=== PATIENT | male | born 1960 | race Caucasian/White ===

== ENCOUNTER → 2016-08-21 | Outpatient (CLI) | payer OTHER ==
[~2016-08-21] MED LIST: ALPR-385 PO; ASPEC81 PO; CARI350T28 PO; GLC5 PO; LPT40 PO; METF-384 PO; OXYC1TAB3 PO; PLV75 PO; VNTHFA/IN INH
--- NOTE | 2016-08-21 09:08 | DIAGNOSTIC IMAGING REPORT ---
CHEST 2 VIEWS ROUTINE HISTORY: Cough. COMPARISON: Chest 08/03/2015. FINDINGS: The lungs are clear. Cardiac silhouette is normal in size. No pleural effusions. No pneumothorax. IMPRESSION: No acute process. Electronically signed by: Kaiden Jacobson M.D. 08/21/2016 9:07 AM Dictated Date/Time: 08/21/2016 9:04 AM
== END | disposition home or self-care (01) ==
LOC: C.RAD1850 08:36
PROVIDERS: ATTEND Internal Medicine
DX: R05 Cough (principal)

== ENCOUNTER 2016-08-24 13:11 | Emergency (ER) | payer OTHER ==
[~2016-08-24] VITALS: Ht 177.8 cm; Wt 98.0 kg
[~2016-08-24 13:11] MED LIST changes: -ASPEC81 PO; -LPT40 PO; -OXYC1TAB3 PO; -PLV75 PO; -VNTHFA/IN INH
[2016-08-24 13:14] VITALS: BP 124/79; PULSE 77; TEMP 36.7; O2SAT 98; Ht 177.8 cm; Wt 98.0 kg
[2016-08-24] MEDS ORDERED: HYDROmorphone INJ 2 MG/ML SYR/VIAL IM STA (13:33)
[2016-08-24] MEDS ORDERED: KETOROLAC TROMETHAMINE 60 MG/2 ML VIAL IM STA (13:33)
[2016-08-24] MEDS ORDERED: VNTHFA/IN INH (14:24)
[2016-08-24] MEDS ORDERED: OXYC1TAB3 PO (14:38)
--- NOTE | 2016-08-24 14:38 | EMERGENCY ROOM VISIT NOTE ---
History First contact with patient: 13:19 Chief Complaint: BACK PAIN Stated Complaint: BACK PAIN History of Present Illness The patient is a 56 year old male who presents to the Emergency Room with complaints of low back pain which has been gradually increasing over the past one week. The patient does have a long history of back pain and states that he has a "collapsed" disc. He has previously seen Dr. Ku of pain management and used to receive injections in the back, but states that he has not been able to do this due to insurance issues. He states that he has pain in the left lower back radiating into the buttock as well as tightness of the right lower back muscles. He does state that this feels similar to previous back pain, but more severe. The pain is worse with movement and he occasionally becomes nauseated due to the pain. He states that he does have daily pain with his chronic back pain and typically smokes marijuana for relief of the pain. He saw his primary care provider 4 days ago and was given 30 tablets of oxycodone for this pain. He states that his most recent MRI was 2 years ago. He denies any abdominal pain, urinary symptoms, incontinence, numbness or weakness. He does state he occasionally has a feeling of pins and needles in the leg. He denies any fevers or chills. Review of Systems A complete 6 point review of systems was reviewed with the patient with pertinent positives and negatives as per history of present illness. All else were negative. Past Medical/Surgical History Medical Problems: (1) DENTAL DISORDER NOS (2) HYPERLIPIDEMIA NEC/NOS (3) OBESITY, NOS Social History Smoking Status: Current Every Day Smoker Alcohol Use: none Drug Use: none Marital Status: single Housing Status: lives alone Occupation Status: employed Current/Historical Medications Scheduled Albuterol Hfa (Ventolin Hfa), 2-4 PUFFS INH Q6H Glipizide (Glipizide), 10 MG PO BID Metformin Hcl (Glucophage), 1,000 MG PO BID Scheduled PRN Alprazolam (Xanax), 1 MG PO TID PRN for Pain Carisoprodol (Soma), 350 MG PO TID PRN for Pain Oxycodone Ir (Roxicodone Ir), 1-2 TAB PO Q4H PRN for Pain Allergies Coded Allergies: No Known Allergies (Verified , 08/24/16) Physical Exam Vital Signs Date Time Temp Pulse Resp B/P Pulse Ox O2 Delivery O2 Flow Rate FiO2 08/24/16 13:14 36.7 77 16 124/79 98 Room Air Physical Exam VITALS: Vitals are noted on the nurse's note and reviewed by myself. No abnormalities noted. GENERAL: This is a 56-year-old male, in no acute distress, nondiaphoretic, well- developed well-nourished. SKIN: The skin was without rashes, erythema, edema, or bruising. HEAD: Normocephalic atraumatic. EYES: Pupils equal round and reactive to light and accommodation. The Extraocular movements intact. NECK: Supple without nuchal rigidity. No cervical spine tenderness. No paraspinous muscle tenderness. No lymphadenopathy. HEART: Regular rate and rhythm without murmurs gallops or rubs. LUNGS: Clear to auscultation bilaterally without wheezes, rales or rhonchi. ABDOMEN: Positive bowel sounds x 4. Normal tympanic percussion. Soft, nontender, without masses or organomegaly. Negative axillary or inguinal adenopathy. Salcedo sign negative. MUSCULOSKELETAL: No muscle atrophy, erythema, or edema noted of the back. There is mild tenderness over the lumbar spinous processes. There is tenderness over the paraspinous muscles R>L. There is no tenderness over the thoracic spine or paraspinous muscles. There are no muscle spasms present. The patient is slow to move around with maximum tenderness with flexion. Negative straight leg raise test. NEURO: Patient was alert and oriented to person place and time. Normal sensation to light and sharp touch. Deep tendon reflexes 2+ in the lower extremities. Dorsalis pedis pulse 2+ bilaterally. Heel and toe walking is normal. Medical Decision & Procedures Medications Administered Medications (Trade) Dose Ordered Sig/[facility] Route Start Time Stop Time Status Last Admin Dose Admin Hydromorphone HCl (Dilaudid Inj) 2 mg NOW STAT IM 08/24/16 13:33 08/24/16 13:34 DC 08/24/16 13:42 2 MG Ketorolac Tromethamine (Toradol Inj) 60 mg NOW STAT IM 08/24/16 13:33 08/24/16 13:34 DC 08/24/16 13:43 60 MG Medical Decision Differential diagnosis includes lumbar disc disease, muscular strain, lumbar spasms, cauda equina syndrome, cord compression, malignancy, epidural abscess, osteomyelitis, among others. The patient was evaluated as above. Previous records were reviewed. The patient presents with chronic back pain which has worsened over the past one week. I am not clinically suspicious of cauda equina syndrome or cord compression. He did receive a prescription for 30 tablets of oxycodone which was confirmed by the [place] prescription drug monitoring program. The patient was very forthcoming with this information and did not try to hide any of the prescriptions he had received in the past. Therefore, I do feel it is reasonable to treat the patient's pain today and give him enough pain medication to last him until he is able to see his primary care provider or pain management tomorrow. He was given 2 mg Dilaudid IM and 60 mg Toradol IM with moderate relief of his symptoms. He was given a very small prescription for OxyIR. He will follow up with primary care provider and pain management and will return for any worsening or concerning symptoms. He verbalized understanding of my assessment and treatment plan and was discharged home in good condition. Impression Primary Impression: Acute exacerbation of chronic low back pain Departure Information Dispostion Home / Self-Care Condition GOOD Prescriptions Oxycodone Ir (Roxicodone Ir) 5 Mg Tab 1-2 TAB PO Q4H Y for Pain, #10 TAB For Initial Treatment Prov: Krystal Riddle .EDDIE 08/24/16 Referrals Kleber Zepeda M.D. (PCP) Patient Instructions My [facility] Additional Instructions You have been treated in the Emergency Department for Back Pain. You have received pain medicine in the emergency department which impairs your ability to operate a vehicle. It is illegal for you to drive after receiving these medicines. You have been prescribed OxyIR to be used for pain control. This is a narcotic medication. You cannot drive or consume alcohol while on this medicine. This medicine should only be used for pain that cannot be controlled with over-the- counter pain medicines. For pain control, you can use the following [id number] medicines (if >12 yo): - Regular strength (325mg/tab) Tylenol (acetaminophen) 2 tabs every 4-6 hours as needed. Do not exceed 12 tablets in a 24 hour period. Avoid taking more than 4 grams (4000 mg) of Tylenol per day. This includes any other sources of acetaminophen you may take on a regular basis. - Regular strength (200 mg/tab) Advil (ibuprofen) 1-2 tabs every 4-6 hours as needed. Do not exceed a dose of 3200 mg per day. If this is an acute injury, ice can be applied to the area of pain for the first 3 days to help decrease pain and inflammation. After the first 3 days, a heating pad can be used over the area for continued soothing relief. You should schedule a follow-up appointment in 2-3 days with your Primary Care Provider for further evaluation and treatment of your back pain. Return to the Emergency Department if your current symptoms worsen despite treatment course outlined above, or if you develop any of the following symptoms : intractable pain despite aforementioned treatment course, loss of control of your bowel or bladder, numbness or tingling in your groin, or development of a fever.
[2017-01-25] MEDS ORDERED: LPT40 PO (10:27)
[2017-01-25] MEDS ORDERED: PLV75 PO (10:27)
[2017-01-25] MEDS ORDERED: ASPEC81 PO (10:27)
== END 2016-08-24 15:00 | disposition home or self-care (01) ==
LOC: C.EDB 13:13 → C.EDD 15:00
DX: M54.5 Low back pain (principal); G89.29 Other chronic pain; E78.5 Hyperlipidemia, unspecified; E66.9 Obesity, unspecified; F17.210 Nicotine dependence, cigarettes, uncomplicated; Z79.899 Other long term (current) drug therapy

== ENCOUNTER 2017-01-03 02:03 | Emergency (ER) | payer OTHER ==
[~2017-01-03] VITALS: Ht 177.8 cm; Wt 97.0 kg
[~2017-01-03 02:03] MED LIST changes: +OXYC1TAB3 PO; +VNTHFA/IN INH
[2017-01-03 02:07] VITALS: Ht 177.8 cm; Wt 97.0 kg
[2017-01-03] MEDS ORDERED: PROMETHAZINE HCL INJ 25 MG/ML 1 ML VIAL IM STA (02:21)
[2017-01-03] MEDS ORDERED: KETOROLAC TROMETHAMINE 60 MG/2 ML VIAL IM STA (02:21)
[2017-01-03] MEDS ORDERED: HYDROmorphone INJ 2 MG/ML SYR/VIAL IM STA (02:21)
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
[2017-01-03] MEDS ORDERED: OXYC1TAB3 PO (04:35)
[2017-01-03 04:45] VITALS: BP 124/77; PULSE 82; TEMP 36.5; O2SAT 99
[2017-01-03] MEDS ORDERED: OXYCODONE IR HOME PACK PO ONE (04:45)
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
[2017-01-25] MEDS ORDERED: PLV75 PO (10:27)
[2017-01-25] MEDS ORDERED: LPT40 PO (10:27)
[2017-01-25] MEDS ORDERED: ASPEC81 PO (10:27)
== END 2017-01-03 04:46 | disposition home or self-care (01) ==
LOC: C.EDB 02:04
DX: S89.92XA Unspecified injury of left lower leg, initial encounter (principal); M79.661 Pain in right lower leg; V89.2XXA Person injured in unspecified motor-vehicle accident, traffic, initial encounter; S80.219A Abrasion, unspecified knee, initial encounter; S50.319A Abrasion of unspecified elbow, initial encounter; E78.5 Hyperlipidemia, unspecified; E66.9 Obesity, unspecified; F17.200 Nicotine dependence, unspecified, uncomplicated; F12.90 Cannabis use, unspecified, uncomplicated

== ENCOUNTER → 2017-01-05 | Outpatient (CLI) | payer OTHER ==
[~2017-01-05] MED LIST changes: +ASPEC81 PO; +LPT40 PO; +PLV75 PO
== END | disposition home or self-care (01) ==
LOC: C.RDSM 12:40
PROVIDERS: ATTEND Physical Medicine & Rehabilitation Sports Medicine
DX: M79.604 Pain in right leg (principal)

== ENCOUNTER 2017-01-24 07:45 | Inpatient (IN) | payer OTHER ==
[~2017-01-24] VITALS: Ht 177.8 cm; Wt 94.5 kg
[~2017-01-24 07:45] MED LIST changes: -ASPEC81 PO; -LPT40 PO; -PLV75 PO
[2017-01-24] MEDS ORDERED: SODIUM CHLORIDE 0.9% 1000ML 1,000 ML IV SCH (08:02)
[2017-01-24 08:13] LABS: BASO % 0.5 %; BASO ABS # 0.05 K/uL (0-0.2); COMPLETE YES; EOS % 5.2 %; HEMATOCRIT 52.9 % (42-52); IG% 0.2 %; LYMPH % 25.2 %; LYMPH ABS # 2.46 K/uL (1.2-3.4); MEAN CELL VOLUME 89.4 fL (80-100); MEAN CORPUSCULAR HEMOGLOBIN 30.4 pg (25-34); MEAN PLATELET VOLUME 9.1 fL (7.4-10.4); MONO % 6.9 %; PLATELET COUNT 188 K/uL (130-400); RED BLOOD COUNT 5.92 M/uL (4.7-6.1); WHITE BLOOD COUNT 9.78 K/uL (4.8-10.8)
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
[2017-01-24] MEDS ORDERED: ASPIRIN/ALUM/MAGNES/CAL CARB 325 MG TAB PO STA (08:21)
[2017-01-24 08:24] LABS: ISTAT IONIZED CALCIUM 1.24 mmol/l (1.12-1.32)
[2017-01-24 08:27] LABS: INR 0.9 (0.9-1.1)
[2017-01-24 08:37] LABS: BLOOD UREA NITROGEN 16 mg/dl (7-18); BUN/CREATININE RATIO 13.1 (10-20); CALCIUM 9.8 mg/dl (8.5-10.1); CARBON DIOXIDE 28 mmol/L (21-32); CHLORIDE 106 mmol/L (98-107); GLUCOSE 165 mg/dl (70-99); POTASSIUM 4.2 mmol/L (3.5-5.1); SODIUM 140 mmol/L (136-145)
[2017-01-24] MEDS ORDERED: ASPIRIN 324 MG CHEW PO ONE (08:55)
[2017-01-24] MEDS ORDERED: NICOTINE 21 MG/24 HR TDSY TD SCH (09:00)
[2017-01-24 09:07] VITALS: O2SAT 96; Ht 177.8 cm; Wt 94.5 kg
[2017-01-24] MEDS ORDERED: PHARMACIST DISCHARGE MED REC CONSULT PRN (09:45)
[2017-01-24] MEDS ORDERED: ACETAMINOPHEN 325 MG TAB PO PRN (09:45)
[2017-01-24] MEDS ORDERED: ALPRAZOLAM 0.5 MG TAB PO PRN (09:45)
[2017-01-24] MEDS ORDERED: ALUMINUM/MAGNESIUM/SIMETH (MAALOX MAX) 30 ML UDC PO PRN (09:45)
[2017-01-24] MEDS ORDERED: CARISOPRODOL 350 MG TAB PO PRN (09:45)
[2017-01-24] MEDS ORDERED: MAGNESIUM HYDROXIDE SUSP 30 ML UDC PO PRN (09:45)
[2017-01-24] MEDS ORDERED: ONDANSETRON INJ 2 MG/ML 2 ML VIAL IV PRN (09:45)
[2017-01-24] MEDS ORDERED: POLYETHYLENE (MIRALAX) 17 GM PACK PO PRN (09:45)
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
[2017-01-24 10:10] VITALS: O2SAT 94
[2017-01-24] MEDS ORDERED: GLUCOSE 40% GEL 15 GM TUBE PO PRN (10:15)
[2017-01-24] MEDS ORDERED: GLUCOSE 10 TABS/TUBE PO PRN (10:15)
[2017-01-24] MEDS ORDERED: DEXTROSE 50% 50 ML SYR IV PRN (10:15)
[2017-01-24] MEDS ORDERED: GLUCAGON FOR INJ 1 MG VIAL SQ PRN (10:15)
[2017-01-24 11:19] LABS: ESTIMATED AVERAGE GLUCOSE 171 mg/dl; HA1C FLAG Normal (Normal)
--- NOTE | 2017-01-24 11:19 | DIAGNOSTIC IMAGING REPORT ---
CAROTID ARTERY ULTRASOUND CLINICAL HISTORY: Stroke COMPARISON STUDY: None. TECHNIQUE: Real-time, grayscale, and color Doppler sonography of the carotid and vertebral arteries was performed. Images were viewed in the transverse and longitudinal planes. FINDINGS: There is mild atherosclerotic plaque. Velocity measurements are listed below. COMMON CAROTID PEAK SYSTOLIC VELOCITY (CM/S): RIGHT 102 LEFT 89 ICA PEAK SYSTOLIC VELOCITY (CM/S): RIGHT 70 LEFT 78 The systolic ratios between the internal to common carotid arteries were normal. Antegrade flow is seen in the vertebral arteries. The external carotid arteries are patent. Blood pressure in the right arm measured 133/73. Blood pressure in the left arm measured 136/74. IMPRESSION: No evidence of a hemodynamically significant stenosis. Electronically signed by: Bandar Powers M.D. 01/24/2017 11:17 AM Dictated Date/Time: 01/24/2017 11:15 AM
[2017-01-24 11:21] LABS: BENZODIAZEPINE, URINE NEG (NEG); COCAINE,URINE NEG (NEG); PHENCYCLIDINE, URINE NEG (NEG)
--- NOTE | 2017-01-24 11:57 | DIAGNOSTIC IMAGING REPORT ---
MRI OF THE BRAIN WITHOUT AND WITH IV CONTRAST CLINICAL HISTORY: Stroke. Right facial and hand numbness. Slurred speech. COMPARISON STUDY: Head CT performed earlier today TECHNIQUE: Utilizing a 1.5 [place] magnet and dedicated coil, multiplanar, multiecho imaging of the brain was performed pre and postcontrast administration. IV administration of 10 mL of Gadavist contrast was uneventful. FINDINGS: Faint increased signal intensity is noted within the posterior left frontal lobe and anterior left parietal lobe shown on diffusion weighted images 16, 17 and 18. This is probably artifactual although a small acute infarct could have this appearance. No corresponding signal abnormality shown on the remainder of the pulsing sequences. No intracranial mass or pathologic enhancement is present. Ventricular system is normal. Basilar cisterns are patent. There are no extra-axial collections. Flow-voids for the major intracranial vessels are present. Several signal is maintained. There are postsurgical findings within the sinuses. There is a left maxillary sinus mucous retention cyst. IMPRESSION: 1. No definite acute intracranial findings. Equivocal acute infarct with the left frontoparietal region is probably artifactual. No corresponding signal abnormality on the FLAIR sequence. 2. No intracranial hemorrhage or mass effect. Electronically signed by: Bandar Powers M.D. 01/24/2017 11:56 AM Dictated Date/Time: 01/24/2017 11:49 AM
--- NOTE | 2017-01-24 12:28 | DIAGNOSTIC IMAGING REPORT ---
RIGHT LOWER EXTREMITY VENOUS DOPPLER CLINICAL HISTORY: Trauma. Evaluate for deep venous thrombus. COMPARISON STUDY: No previous studies for comparison. TECHNIQUE: Sonography of the deep venous system of the right lower extremity was performed. Compression and augmentation were evaluated. FINDINGS: The right common femoral, superficial femoral and popliteal veins were compressible. Augmentation was normal. Flow was shown within the deep calf vessels. IMPRESSION: No evidence of deep venous thrombus within the right lower extremity. Electronically signed by: Bandar Powers M.D. 01/24/2017 12:26 PM Dictated Date/Time: 01/24/2017 12:26 PM
[2017-01-24 12:30] VITALS: BP 112/76; PULSE 60; TEMP 36.6; O2SAT 97
[2017-01-24] MEDS: INSULIN ASPART 100 UNITS/ML 3 ML PEN SC SCH ×3 (12:43→21:00)
[2017-01-24] MEDS: ENOXAPARIN 40 MG/0.4 ML SYR SC SCH (13:26)
[2017-01-24] MEDS ORDERED: OPTIRAY 320 IV PRN (13:30)
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
[2017-01-24 15:23] VITALS: BP 136/77; PULSE 63; TEMP 37; O2SAT 97
[2017-01-24 19:47] VITALS: BP 128/75; PULSE 73; TEMP 36.6; O2SAT 94
[2017-01-24] MEDS ORDERED: METFORMIN HCL 500 MG TAB PO SCH (21:00)
--- NOTE | 2017-01-24 21:02 | DIAGNOSTIC IMAGING REPORT ---
CT ANGIOGRAPHY OF THE NECK WITH CONTRAST CLINICAL HISTORY: Right facial and hand numbness. Stroke workup. COMPARISON STUDY: Carotid ultrasound January 24, 2017. Technique: CT angiography of the carotid and vertebral arteries was obtained using OptiraAutopilot (formerly Bislr) 320 IV and 3D reconstruction on an independent workstation. NASCET criteria was utilized. CT DOSE: 587.97 mGy.cm Findings: The origins of the bilateral common carotid and vertebral arteries are patent. There is no significant stenosis within the bilateral common carotid arteries. There is mild plaque at the origin of the right internal carotid artery without significant stenosis. There is moderate plaque within the left carotid bifurcation extending into the proximal aspect of the left internal carotid artery. Irregularity of the plaque suggests ulcerated plaque. There is approximately 50% stenosis of the proximal left internal carotid artery. The narrowed segment measures 2 mm while the distal segment measures 4 mm. No additional stenoses are identified. There is no cervical lymphadenopathy. Lung apices are clear. Skeletal structures are unremarkable. The CTA of the head will be reported separately. IMPRESSION: 1. Moderate atherosclerotic plaque within the distal left common carotid artery and proximal left internal carotid artery which appears ulcerated. This results in short segment narrowing of the proximal left internal carotid artery with stenosis of 50%. 2. Mild plaque within the proximal right internal carotid artery without significant stenosis of this vessel. Electronically signed by: Bandar Powers M.D. 01/24/2017 9:00 PM Dictated Date/Time: 01/24/2017 8:49 PM
--- NOTE | 2017-01-24 21:09 | DIAGNOSTIC IMAGING REPORT ---
CTA ANGIOGRAPHY OF THE HEAD CLINICAL HISTORY: Stroke workup. Right facial and hand numbness. COMPARISON STUDY: Head CT and MRI of the brain performed earlier today. TECHNIQUE: Helical axial images of the head were obtained following uneventful intravenous administration of 116 cc of Optiray 320. FINDINGS: The bilateral M1, M2, A1 and A2 segments are patent. There is no abrupt vessel cut off within the intracranial circulation. The posterior circulation is also intact. No aneurysm is identified. There is no dissection within the major vessels of the neck. Postsurgical findings within the sinuses are noted with a mucous retention cyst within the left maxillary sinus. No acute intracranial hemorrhage, midline shift or mass effect is present. Ventricular system is normal. Basilar cisterns are patent. There are no extra axial collections. IMPRESSION: Unremarkable CTA of the head. Electronically signed by: Bandar Powers M.D. 01/24/2017 9:07 PM Dictated Date/Time: 01/24/2017 9:01 PM
[2017-01-24 23:37] VITALS: BP 127/80; PULSE 53; TEMP 36.7; O2SAT 96
[2017-01-25 04:01] VITALS: BP 137/81; PULSE 58; TEMP 36.6; O2SAT 97
[2017-01-25] MEDS: INSULIN ASPART 100 UNITS/ML 3 ML PEN SC SCH ×2 (06:58→11:00)
[2017-01-25 07:07] VITALS: BP 117/76; PULSE 50; TEMP 37; O2SAT 98
[2017-01-25 07:12] LABS: BASO % 0.9 %; BASO ABS # 0.07 K/uL (0-0.2); COMPLETE YES; EOS % 6.2 %; HEMATOCRIT 50.6 % (42-52); IG% 0.2 %; LYMPH % 26.4 %; LYMPH ABS # 2.13 K/uL (1.2-3.4); MEAN CELL VOLUME 88.9 fL (80-100); MEAN CORPUSCULAR HEMOGLOBIN 31.3 pg (25-34); MEAN CORPUSCULAR HGB CONC 35.2 g/dl (32-36); MEAN PLATELET VOLUME 9.4 fL (7.4-10.4); MONO % 7.2 %; NEUT % 59.1 %; PLATELET COUNT 163 K/uL (130-400); RED BLOOD COUNT 5.69 M/uL (4.7-6.1); WHITE BLOOD COUNT 8.08 K/uL (4.8-10.8)
[2017-01-25] MEDS: ENOXAPARIN 40 MG/0.4 ML SYR SC SCH (07:15)
[2017-01-25 07:49] LABS: BUN/CREATININE RATIO 11.6 (10-20); CALCIUM 8.8 mg/dl (8.5-10.1); POTASSIUM 4.2 mmol/L (3.5-5.1)
[2017-01-25 07:52] LABS: CHOLESTEROL/HDL RATIO 5.2
[2017-01-25] MEDS ORDERED: ASPIRIN 81 MG ECTAB PO SCH ×2 (09:00)
[2017-01-25] MEDS ORDERED: ATORVASTATIN 40 MG TAB PO SCH (09:00)
[2017-01-25] MEDS ORDERED: CLOPIDOGREL BISULFATE 75 MG TAB PO SCH (10:15)
[2017-01-25] MEDS ORDERED: ASPEC81 PO (10:27)
[2017-01-25] MEDS ORDERED: LPT40 PO (10:27)
[2017-01-25] MEDS ORDERED: PLV75 PO (10:27)
--- NOTE | 2017-01-25 10:58 | Discharge Instructions ---
Discharge Instructions Date of Service Jan 25, 2017. Admission Reason for Admission: Stroke Discharge Discharge Diagnosis / Problem: Transient ischemic attack Discharge Goals Goal(s): Improve function, Improve disease control Activity Recommendations Activity Limitations: resume your previous activity Lifting Limitations: none Exercise/Sports Limitations: as tolerated (30 minutes 5 days a week) May Resume Sexual Activity: when tolerated Shower/Bathe: no limitations Driving or Machine Use: no limitations . Instructions / Follow-Up Instructions / Follow-Up Medications: - Plavix: initiated with evidence of stenosis in the left carotid artery and stroke like symptoms, continue indefinitely for stroke prevention - Lipitor: statin to prevent future strokes, control carotid atherosclerosis, cholesterol levels were near goal with LDL 112 but ideally should be less than 100 - Aspirin: 81mg, take in addition to Plavix for one month, after one month can stop taking Aspirin as Plavix will be sufficient stroke prevention right sided numbness, facial droop, right hand weakness: likely a small stroke or transient ischemic attack MRI did not show clear evidence of a stroke carotid imaging showed left internal carotid stenosis of 50%, this does not require intervention but does need to be monitored as outpatient with ultrasound every 6 months echocardiogram normal and no arrhythmias secondary stroke prevention: several things that you can do to prevent further strokes - take Plavix as prescribed, take aspirin for the next month then stop - take Lipitor to lower cholesterol and stabilize plaques - blood pressure control, you had no evidence of hypertension while in the hospital - diabetes control, your HbA1c was 7.6 so it is nearly at goal of 7.5, continue oral medications, make an extra effort to limit carbohydrates in diet - weight loss - stop smoking carotid artery stenosis: 50%, no intervention required, however, you need to have repeat US in 6-12 months, Dr. Zepeda will order and follow FOLLOW UP - Dr. Zepeda in one week, call for appointment, discuss getting an echo as outpatient - Dr. Alicea in one month, call for appointment, Risk Factors for Stroke: You can reduce your chances of stroke by working with your medical provider to adopt a healthy lifestyle. Some specific ways to lower your chance of stroke are: * If you are a smoker, now is the time to stop smoking cigarettes * If you are diabetic, improve the control of your blood sugars * Avoid excessive amounts of alcohol * Control high blood pressure * Lose weight if you are overweight * Be sure to lead an active lifestyle * Eat a healthy diet low in salt, cholesterol and fat You should know about other risk factors for stroke that you are unable to control. These include: * Age 55 years or older * Male gender * Certain racial groups: , or / * Family History of Stroke, Mini stroke or Heart Attack * Sickle Cell Disease Follow Up: It is important for you to keep your follow up appointments with your medical provider. Current Hospital Diet Patient's current hospital diet: Diabetes Type 2 Diet Discharge Diet Recommended Diet: AHA Diet (Heart Healthy), Diabetes Type 2 Diet Pending Studies Studies pending at discharge: yes List of pending studies: hypercoagulable work up, Dr. Alicea will discuss results at follow up clinic Laboratory Results Hemoglobin A1c Test 01/24/17 08:00 Range/Units Estimated Average Glucose 171 mg/dl Hemoglobin A1c 7.6 H 4.5-5.6 % Lipid Panel Test 01/25/17 06:45 Range/Units Triglycerides Level 149 0-150 mg/dl Cholesterol Level 176 0-200 mg/dl HDL Cholesterol 34 mg/dl Cholesterol/HDL Ratio 5.2 LDL Cholesterol, Calculated 112 mg/dl Medical Emergencies . Who to Call and When: Medical Emergencies: Call 911 immediately if you experience any of the following warning signs and symptoms of Stroke: * Sudden numbness or weakness of the face, arm or leg, especially on one side of the body * Sudden confusion, trouble speaking or understanding * Sudden trouble seeing in one or both eyes * Sudden trouble walking, dizziness, loss of balance or coordination * Sudden severe headache with no cause Do not delay calling 911 if you experience any warning signs or symptoms of a stroke. Delay in seeking medical attention may affect what treatments can be given to you. . Non-Emergent Contact Non-Emergency issues call your: Primary Care Provider Call Non-Emergent contact if: you have any medication questions . . "Provider Documentation" section prepared by Jerrod Cortes. . Stroke Core Measures Reason no t-PA for Stroke: Treatment not indicated Reason no antithrom by day 2: Treatment provided - N/A Reason no antithrom at D/C: Treatment provided - N/A Reason no statin at D/C: Treatment provided - N/A Reason no anticoag w/a fib: Treatment not indicated VTE Core Measure Inpt VTE Proph given/why not?: Enoxaparin (Lovenox)SQ [place] Drug Monitoring Program Search Results: no issues identified
[2017-01-25 10:59] VITALS: BP 149/84; PULSE 58; TEMP 37.1; O2SAT 98
[2017-01-25 11:06] VITALS: BP 149/84; PULSE 58; TEMP 37.1; O2SAT 98
--- NOTE | 2017-01-25 11:16 | Discharge Summary ---
Discharge Summary Date of Service Jan 25, 2017. Discharge Summary Admission Date: Jan 24, 2017 at 09:49 Discharge Date: Jan 25, 2017 Discharge Disposition: Home Principal Diagnosis: Transient ischemic attack Problems/Secondary Diagnoses: Left internal carotid artery stenosis Dyslipidemia DM type II Tobacco abuse Marijuana abuse Obesity Procedures: MRI brain - likely artifact in left frontal lobe, no signs of stroke Carotid US - 50% L ICA stenosis Consultations: Neurology Medication Reconciliation New Medications: Aspirin (Aspirin EC Low Dose) 81 Mg Ectab 81 MG PO QAM, #30 TABS 3 Refills Atorvastatin (Atorvastatin Calcium) 40 Mg Tab 40 MG PO QAM, #30 TAB 2 Refills Clopidogrel Bisulfate (Clopidogrel) 75 Mg Tab 75 MG PO QAM, #30 TAB 3 Refills Continued Medications: Alprazolam (Xanax) 1 Mg Tab 1 MG PO TID PRN for Pain Carisoprodol (Soma) 350 Mg Tab 350 MG PO TID PRN for Pain, 0 Refills Glipizide (Glipizide) 5 Mg Tab 10 MG PO BID Metformin Hcl (Glucophage) 1,000 Mg Tab 1000 MG PO BID Discharge Exam Patient feeling well, no symptoms today. Anxious to get home. Discussed with Dr. Alicea, repeat MRI would not pattern changer and repairer, would only potentially change diagnosis from TIA to stroke. Likely cause of symptoms was large vessel disease with left ICA stenosis. Long talk with patient about secondary stroke prevention and need to be compliant with medications, get exercise, lose weight , stop smoking. Discussed getting echocardiogram as outpatient as part of the work up and he agreed to do this. Review of Systems: Constitutional: No fever, No chills, No sweats, No weight loss, No weakness , No fatigue, No problem reported Eyes: No worsening of vision, No eye pain, No redness, No discharge, No diplopia, No problem reported ENT: No hearing loss, No unusual epistaxis, No nasal symptoms, No sore throat, No tinnitus, No dental problems, No trouble swallowing, No problem reported Respiratory: No cough, No sputum, No wheezing, No shortness of breath, No dyspnea on exertion, No dyspnea at rest, No hemoptysis, No problem reported Cardiovascular: No chest pain, No orthopnea, No PND, No edema, No claudication, No palpitations, No problem reported Abdomen: No pain, No nausea, No vomiting, No diarrhea, No constipation, No GI bleeding, No problem reported Musculoskeletal: No joint pain, No muscle pain, No swelling, No calf pain, No problem reported Genitourinary - Male: No hematuria, No dysuria, No urinary frequency, No urinary urgency Neurologic: No memory loss, No paralysis, No weakness, No numbness/tingling , No vertigo, No balance problems, No problem reported Psychiatric: + anxiety (wants to go to smoke), No depression symptoms, No anhedonism, No insomnia, No substance abuse, No problem reported Endocrine: No fatigue, No excessive thirst, No excessive urination, No problem reported Hematologic / Lymphatic: No abnormal bleeding/bruising, No clotting problems , No swollen lymph nodes, No night sweats, No problem reported Integumentary: No rash, No itch, No new/changing skin lesions, No color change, No bleeding, No problem reported Physical Exam: General Appearance: no apparent distress, + obese Eyes: normal inspection, EOMI, sclerae normal ENT: normal ENT inspection, hearing grossly normal, pharynx normal Neck: supple, no adenopathy, no JVD, trachea midline Respiratory/Chest: chest non-tender, lungs clear, normal breath sounds, no respiratory distress, no accessory muscle use Cardiovascular: regular rate, rhythm, no edema, no gallop, no JVD, no murmur , normal peripheral pulses Abdomen / GI: normal bowel sounds, non tender, soft, no organomegaly Extremities: normal inspection, no calf tenderness, normal capillary refill , no pedal edema, normal range of motion Neurologic/Psychiatric: 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 Cobos is a 56 y/o male with PMHx of T2DM, Chronic Tobacco Use, Chronic Marijuana Use, and Chronic Low Back Pain 2/2 Degenerative Changes who presents to the ED for sudden onset of R hand and face numbness/tingling, weaknessn and slurred speech that started at approx. 0700. Last known well was just prior to this as he woke up before 0700 his normal self. Suspect TIA - symptoms completely resolved - Symptoms affect R hand to wrist only and R cheek and mouth; family reports slurred speech and difficulty finding words - forehead wrinkling present and unlikely [place] Palsy - MRI brain: likely artifactual finding in left frontoparietal region, no clear signs of ischemic stroke - Carotid doppler: 50% stenosis in L ICA, ulcerated plaques - Echo: could not be performed in timely manner, will get outpatient - tele, no arrhythmias recommendations per neurology for secondary stroke prevention - dual antiplatelet therapy with aspirin and Plavix for one month, then just Plavix - take Lipitor 40mg daily to lower cholesterol and stabilize plaques - blood pressure control, no h/o HTN - HbA1c was 7.6 so it is nearly at goal of 7.5, continue oral medications, make an extra effort to limit carbohydrates in diet - weight loss - stop smoking - will follow up with neurology in clinic in one month, hypercoagulable work up sent and Dr. Alicea will follow up on results T2DM: - Check A1c - 7.6 - continue Metformin and Glipizide, discussed making an extra effort to watch carbohydrate intake Dyslipidemia: LDL 112 so not quite at goal of < 100 - d/c on Lipitor 40mg daily Chronic Low Back Pain 2/2 Degenerative Changes: Follows with Dr. Ku - Soma 350 mg TID PRN Chronic Tobacco/Marijuana Use: - Recommended cessation - patient reports he smokes 1/2 ppd but typically smokes marijuana - Does have a chronic productive cough related to smoking - reports outpatient PFTS that did not suggest asthma or COPD - Nicotine patch daily while in the hospital - will d/w Dr. Zepeda cessation methods DVT Prophylaxis: Lovenox 40 mg SC daily Code Status: FULL RESUSCITATION Total Time Spent: Greater than 30 minutes This includes examination of the patient, discharge planning, medication reconciliation, and communication with other providers. Discharge Instructions Please refer to the electronic Patient Visit Report (Discharge Instructions) for additional information. Follow-Up Dr. Zepeda in one week Dr. Alicea in one month Additional Copies To Kleber Zepeda M.D.; Jolly Montejo D.O.
--- NOTE | 2017-01-25 11:52 | Neurology Progress Notes ---
Neurology Progress Note Date of Service Jan 25, 2017. Subjective Patient continues to be at his baseline. No new neurological symptoms. CTA of the head and neck reviewed. Noted to have moderate atherosclerotic plaque in the distal left carotid artery and proximal left ICA with ulcerated appearance. 50% stenosis of the left ICA. Mild plaque formation in the right ICA. Total cholesterol 176, LDL 112, HDL 34, triglycerides 149 Objective Date Time Temp Pulse Resp B/P (MAP) Pulse Ox O2 Delivery O2 Flow Rate FiO2 01/25/17 11:06 37.1 58 16 98 Room Air 01/25/17 10:59 37.1 58 16 149/84 (105) 98 Room Air 01/25/17 08:00 Room Air 01/25/17 07:07 37.0 50 16 117/76 (90) 98 Room Air 01/25/17 04:01 36.6 58 16 137/81 (99) 97 Room Air 01/25/17 04:00 Room Air 01/24/17 23:59 Room Air 01/24/17 23:37 36.7 53 16 127/80 (96) 96 Room Air 01/24/17 20:00 Room Air 01/24/17 19:47 36.6 73 20 128/75 (92) 94 Room Air 01/24/17 16:00 Room Air 01/24/17 15:23 37.0 63 20 136/77 (96) 97 Room Air 01/24/17 12:30 36.6 60 20 112/76 (88) 97 Room Air Last 24 Hours Test 01/24/17 12:36 01/24/17 16:27 01/24/17 20:52 01/25/17 06:45 Bedside Glucose 121 mg/dl 179 mg/dl 149 mg/dl White Blood Count 8.08 K/uL Red Blood Count 5.69 M/uL Hemoglobin 17.8 g/dL Hematocrit 50.6 % Mean Corpuscular Volume 88.9 fL Mean Corpuscular Hemoglobin 31.3 pg Mean Corpuscular Hemoglobin Concent 35.2 g/dl Platelet Count 163 K/uL Mean Platelet Volume 9.4 fL Neutrophils (%) (Auto) 59.1 % Lymphocytes (%) (Auto) 26.4 % Monocytes (%) (Auto) 7.2 % Eosinophils (%) (Auto) 6.2 % Basophils (%) (Auto) 0.9 % Neutrophils # (Auto) 4.78 K/uL Lymphocytes # (Auto) 2.13 K/uL Monocytes # (Auto) 0.58 K/uL Eosinophils # (Auto) 0.50 K/uL Basophils # (Auto) 0.07 K/uL RDW Standard Deviation 44.2 fL RDW Coefficient of Variation 13.4 % Immature Granulocyte % (Auto) 0.2 % Immature Granulocyte # (Auto) 0.02 K/uL Sodium Level 140 mmol/L Potassium Level 4.2 mmol/L Chloride Level 108 mmol/L Carbon Dioxide Level 26 mmol/L Anion Gap 6.0 mmol/L Blood Urea Nitrogen 12 mg/dl Creatinine 1.00 mg/dl Est Creatinine Clear Calc Drug Dose 96.3 ml/min Estimated GFR () 97.8 Estimated GFR (Non- 84.4 BUN/Creatinine Ratio 11.6 Random Glucose 154 mg/dl Calcium Level 8.8 mg/dl Total Bilirubin 0.9 mg/dl Direct Bilirubin 0.2 mg/dl Aspartate Amino Transf (AST/SGOT) 11 U/L Alanine Aminotransferase (ALT/SGPT) 22 U/L Alkaline Phosphatase 75 U/L Total Protein 6.7 gm/dl Albumin 3.5 gm/dl Triglycerides Level 149 mg/dl Cholesterol Level 176 mg/dl HDL Cholesterol 34 mg/dl LDL Cholesterol, Calculated 112 mg/dl VLDL Cholesterol, Calculated 30 mg/dl Cholesterol/HDL Ratio 5.2 Test 01/25/17 06:46 01/25/17 10:58 Bedside Glucose 146 mg/dl 198 mg/dl Exam: Gen.: Patient is alert and sitting in bed, in no acute distress. HEENT: Normocephalic /atraumatic, no scleral icterus Extremities: No gross deformities or rashes noted Neurological examination: Mental status: Patient is alert and oriented x3. Attention and concentration normal for the situation. Good fund of knowledge. Able to give her own history. Speech is fluent without any dysarthria or aphasia noted Cranial nerve: No facial asymmetry noted.Hearing grossly intact to voice. Strength: full in all extremities. Gait normal Impression This is a 56-year-old male who presents with sudden onset of right facial and hand numbness along with significant right hand weakness, concerning for a TIA versus small ischemic event. Likely large vessel embolic etiology. No stroke risk factors include diabetes and dyslipidemia with signs of left carotid atherosclerotic arterial disease. No residual neurological deficits. Plan Recommend aspirin 81 mg and Plavix 75 mg daily for the next month. After that can discontinue aspirin and remain on Plavix monotherapy. Due to questionable finding on previous MRI, ideally would like to get another MRI of the brain to classify this as a definitive TIA versus a small skin stroke. Hypercoagulable labs are pending. These labs will have to be followed up as an outpatient. Echocardiogram pending. Avoid hypotension and dehydration Stroke risk factor modifications and recommendations: Blood pressure recommendations for the first month post hospital discharge 150/ 90-130/80, and after that blood pressure recommendations 130/80-110/70 Total cholesterol goal 100- 200 and LDL goal less than 70 Hemoglobin A1c goal less than 7 Encourage cardiovascular exercise at least 3 times a week for 30 minutes. Smoking cessation Follow-up in neurology clinic in 1 month for post stroke hospital follow-up. If there is any questions or concerns, feel free to call/page me.
[2017-01-31 12:30] LABS: ANTITHROMBINIII ACTIVITY** 111 % activity (80-120); B2 GLYCOPROTEIN IGA <9 SAU (<=20); B2 GLYCOPROTEIN IGG <9 SGU (<=20); B2 GLYCOPROTEIN IGM <9 SMU (<=20); LUPUS ANTICOAGULANT** TC36573X Negative (Negative); PROTEIN C ACTIVITY** TC 1777X 115 % (70-180); PROTEIN S ACT(FUNCT)**1779X 125 % (70-150)
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
== END 2017-01-25 11:38 | disposition home or self-care (01) | DRG 69 ==
LOC: C.EDB 07:48 → C.2T 09:49 → ENRESERV 10:13
PROVIDERS: ADMIT Internal Medicine; ATTEND Internal Medicine
DX: G45.9 Transient cerebral ischemic attack, unspecified (principal); E11.9 Type 2 diabetes mellitus without complications; F17.210 Nicotine dependence, cigarettes, uncomplicated; M54.5 Low back pain; E78.5 Hyperlipidemia, unspecified; F12.10 Cannabis abuse, uncomplicated; E66.9 Obesity, unspecified; R29.701 NIHSS score 1; R20.9 Unspecified disturbances of skin sensation; I10 Essential (primary) hypertension

== ENCOUNTER → 2017-01-28 | Outpatient (CLI) | payer OTHER ==
[~2017-01-28] MED LIST changes: +ASPEC81 PO; +LPT40 PO; -OXYC1TAB3 PO; +PLV75 PO; -VNTHFA/IN INH
[2017-01-28 12:48] LABS: BLOOD UREA NITROGEN 15 mg/dl (7-18)
== END | disposition home or self-care (01) ==
LOC: C.LABBFT 07:50
PROVIDERS: ATTEND Physician Assistant Medical
DX: E11.9 Type 2 diabetes mellitus without complications (principal)

== ENCOUNTER → 2017-08-17 | Outpatient (CLI) | payer OTHER ==
[2017-08-17 17:44] LABS: BASO % 0.7 %; BASO ABS # 0.08 K/uL (0-0.2); EOS % 4.8 %; EOS ABS # 0.56 K/uL (0-0.5); HEMATOCRIT 47.2 % (42-52); HEMOGLOBIN 16.9 g/dL (14.0-18.0); IG# 0.04 K/uL (0.00-0.02); LYMPH % 21.7 %; LYMPH ABS # 2.52 K/uL (1.2-3.4); MEAN CELL VOLUME 90.2 fL (80-100); MEAN CORPUSCULAR HEMOGLOBIN 32.3 pg (25-34); MEAN CORPUSCULAR HGB CONC 35.8 g/dl (32-36); MEAN PLATELET VOLUME 9.5 fL (7.4-10.4); MONO % 6.8 %; MONO ABS # 0.79 K/uL (0.11-0.59); NEUT % 65.7 %; NEUT ABS # 7.61 K/uL (1.4-6.5); PLATELET COUNT 174 K/uL (130-400); RED CELL DISTRIBUTION WIDTH CV 13.4 % (11.5-14.5)
[2017-08-17 18:04] LABS: ALBUMIN 4.1 gm/dl (3.4-5.0); ALT/SGPT 24 U/L (12-78); AST/SGOT 9 U/L (15-37); BLOOD UREA NITROGEN 13 mg/dl (7-18); CALCIUM 9.3 mg/dl (8.5-10.1); CARBON DIOXIDE 27 mmol/L (21-32); CREATININE 1.17 mg/dl (0.60-1.40); GLUCOSE 117 mg/dl (70-99); GLUCOSE,FASTING 117 mg/dl (70-99); POTASSIUM 4.6 mmol/L (3.5-5.1); SODIUM 135 mmol/L (136-145)
[2017-08-17 18:09] LABS: ALKALINE PHOSPHATASE 84 U/L (45-117); CHOLESTEROL 115 mg/dl (0-200); LDL CHOLESTEROL CALCULATED 49 mg/dl; TOTAL PROTEIN 7.4 gm/dl (6.4-8.2)
[2017-08-17 18:09] LABS: CREATININE RANDOM URINE 37.7 mg/dl
[2017-08-18 05:53] LABS: HEMOGLOBIN A1C 7.1 % (4.5-5.6)
== END | disposition home or self-care (01) ==
LOC: C.LABBFT 14:06
PROVIDERS: ATTEND Internal Medicine
DX: E11.9 Type 2 diabetes mellitus without complications (principal); E78.5 Hyperlipidemia, unspecified; E53.8 Deficiency of other specified B group vitamins; Z12.5 Encounter for screening for malignant neoplasm of prostate; R11.10 Vomiting, unspecified

== ENCOUNTER 2018-02-24 13:49 | Emergency (ER) | payer SELFPAY ==
[~2018-02-24] VITALS: Ht 177.8 cm; Wt 100.2 kg
[~2018-02-24 13:49] MED LIST changes: -ASPEC81 PO; +ASPI-320 PO
[2018-02-24 13:53] VITALS: TEMP 36.9
--- NOTE | 2018-02-24 14:19 | EMERGENCY ROOM VISIT NOTE ---
History Report prepared by Michael: Swati Hilliard Under the Supervision of: Dr. Марина Boudreaux M.D. First contact with patient: 14:03 Chief Complaint: NEURO SYMPTOMS Stated Complaint: ARM NUMBNESS, FACE NUMBESS History of Present Illness The patient is a 58 year old male who presents to the Emergency Room with complaints of right arm numbness beginning at 1000 this morning. He notes that this morning he developed intermittent right arm numbness which concerned him as he had a mini stroke on January 24, 2017. He reports he is under a lot of stress right now due to work and insurance and he feels this is worsening his symptoms. The patient notes he has a collapsed disc in his lumbar spine. He has a headache but denies any facial drooping, difficulty using his right arm, or weakness. The patient does note he smoked marijuana today and typically smokes 1 -2 times every day. He was a formed cigarette smoker and quit on July 27, 2017. He states he has been off of Lipitor and Plavix since July. Source of History: patient Onset: 1000 this morning Position: arm (right) Quality: numbness Timing: intermittent Modifying Factors (Worsening): other (work and insurance) Associated Symptoms: + headache, No weakness Note: Negative facial drooping or difficulty using his right arm Review of Systems See HPI for pertinent positives & negatives. A total of 10 systems reviewed and were otherwise negative. Past Medical & Surgical Medical Problems: (1) DENTAL DISORDER NOS (2) HYPERLIPIDEMIA NEC/NOS (3) OBESITY, NOS (4) Stroke Family History Diabetes mellitus Hypertension Social History Smoking Status: Former Smoker Alcohol Use: none Drug Use: marijuana Marital Status: single Housing Status: lives with family Occupation Status: employed Current/Historical Medications Scheduled Aspirin (Aspirin EC Low Dose), 81 MG PO QAM Atorvastatin (Lipitor), 40 MG PO QAM Clopidogrel Bisulfate (Clopidogrel), 75 MG PO QAM Glipizide (Glipizide), 10 MG PO BID Hydroxyzine Pamoate (Vistaril), 1 CAP PO BID Metformin Hcl (Glucophage), 1,000 MG PO BID Scheduled PRN Alprazolam (Xanax), 1 MG PO TID PRN for Pain Carisoprodol (Soma), 350 MG PO TID PRN for Pain Allergies Coded Allergies: No Known Allergies (Verified , 8/1/18) Physical Exam Vital Signs Date Time Temp Pulse Resp B/P (MAP) Pulse Ox O2 Delivery O2 Flow Rate FiO2 02/24/18 16:17 90 17 125/88 97 02/24/18 15:01 63 159/89 97 Room Air 02/24/18 14:30 59 15 148/94 02/24/18 14:26 97 Room Air 02/24/18 14:13 76 02/24/18 14:05 75 12 163/95 97 Room Air 02/24/18 13:53 36.9 77 18 170/100 97 Room Air Physical Exam Vital signs reviewed. Noted to be hypertensive. General: Well-appearing male, somewhat anxious, in no significant distress. HEENT: No scleral icterus, PERRLA, neck supple. Atraumatic. Cardiovascular: Regular rate and rhythm, no extra sounds. Pulmonary: Clear to auscultation bilaterally, normal work of breathing. Abdomen: Soft, nontender, nondistended, positive bowel sounds. Musculoskeletal: Atraumatic, no peripheral edema. Neurologic: Patient awake alert and oriented x 3, full strength in all 4 extremities. Cranial nerves 2 through 12 grossly intact. Skin: Warm, dry, no rash Medical Decision & Procedures ER Provider Diagnostic Interpretation: Radiology results as stated below per my review and radiologist interpretation: CT SCAN OF THE BRAIN WITHOUT IV CONTRAST CLINICAL HISTORY: Right arm numbness. COMPARISON STUDY: CT of the brain dated 01/24/2017. TECHNIQUE: Unenhanced axial CT scan of the brain is performed from the vertex to the skull base. A dose lowering technique was utilized adhering to the principles of ALARA. CT DOSE: 537.48 mGy.cm FINDINGS: Brain parenchyma: The brain parenchyma is normal in appearance. There is no hemorrhage, mass effect, or evidence of acute territorial ischemia by CT criteria. Barry-white matter is preserved. No extra-axial fluid collection is seen. Ventricles, sulci, cisterns: Normal in configuration. Intracranial vasculature: The visualized intracranial vasculature at the skull base is normal in appearance. Calvarium: Unremarkable. Sinuses and mastoids: There is evidence of previous paranasal sinus surgery. Trace mucosal thickening is seen in the right frontal sinus and the ethmoid cavity. A tiny retention cyst is noted in the left maxillary antrum. The mastoid air cells are well pneumatized. Orbits: The bony orbits are grossly intact. IMPRESSION: No acute intracranial abnormality. Electronically signed by: Kanu Bethea M.D. 02/24/2018 3:02 PM CERVICAL SPINE 5 VIEWS HISTORY: right cervical radiculopathy COMPARISON: None. FINDINGS: The cervical spine is visualized from C1 through C7. The superior endplate of T1 is not identified on the lateral view. Moderate right-sided neural foraminal narrowing at C3-C4. No significant left-sided neural foraminal narrowing. There is no fracture. No subluxation. Disc spaces are preserved. Prevertebral soft tissues and the atlantodens interval are intact. IMPRESSION: 1. No fracture or subluxation within the cervical spine. 2. Disc spaces are preserved. 3. Moderate right-sided neural foraminal narrowing at C3-C4. Electronically signed by: Kaiden Jacobson M.D. 02/24/2018 3:21 PM Laboratory Results 02/24/18 14:20 Red Blood Count 5.79, Mean Corpuscular Volume 86.9, Mean Corpuscular Hemoglobin 30.9, Mean Corpuscular Hemoglobin Concent 35.6, Mean Platelet Volume 9.0, Neutrophils (%) (Auto) 77.2, Lymphocytes (%) (Auto) 14.1, Monocytes (%) (Auto) 4.8, Eosinophils (%) (Auto) 3.3, Basophils (%) (Auto) 0.3, Neutrophils # (Auto) 11.28, Lymphocytes # (Auto) 2.06, Monocytes # (Auto) 0.70, Eosinophils # (Auto) 0.48, Basophils # (Auto) 0.04 02/24/18 14:20 Test 02/24/18 14:20 White Blood Count 14.61 K/uL (4.8-10.8) Red Blood Count 5.79 M/uL (4.7-6.1) Hemoglobin 17.9 g/dL (14.0-18.0) Hematocrit 50.3 % (42-52) Mean Corpuscular Volume 86.9 fL (80-100) Mean Corpuscular Hemoglobin 30.9 pg (25-34) Mean Corpuscular Hemoglobin Concent 35.6 g/dl (32-36) Platelet Count 171 K/uL (130-400) Mean Platelet Volume 9.0 fL (7.4-10.4) Neutrophils (%) (Auto) 77.2 % Lymphocytes (%) (Auto) 14.1 % Monocytes (%) (Auto) 4.8 % Eosinophils (%) (Auto) 3.3 % Basophils (%) (Auto) 0.3 % Neutrophils # (Auto) 11.28 K/uL (1.4-6.5) Lymphocytes # (Auto) 2.06 K/uL (1.2-3.4) Monocytes # (Auto) 0.70 K/uL (0.11-0.59) Eosinophils # (Auto) 0.48 K/uL (0-0.5) Basophils # (Auto) 0.04 K/uL (0-0.2) RDW Standard Deviation 42.1 fL (36.4-46.3) RDW Coefficient of Variation 13.3 % (11.5-14.5) Immature Granulocyte % (Auto) 0.3 % Immature Granulocyte # (Auto) 0.05 K/uL (0.00-0.02) Prothrombin Time 10.2 SECONDS (9.0-12.0) Prothromb Time International Ratio 1.0 (0.9-1.1) Activated Partial Thromboplast Time 27.4 SECONDS (21.0-31.0) Partial Thromboplastin Ratio 1.1 Anion Gap 8.0 mmol/L (3-11) Est Creatinine Clear Calc Drug Dose 82.6 ml/min Estimated GFR () 79.7 Estimated GFR (Non- 68.8 BUN/Creatinine Ratio 11.8 (10-20) Calcium Level 9.1 mg/dl (8.5-10.1) Magnesium Level 1.8 mg/dl (1.8-2.4) Laboratory results per my review. ED Course 1405: Past medical records reviewed. The patient was evaluated in room C8. A complete history and physical examination was performed. 1606: Upon reevaluation, the patient appeared to have improvement of his symptoms. I discussed findings with him. He verbalized agreement of the treatment plan. He was discharged home. Medical Decision Differential diagnosis: Etiologies such as metabolic, infection, hypo/hyperglycemia, electrolyte abnormalities, cardiac sources, intracerebral event, toxicologic, neurologic, as well as others were entertained. This pt was evaluated and appeared to be in no distress. IV access was obtained and lab work was drawn. Pt was placed on the machine setter. He was found to be hypertensive. CT head is negative for acute abnl. Cervical XR reveals a neural foraminal stenosis of R C3-4. I suspect this is the etiology of pt's sx. He was given Rx information by pharmacist for reduced rate of lipitor and plavix. Pt was given new Rx as well. He was advised to discuss the financial issues with PCP as they may be able to assist with different meds if needed. Pt was encouraged to continue diabetic meds, BSG checks, refill new Rx and f/u with PCP for reevaluation. He will return to the ED for worsening of symptoms or any medical concerns. Medication Reconcilliation Current Medication List: was personally reviewed by me Blood Pressure Screening Patient's blood pressure: Elevated blood pressure Blood pressure disposition: Referred to PCP Impression Primary Impression: Right cervical radiculopathy Additional Impression: Neural foraminal stenosis of cervical spine Scribe Attestation The scribe's documentation has been prepared under my direction and personally reviewed by me in its entirety. I confirm that the note above accurately reflects all work, treatment, procedures, and medical decision making performed by me. Departure Information Dispostion Home / Self-Care Prescriptions Clopidogrel Bisulfate (Clopidogrel) 75 Mg Tab 75 MG PO QAM, #30 TAB 3 Refills Prov: Марина Boudreaux M.D. 02/24/18 Atorvastatin (LIPITOR) 40 Mg Tab 40 MG PO QAM, #30 TAB 2 Refills Prov: Марина Bourdeaux M.D. 02/24/18 Referrals Kleber Zepeda M.D. (PCP) Forms HOME CARE DOCUMENTATION FORM, IMPORTANT VISIT INFORMATION, WORK / SCHOOL INSTRUCTIONS Patient Instructions My [facility] Additional Instructions Diagnosis: Right cervical radiculopathy, neuroforaminal narrowing Please use the resources given to you by pharmacy to obtain your Lipitor and Plavix. Contact your primary care physician for blood pressure recheck and further management if warranted. Please limit your use of marijuana. Return to the emergency department for worsening of symptoms or any medical concerns. Problem Qualifiers
[2018-02-24 14:26] VITALS: O2SAT 97
[2018-02-24 14:35] LABS: BASO % 0.3 %; BASO ABS # 0.04 K/uL (0-0.2); EOS % 3.3 %; EOS ABS # 0.48 K/uL (0-0.5); HEMATOCRIT 50.3 % (42-52); HEMOGLOBIN 17.9 g/dL (14.0-18.0); IG# 0.05 K/uL (0.00-0.02); LYMPH % 14.1 %; LYMPH ABS # 2.06 K/uL (1.2-3.4); MEAN CELL VOLUME 86.9 fL (80-100); MEAN CORPUSCULAR HEMOGLOBIN 30.9 pg (25-34); MEAN CORPUSCULAR HGB CONC 35.6 g/dl (32-36); MONO % 4.8 %; NEUT % 77.2 %; NEUT ABS # 11.28 K/uL (1.4-6.5); PLATELET COUNT 171 K/uL (130-400); RED CELL DISTRIBUTION WIDTH CV 13.3 % (11.5-14.5); RED CELL DISTRIBUTION WIDTH SD 42.1 fL (36.4-46.3); WHITE BLOOD COUNT 14.61 K/uL (4.8-10.8)
[2018-02-24 14:36] VITALS: Ht 177.8 cm; Wt 100.2 kg
[2018-02-24 14:43] LABS: PTT PATIENT 27.4 SECONDS (21.0-31.0)
[2018-02-24] MEDS ORDERED: HYDR25CA PO (14:50)
[2018-02-24 14:56] LABS: CALCIUM 9.1 mg/dl (8.5-10.1); CREATININE 1.17 mg/dl (0.60-1.40); POTASSIUM 4.1 mmol/L (3.5-5.1)
--- NOTE | 2018-02-24 15:03 | DIAGNOSTIC IMAGING REPORT ---
CT SCAN OF THE BRAIN WITHOUT IV CONTRAST CLINICAL HISTORY: Right arm numbness. COMPARISON STUDY: CT of the brain dated 01/24/2017. TECHNIQUE: Unenhanced axial CT scan of the brain is performed from the vertex to the skull base. A dose lowering technique was utilized adhering to the principles of ALARA. CT DOSE: 537.48 mGy.cm FINDINGS: Brain parenchyma: The brain parenchyma is normal in appearance. There is no hemorrhage, mass effect, or evidence of acute territorial ischemia by CT criteria. Barry-white matter is preserved. No extra-axial fluid collection is seen. Ventricles, sulci, cisterns: Normal in configuration. Intracranial vasculature: The visualized intracranial vasculature at the skull base is normal in appearance. Calvarium: Unremarkable. Sinuses and mastoids: There is evidence of previous paranasal sinus surgery. Trace mucosal thickening is seen in the right frontal sinus and the ethmoid cavity. A tiny retention cyst is noted in the left maxillary antrum. The mastoid air cells are well pneumatized. Orbits: The bony orbits are grossly intact. IMPRESSION: No acute intracranial abnormality. Electronically signed by: Kanu Bethea M.D. 02/24/2018 3:02 PM Dictated Date/Time: 02/24/2018 3:00 PM
--- NOTE | 2018-02-24 15:23 | DIAGNOSTIC IMAGING REPORT ---
CERVICAL SPINE 5 VIEWS HISTORY: right cervical radiculopathy COMPARISON: None. FINDINGS: The cervical spine is visualized from C1 through C7. The superior endplate of T1 is not identified on the lateral view. Moderate right-sided neural foraminal narrowing at C3-C4. No significant left-sided neural foraminal narrowing. There is no fracture. No subluxation. Disc spaces are preserved. Prevertebral soft tissues and the atlantodens interval are intact. IMPRESSION: 1. No fracture or subluxation within the cervical spine. 2. Disc spaces are preserved. 3. Moderate right-sided neural foraminal narrowing at C3-C4. Electronically signed by: Kaiden Jacobson M.D. 02/24/2018 3:21 PM Dictated Date/Time: 02/24/2018 3:19 PM
[2018-02-24] MEDS ORDERED: PLV75 PO (16:04)
[2018-02-24] MEDS ORDERED: LPT40 PO (16:04)
[2018-02-24 16:17] VITALS: BP 125/88; PULSE 90; O2SAT 97
== END 2018-02-24 16:18 | disposition home or self-care (01) ==
LOC: C.EDB 13:51 → C.EDC 16:18
DX: M54.12 Radiculopathy, cervical region (principal); M48.02 Spinal stenosis, cervical region; E78.5 Hyperlipidemia, unspecified; Z87.891 Personal history of nicotine dependence; Z83.3 Family history of diabetes mellitus; Z82.49 Family history of ischemic heart disease and other diseases of the circulatory system; Z79.82 Long term (current) use of aspirin; Z79.899 Other long term (current) drug therapy

== ENCOUNTER 2018-03-01 14:59 | Emergency (ER) | payer OTHER ==
[~2018-03-01] VITALS: Ht 177.8 cm; Wt 100.0 kg
[~2018-03-01 14:59] MED LIST changes: +HYDR25CA PO
[2018-03-01 15:18] VITALS: TEMP 37; Ht 177.8 cm; Wt 100.0 kg
[2018-03-01] MEDS ORDERED: LIDOCAINE 1% BUFFERED INJ 20 ML VIAL INFIL STA (16:58)
[2018-03-01] MEDS ORDERED: CEPHALEXIN MONOHYDRATE 250 MG CAP PO STA (16:59)
[2018-03-01] MEDS ORDERED: OXYC-90 PO (17:51)
[2018-03-01] MEDS ORDERED: CEPH500C PO (17:51)
--- NOTE | 2018-03-01 17:53 | EMERGENCY ROOM VISIT NOTE ---
ED Visit Note First contact with patient: 16:42 CHIEF COMPLAINT: Hand laceration HISTORY OF PRESENT ILLNESS: This right hand dominant 58-year-old male patient presents to the emergency department, ambulatory, approximately 1 hour after cutting the right hand on glass. The patient states the incident occurred at work. He works for [employer]. He states he was fixing a window when the knife slipped, causing the glass to slice through his right hand. The patient states the tendon is visible. The bleeding has stopped. Denies weakness or numbness of the hand or fingers. The patient rates the pain as sharp and 5/10. The patient denies any other injuries. The patient's Tetanus shot is up to date. REVIEW OF SYSTEMS: A 6 system review of systems was completed with positives and pertinent negatives listed in the HPI. ALLERGIES: None MEDICATIONS: Aspirin, Lipitor, Plavix, Vistaril, glipizide, Glucophage PMH: Diabetes, hypertension, hyperlipidemia SOCIAL HISTORY: Patient lives locally with family. He denies drug, alcohol, tobacco use. PHYSICAL EXAM: Vital Signs: Reviewed Nurse's notes, vital signs stable. GENERAL : This is a 58-year-old white male, in no acute distress, well-developed, well- nourished. SKIN: There is a 1.5 cm diameter circular laceration on the dorsal aspect of the right hand, just proximal to the MCP joint. The skin has been completely avulsed, exposing the extensor tendon. The edges gape apart. There is no foreign material in the wound and it looks clean. There is minimal active bleeding. No other deep structures such as bones or significant blood vessels are seen in the base of the wound. Normal strength and movement of the fingers and wrist. Capillary refill less than 2 seconds. Normal sensation to light and sharp touch. EMERGENCY DEPARTMENT COURSE: I examined the patient. Verbal consent was obtained to perform the procedure. Using sterile technique the wound was cleansed with Betadine. The area was sterilely draped. 4 ml of 1% buffered lidocaine was used to anesthetize the laceration on the hand. Once the patient was anesthetized, the wound was copiously irrigated under pressure with sterile saline. The wound was explored and was as described above. The deep layer was closed utilizing 4 simple interrupted subcutaneous 5-0 Vicryl sutures to cover the tendon. The laceration was then closed using 5 simple interrupted 4-0 nylon sutures with the wound edges being well approximated. The patient tolerated the procedure well. Hemostasis was achieved. The area was cleaned with sterile saline and dressed with bacitracin ointment and bandage. The patient was splinted with a wrist lacer and metal finger splint. The patient was strongly encouraged to follow-up closely with the hand surgeon this week for further evaluation and management due to the exposed tendon. He was given his first dose of Keflex here in the emergency department and a prescription sent to the pharmacy. The patient was also given a prescription for OxyIR for severe pain. PDMP was consulted prior to this prescription without suspicious findings noted. Discharge instructions reviewed. The patient was discharged home in good condition. I attest that I have personally reviewed the patient's current medication list. Patient was found to have normal blood pressure on screening and does not require follow-up. Differential diagnosis includes laceration, contusion, fracture, sprain/strain, tendon or ligament injury, neurovascular compromise, foreign body, assault, and others DIAGNOSIS: Hand laceration with exposed extensor tendon The chart was completed utilizing [employer] Speech voice recognition software. Grammatical errors, random word insertions, pronoun errors, and incomplete sentences are an occasional consequence of this system due to software limitations, ambient noise, and hardware issues. Any formal questions or concerns about the content, text, or information contained within the body of this dictation should be directly addressed to the provider for clarification. Problem List Medical Problems: (1) DENTAL DISORDER NOS Status: Resolved (2) HYPERLIPIDEMIA NEC/NOS Status: Resolved (3) OBESITY, NOS Status: Resolved Current/Historical Medications Scheduled Aspirin (Aspirin EC Low Dose), 81 MG PO QAM Atorvastatin (Lipitor), 40 MG PO QAM Cephalexin Monohydrate (Keflex), 500 MG PO QID Clopidogrel Bisulfate (Clopidogrel), 75 MG PO QAM Glipizide (Glipizide), 10 MG PO BID Hydroxyzine Pamoate (Vistaril), 1 CAP PO BID Metformin Hcl (Glucophage), 1,000 MG PO BID Scheduled PRN Alprazolam (Xanax), 1 MG PO TID PRN for Pain Carisoprodol (Soma), 350 MG PO TID PRN for Pain Oxycodone Ir (Roxicodone Ir), 1 TAB PO Q4H PRN for Pain Allergies Coded Allergies: No Known Allergies (Verified , 8/1/18) Vital Signs Date Time Temp Pulse Resp B/P (MAP) Pulse Ox O2 Delivery O2 Flow Rate FiO2 03/01/18 18:15 82 18 144/91 98 03/01/18 16:40 79 18 144/101 98 Room Air 03/01/18 15:18 37.0 92 18 129/84 95 Room Air Medications Administered Medications (Trade) Dose Ordered Sig/Valentine Route Start Time Stop Time Status Last Admin Dose Admin Cephalexin Monohydrate (Keflex Cap) 500 mg NOW STAT PO 03/01/18 16:59 03/01/18 17:00 DC 03/01/18 17:05 500 MG Departure Information Impression Primary Impression: Laceration of right hand Dispostion Home / Self-Care Condition GOOD Prescriptions Oxycodone Ir (Roxicodone Ir) 5 Mg Tab 1 TAB PO Q4H Y for Pain, #15 TAB For Initial Treatment Prov: Miriam Rice PA-C 03/01/18 Cephalexin Monohydrate (Keflex) 500 Mg Cap 500 MG PO QID for 7 Days, #28 CAP Prov: Miriam Rice PA-C 03/01/18 Referrals Kleber Zepeda M.D. (PCP) Kleber Cuellar MD Patient Instructions ED Laceration Hand, [facility] Additional Instructions You have received 5 sutures on your right hand. These sutures are NOT dissolvable and WILL need to be removed by a health care provider in 12-14 days. You can return to the Emergency Department or contact your Primary Care Provider to have the sutures removed. You have been prescribed OxyIR to be used for pain control. Take 1 tablet every 4-6 hours as needed for pain. This is a narcotic medication. You cannot drive or consume alcohol while on this medicine. This medicine should only be used for pain that cannot be controlled with [id number] pain medicines. Cephalexin(Keflex) 500mg: Take one pill four times daily for 7 days to prevent skin infection. All antibiotics can cause diarrhea. If this occurs and you feel worse or it does not resolve in 1-2 days follow up with your doctor or return to the Emergency Department as this could be signs of serious underlying problems. Any medication can cause an allergic reaction, stop the pills immediately and return to the ER for rash, hives, breathing difficulties, or swelling. Proper wound care is essential for adequate wound healing and infection prevention. You can shower and clean the wound with soap and water. Do not scour over the wound, pat dry with a towel. Do not submerse the wound (i.e. bathe or dish wash) until the sutures have been removed. You can use an antibiotic ointment with a dressing over the wound for the next 3-4 days. After this time you may leave the wound dry and open to the air. If crust develops over the wound you can use a Q-tip to apply a 1:1 peroxide:water solution to clean the wound. Look for signs of infection of the wound including: increased pain, swelling, foul discharge, streaking, or increased temperature. If any of these are noticed you should return to the Emergency Department for further assessment and treatment. As with any laceration you may have received nerve damage to the surrounding tissues. This damage may or may not be permanent. You should keep the area covered with sunscreen for the first 6 months to 1 year when at risk for exposure to help minimize scarring. For pain control, you can use the following [id number] medicines (if >12 yo): Ibuprofen(Motrin, Advil) may be used for fever or pain. Use 600mg every six hours as needed. Take with food. Avoid using more than 2400mg in a 24 hour period. Do not use 2400mg per day for more than three consecutive days without physician direction. Prolonged inappropriate use can lead to stomach upset or ulcers. (AND/OR) Acetaminophen(Tylenol) may be used for fever or pain. Use 1000mg every six hours as needed. Avoid using more than 3000mg in a 24 hour period. Follow-up with Dr. Cuellar this week for further evaluation and management of the wound. Return to the emergency department if your symptoms worsen despite treatment course outlined above. Problem Qualifiers Primary Impression: Laceration of right hand Encounter type: initial encounter Foreign body presence: without foreign body Qualified Codes: S61.411A - Laceration without foreign body of right hand , initial encounter
[2018-03-01 18:15] VITALS: BP 144/91; PULSE 82; O2SAT 98
== END 2018-03-01 18:15 | disposition home or self-care (01) ==
LOC: C.EDB 15:02 → C.EDD 18:15
DX: S61.411A Laceration without foreign body of right hand, initial encounter (principal); W25.XXXA Contact with sharp glass, initial encounter; E11.9 Type 2 diabetes mellitus without complications; I10 Essential (primary) hypertension; E78.5 Hyperlipidemia, unspecified; Z79.02 Long term (current) use of antithrombotics/antiplatelets; Z79.899 Other long term (current) drug therapy; Z79.82 Long term (current) use of aspirin

== ENCOUNTER 2018-03-08 19:36 | Emergency (ER) | payer SELFPAY ==
[~2018-03-08] VITALS: Ht 177.8 cm; Wt 96.8 kg
[~2018-03-08 19:36] MED LIST changes: +CEPH500C PO; +OXYC-90 PO
[2018-03-08 19:41] VITALS: TEMP 36.5; Ht 177.8 cm; Wt 96.8 kg
[2018-03-08] MEDS ORDERED: LORAZEPAM 1 MG TAB SL STA (20:04)
[2018-03-08 20:24] LABS: BASO % 0.6 %; BASO ABS # 0.07 K/uL (0-0.2); EOS % 2.3 %; EOS ABS # 0.27 K/uL (0-0.5); HEMATOCRIT 49.1 % (42-52); HEMOGLOBIN 18.2 g/dL (14.0-18.0); IG# 0.05 K/uL (0.00-0.02); LYMPH % 32.8 %; LYMPH ABS # 3.85 K/uL (1.2-3.4); MEAN CELL VOLUME 85.8 fL (80-100); MEAN CORPUSCULAR HEMOGLOBIN 31.8 pg (25-34); MEAN CORPUSCULAR HGB CONC 37.1 g/dl (32-36); MONO % 7.2 %; MONO ABS # 0.85 K/uL (0.11-0.59); NEUT % 56.7 %; NEUT ABS # 6.64 K/uL (1.4-6.5); PLATELET COUNT 160 K/uL (130-400); RED CELL DISTRIBUTION WIDTH CV 12.9 % (11.5-14.5); RED CELL DISTRIBUTION WIDTH SD 40.8 fL (36.4-46.3); WHITE BLOOD COUNT 11.73 K/uL (4.8-10.8)
--- NOTE | 2018-03-08 20:53 | EMERGENCY ROOM VISIT NOTE ---
History Report prepared by Michael: Nikki Gray Under the Supervision of: Dr. Prosper Whelan M.D. First contact with patient: 19:46 Chief Complaint: ANXIETY Stated Complaint: SHORTNESS OF BREATH,THREW UP,NOT EATING History of Present Illness The patient is a 58 year old white male with a past medical history of anxiety, mini-stroke, and diabetes who presents to the ED with a cc of intermittent SOB beginning recently. He notes some intermittent chest pressure, that is relieved by showering. The patient notes he has vomited the past few days. He reports some sweating. The patient denies a cough, abdominal pain, or leg swelling. He denies a history of blood clots. He states he has been experiencing increased anxiety for the past 5 weeks following work stresses. The patient notes he was sick last month, and missed a few days of work, following which he was suspended for missing work. He reports today last week he had his first day back to work following the suspension, and cut himself, requiring stitches. The patient states this incident increased his anxiety as he had to miss more work. He notes he had been on Xanax for 13 years, but was taken off it as his urine drug screen did not show any in his system. He reports he takes a new medicine now, which he cannot recall the name of, and has been taking more than usual as it has relieved his anxiety. He states he took 12 extra pills over the past 2 weeks. The patient reports he last smoked marijuana 2 days ago Source of History: patient Onset: recently Position: chest Quality: other (SOB) Timing: intermittent Associated Symptoms: + diaphoresis, + chest pain (pressure), + vomiting, No cough, No abdominal pain Note: Associated symptom: increased anxiety. Denies: leg swelling Review of Systems See HPI for pertinent positives and negatives. A total of ten systems were reviewed and were otherwise negative. Past Medical & Surgical Medical Problems: (1) DENTAL DISORDER NOS (2) HYPERLIPIDEMIA NEC/NOS (3) OBESITY, NOS (4) Stroke Family History Diabetes mellitus Hypertension Social History Smoking Status: Former Smoker Alcohol Use: none Drug Use: marijuana Marital Status: single Housing Status: lives with family Occupation Status: employed Current/Historical Medications Scheduled Atorvastatin (Lipitor), 40 MG PO QAM Clopidogrel (Plavix), 75 MG PO QAM Glipizide (Glipizide), 10 MG PO BID Hydroxyzine Pamoate (Vistaril), 1 CAP PO BID Metformin Hcl (Glucophage), 1,000 MG PO BID Scheduled PRN Acetaminophen/Hydrocodone (Hydrocodone/Acetaminophen 5-325 mg), 1-2 TABS PO Q4- 6HRS PRN for Pain Hydroxyzine HCl (Hydroxyzine HCl), 25 MG PO BID PRN for Anxiety Allergies Coded Allergies: No Known Allergies (Verified , 02/24/18) Physical Exam Vital Signs Date Time Temp Pulse Resp B/P (MAP) Pulse Ox O2 Delivery O2 Flow Rate FiO2 03/08/18 23:55 82 18 156/95 96 03/08/18 21:20 67 20 139/80 96 Room Air 03/08/18 19:41 36.5 68 20 117/77 98 Room Air Physical Exam GENERAL: Awake, alert, anxious-appearing, NAD HENT: Normocephalic, atraumatic. EYES: Normal conjunctiva. Sclera non-icteric. PERRL. No anisocoria. NECK: Supple. No nuchal rigidity. FROM. RESPIRATORY: CTAB, no rhonchi, wheezing, crackles CARDIAC: RRR, no MRG ABDOMEN: Soft, NTND, BS+ MSK: No chest wall TTP, no LE edema. well-healing laceration to R hand. NEURO: GCS 15, CN 2-12 intact, moves all 4s on command SKIN: No rash or jaundice noted. PSYCH: no SI, no HI, no AVH. Medical Decision & Procedures Laboratory Results 03/08/18 20:11 Red Blood Count 5.72, Mean Corpuscular Volume 85.8, Mean Corpuscular Hemoglobin 31.8, Mean Corpuscular Hemoglobin Concent 37.1, Mean Platelet Volume 9.0, Neutrophils (%) (Auto) 56.7, Lymphocytes (%) (Auto) 32.8, Monocytes (%) (Auto) 7.2, Eosinophils (%) (Auto) 2.3, Basophils (%) (Auto) 0.6, Neutrophils # (Auto) 6.64, Lymphocytes # (Auto) 3.85, Monocytes # (Auto) 0.85, Eosinophils # (Auto) 0.27, Basophils # (Auto) 0.07 03/08/18 20:11 Test 03/08/18 20:11 03/08/18 20:30 8/13/18 22:45 White Blood Count 11.73 K/uL (4.8-10.8) Red Blood Count 5.72 M/uL (4.7-6.1) Hemoglobin 18.2 g/dL (14.0-18.0) Hematocrit 49.1 % (42-52) Mean Corpuscular Volume 85.8 fL (80-100) Mean Corpuscular Hemoglobin 31.8 pg (25-34) Mean Corpuscular Hemoglobin Concent 37.1 g/dl (32-36) Platelet Count 160 K/uL (130-400) Mean Platelet Volume 9.0 fL (7.4-10.4) Neutrophils (%) (Auto) 56.7 % Lymphocytes (%) (Auto) 32.8 % Monocytes (%) (Auto) 7.2 % Eosinophils (%) (Auto) 2.3 % Basophils (%) (Auto) 0.6 % Neutrophils # (Auto) 6.64 K/uL (1.4-6.5) Lymphocytes # (Auto) 3.85 K/uL (1.2-3.4) Monocytes # (Auto) 0.85 K/uL (0.11-0.59) Eosinophils # (Auto) 0.27 K/uL (0-0.5) Basophils # (Auto) 0.07 K/uL (0-0.2) RDW Standard Deviation 40.8 fL (36.4-46.3) RDW Coefficient of Variation 12.9 % (11.5-14.5) Immature Granulocyte % (Auto) 0.4 % Immature Granulocyte # (Auto) 0.05 K/uL (0.00-0.02) Anion Gap 10.0 mmol/L (3-11) Est Creatinine Clear Calc Drug Dose 85.7 ml/min Estimated GFR () 85.0 Estimated GFR (Non- 73.3 BUN/Creatinine Ratio 11.8 (10-20) Calcium Level 9.5 mg/dl (8.5-10.1) Total Bilirubin 1.2 mg/dl (0.2-1) Direct Bilirubin 0.2 mg/dl (0-0.2) Aspartate Amino Transf (AST/SGOT) 11 U/L (15-37) Alanine Aminotransferase (ALT/SGPT) 24 U/L (12-78) Alkaline Phosphatase 81 U/L (45-117) Total Protein 7.8 gm/dl (6.4-8.2) Albumin 4.0 gm/dl (3.4-5.0) Thyroid Stimulating Hormone (TSH) 4.440 uIu/ml (0.300-4.500) Salicylates Level < 1.7 mg/dl (2.8-20) Acetaminophen Level < 2 ug/ml (10-30) Ethyl Alcohol mg/dL < 3.0 mg/dl (0-3) Urine Color DK YELLOW Urine Appearance CLEAR (CLEAR) Urine pH 6.0 (4.5-7.5) Urine Specific [place] 1.014 (1.000-1.030) Urine Protein NEG (NEG) Urine Glucose (UA) NEG (NEG) Urine Ketones TRACE (NEG) Urine Occult Blood NEG (NEG) Urine Nitrite NEG (NEG) Urine Bilirubin NEG (NEG) Urine Urobilinogen NEG (NEG) Urine Leukocyte Esterase NEG (NEG) Urine Opiates Screen POS (NEG) Urine Methadone, Qualitative NEG (NEG) Urine Barbiturates NEG (NEG) Urine Phencyclidine (PCP) Level NEG (NEG) Ur Amphetamine/Methamphetamine NEG (NEG) MDMA (Ecstasy) Screen NEG (NEG) Urine Benzodiazepines Screen NEG (NEG) Urine Cocaine Metabolite NEG (NEG) Urine Marijuana (THC) POS (NEG) Troponin I < 0.015 ng/ml (0-0.045) Laboratory results reviewed by me Medications Administered Medications (Trade) Dose Ordered Sig/Valentine Route Start Time Stop Time Status Last Admin Dose Admin Lorazepam (Ativan Tab) 1 mg NOW STAT SL 03/08/18 20:04 03/08/18 20:05 DC 03/08/18 20:10 1 MG ECG Per My Interpretation Indication: SOB/dyspnea Rate (beats per minute): 65 Findings: Q waves (Inferior), T-wave inversion (lead 3), left axis deviation, other (normal intervals. right axis deviation. ) Comparison ECG Date: 02/24/18 Change: no significant change ED Course 6: The patient was evaluated in room A9. A complete history and physical exam was performed. 8: Upon reevaluation, the patient is feeling better. A repeat trop will be taken. 2351: I reevaluated the patient. Discussed results and discharge instructions: he verbalized understanding and agreement. The patient is ready for discharge. Medical Decision The patient is a 58 year old white male with a past medical history of anxiety, mini-stroke, and diabetes who presents to the ED with a cc of intermittent SOB beginning recently. Etiologies such as cardiac ischemia, aortic dissection, pulmonary embolism, pneumonia, pneumothorax, musculoskeletal, infections, pericarditis, myocarditis , esophageal rupture, gastrointestinal, mood disorder, infection, hypoglycemia, electrolyte abnormalities, cardiac sources, intracerebral event, toxicologic, neurologic, as well as others were entertained. Patient was seen and evaluated the bedside. The patient is complaining some shortness of breath. The patient also can with a concomitant chest pain that he states this feels like somebody is sitting on his chest. The patient does have a known risk factors like diabetes and a prior mini stroke. The patient states that he is on undergone a fair amount of stress secondary to work related issues secondary to injuries and sickness. Patient did blood work completed, EKG, troponin, chest x-ray and the patient also did have a psych eval completed with blood work urinalysis and UDS. Patient denies any SI or HI. Patient's blood work is fairly unremarkable. EKG is unchanged from prior. Given the patient's stable vital signs lack of other symptoms I believe PE to be less likely. Patient has a low wells score. I did reassess the patient the patient was feeling much improved after the Ativan. I did have the psych case finishing machine adjuster see and evaluate the patient. The patient is otherwise medically clear. I did order a second troponin. Patient's second troponin was unremarkable. Given the unchanged EKG with 2 negative troponins less likely ACS. Patient was given strict follow-up, discharge, and return precautions. All questions were answered. Patient was deemed suitable for outpatient follow- up at this time. Patient agreed with the plan of care and was safely discharged home. Medication Reconcilliation Current Medication List: was personally reviewed by me Blood Pressure Screening Patient's blood pressure: Elevated blood pressure Blood pressure disposition: Referred to PCP Impression Primary Impression: Acute anxiety Additional Impression: Chest pain Scribe Attestation The scribe's documentation has been prepared under my direction and personally reviewed by me in its entirety. I confirm that the note above accurately reflects all work, treatment, procedures, and medical decision making performed by me. Departure Information Dispostion Home / Self-Care Prescriptions Hydroxyzine Pamoate (VISTARIL) 25 Mg Cap 1 CAP PO BID for 10 Days, #20 CAP 1 Refill Prov: Prosper Whelan M.D. 03/08/18 Referrals Kleber Zepeda M.D. (PCP) Forms HOME CARE DOCUMENTATION FORM, IMPORTANT VISIT INFORMATION Patient Instructions Anxiety Body Response, Chest Pain - [facility], My [facility] Additional Instructions Please return to the emergency department if you have worsening or recurrent symptoms not amenable to at-home treatment. Please call for a follow-up appointment with her primary care physician. Please take your medications as prescribed. If you have other concerns and/or complaints please feel free to also call your primary care physician's office or return the ED for further evaluation, management, and treatment. You may take 600 mg Ibuprofen every 6 hours as needed for pain/fever with food unless told by your physician not to take NSAIDs. You may take tylenol 650 mg every 6 hours as needed for pain/fever unless told by your physician to not take it or have liver problems. You may take motrin and tylenol separately or at the same time. Take your medications as prescribed. You have been examined and treated today on an emergency basis only. This is not a substitute for, or an effort to provide, complete comprehensive medical care. It is impossible to recognize and treat all injuries or illnesses in a single emergency department visit. It is therefore important that you follow up closely with [facility], your PCP, and/or your specialist(s). Call as soon as possible for an appointment. Thank you for your time and consideration. I look forward to speaking with you again soon. Please don't hesitate to call us if you have any questions. Problem Qualifiers Additional Impression: Chest pain Chest pain type: unspecified Qualified Codes: R07.9 - Chest pain, unspecified
[2018-03-08 20:55] LABS: CALCIUM 9.5 mg/dl (8.5-10.1); CREATININE 1.11 mg/dl (0.60-1.40); POTASSIUM 3.9 mmol/L (3.5-5.1); TOTAL PROTEIN 7.8 gm/dl (6.4-8.2)
[2018-03-08] MEDS ORDERED: HYDR-4313 PO (21:23)
[2018-03-08] MEDS ORDERED: ATR25 PO (21:23)
[2018-03-08] MEDS ORDERED: CLOP1TAB15 PO (21:24)
[2018-03-08] MEDS ORDERED: ATOR-24 PO (21:24)
[2018-03-08] MEDS ORDERED: HYDR25CA PO (23:33)
[2018-03-08 23:55] VITALS: BP 156/95; PULSE 82; O2SAT 96
== END 2018-03-08 23:52 | disposition home or self-care (01) ==
LOC: C.EDB 19:38 → C.EDA 23:52
DX: F41.9 Anxiety disorder, unspecified (principal); R07.89 Other chest pain; R11.10 Vomiting, unspecified; R61 Generalized hyperhidrosis; E78.5 Hyperlipidemia, unspecified; E11.9 Type 2 diabetes mellitus without complications; Z79.84 Long term (current) use of oral hypoglycemic drugs; Z79.899 Other long term (current) drug therapy

== ENCOUNTER 2018-03-19 03:26 | Emergency (ER) | payer SELFPAY ==
[~2018-03-19] VITALS: Ht 177.8 cm; Wt 95.7 kg
[~2018-03-19 03:26] MED LIST changes: -ALPR-385 PO; -ASPI-320 PO; +ATOR-24 PO; +ATR25 PO; -CARI350T28 PO; -CEPH500C PO; +CLOP1TAB15 PO; +HYDR-4313 PO; -LPT40 PO; -OXYC-90 PO; -PLV75 PO
[2018-03-19 03:32] VITALS: BP 135/87; PULSE 93; TEMP 36; O2SAT 99; Ht 177.8 cm; Wt 95.7 kg
[2018-03-19] MEDS ORDERED: hydrOXYzine HCL 25 MG TAB PO STA (03:41)
--- NOTE | 2018-03-19 07:16 | EMERGENCY ROOM VISIT NOTE ---
History First contact with patient: 03:36 Chief Complaint: ANXIETY Stated Complaint: ANXIETY,TROUBLE BREATHING History of Present Illness The patient is a 58 year old male who presents to the Emergency Room with complaints of anxiety symptoms bring him to the emergency department today. The patient has a long-standing history of anxiety. He states that he had difficulty falling asleep tonight, and decided to come into the emergency department because of his symptoms. The patient was recently taken off of Xanax as he had been taking his medication outside of his prescribed directions. The patient has been seen multiple times in the ER since with anxiety related complaints. The patient states that he is under increased stress as he is concerned about financially losing his home. He also has to take a family member to another doctor appointment in the morning. The patient does not have other symptoms, and is essentially asking for a dose of medication to help him today. He is not suicidal or homicidal. He rates his discomfort a 5/10. Review of Systems More than 10 systems were reviewed and otherwise negative with the exception of history of present illness. Past Medical/Surgical History Medical Problems: (1) DENTAL DISORDER NOS (2) HYPERLIPIDEMIA NEC/NOS (3) OBESITY, NOS (4) Stroke Family History Diabetes mellitus Hypertension Social History Smoking Status: Never Smoker Alcohol Use: none Drug Use: marijuana Marital Status: single Housing Status: lives with family Occupation Status: employed Current/Historical Medications Scheduled Atorvastatin (Lipitor), 40 MG PO QAM Clopidogrel (Plavix), 75 MG PO QAM Glipizide (Glipizide), 10 MG PO BID Hydroxyzine Pamoate (Vistaril), 1 CAP PO BID Metformin Hcl (Glucophage), 1,000 MG PO BID Scheduled PRN Acetaminophen/Hydrocodone (Hydrocodone/Acetaminophen 5-325 mg), 1-2 TABS PO Q4- 6HRS PRN for Pain Hydroxyzine HCl (Hydroxyzine HCl), 25 MG PO BID PRN for Anxiety Physical Exam Vital Signs Date Time Temp Pulse Resp B/P (MAP) Pulse Ox O2 Delivery O2 Flow Rate FiO2 03/19/18 03:32 36.0 93 22 135/87 99 Room Air Physical Exam VITALS: Vitals are noted on the nurse's note and reviewed by myself. Vital signs stable. GENERAL: Well-developed, well-nourished, white male, who is in no acute distress and resting comfortably. Patient is cooperative with the examination. HEART: Regular rate and rhythm without murmurs gallops or rubs. LUNGS: Clear to auscultation bilaterally without wheezes, rales or rhonchi. No retractions or accessory muscle use. ABDOMEN: Positive normal bowel sounds x 4. Soft, nontender, without masses or organomegaly. No guarding or rebound tenderness. MUSCULOSKELETAL: No muscle atrophy, erythema, or edema noted. Full range of motion in all extremities. Medical Decision & Procedures Medications Administered Medications (Trade) Dose Ordered Sig/Valentine Route Start Time Stop Time Status Last Admin Dose Admin Hydroxyzine HCl (Vistaril Tab) 25 mg NOW STAT PO 03/19/18 03:41 03/19/18 03:43 DC 03/19/18 04:00 25 MG ED Course Physical exam and history were performed. Nursing notes, EMR, and Medication List were personally reviewed. Patient appears to have reports of anxiety symptoms bring him to the emergency department today. The patient does not appear toxic on examination. He was previously on Xanax, but was not taking his medication as prescribed. He has been seen multiple times in this facility this month for similar mental health related complaints. I did offer him mental health evaluation, but he declined. His primary presentation today is to get something for his anxiety today. I did give the patient a dose of Atarax here in the department. He does not wish for further intervention and will be discharged home. He is to follow with his PCP and mental health providers for further management. He was otherwise invited back to the ER anytime. The chart was completed utilizing [employer] Speech Voice Recognition Software. Grammatical errors, random word insertions, pronoun errors, and incomplete sentences are an occasional consequence of this system due to software limitations, ambient noise, and hardware issues. Any formal questions or concerns about the content, text, or information contained within the body of this dictation should be directly addressed to the provider for clarification. . Medical Decision Differential diagnosis: Etiologies such as mood disorder, infection, hypoglycemia, electrolyte abnormalities, cardiac sources, intracerebral event, toxicologic, neurologic, as well as others were entertained. Impression Primary Impression: Acute anxiety Departure Information Dispostion Home / Self-Care Condition GOOD Referrals Kleber Zepeda M.D. (PCP) Forms HOME CARE DOCUMENTATION FORM, IMPORTANT VISIT INFORMATION Patient Instructions My [facility] Additional Instructions You were seen and evaluated today on an emergency basis only. This is not a substitute for, or an effort to provide, complete comprehensive medical care. It is not possible to recognize and treat all injuries or illnesses in a single emergency department visit. For this reason it is recommended that you followup with your primary care physician for ongoing care and evaluation. Continue your medications as prescribed You are welcome to return to the emergency department anytime with new, worsening, or concerning symptoms.
== END 2018-03-19 04:46 | disposition home or self-care (01) ==
LOC: C.EDB 03:27
DX: F41.9 Anxiety disorder, unspecified (principal); E78.5 Hyperlipidemia, unspecified; Z86.73 Personal history of transient ischemic attack (TIA), and cerebral infarction without residual deficits; Z83.3 Family history of diabetes mellitus; Z82.49 Family history of ischemic heart disease and other diseases of the circulatory system; Z79.02 Long term (current) use of antithrombotics/antiplatelets; Z79.899 Other long term (current) drug therapy

== ENCOUNTER 2019-03-17 12:14 | Inpatient (IN) ==
--- OUTSIDE RECORDS SUMMARY | 2019-03-17 12:17 | External Medical Summary | Continuity of Care Document ---
:1960 Author Name Clare Lizama Address Unavailable Unavailable , Care Team Providers Name Role Phone Josh Arredondo PA-C Unavailable [email or web address] Carlos [email or web address] Unavailable [email or web address] Phil Kang PA-C Unavailable [email or web address] Katelyn Lizama, Joann. Unavailable [email or web address] Joann ZEPEDA M.D. Unavailable Unavailable Janey Lizama, Isidoro Unavailable [email or web address] Unavailable Unavailable Unavailable Problems Open Wound Of The Left Thumb (883.0) Lumbar radiculopathy (724.4) (M54.16) Dental disorder (525.9) (K08.9) Conjunctivitis (372.30) (H10.9) Acute asthmatic bronchitis (493.90) (J45.909) Headache (784.0) (R51) Right shoulder injury (959.2) (S49.91XA) Injury of elbow, left (959.3) (S59.902A) Back injury (959.19) (S39.92XA) Paresthesias (782.0) (R20.2) Atypical chest pain (786.59) (R07.89) Osteoarthritis of hip (715.95) (M16.9) Pain in thoracic spine (724.1) (M54.6) Back strain (847.9) (S39.012A) Allergic reaction (995.3) (T78.40XA) Contusion of chest wall (922.1) (S20.219A) Transient ischemic attack (TIA) (435.9) (G45.9) Dyslipidemia (272.4) (E78.5) Vitamin B12 deficiency (266.2) (E53.8) Anxiety (300.00) (F41.9) Vomiting (787.03) (R11.10) Disc degeneration, lumbar (722.52) (M51.36) Type 2 diabetes mellitus (250.00) (E11.9) Personal history of tobacco use (V15.82) (Z87.891) 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) Encounter for prostate cancer screening (V76.44) (Z12.5) Cough (786.2) (R05) Low back pain (724.2) (M54.5) Skin lesion (709.9) (L98.9) Acute bronchitis with bronchospasm (466.0) (J20.9) Paronychia of finger (681.02) (L03.019) Shingles (053.9) (B02.9) Contusion Of The Eye / Adnexa (Black Eye) With Intact Skin S urface (921.0) Cellulitis (682.9) (L03.90) Arthralgia of multiple sites (719.49) (M25.50) Encounter for long-term (current) use of medications (V58.69 ) (Z79.899) Obesity (278.00) (E66.9) Hiatal hernia (553.3) (K44.9) Joint pain, hip (719.45) (M25.559) Tooth pain (525.9) (K08.89) Plantar fasciitis (728.71) (M72.2) Esophageal reflux (530.81) (K21.9) Cannabis abuse, in remission (305.23) (F12.11) Caries (521.00) (K02.9) Sleep apnea (780.57) (G47.30) Calcaneal spur (726.73) (M77.30) Allergies and Adverse Reactions No Known Drug Allergies (Allergy) Medications Cialis 5 MG Oral Tablet; Take 1 tablet daily Dl Zepeda Ch Start: 13-Jul-2014 Quantity: 30 Refills: 0 Atorvastatin Calcium 40 MG Oral Tablet; Take 1 tablet daily Dl Zepeda Start: 26-Jan-2017 Quantity: 1 90 Tablet Bottle Refills: 3 buPROPion HCl ER (Smoking Det) 150 MG Or al Tablet Extended Release 12 Hour; TAKE 1 TABLET ONCE A DAY FOR 7 DAYS THEN TAKE 1 TABLET TWICE A DAY THEREAFTER. Dl Zepeda Start: 23-Apr-2017 Quantity: 60 Refills: 5 metFORMIN HCl - 1000 MG Oral Tablet; take 1 tablet by mouth twice a day KURT Gonzalez Start: 21-Dec-2018 Quantity: 60 Refills: 3 glipiZIDE 5 MG Oral Tablet; TAKE 2 TABLETS TWICE DAILY EDDIE Rubio ch Start: 03-Feb-2011 Quantity: 120 Refills: 5 OneTouch Ultra Blue In Vitro Strip Refills: 0 Viagra 50 MG Oral Tablet; One tablet PRN EDDIE Kang Start: 15-Feb-2014 Quantity: 3 Refills: 0 Cialis 20 MG Oral Tablet; TAKE DIRECTED. KURT Gonzalez cca Quantity: 4 Refills: 5 hydrOXYzine HCl - 25 MG Oral Tablet; Take one tablet B ID as needed for anxiety KURT Gonzalez Start: 17-Aug-2017 Quantity: 60 Refills: 3 Clopidogrel Bisulfate 75 MG Oral Tablet; take 1 tablet by mouth every morning Dl Zepeda Start: 02-Apr-2017 Quantity: 1 90 Tablet Bottle Refills: 2 Procedures History of Appendectomy Status: Complete d Immunizations Pneumococcal polysaccharide vaccine, 23 valent On: 1 8:56 Lot #: [id number], [employer] Influenza On: 22-Apr-2011 17:19 Lot #: [id number], [employer] Influenza On: 01-Jun-2012 15:55 Lot #: [id number], [employer] Tdap (Adacel) On: 05-Oct-2013 Family History Unknown Family Member Family history unknown (V49.89) (Z78.9) Status: Active Comments: Family History Social History - Smoking Status Smoker. current status unknown Plan of Treatment Planned Observations Planned Goals not documented Results No Known Results Results not documented Encounters Appointment; Trang Gonzalez CRNP 17-Aug-2017 13:30 Encounter Diagnosis: Problem not documented Appointment; Cheryl Arredondo PA-C 05-Aug-2017 9:00 Encounter Diagnosis: Problem not documented Appointment; Echo/Stress, Echo/Stress 17-Apr-2017 9:30 Encounter Diagnosis: Problem not documented Appointment; Kleber Zepeda M.D. 02-Apr-2017 13:30 Encounter Diagnosis: Problem not documented
[2019-03-17] MEDS ORDERED: ALTEPLASE For Stroke IV STA (12:39)
[2019-03-17] MEDS ORDERED: ONDANSETRON INJ 2 MG/ML 2 ML VIAL ONE ×2 (12:47→14:36)
--- NOTE | 2019-03-17 12:48 | Emergency Department Note ---
Entered by Mara Lopez acting as a scribe for Terrance Hartman MD Pre Sedation Assessment Vital Signs Temp Pulse Resp BP Pulse Ox 03/17/19 12:17 36.8 C 74 18 166/96 H 99 Pre-Sedation Airway Assessment Smoking Status: Unknown if ever smoked Notes The planned sedation has been discussed with the patient. Informed Consent was obtained. I have identified the patient, determined the appropriateness of sedation and have assessed the patient immediately prior to the procedure. All medicine(s) and interventions are by my order.
[2019-03-17] MEDS ORDERED: ALTEPLASE IV ONE ×2 (12:49→12:50)
[2019-03-17] MEDS ORDERED: RECOMBINANT IV ONE ×2 (12:49→12:50)
[2019-03-17 12:54] LABS: Hematocrit (blood only) 44.9 % (42-52); Hemoglobin 16.4 g/dL (14.0-18.0); Mean Corpuscular Hemoglobin 32.3 pg (25-34); Mean Corpuscular Hgb Conc 36.5 g/dL (32-36); Mean Corpuscular Volume 88.6 fL (80-100); Mean Platelet Volume 9.7 fL (7.4-10.4); Platelet Count 176 K/uL (130-400); RDW Standard Deviation 41.8 fL (36.4-46.3); Red Blood Count 5.07 M/uL (4.7-6.1); White Blood Count 7.88 K/uL (4.8-10.8)
[2019-03-17 12:55] LABS: iSTAT Creatinine 0.9 mg/dl (0.6-1.3); iSTAT Ionized Calcium 1.12 mmol/l (1.12-1.32); iSTAT Potassium 4.1 mEq/L (3.3-5.0)
[2019-03-17 13:09] LABS: Partial Thromboplastin Ratio 0.9; Partial Thromboplastin Time 24.9 Seconds (21.0-31.0); Prothrombin Time 10.2 Seconds (9.0-12.0)
[2019-03-17 13:15] LABS: Albumin Level 3.9 gm/dl (3.4-5.0); BUN Creatinine Ratio 19.7 (10-20); Blood Urea Nitrogen 22 mg/dl (7-18); Calcium 9.2 mg/dl (8.5-10.1); Carbon Dioxide 23 mmol/L (21-32); Chloride 102 mmol/L (98-107); Est GFR (African American) 82.6; Est GFR (Non-African American) 71.3; Glucose 277 mg/dl (70-99); Magnesium 1.8 mg/dl (1.8-2.4); Sodium 135 mmol/L (136-145)
--- NOTE | 2019-03-17 13:18 | Emergency Department Note ---
Entered by Mara Smith acting as a scribe for Ronal Nieves DO History of Present Illness General Chief complaint: TIA Symptoms Stated complaint: POSSIBLE STROKE Time Seen by Provider: 03/17/19 12:21 Source: patient and other (nurse) History of Present Illness Provider complaint: TIA symptoms Onset (ago): hour(s) less than 1 Severity: similar to prior episodes (had TIA last year) Pain Consistency: + other (episode) Quality: + other (TIA symptoms) Associated symptoms: + denies other symptoms (black or bloody stool, recenet surgery, recent travel, ) and + other (inable to speak what he is thinking, cannot remember anything); no headaches and no nausea/vomiting The patient is a 59 year old male who presents to the ED with complaints of an episode of TIA symptoms that started less than 1 hour ago. The patient notes that he cannot remember anything. The patient states that he knows what month it is and he knows his age but he is unable to say it. Per nursing staff, the werner alcantar was here 1 year ago for a TIA and had symptoms of numbness, tingling is his hands and shortness of breath. The patient denies headache, nausea, vomiting, black or bloody stool, recent surgery and recent trauma. Home Medications Home Medications Medication Instructions Recorded Confirmed Type metformin 1,000 mg PO BID 03/17/19 03/17/19 History aspirin [Ecotrin Low Strength] 81 mg PO QAM 30 Days #30 tab 03/18/19 Rx atorvastatin 40 mg PO QAM 30 Days #30 tab 03/18/19 Rx clopidogrel [Plavix] 75 mg PO DAILY 30 Days #30 tab 03/18/19 Rx Allergies Allergy/AdvReac Type Severity Reaction Status Date / Time No Known Allergies Allergy Verified 03/17/19 15:07 Past Med/Surg History Medical History No significant past surgical history TIA (transient ischemic attack) Type 2 diabetes mellitus Family History Other Family history unremarkable Social History Preferred Language: [place] Communication Ability: Effective Manager Economic Required: No Beliefs That Will Affect Care: None Current Living Situation: Alone and Family Other Information That Helps Us Care for You: No Feels Safe at Home: Yes Safety Concerns: Feels Safe At This Time Smoking Status: Former smoker Tobacco Type: cigarettes ; Cigarettes Per Day: 20 ; Smoking End Date: 2017 ; Hx Alcohol Use: No Hx Substance Use: No Review of Systems See HPI for pertinent positives & negatives. and A total of 10 systems reviewed and were otherwise negative Physical Exam Vital Signs Vital Signs - 24 hr 03/17/19 12:17 03/17/19 12:35 03/17/19 12:43 Temperature 36.8 C Temperature Source Oral Sepsis Recent Fever Within 48 Hours No Sepsis Action Taken by Nursing No Action Required Pulse Rate 74 80 68 Pulse Rate [Left Finger] Pulse Rate from SpO2 Sensor Pulse Rhythm Regular Pulse Strength Normal Respiratory Rate 18 17 17 Blood Pressure 166/96 H 173/95 H Blood Pressure [Right Arm] Blood Pressure Mean 119 121 Blood Pressure Mean [Right Arm] Blood Pressure Position Sitting Pulse Oximetry 99 Oxygen Delivery Method 03/17/19 12:45 03/17/19 12:53 03/17/19 13:00 Temperature Temperature Source Sepsis Recent Fever Within 48 Hours Sepsis Action Taken by Nursing Pulse Rate 78 73 Pulse Rate [Left Finger] Pulse Rate from SpO2 Sensor 79 72 Pulse Rhythm Pulse Strength Respiratory Rate 24 12 Blood Pressure 166/99 H Blood Pressure [Right Arm] Blood Pressure Mean 121 Blood Pressure Mean [Right Arm] Blood Pressure Position Pulse Oximetry 99 98 96 Oxygen Delivery Method Room Air 03/17/19 13:01 03/17/19 13:10 03/17/19 13:12 Temperature Temperature Source Sepsis Recent Fever Within 48 Hours Sepsis Action Taken by Nursing Pulse Rate 73 79 Pulse Rate [Left Finger] 78 Pulse Rate from SpO2 Sensor 73 72 Pulse Rhythm Pulse Strength Respiratory Rate 14 18 19 Blood Pressure 137/104 H 153/96 H Blood Pressure [Right Arm] 137/104 H Blood Pressure Mean 115 115 Blood Pressure Mean [Right Arm] 115 Blood Pressure Position Pulse Oximetry 97 98 98 Oxygen Delivery Method Room Air 03/17/19 13:14 03/17/19 13:15 03/17/19 13:30 Temperature Temperature Source Sepsis Recent Fever Within 48 Hours Sepsis Action Taken by Nursing Pulse Rate 72 71 Pulse Rate [Left Finger] 72 67 Pulse Rate from SpO2 Sensor 75 67 Pulse Rhythm Pulse Strength Respiratory Rate 18 17 15 Blood Pressure 143/95 H 136/92 Blood Pressure [Right Arm] 153/96 H 136/92 Blood Pressure Mean 111 106 Blood Pressure Mean [Right Arm] 115 106 Blood Pressure Position Pulse Oximetry 98 98 95 Oxygen Delivery Method Room Air Room Air 03/17/19 13:45 03/17/19 14:01 03/17/19 14:02 Temperature Temperature Source Sepsis Recent Fever Within 48 Hours Sepsis Action Taken by Nursing Pulse Rate 65 Pulse Rate [Left Finger] 65 65 Pulse Rate from SpO2 Sensor 65 62 Pulse Rhythm Pulse Strength Respiratory Rate 11 L 18 14 Blood Pressure 139/90 155/78 H Blood Pressure [Right Arm] 139/90 155/78 H Blood Pressure Mean 106 103 Blood Pressure Mean [Right Arm] 106 103 Blood Pressure Position Pulse Oximetry 99 98 99 Oxygen Delivery Method Room Air Room Air 03/17/19 14:03 Temperature Temperature Source Sepsis Recent Fever Within 48 Hours Sepsis Action Taken by Nursing Pulse Rate Pulse Rate [Left Finger] Pulse Rate from SpO2 Sensor 63 Pulse Rhythm Pulse Strength Respiratory Rate 9 L Blood Pressure Blood Pressure [Right Arm] Blood Pressure Mean Blood Pressure Mean [Right Arm] Blood Pressure Position Pulse Oximetry 99 Oxygen Delivery Method GENERAL: Patient is awake and alert. He is very anxious appearing. EYES: The conjunctivae are clear. The pupils are round and reactive. EARS, NOSE, MOUTH AND THROAT: The nose is without any evidence of any deformity. Mucous membranes are moist tongue is midline NECK: The neck is nontender and supple. RESPIRATORY: Normal respiratory effort is noted there is no evidence of wheezing rhonchi or rales CARDIOVASCULAR: Regular rate and rhythm noted there no murmurs rubs or gallops normal S1 normal S2 GASTROINTESTINAL: The abdomen is soft. Bowel sounds are present in all quadrants. Abdomen is nontender MUSCULOSKELETAL/EXTREMITIES: There is no evidence of gross deformity full range of motion is noted in the hips and shoulders SKIN: There is no obvious evidence of any rash. There are no petechiae, pallor or cyanosis noted. NEUROLOGIC: Patient is awake alert and oriented to person place and time. Patient has significant word finding difficulty. He has an expressive aphasia. He does have subjective tingling to the right upper extremity. Strength in the lower extremities is symmetric. He has no facial droop. There is no drift in the upper extremities. Course 1234: Past medical records reviewed. The patient was evaluated in room A1. A complete history and physical exam was performed. 1241: I discussed the patient's case with Dr. Marlene Bonner Neurology. She will be calling to evaluate the patient. 1234: I discussed the patient's case with Dr. Khan [facility] Radiology. He said that nothing on the head CT was indicative for TPA administration. 1245: I discussed risks and benefits of TPA with the patient. The patient is currently deciding. 1246: I reevaluated the patient and he is getting nauseas. I ordered Zofran. 1303: I discussed TPA again with the patient and he is agreeable. At this time TPA is being administered. 1337: I discussed the patient's case [facility] She will be accepting the patient for Dr. Clayton [facility] Hospitalist. Consultations Consultation #1: I discussed the patient's case with Dr. Marlene Bonner Neurology. She will be calling to evaluate the patient. Time: 12:41 Consultation #2: I discussed the patient's case with Dr. Khan [facility] Radiolog y. He said that nothing on the head CT was indicative for TPA administration. Time: 12:34 Consultation #3: I discussed the patient's case [facility] She will be accepting the patient for Dr. Clayton [facility] Hospitalist. Time: 13:37 Administered Medications Atorvastatin Calcium (Lipitor) [address] [facility] Stop: 04/17/19 08:59 Last Admin: 03/18/19 09:08 Dose: 40 mg Documented by: [id number] Dextrose (Dextrose 50%) 25 - 50 ml IV UD PRN; Protocol PRN Reason: Hypoglycemia Protocol Stop: 04/16/19 15:21 Last Admin: 03/17/19 22:35 Dose: 25 ml Documented by: [id number] Gadobutrol (Gadavist 65ml) 9 ml IV ONCE PRN PRN Reason: Interaction Checking Stop: 03/21/19 20:43 Last Admin: 03/17/19 20:44 Dose: 9 ml Documented by: [id number] Acetaminophen (Ofirmev) 1,000 mg in 100 mls @ 400 mls/hr IV Q8H PRN; Protocol PRN Reason: Headache Stop: 04/16/19 17:29 Last Infusion: 03/18/19 02:21 Dose: 0 mls/hr Documented by: [id number] Infusion: 03/18/19 02:06 Dose: 400 mls/hr Documented by: [id number] Admin: 03/18/19 02:05 Dose: 240 mls/hr Documented by: [id number] Infusion: 03/17/19 17:49 Dose: 0 mls/hr Documented by: [id number] Admin: 03/17/19 17:34 Dose: 400 mls/hr Documented by: [id number] Insulin Aspart (Novolog Flexpen) 0 units SC ACHS CAREN Stop: 04/16/19 16:29 Last Admin: 03/18/19 10:07 Dose: 6 units Documented by: [id number] Cosigned by: [id number] Admin: 03/17/19 18:12 Dose: Not Given Documented by: [id number] Ioversol (Optiray 320 125ml) 120 ml IV ONCE PRN PRN Reason: Interaction Checking Stop: 03/21/19 16:07 Last Admin: 03/17/19 16:08 Dose: 120 ml Documented by: [id number] Discontinued Medications Alteplase, Recombinant (Activase For Stroke) 1 ea IV NOW STA; Protocol Stop: 03/17/19 12:40 Last Admin: 03/17/19 13:09 Dose: Not Given Documented by: [id number] Alteplase, Recombinant 8.6 mg/ (Syringe) 8.6 mls @ 8.6 mls/min IV NOW ONE Stop: 03/17/19 12:50 Last Admin: 03/17/19 13:05 Dose: 8.6 mls/min Documented by: [id number] Cosigned by: [id number] Alteplase, Recombinant 78 mg/ (EMPTY BAG) 78 mls @ 78 mls/hr IV NOW ONE Stop: 03/17/19 12:51 Last Infusion: 03/17/19 14:03 Dose: 0 mls/hr Documented by: [id number] Cosigned by: [id number] Admin: 03/17/19 13:05 Dose: 78 mls/hr Documented by: [id number] Cosigned by: [id number] Sodium Chloride (Nss 1000ml) 1,000 mls @ 125 mls/hr IV .Q8H CAREN Stop: 04/16/19 15:21 Last Admin: 03/18/19 08:58 Dose: Not Given Documented by: [id number] Infusion: 03/18/19 08:57 Dose: 0 mls/hr Documented by: [id number] Admin: 03/18/19 01:00 Dose: 125 mls/hr Documented by: [id number] Infusion: 03/18/19 00:30 Dose: 125 mls/hr Documented by: [id number] Admin: 03/17/19 16:30 Dose: 125 mls/hr Documented by: [id number] Insulin Human Regular 250 (units/ Sodium Chloride) 250 mls @ 0 mls/hr IV .Q0M [facility]; Protocol Stop: 04/16/19 16:59 Last Titration: 03/18/19 09:29 Dose: 0 units/hr, 0 mls/hr Documented by: [id number] Cosigned by: [id number] Titration: 03/18/19 08:06 Dose: 0 units/hr, 0 mls/hr Documented by: [id number] Cosigned by: [id number] Titration: 03/18/19 08:00 Dose: 1.9 units/hr, 1.9 mls/hr Documented by: [id number] Cosigned by: [id number] Titration: 03/18/19 07:21 Dose: 2.4 units/hr, 2.4 mls/hr Documented by: [id number] Cosigned by: [id number] Titration: 03/18/19 06:00 Dose: 2.4 units/hr, 2.4 mls/hr Documented by: [id number] Cosigned by: [id number] Titration: 03/18/19 05:00 Dose: 2.4 units/hr, 2.4 mls/hr Documented by: [id number] Cosigned by: [id number] Titration: 03/18/19 04:00 Dose: 2.4 units/hr, 2.4 mls/hr Documented by: [id number] Cosigned by: [id number] Titration: 03/18/19 03:00 Dose: 2 units/hr, 2 mls/hr Documented by: [id number] Cosigned by: [id number] Titration: 03/18/19 02:00 Dose: 2 units/hr, 2 mls/hr Documented by: [id number] Cosigned by: [id number] Titration: 03/18/19 01:00 Dose: 1.7 units/hr, 1.7 mls/hr Documented by: [id number] Cosigned by: [id number] Titration: 03/18/19 00:01 Dose: 1.7 units/hr, 1.7 mls/hr Documented by: [id number] Cosigned by: [id number] Titration: 03/17/19 22:50 Dose: 1.7 units/hr, 1.7 mls/hr Documented by: [id number] Cosigned by: [id number] Titration: 03/17/19 22:30 Dose: 0 units/hr, 0 mls/hr Documented by: [id number] Cosigned by: [id number] Titration: 03/17/19 22:15 Dose: 0 units/hr, 0 mls/hr Documented by: [id number] Cosigned by: [id number] Titration: 03/17/19 21:15 Dose: 2.9 units/hr, 2.9 mls/hr Documented by: [id number] Cosigned by: [id number] Titration: 03/17/19 19:45 Dose: 2.9 units/hr, 2.9 mls/hr Documented by: [id number] Cosigned by: [id number] Titration: 03/17/19 18:45 Dose: 2.9 units/hr, 2.9 mls/hr Documented by: [id number] Cosigned by: [id number] Admin: 03/17/19 17:37 Dose: 2.4 units/hr, 2.4 mls/hr Documented by: [id number] Cosigned by: [id number] Insulin Aspart (Novolog Flexpen) [address] [facility] Stop: 03/18/19 11:00 Last Admin: 03/18/19 09:02 Dose: Not Given Documented by: [id number] Cosigned by: [id number] Admin: 03/17/19 21:08 Dose: Not Given Documented by: [id number] Cosigned by: [id number] Insulin Glargine (Lantus Solostar Pen) 20 units SC TODAY@0930 CAREN Stop: 03/18/19 09:31 Last Admin: 03/18/19 09:07 Dose: 20 units Documented by: [id number] Cosigned by: [id number] Insulin Human Regular (Novolin R Bolus From Bag) 2.5 units IV 1700 ONE Stop: 03/17/19 17:01 Last Admin: 03/17/19 17:38 Dose: 2.5 units Documented by: [id number] Cosigned by: [id number] Ondansetron HCl (Zofran) Confirm Administered Dose 4 mg .ROUTE .STK-MED ONE Stop: 03/17/19 12:48 Last Admin: 03/17/19 20:28 Dose: Not Given Documented by: [id number] Ondansetron HCl (Zofran) Confirm Administered Dose 4 mg .ROUTE .STK-MED ONE Stop: 03/17/19 14:37 Last Admin: 03/17/19 20:28 Dose: Not Given Documented by: [id number] Medical Decision Making Differential Diagnosis Differential diagnosis: Etiologies such as metabolic, infection, hypo/hyperglycemia, electrolyte ab normalities, cardiac sources, intracerebral event, toxicologic, neurologic, as well as others were entertained. Medical Records Attestation: I reviewed the patient's medical records. Home Medications Current Medication List: was personally reviewed by me Laboratory Data Attestation: I reviewed the patient's lab results. Result diagrams: 03/18/19 05:06 03/18/19 05:06 Lab Results 03/17/19 03/17/19 03/17/19 Range/Units 12:28 12:39 12:39 WBC 7.88 (4.8-10.8) K/uL RBC 5.07 (4.7-6.1) M/uL Hgb 16.4 (14.0-18.0) g/dL POC Hgb (14.0-18.0) g/dl Hct 44.9 (42-52) % POC Hct (42-52) % MCV 88.6 (80-100) fL MCH 32.3 (25-34) pg MCHC 36.5 H (32-36) g/dL RDW Std Deviation 41.8 (36.4-46.3) fL RDW Coeff of Soo 13.0 (11.5-14.5) % Plt Count 176 (130-400) K/uL MPV 9.7 (7.4-10.4) fL PT 10.2 (9.0-12.0) Seconds INR 1.0 (0.9-1.1) APTT 24.9 (21.0-31.0) Seconds PTT Ratio 0.9 POC Sodium (135-144) mEq/L Sodium (136-145) mmol/L POC Potassium (3.3-5.0) mEq/L Potassium (3.5-5.1) mmol/L POC Chloride (101-112) mEq/L Chloride (98-107) mmol/L Carbon Dioxide (21-32) mmol/L POC Total CO2 (24-31) mEq/l Anion Gap (3-11) POC Anion Gap (16-25) mmol/L POC BUN (7-18) mg/dl BUN (7-18) mg/dl Creatinine (0.6-1.4) mg/dl POC Creatinine (0.6-1.3) mg/dl Est Cr Clr Drug Dosing Est GFR ( Amer) Est GFR (Non-Af Amer) BUN/Creatinine Ratio (10-20) Glucose (70-99) mg/dl POC Glucose 305 H* (70-99) POC Glucose (other) (70-99) mg/dl Calcium (8.5-10.1) mg/dl POC Ioniz Calcium Kuldeep (1.12-1.32) mmol/l Magnesium (1.8-2.4) mg/dl Total Bilirubin (0.2-1) mg/dl AST (15-37) U/L ALT (12-78) U/L Alkaline Phosphatase (45-117) U/L Total Protein (6.4-8.2) gm/dl Albumin (3.4-5.0) gm/dl Globulin (2.5-4.0) gm/dl Albumin/Globulin Ratio (0.9-2) 03/17/19 03/17/19 Range/Units 12:39 12:41 WBC (4.8-10.8) K/uL RBC (4.7-6.1) M/uL Hgb (14.0-18.0) g/dL POC Hgb 16.0 (14.0-18.0) g/dl Hct (42-52) % POC Hct 47 (42-52) % MCV (80-100) fL MCH (25-34) pg MCHC (32-36) g/dL RDW Std Deviation (36.4-46.3) fL RDW Coeff of Soo (11.5-14.5) % Plt Count (130-400) K/uL MPV (7.4-10.4) fL PT (9.0-12.0) Seconds INR (0.9-1.1) APTT (21.0-31.0) Seconds PTT Ratio POC Sodium 134 L (135-144) mEq/L Sodium 135 L (136-145) mmol/L POC Potassium 4.1 (3.3-5.0) mEq/L Potassium 4.0 (3.5-5.1) mmol/L POC Chloride 99 L (101-112) mEq/L Chloride 102 (98-107) mmol/L Carbon Dioxide 23 (21-32) mmol/L POC Total CO2 20 L (24-31) mEq/l Anion Gap 10.0 (3-11) POC Anion Gap 20.0 (16-25) mmol/L POC BUN 23 H (7-18) mg/dl BUN 22 H (7-18) mg/dl Creatinine 1.13 (0.6-1.4) mg/dl POC Creatinine 0.9 (0.6-1.3) mg/dl Est Cr Clr Drug Dosing Not Reportable Est GFR ( Amer) 82.6 Est GFR (Non-Af Amer) 71.3 BUN/Creatinine Ratio 19.7 (10-20) Glucose 277 H (70-99) mg/dl POC Glucose (70-99) POC Glucose (other) 293 H (70-99) mg/dl Calcium 9.2 (8.5-10.1) mg/dl POC Ioniz Calcium Kuldeep 1.12 (1.12-1.32) mmol/l Magnesium 1.8 (1.8-2.4) mg/dl Total Bilirubin 0.8 (0.2-1) mg/dl AST 9 L (15-37) U/L ALT 23 (12-78) U/L Alkaline Phosphatase 105 (45-117) U/L Total Protein 7.1 (6.4-8.2) gm/dl Albumin 3.9 (3.4-5.0) gm/dl Globulin 3.2 (2.5-4.0) gm/dl Albumin/Globulin Ratio 1.2 (0.9-2) Imaging Data Radiologist's Impression: Radiology results as stated below per my review and the radiologist's interpretation: CT SCAN OF THE BRAIN WITHOUT IV CONTRAST CLINICAL HISTORY: Strokelike symptoms. Aphasia. COMPARISON STUDY: No prior studies are available for comparison at the time of dictation. TECHNIQUE: Unenhanced axial CT scan of the brain is performed from the vertex to the skull base. A dose lowering technique was utilized adhering to the principles of ALARA. FINDINGS: Brain parenchyma: The brain parenchyma is normal in appearance. There is no hemorrhage, mass effect, or evidence of acute territorial ischemia by CT criteria. Barry-white matter differentiation is preserved. No extra-axial fluid collection is seen. Ventricles, sulci, cisterns: Normal in configuration. Intracranial vasculature: The visualized intracranial vasculature at the skull base is normal in appearance. Calvarium: Unremarkable. Sinuses and mastoids: There is evidence of previous paranasal sinus surgery. A 10 mm retention cyst is seen in the left maxillary antrum. Trace mucosal thickening is noted in the frontal sinuses and ethmoid cavity. The mastoid air cells are well pneumatized. Orbits: The bony orbits are grossly intact. IMPRESSION: There is no hemorrhage, mass effect, or evidence of acute territorial ischemia by CT criteria. Electronically signed by: Kanu Bethea M.D. 03/17/2019 12:45 PM ECG Data Attestation: I personally reviewed and interpreted this ECG as follows: Indication: other (stroke) Rate (beats per minute): 70 Rhythm: normal sinus Findings: no PAC, no PVC, no ST depression, no ST elevation and no ectopy Comparison ECG Date: from (02/24/2018) Change: no significant change Blood Pressure Blood Pressure Findings: Normal blood pressure Blood Pressure Disposition: did not require urgent referral MDM Narrative The patient is a 59-year-old male who presented to the emergency department through triage for an evaluation of an acute neurologic deficit. The patient had acute onset of expressive aphasia. He also had some subjective complaints on his right upper extremity. The patient was made a stroke alert upon triage. I put the patient's orders in from the dictation room and then evaluated the patient after he returned from CAT scan in room A1. I did feel the patient's condition was consistent with an acute ischemic stroke. I felt his onset of symptoms was very acute and he was a good candidate for TPA. I discussed this with the patient. Initially he was not willing to receive TPA but as we discussed the patient's condition with him further as well as his laboratory and radiographic studies he appeared to be more agreeable to TPA. The risks and benefits were discussed with the patient. TPA was ordered at the bedside. TPA checklist was done and the patient does not appear to have any acute contraindications to TPA. TPA was given. The patient was reevaluated multiple times. He did develop a headache while he was in the emergency department. Repeat CAT scan showed no change. The patient was evaluated by the [facility] hospitalist group. They have agreed to evaluate the patient in the emergency department for further management disposition. Likely the patient will require further neurologic work-up to evaluate the cause of his stroke. The patient was evaluated by the tele-stroke neurologist. I discussed the patient's condition with the tele-stroke neurologist at [facility]. Impression & Plan CVA (cerebral vascular accident), Aphasia, Nausea, Vomiting Critical Care Time Critical Care Time: Yes Total Critical Care Time: 60 I have personally spent 60 minutes of critical care time in the direct management of this patient. This includes bedside care, interpretation of di agnostic studies, and testing, discussion with consultants, patient, and family members, and other required patient management activities. This 60 minutes is in excess of all separately billable procedures. Discharge Plan Visit Data *Final* Discharge Date/Time: 03/17/19 15:09 Chief Complaint: TIA Symptoms Stated Complaint: POSSIBLE STROKE ED Provider: Ronal Nieevs Discharge Problem: CVA (cerebral vascular accident), Aphasia, Nausea, Vomiting Patient Disposition: Admitted As Inpatient Discharge Instructions Interventions: ED Discharge Assessment Last Done: 03/17/19 15:09 Discharge Problem: CVA (cerebral vascular accident) Qualifiers: CVA mechanism: unspecified Qualified Code(s): I63.9 - Cerebral infarction, unspecified Vomiting Qualifiers: Vomiting type: unspecified Vomiting Intractability: unspecified Nausea presence: unspecified Qualified Code(s): R11.10 - Vomiting, unspecified The scribe's documentation has been prepared under my direction and personally reviewed by me in its entirety. I confirm that the note above accurately reflects all work, treatment, procedures, and medical decision making performed by me.
[2019-03-17 13:24] LABS: Alanine Aminotransferase 23 U/L (12-78); Albumin Globulin Ratio 1.2 (0.9-2); Alkaline Phosphatase 105 U/L (45-117); Aspartate Aminotransferase 9 U/L (15-37); Bilirubin,Total 0.8 mg/dl (0.2-1); Globulin 3.2 gm/dl (2.5-4.0); Total Protein 7.1 gm/dl (6.4-8.2)
--- NOTE | 2019-03-17 13:52 | CT Scan Report ---
CT SCAN OF THE BRAIN WITHOUT IV CONTRAST CLINICAL HISTORY: Strokelike symptoms. Aphasia. COMPARISON STUDY: No prior studies are available for comparison at the time of dictation. TECHNIQUE: Unenhanced axial CT scan of the brain is performed from the vertex to the skull base. A d ose lowering technique was utilized adhering to the principles of ALARA. FINDINGS: Brain parenchyma: The brain parenchyma is normal in appearance. There is no hemorrhage, mass effect, or evidence of acute territorial ischemia by CT criteria. Barry-white matter differentiation is preser jordan. No extra-axial fluid collection is seen. Ventricles, sulci, cisterns: Normal in configuration. Intracranial vasculature: The visualized intracranial vasculature at the skull base is normal in appe arance. Calvarium: Unremarkable. Sinuses and mastoids: There is evidence of previous paranasal sinus surgery. A 10 mm retention cyst i s seen in the left maxillary antrum. Trace mucosal thickening is noted in the frontal sinuses and eth moid cavity. The mastoid air cells are well pneumatized. Orbits: The bony orbits are grossly intact. IMPRESSION: There is no hemorrhage, mass effect, or evidence of acute territorial ischemia by CT tawanda kennedy. Electronically signed by: Kanu Bethea M.D. 03/17/2019 12:45 PM
--- NOTE | 2019-03-17 15:15 | CT Scan Report ---
CT head/brain wo con CT DOSE: 537.48 mGy.cm HISTORY: Headache Headache/Nausea after tPA TECHNIQUE: Multiaxial CT images of the head were performed without the use of intravenous contrast. A dose lowering technique was utilized adhering to the principles of ALARA. Comparison: 03/17/2019 Findings: The paranasal sinuses and mastoid air cells are clear. The calvarium and skull base are int act. The ventricles and sulci are within normal limits. There is no mass, hematoma, midline shift, or acute infarct. Impression: No acute intracranial abnormality. No change from the prior study. The above report was generated using voice recognition software. It may contain grammatical, syntax or spelling errors. Electronically signed by: Juan Tran M.D. 03/17/2019 3:13 PM
[2019-03-17] MEDS ORDERED: GLUCOSE 40% GEL 15 GM TUBE PO PRN (15:22)
[2019-03-17] MEDS ORDERED: GLUCAGON FOR INJ 1 MG VIAL SQ PRN (15:22)
[2019-03-17] MEDS ORDERED: CARBOHYDRATES FOR HYPOGLYCEMIA PO PRN (15:22)
[2019-03-17] MEDS ORDERED: DEXTROSE 50% 50 ML SYRINGE IV PRN (15:22)
[2019-03-17] MEDS ORDERED: ICU PROTOCOL FOR HYPERGLYCEMIA PRN (15:22)
[2019-03-17] MEDS ORDERED: GLUCOSE 10 TABS/TUBE PO PRN (15:22)
[2019-03-17] MEDS ORDERED: PHARMACIST DISCHARGE MED REC CONSULT PRN (15:29)
--- NOTE | 2019-03-17 15:36 | History & Physical Report ---
Date of Service March 17, 2019 Assessment & Plan (1) CVA (cerebral vascular accident): - Patient presents with expressive aphasia and now S/P tPA with improving speech - no other focal neurological deficits appreciated -- History of TIA in 2017 which did reveal carotid stenosis - was placed on statin and ASA/Plavix x 1 month then to continue only Plavix but since had insurance issues and not on medications -- Also H/O T2DM which he has not been taking his medications which will increase his risk factors - Stroke protocol with tPA administration then place Day 2 orders tomorrow; Monitor in ICU given tPA administration - Head CT negative; due to ongoing vomiting and headache after tPA another stat head CT performed and negative - CTA head negative but CTA neck reveals 70-80% stenosis of L ICA and around 30% in R ICA - can have vascular evaluate for possible intervention -- Stroke possibly aborted given tPA - ASA therapy to begin on day 2 given tPA administration; resume Atorvastatin 40 mg daily - Consult neurology - appreciate recommendations and input Present on Admission?: Yes (2) Carotid stenosis: - Comparing CTA from 2017 with this admission there is progression of his L ICA stenosis - likely the source of stroke - May need vascular recommendations for possible endarterectomy vs medicinal management Present on Admission?: Yes (3) Diabetes: - A1c pending - Presented with BSG of 300 - reports not taking medication due to affordability - Glycemic management - initially starting insulin gtt - appreciate assistance - Start NSS at 125 mL/hr given hyperglycemia and vomiting Present on Admission?: Yes (4) Anxiety: - Has had long standing issues with anxiety with visits to PCP and ED - Per records review he has had ongoing vomiting issues that were thought to be stress/anxiety induced which could be related to his vomiting today but given elevated glucose this could be a cause as well - He was previously on Xanax which appears to have been discontinued due to inappropriate use; he was then placed on Vistaril but notes reveal that he was using this in excess of prescription parameters - If anxiety continues to be an issue could consider SSRI pending insurance assessment - would avoid short-acting medications when possible Present on Admission?: Yes (5) DVT prophylaxis: - SCDs; no chemical prophylaxis given tPA Disposition: May need to address insurance/medication costs; anticipate ability to return home on D/C History of Present Illness Chief Complaint: Aphasia Primary Care Provider: lKeber Zepeda MD Mr. Cobos is a 59 y/o male with PMHx of T2DM, TIA (2017), Carotid Stenosis, Anxiety, Chronic Low Back Pain who presents to the ED for difficulty speaking starting around 11 AM on 03/17. HPI is limited as patient can only speak in partial sentences and is having word finding difficulties. He states he has been in his normal state of health prior to today. He noticed around 11 AM that he had difficulty finding his words. He does not recall noticing any other focal neurological deficit. While in the ED, he did experience nausea and emesis. He was deemed a tPA candidate and completed this around 1400. He then experienced further nausea and emesis of brown liquid emesis without evidence of blood. The initial emesis was heme tested and negative. However, did then experience a headache and stat head CT obtained and unremarkable. He denies having any nausea/vomiting prior to today. Upon review of outpatient records he was seen a few times in 2018 for vomiting that was suspected to be anxiety provoked. In multiple notes he does self-report liklihood of stressed induced vomiting. As well, reported approx. 10 lb weight loss at that time but an EGD was declined at the time. Patient also confirms H/O a TIA but due to speech difficulties he could not elaborate further. He was admitted to [facility] at that time and was started on statin, ASA and Plavix for at least a month then to be on Plavix alone. It appears since then he had insurance issues and has not been on his medications. During my assessment, he kept trying to reference something about his PCP/medications/medical history but again could not fully discuss this. It has been about a year since he has been seen by his PCP. 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 Beliefs That Will Affect Care: None Current Living Situation: Alone and Family Other Information That Helps Us Care for You: No Feels Safe at Home: Yes Safety Concerns: Feels Safe At This Time Smoking Status: Former smoker Tobacco Type: cigarettes ; Cigarettes Per Day: 20 ; Smoking End Date: 2017 ; Hx Alcohol Use: No Hx Substance Use: No Review of Systems Constitutional: no fever and no chills Eyes: no worsening vision Ear, Nose, Mouth, Throat: no hearing loss Respiratory: no cough and no dyspnea Cardiovascular: no chest pain, no palpitations and no lightheadedness Gastrointestinal: + nausea and + vomiting; no abdominal pain, no constipation and no diarrhea/loose stools Genitourinary: no dysuria Musculoskeletal: no body aches Integumentary: no rash Neurologic: + headache(s) and + abnormal speech; no localized weakness Psychiatric: + irritability and + anxiety Physical Exam Constitutional: WD/WN, vitals as above Eyes: + anicteric sclerae and PERRL ENMT: Ears: no hearing impairment Neck: normal visual inspection and trachea midline Respiratory: normal respiratory effort, lungs clear to auscultation Cardiovascular: RRR, no murmur, no edema Gastrointestinal (Abdomen): Inspection/Auscultation: normal bowel sounds Percussion/Palpation: abdomen soft; abdomen nontender Musculoskeletal: Head/Neck/Chest: normocephalic and head atraumatic Skin: no rashes, warm and dry Neurologic: moves all extremities Speech / Cognition: + expressive aphasia Motor/Sensory: normal movement and no pronator drift Coordination: normal [id number] test and normal rapid alternating movements Psychiatric: Orientation: alert and oriented x 3 Eye Contact: + fair eye contact Affect: + anxious affect Mood: + anxious mood Results & Data Vital Signs (Past 12 Hours) Vital Signs Temp Pulse Pulse Resp BP BP Pulse Ox 03/17/19 15:02 154/83 H 100 03/17/19 15:00 125/78 95 03/17/19 14:46 69 18 138/78 98 03/17/19 14:45 39 H 138/78 95 03/17/19 14:30 65 64 16 158/81 H 158/81 H 99 03/17/19 14:16 63 18 150/89 H 100 03/17/19 14:15 66 14 150/89 H 100 03/17/19 14:03 9 L 99 03/17/19 14:02 65 14 155/78 H 99 03/17/19 14:01 18 155/78 H 98 03/17/19 13:45 65 65 11 L 139/90 139/90 99 03/17/19 13:30 71 67 15 136/92 136/92 95 03/17/19 13:15 72 17 143/95 H 98 03/17/19 13:14 72 18 153/96 H 98 03/17/19 13:12 79 19 153/96 H 98 03/17/19 13:10 78 18 137/104 H 98 03/17/19 13:01 73 14 137/104 H 97 03/17/19 13:00 73 12 96 03/17/19 12:53 98 03/17/19 12:45 78 24 166/99 H 99 03/17/19 12:43 68 17 173/95 H 03/17/19 12:35 80 17 03/17/19 12:17 36.8 C 74 18 166/96 H 99 Code Status & VTE Plan VTE Prophylaxis Plan VTE Prophylaxis will be ordered: Yes Supervising Physician Co-Signing Physician Notes Patient seen and examined with Angelina JOSUE. I agree with her HPI, history, ROS, physical exam and A/P. Case was discussed with her as well as the dickson points in treatment. I personally reviewed the lab work and imaging and other diagnostic studies. Patient presented with acute onset of aphasia, around 11am, had complete expressive aphasia. Associated with some nausea and then vomiting. Presented to the ED. Stroke alert initiated and he was deemed to be appropriate for tPA. Started to have improvement in symptoms while in the ED after tPA. Patient seen in the ICU after admission. He was speaking clearly at that time. Simple conversation was easy for him. He was still having issues trying to say some words. He said that he knew what he wanted to say but could not say it. He said that he had no issues understanding what others were saying to him. BP was elevated at 180s over 100's. Ordered Hydralazine. Discussed with ICU staff. - acute ischemic stroke with expressive aphasia improvement already noted after tPA administered tPA order set utilized keep BP < 185/105, Hydralazine ordered, avoid all antiplatelets and anticoagulation for 24 hours CTA head normal but CTA neck shows progression of left internal carotid arterial plaque at 70-80% will get echo, MRI brain consult neurology HbA1c and lipid profile for secondary stroke prevention - uncontrolled DM type II: this is due to lack of insurance patient underdosing medications to make them last check HbA1c - carotid artery stenosis, left side, 70-80% in patient with ischemic stroke will discuss with neurology tomorrow about vascular consult inpatient vs outpatient await results of MRI brain - PG Care Time/CCT Total # of Minutes Spent Total Time Spent with Patient: Total time spent is greater than 50% in coordination of care (as documented) at patient's floor/unit and/or counseling patient: (1) CVA (cerebral vascular accident) CVA mechanism: unspecified Qualified Code(s): I63.9 - Cerebral infarction, unspecified
[2019-03-17] MEDS ORDERED: OPTIRAY 320 125ml IV PRN (16:08)
--- NOTE | 2019-03-17 16:24 | CT Scan Report ---
CT angio head w con CLINICAL HISTORY: 59 years-old Male with CVA. Acute strokelike symptoms COMPARISON STUDY: CT head of same day TECHNIQUE: Following the IV administration of 120 cc of Optiray 320, CT angiogram of the brain was pe rformed from the skull base to the vertex. Images are reviewed in the axial, sagittal, and coronal pl anes. 3-D MIPS images are created and assessed. IV contrast was administered without complication. A dose lowering technique was utilized adhering to the principles of ALARA. CT DOSE: 664.96 mGy.cm FINDINGS: CT ANGIOGRAM OF THE BRAIN: The imaged bilateral internal carotid arteries are patent. The bilateral anterior and middle cerebral arteries are also patent. The vertebrobasilar system and posterior cerebral arteries are widely michaud nt. There is no aneurysm, high-grade stenosis, or proximal branch occlusion identified. Dural sinuses appear patent. Mild polypoid mucosal thickening about the medial wall left maxillary sinus. Chronic postoperative changes of the paranasal sinuses with moderate mucosal thickening of the ethmoid air ce lls. Trace right mastoid effusion. IMPRESSION: Unremarkable CTA of the head without aneurysm, dissection, high-grade stenosis or proxima l branch occlusion. The above report was generated using voice recognition software. It may contain grammatical, syntax o r spelling errors. Electronically signed by: Kavon Pleitez M.D. 03/17/2019 4:22 PM
--- NOTE | 2019-03-17 16:24 | CT Scan Report ---
CT angio neck with con HISTORY: Mental status change CVA TECHNIQUE: Multiaxial CT angiography of the neck was performed IV contrast: 100 cc All measurements were calculated based on NASCET criteria. Maximum intensity projection images were also obtained. A dose lowering technique was utilized adhering to the principles of ALARA. COMPARISON STUDY: 01/24/2017 FINDINGS: The aortic arch and proximal great vessels are widely patent. 30% narrowing origin right i nternal carotid artery. 70-80% narrowing origin left internal carotid artery. Small associated ulcera tive plaque unchanged from the prior study. Vertebrobasilar system is unremarkable. IMPRESSION: 1. 30% narrowing origin right internal carotid artery. 2. 70-80% narrowing origin left internal carotid artery, combined with a small ulcerative plaque. 3. These findings are slightly progressive compared to the prior study The above report was generated using voice recognition software. It may contain grammatical, syntax or spelling errors. Electronically signed by: Juan Tran M.D. 03/17/2019 4:23 PM
[2019-03-17] MEDS: SODIUM CHLORIDE 0.9% 1000ML 1,000 ML IV SCH (16:30)
[2019-03-17] MEDS ORDERED: PHARMACY GLYCEMIC MGMT CONSULT PRN (16:57)
[2019-03-17] MEDS ORDERED: NovoLIN-R BOLUS FROM BAG IV ONE ×2 (17:00)
[2019-03-17] MEDS ORDERED: INSULIN REGULAR 250 UNITS in SODIUM CHLORIDE 0.9% 247.5 ML IV SCH (17:00)
[2019-03-17] MEDS ORDERED: ACETAMINOPHEN 1000 MG/100 ML IV IV PRN (17:05)
[2019-03-17] MEDS ORDERED: HydrALAZINE HCL 20 MG/ML VIAL IV PRN (17:11)
--- NOTE | 2019-03-17 17:16 | Critical Care Consultation ---
Date of Consultation March 17, 2019 Assessment & Plan (1) CVA (cerebral vascular accident): Reason Critically Ill: 59-year-old male past medical history of diabetes type 2 presented to the emergency department with strokelike symptoms and TPA administered at 1400 03/17. Neuro - CVA-presented with global aphasia, TPA administration at 1400, symptoms have improved since then -CT head Noncon negative, was repeated in route for patient having headache, repeat negative -CTA head negative for acute process, CTA neck showed 70 to 80% narrowing of the left ICA -Day 1 TPA orders initiated -Neurology consulted, follow-up recs -Frequent neuro checks -Follow-up lipid panel and A1c -Follow-up MRI -Follow-up bubble study -Obtain CT head Noncon at 24 hours post TPA administration Cardiac - Sinus rhythm on monitor Hypertensionno history, likely postinfarct -We will allow permissive hypertension with SBP less than 170 -Can use nicardipine drip if needed Respiratory - Patient maintaining sats on room air, no issues at this time GI - N.p.o. for now, will need speech eval RENAL/LYTES - Creatinine stable, monitor routine BMPs and replete electrolytes as necessary - Strict I's and O's ENDO - Diabetes type 2patient normally takes metformin but has not taken it for couple months due to lack of health insurance and cost -Follow-up hemoglobin A1c -Currently on insulin drip for hyperglycemia, will transition to basal bolus and sliding scale in a.m. -ICU hyperglycemic protocol HEME - H&H stable, monitor routine CBCs ID - No indication for infectious process at this time LINES/IV ACCESS - Peripheral IVs DVT PROPHYLAXIS - SCDs, holding anticoagulants at this time for TPA administration less than 24 hours I have personally spent 35 minutes of critical care time in the direct management of this patient. This is a life/limb threatening event. This includes time spent evaluating patient, direct bedside care, chart review, placing orders, interpretation of diagnostic studies, discussion with consultants, patient, and family members, as well as other required patient management activities. This time is exclusive of all separately billable procedures, and teaching time and separate from and in addition to any other critical care service time. Thank you for allowing us to participate in the care of this patient. Please refer to my attending physician's documentation for any further recommendations. (2) Diabetes: (3) Admitted to intensive care unit: (4) Received intravenous tissue plasminogen activator (tPA) in emergency department: History of Present Illness Attending Physician: Jerrod Cortes DO History of Present Illness Mr. Thakur is a 59-year-old male with past medical history of type 2 diabetes and TIA who had difficulty with speech and right facial tingling around 11 AM this morning. On arrival to the emergency department code stroke was initiated patient was sent for CT head which was negative. Initial NIH score of 3 with global aphasia. TPA was administered at 1400. He developed a headache shortly after TPA and was sent for another CT head without contrast which was negative. On arrival to the ICU the patient still has expressive aphasia, which he says has improved. He was sent for a CTA of head and neck. CTA head was unremarkable, CT neck showed 70 to 80% narrowing of left ICA. Patient currently reports a frontal headache which he says is 7 out of 10. He was having nausea and vomiting in the emergency department which has at this time resolved. Cranial nerves I through XII are intact. He is able to understand entirely and follows commands without delay. He currently denies syncope, dizziness, numbness or tingling. He denies chest pain, palpitations, abdominal pain. Patient to remain in ICU for 24-hour period following TPA administration. 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 Beliefs That Will Affect Care: None Current Living Situation: Alone and Family Other Information That Helps Us Care for You: No Feels Safe at Home: Yes Safety Concerns: Feels Safe At This Time Smoking Status: Former smoker Tobacco Type: cigarettes ; Cigarettes Per Day: 20 ; Smoking End Date: 2017 ; Hx Alcohol Use: No Hx Substance Use: No Review of Systems Review of Systems: All systems reviewed & are unremarkable except as noted in HPI & below Physical Exam Constitutional: WD/WN, vitals as above Eyes: PERRL, conjunctivae normal, anicteric sclerae ENMT: external ear and nose normal, oropharynx normal Neck: trachea midline, no thyromegaly Respiratory: normal respiratory effort, lungs clear to auscultation Cardiovascular: RRR, no murmur, no edema Heart Sounds: normal S1 and normal S2 Vessels: no JVD Gastrointestinal (Abdomen): normal bowel sounds, soft, nontender, no hepatosplenomegaly Neurologic: CN's II-XI intact bilaterally and moves all extremities Psychiatric: A+Ox3, euthymic affect Results & Data Vital Signs (Past 12 Hours) Vital Signs Temp Pulse Pulse Resp BP BP Pulse Ox 03/17/19 17:00 72 13 183/96 H 99 03/17/19 16:39 69 15 181/105 H 98 03/17/19 16:30 71 17 185/108 H 93 03/17/19 16:24 71 14 182/93 H 99 03/17/19 16:00 37.0 C 73 69 21 149/79 H 166/93 H 97 03/17/19 15:30 73 22 173/84 H 99 03/17/19 15:22 74 03/17/19 15:20 37.0 C 67 16 166/93 H 100 03/17/19 15:02 154/83 H 100 03/17/19 15:00 125/78 95 03/17/19 14:46 69 18 138/78 98 03/17/19 14:45 39 H 138/78 95 03/17/19 14:30 65 64 16 158/81 H 158/81 H 99 03/17/19 14:16 63 18 150/89 H 100 03/17/19 14:15 66 14 150/89 H 100 03/17/19 14:03 9 L 99 03/17/19 14:02 65 14 155/78 H 99 03/17/19 14:01 18 155/78 H 98 03/17/19 13:45 65 65 11 L 139/90 139/90 99 03/17/19 13:30 71 67 15 136/92 136/92 95 03/17/19 13:15 72 17 143/95 H 98 03/17/19 13:14 72 18 153/96 H 98 03/17/19 13:12 79 19 153/96 H 98 03/17/19 13:10 78 18 137/104 H 98 03/17/19 13:01 73 14 137/104 H 97 03/17/19 13:00 73 12 96 03/17/19 12:53 98 03/17/19 12:45 78 24 166/99 H 99 03/17/19 12:43 68 17 173/95 H 03/17/19 12:35 80 17 03/17/19 12:17 36.8 C 74 18 166/96 H 99 Laboratory Results Home Medications metformin 1,000 mg PO BID 03/17/19 [History Confirmed 03/17/19] Active Medications Atorvastatin Calcium (Lipitor) 40 mg PO QAM CAREN Stop: 04/17/19 08:59 Dextrose (Dextrose 50%) 25 - 50 ml IV UD PRN; Protocol PRN Reason: Hypoglycemia Protocol Stop: 04/16/19 15:21 Glucagon (Glucagen) 1 mg SQ UD PRN; Protocol PRN Reason: Hypoglycemia Protocol Stop: 04/16/19 15:21 Glucose (Glucose 40%) 15 - 30 gm PO UD PRN; Protocol PRN Reason: Hypoglycemia Protocol Stop: 04/16/19 15:21 Glucose (Dex4 Glucose) 4 - 8 tabs PO UD PRN; Protocol PRN Reason: Hypoglycemia Protocol Stop: 04/16/19 15:21 Hydralazine HCl (Hydralazine Hcl) 10 mg IV Q6 PRN PRN Reason: Blood Pressure - High Stop: 04/16/19 17:10 Sodium Chloride (Nss 1000ml) 1,000 mls @ 125 mls/hr IV .Q8H CAREN Stop: 04/16/19 15:21 Last Admin: 03/17/19 16:30 Dose: 125 mls/hr Documented by: Insulin Human Regular 250 (units/ Sodium Chloride) 250 mls @ 2.4 mls/hr IV .Q24H CAREN; Protocol Stop: 04/16/19 16:59 Acetaminophen (Ofirmev) 1,000 mg in 100 mls @ 400 mls/hr IV Q8H PRN; Protocol PRN Reason: Headache Stop: 04/16/19 17:29 Insulin Aspart (Novolog Flexpen) 0 units SC ACHS CAREN Stop: 04/16/19 16:29 Insulin Aspart (Novolog Flexpen) 0 units SC ACHS CAREN Stop: 04/16/19 20:59 Ioversol (Optiray 320 125ml) 120 ml IV ONCE PRN PRN Reason: Interaction Checking Stop: 03/21/19 16:07 Last Admin: 03/17/19 16:08 Dose: 120 ml Documented by: Miscellaneous (Icu Protocol For Hyperglycemia) 1 ea N/A PRN PRN; Protocol PRN Reason: Hyperglycemia Protocol Stop: 03/19/19 15:21 Miscellaneous (Carbohydrates For Hypoglycemia) 15 - 30 gm PO UD PRN PRN Reason: Hypoglycemia Treatment Stop: 04/16/19 15:21 Miscellaneous Information (Pharmacist Discharge Med Rec Consult) 1 ea N/A UD PRN PRN Reason: Consult Stop: 04/16/19 15:28 Miscellaneous Information (Consult Glycemic Management Pharmacy) 1 ea N/A UD PRN PRN Reason: Consult Stop: 04/16/19 16:56 Medications Administered Home Medications metformin 1,000 mg PO BID 03/17/19 [History Confirmed 03/17/19] Active Medications Atorvastatin Calcium (Lipitor) 40 mg PO QAM CAREN Stop: 04/17/19 08:59 Dextrose (Dextrose 50%) 25 - 50 ml IV UD PRN; Protocol PRN Reason: Hypoglycemia Protocol Stop: 04/16/19 15:21 Glucagon (Glucagen) 1 mg SQ UD PRN; Protocol PRN Reason: Hypoglycemia Protocol Stop: 04/16/19 15:21 Glucose (Glucose 40%) 15 - 30 gm PO UD PRN; Protocol PRN Reason: Hypoglycemia Protocol Stop: 04/16/19 15:21 Glucose (Dex4 Glucose) 4 - 8 tabs PO UD PRN; Protocol PRN Reason: Hypoglycemia Protocol Stop: 04/16/19 15:21 Hydralazine HCl (Hydralazine Hcl) 10 mg IV Q6 PRN PRN Reason: Blood Pressure - High Stop: 04/16/19 17:10 Sodium Chloride (Nss 1000ml) 1,000 mls @ 125 mls/hr IV .Q8H CAREN Stop: 04/16/19 15:21 Last Admin: 03/17/19 16:30 Dose: 125 mls/hr Documented by: Insulin Human Regular 250 (units/ Sodium Chloride) 250 mls @ 2.4 mls/hr IV .Q24H CAREN; Protocol Stop: 04/16/19 16:59 Acetaminophen (Ofirmev) 1,000 mg in 100 mls @ 400 mls/hr IV Q8H PRN; Protocol PRN Reason: Headache Stop: 04/16/19 17:29 Insulin Aspart (Novolog Flexpen) 0 units SC ACHS CAREN Stop: 04/16/19 16:29 Insulin Aspart (Novolog Flexpen) 0 units SC ACHS CAREN Stop: 04/16/19 20:59 Ioversol (Optiray 320 125ml) 120 ml IV ONCE PRN PRN Reason: Interaction Checking Stop: 03/21/19 16:07 Last Admin: 03/17/19 16:08 Dose: 120 ml Documented by: Miscellaneous (Icu Protocol For Hyperglycemia) 1 ea N/A PRN PRN; Protocol PRN Reason: Hyperglycemia Protocol Stop: 03/19/19 15:21 Miscellaneous (Carbohydrates For Hypoglycemia) 15 - 30 gm PO UD PRN PRN Reason: Hypoglycemia Treatment Stop: 04/16/19 15:21 Miscellaneous Information (Pharmacist Discharge Med Rec Consult) 1 ea N/A UD PRN PRN Reason: Consult Stop: 04/16/19 15:28 Miscellaneous Information (Consult Glycemic Management Pharmacy) 1 ea N/A UD PRN PRN Reason: Consult Stop: 04/16/19 16:56 PG Care Time/CCT Total # of Minutes Spent Total Time Spent with Patient: Total time spent is greater than 50% in coordination of care (as documented) at patient's floor/unit and/or counseling patient: Critical Care Time: Yes Total Critical Care Time: 35
[2019-03-17] MEDS: ACETAMINOPHEN 1,000 MG/100 ML VIAL IV PRN (17:34)
[2019-03-17] MEDS: INSULIN ASPART 100 UNITS/ML 3 ML PEN SC SCH ×2 (18:12→21:08)
[2019-03-17] MEDS ORDERED: GADOBUTROL 65ML VIAL IV PRN (20:44)
--- NOTE | 2019-03-17 21:33 | Magnetic Resonance Report ---
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 6 mm focus of restricted diffus ion involves the centrum semiovale left frontal lobe, image 19 series 4 with increased T2/FLAIR signa l and decreased ADC signal. Additional focus of restricted diffusion with increased T2/FLAIR signal a nd decreased signal on ADC map involves the left parieto-occipital distribution on image 14 series 5 measuring 1.4 x 1.0 cm with a few subcentimeter foci noted inferiorly on image 11 series 4. No acute territorial infarct. No acute intracranial hemorrhage, midline shift, abnormal extra axial collection , hydrocephalus or intracranial mass. No abnormal intra-axial or extra-axial enhancement. Major flow voids at the level the skull base appear patent. No large mastoid effusion. Mild polypoid mucosal thickening of the left maxillary sinus. Mild mucosal thickening of the ethmoid air cells, fro ntal, sphenoid and maxillary sinuses. Orbits, skull and soft tissues are unremarkable. IMPRESSION: 1. There are a few small acute or subacute appearing infarctions noted about the left posterior parie clifford/occipital distribution measuring up to 1.4 cm with an additional acute or subacute subcentimeter infarction noted about the centrum semiovale left frontal lobe. 2. No acute intracranial hemorrhage, midline shift or abnormal enhancement. The above report was generated using voice recognition software. It may contain grammatical, syntax o r spelling errors. Electronically signed by: Kavon Pleitez M.D. 03/17/2019 9:32 PM
[2019-03-18] MEDS: SODIUM CHLORIDE 0.9% 1000ML 1,000 ML IV SCH ×2 (01:00→08:58)
[2019-03-18] MEDS: ACETAMINOPHEN 1,000 MG/100 ML VIAL IV PRN (02:05)
[2019-03-18 05:22] LABS: Hematocrit (blood only) 41.8 % (42-52); Hemoglobin 15.5 g/dL (14.0-18.0); Mean Corpuscular Hemoglobin 32.8 pg (25-34); Mean Corpuscular Hgb Conc 37.1 g/dL (32-36); Mean Corpuscular Volume 88.6 fL (80-100); Mean Platelet Volume 9.6 fL (7.4-10.4); Platelet Count 173 K/uL (130-400); RDW Coefficient of Variation 12.9 % (11.5-14.5); RDW Standard Deviation 41.7 fL (36.4-46.3); Red Blood Count 4.72 M/uL (4.7-6.1); White Blood Count 11.48 K/uL (4.8-10.8)
[2019-03-18 05:51] LABS: BUN Creatinine Ratio 15.6 (10-20); Calcium 8.1 mg/dl (8.5-10.1); Creatinine Clr Calc Pharmacy 96.7 ml/min; Est GFR (African American) 100.6; Est GFR (Non-African American) 86.8; Magnesium 1.9 mg/dl (1.8-2.4); Phosphorus 2.8 mg/dl (2.5-4.9); Potassium 3.7 mmol/L (3.5-5.1)
--- NOTE | 2019-03-18 07:15 | Critical Care Progress Note ---
Date of Service March 18, 2019 Assessment & Plan (1) CVA (cerebral vascular accident): Reason Critically Ill: 59-year-old male past medical history of diabetes type 2 presented to the emergency department with strokelike symptoms and TPA administered at 1400 8/. Neuro - CVA-presented with global aphasia, TPA administration at 1400 8/22, symptoms have improved since then -CT head Noncon negative, was repeated in route for patient having headache, repeat negative -CTA head negative for acute process, CTA neck showed 70 to 80% narrowing of the left ICA with small ulcerative plaque, vascular following will schedule for endarterectomy -Day 2 TPA orders to initiate -Neurology consulted, will start aspirin Plavix therapy -Frequent neuro checks -MRI showed multiple small acute or subacute appearing infarctions -No interatrial shunt on bubble study -Obtain CT head Noncon at 24 hours post TPA administration Cardiac - Sinus rhythm on monitor Hypertensionno history, likely postinfarct -We will allow permissive hypertension with SBP less than 170 -Can use nicardipine drip if needed Respiratory - Patient maintaining sats on room air, no issues at this time GI - N.p.o. for now, will need speech eval RENAL/LYTES - Creatinine stable, monitor routine BMPs and replete electrolytes as necessary - Strict I's and O's ENDO - Diabetes type 2patient normally takes metformin but has not taken it for couple months due to lack of health insurance and cost -A1c 9.2 -Transition insulin drip to basal, sliding scale -ICU hyperglycemic protocol HEME - H&H stable, monitor routine CBCs ID - No indication for infectious process at this time LINES/IV ACCESS - Peripheral IVs DVT PROPHYLAXIS - SCDs, holding anticoagulants at this time for TPA administration less than 24 hours (2) Diabetes: (3) Admitted to intensive care unit: (4) Received intravenous tissue plasminogen activator (tPA) in emergency department: Supervising Physician Co-Signing Physician Notes 59-year-old male with a past medical history of diabetes who presented to the hospital with strokelike symptoms. He is status post TPA. Initial CTA head and neck demonstrated bilateral plaques. Vascular surgery was consulted and recommend endovascular procedure after he is discharged. We will get a CT of the head this afternoon to make sure there is no evidence of any bleed. MRI shows scattered foci of acute and subacute infarcts. We are recommending initiation of aspirin status post stroke. This is been ordered. Stroke protocol pathway ordered. Patient also has diabetes type 2 and we are adjusting his insulin. Patient is safe to be transferred to the floor. Subjective This morning the patient remains alert and oriented and neurologically intact wi th mild expressive aphasia, improved from yesterday's exam. Last NIHSS 2. Day 2 TPA orders initiated [address] head Noncon at 24 hours. Patient remains hemodynamically stable and if CT is negative patient can transfer from ICU. He currently denies headache, dizziness, nausea or vomiting, syncope, numbness or tingling, confusion, shortness of breath, chest pain, abdominal pain. Review of Systems Review of Systems: All systems reviewed & are unremarkable except as noted in HPI & below Physical Exam Constitutional: WD/WN, vitals as above Eyes: PERRL, conjunctivae normal, anicteric sclerae ENMT: external ear and nose normal, oropharynx normal Neck: trachea midline, no thyromegaly Respiratory: normal respiratory effort, lungs clear to auscultation Cardiovascular: RRR, no murmur, no edema Heart Sounds: normal S1 and normal S2 Vessels: no JVD Gastrointestinal (Abdomen): normal bowel sounds, soft, nontender, no hepatosplenomegaly Neurologic: CN's II-XI intact bilaterally and moves all extremities Mild expressive aphasia Psychiatric: A+Ox3, euthymic affect Results & Data Vital Signs (Past 12 Hours) Vital Signs Temp Pulse Pulse Resp BP BP Pulse Ox 03/18/19 06:30 61 15 95 03/18/19 06:00 64 16 133/75 95 03/18/19 05:30 64 16 95 03/18/19 05:06 68 19 105/74 99 03/18/19 05:00 37.6 C H 64 18 96 03/18/19 04:30 64 12 96 03/18/19 04:00 68 17 117/67 95 03/18/19 03:30 62 20 95 03/18/19 03:04 67 18 111/71 96 03/18/19 02:30 68 20 93 03/18/19 02:00 69 19 142/83 H 96 03/18/19 01:00 68 18 113/79 93 03/18/19 00:30 73 15 126/81 92 03/18/19 00:00 37.0 C 76 22 121/72 92 03/17/19 23:30 69 20 129/68 91 03/17/19 23:00 37 C 67 20 104/55 L 92 03/17/19 22:00 70 16 102/56 L 96 03/17/19 21:30 69 16 101/54 L 91 03/17/19 20:30 78 16 138/78 96 03/17/19 20:19 74 20 143/87 H 99 03/17/19 20:00 75 17 144/89 H 95 03/17/19 19:30 73 17 140/78 94 03/17/19 19:26 74 PG Care Time/CCT Total # of Minutes Spent Total Time Spent with Patient: Total time spent is greater than 50% in coordination of care (as documented) at patient's floor/unit and/or counseling patient:
[2019-03-18 07:22] LABS: Estimated Average Glucose 217 mg/dl; Hemoglobin A1C 9.2 % (4.5-5.6)
[2019-03-18] MEDS ORDERED: Nursing to Pharmacy Communication ONE (07:30)
--- NOTE | 2019-03-18 08:06 | Neurology Consultation ---
Date of Consultation March 18, 2019 Assessment & Plan (1) CVA (cerebral vascular accident): Acute multifocal left cerebral hemispheric infarcts due to a symptomatic stenosis of the left internal carotid artery. He presented primarily with aphasia affecting speech production and reading comprehension. This issue has nearly resolved after administration of TPA. He does not have a significant associated right hemiparesis or hemisensory deficit. Daily low-dose aspirin can be started 24 hours after administration of TPA. I agree with atorvastatin as prescribed. Patient's blood pressure is appropriate. Continue medical management of diabetes mellitus which appears to be suboptimally controlled. Cessation of marijuana smoking would probably lower his stroke risk going forward as well. He will need a consultation with vascular surgery for the symptomatic left internal carotid artery stenosis. (2) Carotid stenosis: As above, symptomatic left internal carotid artery stenosis, 70 to 80% at its origin with an associated small ulcerative plaque. Patient will need a consultation with vascular surgery for carotid endarterectomy. The 30% right internal carotid artery stenosis is not hemodynamically significant but will need to be monitored going forward. Daily low-dose aspirin and atorvastatin as above. Please contact me if I may be of further assistance. History of Present Illness Reason for Consultation: Expressive aphasia, status post TPA Requesting Physician: Angelina Emerson Attending Physician: Jerrod Cortes DO History of Present Illness The patient is a 59-year old male with a chief complaint of sudden onset inability to speak and read that occurred about 1 hour prior to arrival in the emergency department yesterday. 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 He also experienced some associated numbness and tingling along the right side of his face and hand that resolved within a few minutes although his aphasia persisted. He also complains of an associated global headache of moderate intensity. While in the emergency department a significant expressive aphasia was identified. He did not have an associated hemiparesis or facial droop. A tele-stroke consultation with [facility] was obtained and TPA was subsequently administered. His expres sive aphasia is almost completely resolved this morning. He denies any focal weakness, sensory loss, vision loss, or headache at this time. Past medical history notable for an admission to [facility] for a TIA that occurred in January 2017. Symptoms at that time included transient right-sided numbness and weakness. A moderate stenosis of the left internal carotid artery was identified at that time as well. Recommendations had included antiplatelet medication and a statin. However, the patient reports that he has not had medical insurance and has not taken any prescription medications or [id number]-[id number] aspirin for quite some time. He reports that he smokes marijuana regularly. Additional details as below. Allergies Allergy/AdvReac Type Severity Reaction Status Date / Time No Known Allergies Allergy Verified 03/17/19 15:07 Home Medications Home Medications Medication Instructions Recorded Confirmed Type metformin 1,000 mg PO BID 03/17/19 03/17/19 History Patient History Medical History No significant past surgical history TIA (transient ischemic attack) Type 2 diabetes mellitus Family History Other Family history unremarkable Social History Preferred Language: Sudanese Communication Ability: Impaired Manager Therapy Required: No Beliefs That Will Affect Care: None Current Living Situation: Alone and Family Other Information That Helps Us Care for You: No Feels Safe at Home: Yes Safety Concerns: Feels Safe At This Time Smoking Status: Former smoker Tobacco Type: cigarettes ; Cigarettes Per Day: 20 ; Smoking End Date: 2017 ; Hx Alcohol Use: No Hx Substance Use: No Review of Systems Constitutional: no fever and no chills Eyes: no blind spots and no diplopia Ear, Nose, Mouth, Throat: no tinnitus and no hearing loss Respiratory: no cough and no dyspnea Cardiovascular: no chest pain and no palpitations Gastrointestinal: no nausea and no vomiting Genitourinary: no dysuria Musculoskeletal: + back pain; no myalgia Integumentary: no rash and no lesions Neurologic: as per Subjective / HPI Psychiatric: no depression and no anxiety Hematologic / Lymphatic: no easy bleeding and no easy bruising Physical Exam Physical Exam: The patient is a well-developed, well-nourished adult male. He is alert and fully oriented. Recent and remote memory intact. Attention and concentration normal. Patient exhibits mild difficulty with object naming, repetition, and reading. He made a few minor paraphasic errors with naming. Speech comprehension intact. Patient exhibits an age-appropriate fund of knowledge. Visual escobar full to confrontation. Visual acuity normal. Pupils equal round reactive to light and accommodation. Eye movements normal. There is no nystagmus. Facial sensation intact. There is no facial droop or weakness. Hearing intact. Palate elevates to midline. Shoulder shrug intact. Tongue protrudes to midline. Sensation intact to all modalities in all 4 limbs. There is no hemisensory neglect. Patient does not extinguish to double simultaneous stimulation. Deep tendon reflexes are intact and symmetrical for the arms and legs. The right plantar responses equivocal. Left plantar response downgoing. There is mild dysmetria with [id number] on the right, no dysmetria for the left upper limb or with mzcy-ax-gibr bilaterally. There is no dysdiadochokinesia. Ophthalmoscopic examination reveals normal-appearing optic disks and posterior segments. No papilledema or hemorrhages. Carotid pulses normal bilaterally. There is a moderate carotid bruit on the right to auscultation and a mild bruit on the left to auscultation. Gait and station cannot be tested due to safety concerns. Patient exhibits normal muscle strength and tone for all 4 limbs. No atrophy. No abnormal movements observed. Results & Data Vital Signs (Past 12 Hours) Vital Signs Temp Pulse Pulse Resp BP BP Pulse Ox 03/18/19 06:30 61 15 95 03/18/19 06:00 64 16 133/75 95 03/18/19 05:30 64 16 95 03/18/19 05:06 68 19 105/74 99 03/18/19 05:00 37.6 C H 64 18 96 03/18/19 04:30 64 12 96 03/18/19 04:00 68 17 117/67 95 03/18/19 03:30 62 20 95 03/18/19 03:04 67 18 111/71 96 03/18/19 02:30 68 20 93 03/18/19 02:00 69 19 142/83 H 96 03/18/19 01:00 68 18 113/79 93 03/18/19 00:30 73 15 126/81 92 03/18/19 00:00 37.0 C 76 22 121/72 92 03/17/19 23:30 69 20 129/68 91 03/17/19 23:00 37 C 67 20 104/55 L 92 03/17/19 22:00 70 16 102/56 L 96 03/17/19 21:30 69 16 101/54 L 91 03/17/19 20:30 78 16 138/78 96 03/17/19 20:19 74 20 143/87 H 99 Laboratory Results WBC 11.48, hemoglobin 15.5, hematocrit 41.8, platelet count 173, sodium 140, potassium 3.7, BUN 15, creatinine 0.96, glucose 123, hemoglobin A1c 9.2, calcium 8.1, triglycerides 189, calcium 190, LDL 118, VLDL 38, HDL [address] of the head completed yesterday negative for hemorrhage or acute process. I reviewed the images and radiology interpretation of this test. CTA of the head unremarkable, no aneurysm, stenosis, or dissection. CTA of the neck reveals a 70 to 80% narrowing of the left internal carotid ar katheryn at its origin with an associated small ulcerative plaque. There is a 30% narrowing at the origin of the right internal carotid artery. These findings are slightly progressive compared with the prior CT angiogram done in January 2017. MRI of the brain reveals a few small acute or subacute appearing infarcts at the left posterior parietal/occipital location and additional acute infarct within t he left centrum semi-ovale. I reviewed the images as well as the radiologist interpretation of this test. An electrocardiogram reveals a sinus rhythm, 70 bpm. No atrial fibrillation. An echocardiogram reveals normal left ventricular systolic function without regional wall motion abnormalities, ejection fraction 65 to 70%. No intra- arterial shunt. (1) CVA (cerebral vascular accident) CVA mechanism: unspecified Qualified Code(s): I63.9 - Cerebral infarction, unspecified
[2019-03-18] MEDS ORDERED: ATORVASTATIN 40 MG TAB PO SCH (09:00)
[2019-03-18] MEDS: INSULIN ASPART 100 UNITS/ML 3 ML PEN SC SCH ×3 (09:02→11:53)
--- NOTE | 2019-03-18 09:05 | Consultation ---
Date of Consultation March 18, 2019 Assessment & Plan (1) Carotid stenosis: Pt with significant symptomatic L ICA stenosis with possible ulcerated plaque noted. Pt also seen by Dr Franklin today, who also reviewed pt's imaging. Recommends pt undergo L CEA early next week. Pt is agreeable. Pt can be discharged when medically stable and have procedure as outpt. Recommend plavix and ASA upon discharge. Please notify Dr Franklin if pt is discharged. Please call if needed. Patient was seen, examined, and chart reviewed. Agree with exam and treatment plan of the Vascular PA. Present on Admission?: Yes (2) CVA (cerebral vascular accident): Sx resolved. See above. CVA mechanism: unspecified Qualified Code(s): I63.9 - Cerebral infarction, unspecified Present on Admission?: Yes History of Present Illness Reason for Consultation: LICAS with CVA Attending Physician: Jerrod Cortes, History of Present Illness 59yo m with hx of DMII, chronic LBP and arthritis, TIA in 2017, hx of cocaine use(quit 4-5 yr ago), hx cigarette smoking(1PPD, quit 2 yr ago), and current regular marijuana use for chronic pain, admitted for acute L hemispheric CVA, seen today in consultation for L ICA stenosis noted to be 70-80%. Pt states he had R sided facial numbness with previous TIA in 2017. Never had similar or other concerning sx until yesterday. 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 States he knew what he wished to say, but was unable to speak. Has chronic LBP and occasional numbness of RLE, but did not note any worsening of the numbness, nor any weakness. Denies associate RUE weakness, facial numbness, or amaurosis. Admits associated GALLEGOS that developed a few hr later, but states all sx are resolved today. He received tPA while in ED yesterday, and sx began to resolve around 600-700pm. Denies fever, chills, chest pain, SOB, palpitations, abd pain, N/V, rest pain, claudication, other complaints. Does admit some financial difficulties recently and states was unable to fill his DM medication rx for past 2-3 months. Has been trying to control blood glu with diet in interim. Imaging demonstrates L hemispheric CVA and L ICA stenosis of 70-80% with what appears to be ulcerated plaque. Allergies Allergy/AdvReac Type Severity Reaction Status Date / Time No Known Allergies Allergy Verified 03/17/19 15:07 Home Medications Home Medications Medication Instructions Recorded Confirmed Type aspirin [Ecotrin Low Strength] 81 mg PO QAM 30 Days #30 tab 03/18/19 Rx atorvastatin 40 mg PO QAM 30 Days #30 tab 03/18/19 Rx clopidogrel [Plavix] 75 mg PO DAILY 30 Days #30 tab 03/18/19 Rx glipizide 10 mg PO BID 30 Days #120 tab 03/18/19 Rx metformin 1,000 mg PO BID 30 Days #60 tab 03/18/19 Rx Patient History Medical History No significant past surgical history TIA (transient ischemic attack) Type 2 diabetes mellitus Family History Other Family history unremarkable Social History Preferred Language: Georgian Communication Ability: Effective Pompom Maker Required: No Beliefs That Will Affect Care: None Current Living Situation: Alone and Family Other Information That Helps Us Care for You: No Feels Safe at Home: Yes Safety Concerns: Feels Safe At This Time Smoking Status: Former smoker Tobacco Type: cigarettes ; Cigarettes Per Day: 20 ; Smoking End Date: 2017 ; Hx Alcohol Use: No Hx Substance Use: No Review of Systems Review of Systems: All systems reviewed & are unremarkable except as noted in HPI & below (expressive aphasia yesterday, resolved.) Physical Exam Constitutional: WD/WN, vitals as above well developed, well nourished, + obese, healthy appearing, well groomed, + disheveled, cooperative and comfortable; not in distress and not combative Eyes: PERRL, conjunctivae normal, anicteric sclerae EOM intact bilaterally ENMT: external ear and nose normal, oropharynx normal Ears: no hearing impairment Nose: no nasal discharge Neck: trachea midline, no thyromegaly no tracheal deviation, no neck crepitus and neck nontender Respiratory: normal respiratory effort, lungs clear to auscultation able to speak in complete sentences; does not use accessory muscles, no cough and no audible wheezes Auscultation: + diminished lung sounds; no rhonchi and no whe ezes Cardiovascular: RRR, no murmur, no edema Heart Sounds: no gallop and no murmur Vessels: + carotid bruit, normal peripheral pulses, femoral pulses present, posterior tibial pulses present, dorsalis pedis pulses present, brachial pulses present and radial pulses present; no femoral bruit Extremiti es: normal capillary refill; no edema Chest (Breasts): Chest: normal inspection of chest Gastrointestinal (Abdomen): normal bowel sounds, soft, nontender, no hepatosplenomegaly Inspection/Auscultation: abdomen normal to inspection and normal bowel sounds; abdomen not distended Percussion/Palpation: abdomen soft; abdomen nontender, no guarding, abdomen not rigid and no abdominal mass Musculoskeletal: no cyanosis or clubbing, extremities motor strength 5/5 Head/Neck/Chest: normocephalic, head atraumatic and neck supple Extremities: extremities normal to inspection and strength 5/5 throughout; full ROM of extremities and no clubbing Skin: no rashes, warm and dry normal turgor; no rashes, no lesions, no erythema and no mottling Neurologic: moves all extremities and awake; no focal motor deficits and not confused Speech / Cognition: no expressive aphasia and no receptive aphasia Motor/Sensory: no tremor and no sensory deficit Cranial Nerves: EOM intact bilaterally, normal facial strength and tongue midline Gait: not gait assisted Psychiatric: Orientation: alert, oriented x 3 and cooperative Apperance: appropriately dressed, appropriately groomed, + disheveled and appeared stated age Affect: euthymic affect and + anxious affect Thought Process: goal directed thought process, linear/logical thought process and clear/coherent thought process Cognition: recent memory grossly intact, remote memory grossly intact, attention grossly intact and language grossly intact Estimated Intelligence: average estimated intelligence Results & Data Vital Signs (Past 12 Hours) Vital Signs Temp Pulse Resp BP Pulse Ox 03/18/19 06:30 61 15 95 03/18/19 06:00 64 16 133/75 95 03/18/19 05:30 64 16 95 03/18/19 05:06 68 19 105/74 99 03/18/19 05:00 37.6 C H 64 18 96 03/18/19 04:30 64 12 96 03/18/19 04:00 68 17 117/67 95 03/18/19 03:30 62 20 95 03/18/19 03:04 67 18 111/71 96 03/18/19 02:30 68 20 93 03/18/19 02:00 69 19 142/83 H 96 03/18/19 01:00 68 18 113/79 93 03/18/19 00:30 73 15 126/81 92 03/18/19 00:00 37.0 C 76 22 121/72 92 03/17/19 23:30 69 20 129/68 91 03/17/19 23:00 37 C 67 20 104/55 L 92 03/17/19 22:00 70 16 102/56 L 96 03/17/19 21:30 69 16 101/54 L 91
[2019-03-18] MEDS ORDERED: INSULIN GLARGINE SOLOSTAR 100 UNITS/ML 3 ML PEN SC SCH ×3 (09:30→22:00)
[2019-03-18] MEDS ORDERED: ASPIRIN 81 MG ECTAB PO SCH ×2 (11:00→14:30)
--- NOTE | 2019-03-18 14:11 | CT Scan Report ---
CT head/brain wo con CT DOSE: 537.48 mGy.cm HISTORY: post 24 hr TPA administration TECHNIQUE: Multiaxial CT images of the head were performed without the use of intravenous contrast. A dose lowering technique was utilized adhering to the principles of ALARA. Comparison: None. Findings: The paranasal sinuses and mastoid air cells are clear. The calvarium and skull base are int act. The ventricles and sulci are within normal limits. There is no mass, hematoma, midline shift, or acute infarct. Impression: No acute intracranial abnormality. No evidence for acute intracranial hemorrhage. The above report was generated using voice recognition software. It may contain grammatical, syntax or spelling errors. Electronically signed by: Juan Tran M.D. 03/18/2019 2:09 PM
[2019-03-18] MEDS ORDERED: STROKE PATIENT DISCHARGE STA (14:33)
--- NOTE | 2019-03-18 14:35 | Pharmacy Report ---
Pharmacy Glycemic Short Note 2 - Date of Service March 18, 2019 - Glycemic Short BSG Results (Last 24 hours): 03/17/19 03/17/19 03/17/19 16:32 16:33 18:40 Glucose POC Glucose 305 H* 322 H* 228 H 03/17/19 03/17/19 03/17/19 19:47 21:18 22:15 Glucose POC Glucose 192 H 153 H 96 03/17/19 03/17/19 03/18/19 22:32 22:50 00:06 Glucose POC Glucose 90 167 H 157 H 03/18/19 03/18/19 03/18/19 01:06 02:10 03:06 Glucose POC Glucose 139 H 158 H 136 H 03/18/19 03/18/19 03/18/19 04:06 05:06 05:10 Glucose 123 H POC Glucose 145 H 129 H 03/18/19 03/18/19 03/18/19 06:09 06:54 07:58 Glucose POC Glucose 113 H 102 H 89 03/18/19 03/18/19 09:04 11:30 Glucose POC Glucose 142 H 268 H OUTPATIENT ANTIDIABETIC REGIMEN: * metformin 1000mg BID (has not been taking recently due to lack of current prescription) ASSESSMENT: * Patient presenting last evening with a CVA and BSGs in the 300s, recently non compliant as he has not been able to see his physician for a new prescription. At this time an insulin drip was initiated and BSGs trended down nicely. The insulin drip was transitioned off this morning (~30 units was administered in 12 hours). As discussed with the provider, a more conservative dose of lantus was given this morning due to concern for NPO status and hypoglycemia. Lunch BSG was elevated (although I believe this is somewhat falsely elevated given late breakfast administration and novolog coverage batsheva to dysphagia screening). Discharge is anticipated this afternoon but additional lantus ord ers placed for this evening in the event the patient is still here. PLAN FOR INPATIENT GLYCEMIC CONTROL: * Hold outpatient oral diabetes medications * Basal insulin * Lantus 20 units SQ given this morning * Additional 10 units given at lunch given elevated BSG (and to complete a total daily dose of a weight based stress of 3) * Additional evening lantus scale (see mar for details) * Bolus insulin * NovoLog per scale ACHS or Q6hrs while NPO * Goal Range: Low 110 mg/dL - High 150 mg/dL * Correction Factor: 20 mg/dL/unit * Nutritional / Prandial insulin per carb ratio of 1 unit per 8 grams CHO consumed
--- NOTE | 2019-03-18 16:09 | Pharmacy Report ---
Pharmacist Stroke Counseling - Date of Service March 18, 2019 - Scope: Pharmacy has been consulted to provide medication discharge counseling for this patient admitted with ischemic stroke as per the Pharmacist Discharge Counseling for Stroke Patients Protocol. - Medications on Discharge: New Rx's Medication Instructions Recorded aspirin [Ecotrin Low Strength] 81 mg PO QAM 30 Days #30 tab 03/18/19 atorvastatin 40 mg PO QAM 30 Days #30 tab 03/18/19 clopidogrel [Plavix] 75 mg PO DAILY 30 Days #30 tab 03/18/19 glipizide 10 mg PO BID 30 Days #120 tab 03/18/19 metformin 1,000 mg PO BID 30 Days #60 tab 03/18/19 - Action: The above medications, specifically ones for stroke treatment/prophylaxis, have been reviewed in detail with the patient and/or patient customer contact representative(s) prior to discharge. This includes indication, common adverse reactions, drug interactions, and medication administration. Medication counseling has been employed using the teach-back method to ensure understanding. - Outcome: The patient and/or patient customer contact representative(s) have demonstrated understanding of the medications. Please note, they are aware that the pharmacist will call them within 72 hours post-discharge to confirm that the appropriate medications are being taken and answer any further medication related questions the patient might have at that time. Contact information Individual to be contacted: Edmond Cobos Relationship to patient (if applicable): Patient (self) Phone number: [phone] Best time to call: Any time Additional comments: * Met with patient prior to discharge; family present. This is his 2nd stroke; he had TIA in the past. He apparently ran out of his medications, including Plavix, due to lack of insurance and lack of PCP appointment. He states he has been unable to see PCP for the past year and they would not refill his Rx's since he was not seen. He states he was told to D/C his metformin and glipizide... * Poorly controlled diabetes. Does not check home BG as he says he does not need to since he can feel hyper/hypo-glycemic symptoms. * He states [facility] is working on helping him with cost of care. He needs to return next week for carotid procedure. * None of the discharge medications are new for him. He states he tolerated all in the past without issues. Advised to monitor for s/sx bleeding/bruising. Also cautioned potential statin myopathy, but it seems he tolerated in past. He knows to avoid NSAID's. * It has been >24 hours since TPA, therefore acceptable to take anti-platelets this evening. Recommend to resume metformin and glipizide this evening also. * Given pillbox today and advised need for adherence. He likes [facility]. Recommend he can use [employer] to check drug pricing since he does not have insurance. * Patient seems anxious and hard to focus during counseling. He agrees to f/u phone call. Thank you for allowing pharmacy to be involved in the care of this patient. Please call [phone] or [phone] with any additional questions
--- NOTE | 2019-03-18 17:24 | Discharge Summary ---
Date of Service March 18, 2019 Admission HPI Per Admitting Provider Mr. Cobos is a 59 y/o male with PMHx of T2DM, TIA (2017), Carotid Stenosis, Anxiety, Chronic Low Back Pain who presents to the ED for difficulty speaking starting around 11 AM on 03/17. HPI is limited as patient can only speak in partial sentences and is having word finding difficulties. He states he has been in his normal state of health prior to today. He noticed around 11 AM that he had difficulty finding his words. He does not recall noticing any other focal neurological deficit. While in the ED, he did experience nausea and emesis. He was deemed a tPA candidate and completed this around 1400. He then experienced further nausea and emesis of brown liquid emesis without evidence of blood. The initial emesis was heme tested and negative. However, did then experience a headache and stat head CT obtained and unremarkable. He denies having any nausea/vomiting prior to today. Upon review of outpatient records he was seen a few times in 2018 for vomiting that was suspected to be anxiety provoked. In multiple notes he does self-report liklihood of stressed induced vomiting. As well, reported approx. 10 lb weight loss at that time but an EGD was declined at the time. Patient also confirms H/O a TIA but due to speech difficulties he could not elaborate further. He was admitted to [facility] at that time and was started on statin, ASA and Plavix for at least a month then to be on Plavix alone. It appears since then he had insurance issues and has not been on his medications. During my assessment, he kept trying to reference something about his PCP/medications/medical history but again could not fully discuss this. It has been about a year since he has been seen by his PCP. Principal Diagnosis CVA with Significant L ICA Stenosis (70-80%) Discharge Exam Constitutional WD/WN, vitals as above Eyes + anicteric sclerae and PERRL ENMT Ears: no hearing impairment Neck normal visual inspection and trachea midline Respiratory normal respiratory effort, lungs clear to auscultation Cardiovascular RRR, no murmur, no edema Gastrointestinal (Abdomen) Inspection/Auscultation: normal bowel sounds Percussion/Palpation: abdomen soft; abdomen nontender Musculoskeletal Head/Neck/Chest: normocephalic and head atraumatic Skin no rashes, warm and dry Neurologic moves all extremities; no focal motor deficits Speech / Cognition: no expressive aphasia Motor/Sensory: normal movement and no pronator drift Coordination: normal [id number] test and normal rapid alternating movements Psychiatric Orientation: alert and oriented x 3 Discharge Data Allergies Allergy/AdvReac Type Severity Reaction Status Date / Time No Known Allergies Allergy Verified 03/17/19 15:07 Consultations 03/17/19 13:35 ED Decision to Admit Stat 03/17/19 15:22 Consult Case Management - Discharge Planning Routine Consult Case Management - Discharge Planning Routine Consult Optical Mechanic Apprentice Routine Consult Neurology Routine 03/18/19 08:06 Consult Vascular Surgery Routine Procedures Performed Operation Date: 03/23/19 10:55 <No data on this case meets the specified criteria> Ordered Studies 03/17/19 12:29 CT head/brain wo con Stat 03/17/19 14:50 CT head/brain wo con Stat 03/17/19 15:22 MR brain wo/w con Routine 03/17/19 15:39 CT angio head w con Routine CT angio neck with con Routine 03/18/19 12:44 CT head/brain wo con Routine Hospital Course (1) CVA (cerebral vascular accident): - Patient presents with expressive aphasia and now S/P tPA with normal speech - no other focal neurological deficits appreciated -- History of TIA in 2017 which did reveal carotid stenosis - was placed on statin and ASA/Plavix x 1 month then to continue only Plavix but since had insurance issues and not on medications -- Also H/O T2DM which he has not been taking his medications adequately which will increase his risk factors - Stroke protocol with tPA administration then place Day 2 orders tomorrow and now on antiplatelets - Head CT negative; due to vomiting and headache after tPA another stat head CT performed and negative; MRI does reveal a few small acute/subacute infarcts of the L posterior parietal/occipital distribution and centrum semiovale L frontal lobe - CTA head negative but CTA neck reveals 70-80% stenosis of L ICA and around 30% in R ICA - vascular plans to perform L CEA early next week - Will place on ASA 81 mg daily and Plavix 75 mg daily and Atorvastatin 40 mg daily - Rx with refills suppled and advised patient these are on the reduced cost list at [facility] - due to no PCP/insurance he has not been compliant due to no renewed prescriptions - Consulted neurology - recommendations as above (2) Carotid stenosis: - Comparing CTA from 2017 with this admission there is progression of his L ICA stenosis - likely the source of stroke - Treatment as above (3) Diabetes: - A1c 9.2 - Presented with BSG of 300 - Rx provided for home Metformin 1000 mg BID and Glipizide 10 mg BID (4) Anxiety: - Has had long standing issues with anxiety with visits to PCP and ED - Per records review he has had ongoing vomiting issues that were thought to be stress/anxiety induced which could be related to his vomiting on admission but given elevated glucose and CVA this could be a cause as well - He was previously on Xanax which appears to have been discontinued due to inappropriate use; he was then placed on Vistaril but notes reveal that he was using this in excess of prescription parameters - He also endorses H/O cocaine use several years prior, chronic opiate use in the past, and continued marijuana use currently - PDMP does not reveal any recent Rx for controlled substances - If anxiety continues to be an issue could consider SSRI pending insurance assessment - would avoid short-acting medications when possible and di (5) DVT prophylaxis: Disposition: Information provided to assist patient with MA paperwork; discussed utilizing [facility] in [place] until insurance obtained Total Time Total Time Spent Total Time Spent (In Minutes): Greater than 30 minutes Discharge Plan Discharge Items Patient Disposition: Home - Self-Care Reason For Visit: EXPRESSIVE APHASIA WITH TPA Discharge Diagnosis: Stroke Discharge Goals: Decrease discomfort, Improve disease control and Prevent disease Activity: Resume your previous activity Non-emergency contact: Primary Care Provider Call non-emergency contact if: you have any medication questions, your symptoms worsen and you have a fever Follow-up/Referrals: Amadou Zepeda MD [Primary Care Provider] - Diet: Carb Consistent or DM2 Addtl Provider Instructions: Stroke: - You were admitted for the inability to get your words out. This is consistent with a stroke when looking at your brain MRI. You were found to have worsening narrowing or plaque in the vessels of your neck and likely this is what caused your stroke. - Thankfully your speech is improving drastically so now the goal is to prevent this from happening again. Since you have had a stroke that alone puts you at risk for another one. As well, being male and having diabetes can put you at risk - Some measures we can take to prevent stroke is to eat a balanced diet, exercise regularly, have sugars under control, keep cholesterol under control, and prevent high blood pressure - Due to the blockages in your neck you need to be on both a baby aspirin (81 mg) daily and Plavix 75 mg daily especially until you have your neck surgery next week. Aspirin can be bought over the counter and [facility] has Plavix (Clopidogrel) on their reduced cost list (appears to be $9 for a one month supply). After these events we recommend a statin medication or a cholesterol medication. Atorvastatin is on the [facility] list as well being $9 for a one month supply. This medication can help stabilize the vessel linings even when your cholesterol is doing okay - [facility] we also need to see the sugars under better control. Your A1c (how your sugars run over 3 months) is 9.2 and we would like to see that closer to 6.5 given your young age to prevent further vessel issues. FOLLOW UP - scheduled for carotid endarterectomy on Thursday03/23/[address] Franklin, vascular surgery his office should call you early next week for instructions, if you do not hear from them by Thursday afternoon then give them a call, - should follow up with neurology in one month, Dr. San, [phone] - should follow up with Dr. Zepeda in 2-3 weeks, after you recover from surgery . Who to Call and When: Medical Emergencies: Call 911 immediately if you experience any of the following warning signs and symptoms of Stroke: * Sudden numbness or weakness of the face, arm or leg, especially on one side of the body * Sudden confusion, trouble speaking or understanding * Sudden trouble seeing in one or both eyes * Sudden trouble walking, dizziness, loss of balance or coordination * Sudden severe headache with no cause Do not delay calling 911 if you experience any warning signs or symptoms of a stroke. Delay in seeking medical attention may affect what treatments can be given to you. . Risk Factors for Stroke: You can reduce your chances of stroke by working with your medical provider to adopt a healthy lifestyle. Some specific ways to lower your chance of stroke are: * If you are a smoker, now is the time to stop smoking cigarettes * If you are diabetic, improve the control of your blood sugars * Avoid excessive amounts of alcohol * Control high blood pressure * Lose weight if you are overweight * Be sure to lead an active lifestyle * Eat a healthy diet low in salt, cholesterol and fat You should know about other risk factors for stroke that you are unable to control. These include: * Age 55 years or older * Male gender * Certain racial groups: , or / * Family History of Stroke, Mini stroke or Heart Attack * Sickle Cell Disease Follow Up: It is important for you to keep your follow up appointments with your medical provider. Who to Call and When: Medical Emergencies: Call 911 immediately if you experience any of the following warning signs and symptoms of Stroke: * Sudden numbness or weakness of the face, arm or leg, especially on one side of the body * Sudden confusion, trouble speaking or understanding * Sudden trouble seeing in one or both eyes * Sudden trouble walking, dizziness, loss of balance or coordination * Sudden severe headache with no cause Do not delay calling 911 if you experience any warning signs or symptoms of a stroke. Delay in seeking medical attention may affect what treatments can be given to you. . Prescriptions: New atorvastatin 40 mg Tablet 40 mg PO QAM 30 Days Qty: 30 RF: 1 aspirin [Ecotrin Low Strength] 81 mg Tablet,Delayed Release (Dr/Ec) 81 mg PO QAM 30 Days Qty: 30 RF: 1 clopidogrel [Plavix] 75 mg tablet 75 mg PO DAILY 30 Days Qty: 30 RF: 1 metformin 1,000 mg tablet 1,000 mg PO BID 30 Days Qty: 60 RF: 1 Continued glipizide 5 mg tablet 10 mg PO BID 30 Days Qty: 120 RF: 1 Stand-Alone Forms: Medications to Prevent Stroke, [facility] Discharge Orders: Discharge Order (Routine); Ordered 03/18/19 Ordered By: Jerrod Cortes Admission Data Admit Date/Time: 03/17/19 14:14 Attending Provider: Jerrod Cortes Admit Provider: Jerrod Cortes Primary Care Provider: Amadou Zepeda Other Providers: Steven Corbett ; Jerrod Cortes ; Alban San ; Fred Franklin Service: Intensive Care Unit Other Interventions: Discharge Summary Assessment (RN) Last Done: 03/18/19 14:48 Pending Studies at Discharge: No DC Date/Time DO NOT enter until pt leaves facility: 03/18/19 15:50 Supervising Physician Co-Signing Physician Notes Attending note: patient seen and examined with Angelina Emerson PA-C. I agree with her discharge summary. I personally reviewed the labs and imaging findings. Case was discussed with Dr. San, ICU staff and Dr. Franklin. MRI brain showed some small areas of embolic stroke on left side, parietal and occipital lobe. CTA neck showed 70-80% ICA stenosis with ulcerated plaque, likely the source of the embolic stroke. Plan for CEA next Thursday. - Acute ischemic stroke, embolic, secondary to critical internal carotid artery stenosis with ulcerated plaque excellent response to tPA yesterday, no further aphasia, no neurologic deficits today BP is at goal HbA1c elevated at 9.2% but he has been non-compliant with medications, new scripts provided for Metformin and Glimeperide continue Lipitor start on aspirin and Plavix per recommendations of vascular surgery d/c to home plan for CEA with Dr. Franklin on Thu03/23/19
[2019-03-19] MEDS ORDERED: INSULIN ASPART 100 UNITS/ML 3 ML PEN SC SCH
--- NOTE | 2019-03-21 14:45 | Pharmacy Report ---
Pharmacist Post D/C Phone Note - Phone Note: Date of phone call: March 21, 2019. The patient and/or patient branch sales and service representative(s) were unable to be reached for a follow-up phone call within the 72 hour time frame. Tried calling patient and voicemail is not set up. Discharge counseling pharmacist contact information has already been provided to the patient should questions arise. Thank you for allowing us to be involved in the care of this patient. - Home Medications: New Rx's Medication Instructions Recorded aspirin [Ecotrin Low Strength] 81 mg PO QAM 30 Days #30 tab 03/18/19 atorvastatin 40 mg PO QAM 30 Days #30 tab 03/18/19 clopidogrel [Plavix] 75 mg PO DAILY 30 Days #30 tab 03/18/19 glipizide 10 mg PO BID 30 Days #120 tab 03/18/19 metformin 1,000 mg PO BID 30 Days #60 tab 03/18/19
== END 2019-03-18 15:50 | disposition home or self-care (01) | DRG 63 ==
LOC: ED 12:14 → 1E 14:14

== ENCOUNTER 2019-03-23 09:01 | Inpatient (IN) ==
--- NOTE | 2019-03-22 08:40 | Anesthesiology Consultation ---
Date of Service March 22, 2019 Assessment & Plan (1) Encounter for pre-operative examination: - Recent CVA: Patient s/p acute multifocal left cerebral hemispheric infarcts due to a symptomatic stenosis of the left internal carotid artery (patient denies current residuals). Increased risks associated with surgery/anesthesia given timing of recent CVA will need to be discussed with patient AM DOS as patient was not seen at [facility] prior to surgery* - Slight hemolysis 03/18/19 BMP: at anesthesiologist discretion AM DOS if repeat needed. - Surgeon preop orders: CXR ordered for preop but no recent CXR received- will order for AM DOS. - Check BSG AM DOS Chart Review Chart Review: Acceptable Risk for Surgery and Patient NOT seen in Pre Admission Testing History Surgery Operation Date: 03/23/19 07:30 Proposed Procedures p Left Carotid Endarterectomy - Fred Franklin MD Height/Weight Height: 5 ft 10 in Weight: 93.894 kg Allergies Allergy/AdvReac Type Severity Reaction Status Date / Time No Known Allergies Allergy Verified 03/21/19 15:43 Medications Home Medications Medication Instructions Recorded Confirmed Last Taken clopidogrel [Plavix] 75 mg PO DAILY 30 Days #30 tab 03/18/19 03/21/19 Unknown glipizide 10 mg PO BID 30 Days #120 tab 03/18/19 03/21/19 Unknown metformin 1,000 mg PO BID 30 Days #60 tab 03/18/19 03/21/19 Unknown aspirin [Ecotrin Low Strength] 81 mg PO HS 03/21/19 03/21/19 Unknown atorvastatin 40 mg PO HS 03/21/19 03/21/19 Unknown Past Medical History Medical History Anxiety no medications Chronic back pain Degenerative disc disease Depression no medications Hyperlipidemia Osteoarthritis Stroke 03/17/19; per neurology consult [facility] 03/18/19: " Acute multifocal left cerebral hemispheric infarcts due to a symptomatic stenosis of the left internal carotid artery"= no deficits TIA (transient ischemic attack) ~2017 Type 2 diabetes mellitus niddm Past Family History Family History Other Past medical history not known due to adoption Past Surgical History Surgical History History of appendectomy History of colonoscopy History of nasal septoplasty S/P hemorrhoidectomy Social History Smoking Status: Former smoker tobacco type: cigarettes Smoking cigarettes per day: 20 Do You Dip or Chew Tobacco: No Smoking End Date: jul 2017 Hx Alcohol Use: Yes (quit 1996) Alcohol type: hard liquor Alcohol Intake Frequency Comment: h/o heavy hard liquor use Hx Substance Use: Yes (nightly) substance use type: marijuana Last Used Substance Other:: 03/19/19 Testing Laboratory Results 03/18/19 WBC 11.48 H/H 15.5/41.8 PLATELETS 173 SODIUM 140 POTASSIUM 3.7 CHLORIDE 108 CO2 25 BUN 15 CREATININE 0.96 GLUCOSE 123 (268 on most recent labs from same day*) HGBA1C 9.2% 03/17/19 PT 10.2 PTT 24.9 INR 1.0 Electrocardiogram Date: 03/17/19 SR at 70bpm. LAFB. Inferior infarct, age undetermined. No significant change compared to 03/08/18 per cardio. Subsequent ECHO done 03/17/19* Echocardiogram Date: 03/17/19 EF 65-70%. No RWMA. Borderline cLVH. No interatrial shunt. No significant valvular disease. Other Testing Neck MRA: 03/17/19: 30% narrowing origin right internal carotid artery. 70-80% narrowing origin left internal carotid artery, combined with a small ulcerative plaque. These findings are slightly progressive compared to the prior study. Vertebrobasilar system is unremarkable.
[~2019-03-23 09:01] MED LIST changes: -ATOR-24 PO; -ATR25 PO; +CEFAZOLIN 2000MG 2,000 MG/15 ML SYR IV SCH; -CLOP1TAB15 PO; +DEXAMETHASONE SOD INJ 4 MG/ML VIAL ONE; +ESMOLOL HCL INJ 10 MG/ML 10ML VIAL IV ONE; -GLC5 PO; +GLYCOPYRROLATE 0.2 MG/ML VIAL ONE; +HEPARIN SOD (PORCINE) 1000 UNIT/ML 10 ML VIAL ONE; -HYDR-4313 PO; -HYDR25CA PO; +LABETALOL HCL IV 5 MG/ML 20ML IV ONE; +LIDOCAINE HCL 2% 2 ML VIAL/AMP(20MG/ML) INFIL ONE; +LR 15ML/HR IV SCH; -METF-384 PO; +NEOSTIGMINE METHYLSULFATE 5 MG/5 ML SYR ONE; +NITROGLYCERIN/D5W 100 MCG/ML BTL ONE; +ONDANSETRON INJ 2 MG/ML 2 ML VIAL ONE; +PHENYLEPHRINE 100MCG/ML 5ML SYR ONE; +PHENYLEPHRINE HCL 10 MG/ML VIAL ONE; +PROPOFOL IV EMULSION 10 MG/ML 20 ML VIAL IV ONE; +ROCURONIUM BROMIDE 10 MG/ML 5 ML VIAL ONE; +SODIUM CHLORIDE 0.9% 1000ML 1,000 ML IV SCH; +SODIUM CHLORIDE 0.9% 1000ML IV SCH; +fentaNYL citrate 100 MCG/2 ML VIAL ONE
[2019-03-23] MEDS ORDERED: CEFAZOLIN 2000MG 2,000 MG/15 ML SYR IV SCH (09:30)
--- NOTE | 2019-03-23 09:30 | History & Physical Report ---
Date of Service March 23, 2019 History of Present Illness Chief Complaint: L ICA stenosis with CVA Primary Care Provider: Kleber Zepeda MD History of Present Illness Reason for Consultation: LICAS with CVA Attending Physician: Jerrod Cortes DO History of Present Illness 59yo m with hx of DMII, chronic LBP and arthritis, TIA in 2017, hx of cocaine use(quit 4-5 yr ago), hx cigarette smoking(1PPD, quit 2 yr ago), and current regular marijuana use for chronic pain, admitted for acute L hemispheric CVA, seen today in consultation for L ICA stenosis noted to be 70-80%. Pt states he had R sided facial numbness with previous TIA in 2017. Never had similar or other concerning sx until yesterday. 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 States he knew what he wished to say, but was unable to speak. Has chronic LBP and occasional numbness of RLE, but did not note any worsening of the numbness, nor any weakness. Denies associate RUE weakness, facial numbness, or amaurosis. Admits associated GALLEGOS that developed a few hr later, but states all sx are resolved today. He received tPA while in ED yesterday, and sx began to resolve around 600-700pm. Denies fever, chills, chest pain, SOB, palpitations, abd pain, N/V, rest pain, claudication, other complaints. Does admit some financial difficulties recently and states was unable to fill his DM medication rx for past 2-3 months. Has been trying to control blood glu with diet in interim. Imaging demonstrates L hemispheric CVA and L ICA stenosis of 70-80% with what appears to be ulcerated plaque. Allergies Allergy/AdvReac Type Severity Reaction Status Date / Time No Known Allergies Allergy Verified 03/17/19 15:07 Home Medications Home Medications Medication Instructions Recorded Confirmed Type aspirin [Ecotrin Low Strength] 81 mg PO QAM 30 Days #30 tab 03/18/19 Rx atorvastatin 40 mg PO QAM 30 Days #30 tab 03/18/19 Rx clopidogrel [Plavix] 75 mg PO DAILY 30 Days #30 tab 03/18/19 Rx glipizide 10 mg PO BID 30 Days #120 tab 03/18/19 Rx metformin 1,000 mg PO BID 30 Days #60 tab 03/18/19 Rx Patient History Medical History No significant past surgical history TIA (transient ischemic attack) Type 2 diabetes mellitus Family History Other Family history unremarkable Social History Preferred Language: Spanish Communication Ability: Effective Electronic Assembly Required: No Beliefs That Will Affect Care: None Current Living Situation: Alone and Family Other Information That Helps Us Care for You: No Feels Safe at Home: Yes Safety Concerns: Feels Safe At This Time Smoking Status: Former smoker Tobacco Type: cigarettes ; Cigarettes Per Day: 20 ; Smoking End Date: 2017 ; Hx Alcohol Use: No Hx Substance Use: No Review of Systems Review of Systems: All systems reviewed & are unremarkable except as noted in HPI & below (expressive aphasia yesterday, resolved.) Physical Exam Constitutional: WD/WN, vitals as above well developed, well nourished, + obese, healthy appearing, well groomed, + disheveled, cooperative and comfortable; not in distress and not combative Eyes: PERRL, conjunctivae normal, anicteric sclerae EOM intact bilaterally ENMT: external ear and nose normal, oropharynx normal Ears: no hearing impairment Nose: no nasal discharge Neck: trachea midline, no thyromegaly no tracheal deviation, no neck crepitus and neck nontender Respiratory: normal respiratory effort, lungs clear to auscultation able to speak in complete sentences; does not use accessory muscles, no cough and no audible wheezes Auscultation: + diminished lung sounds; no rhonchi and no wheezes Cardiovascular: RRR, no murmur, no edema Heart Sounds: no gallop and no murmur Vessels: + carotid bruit, normal peripheral pulses, femoral pulses present, posterior tibial pulses present, dorsalis pedis pulses present, brachial pulses present and radial pulses present; no femoral bruit Extr emities: normal capillary refill; no edema Chest (Breasts): Chest: normal inspection of chest Gastrointestinal (Abdomen): normal bowel sounds, soft, nontender, no hepatosplenomegaly Inspection/Auscultation: abdomen normal to inspection and normal bowel sounds; abdomen not distended Percussion/Palpation: abdomen soft; abdomen nontender, no guarding, abdomen not rigid and no abdominal mass Musculoskeletal: no cyanosis or clubbing, extremities motor strength 5/5 Head/Neck/Chest: normocephalic, head atraumatic and neck supple Extremities: extremities normal to inspection and strength 5/5 throughout; full ROM of extremities and no clubbing Skin: no rashes, warm and dry normal turgor; no rashes, no lesions, no erythema and no mottling Neurologic: moves all extremities and awake; no focal motor deficits and not confused Speech / Cognition: no expressive aphasia and no receptive aphasia Motor/Sensory: no tremor and no sensory deficit Cranial Nerves: EOM intact bilaterally, normal facial strength and tongue midline Gait: not gait assisted Psychiatric: Orientation: alert, oriented x 3 and cooperative Apperance: appropriately dressed, appropriately groomed, + disheveled and appeared stated age Affect: euthymic affect and + anxious affect Thought Process: goal directed thought process, linear/logical thought process and clear/coherent thought process Cognition: recent memory grossly intact, remote memory grossly intact, attention grossly intact and language grossly intact Estimated Intelligence: average estimated intelligence Results & Data Vital Signs (Past 12 Hours) Vital Signs Temp Pulse Resp BP Pulse Ox 03/18/19 06:30 61 15 95 03/18/19 06:00 64 16 133/75 95 03/18/19 05:30 64 16 95 03/18/19 05:06 68 19 105/74 99 03/18/19 05:00 37.6 C H 64 18 96 03/18/19 04:30 64 12 96 03/18/19 04:00 68 17 117/67 95 03/18/19 03:30 62 20 95 03/18/19 03:04 67 18 111/71 96 03/18/19 02:30 68 20 93 03/18/19 02:00 69 19 142/83 H 96 03/18/19 01:00 68 18 113/79 93 03/18/19 00:30 73 15 126/81 92 03/18/19 00:00 37.0 C 76 22 121/72 92 03/17/19 23:30 69 20 129/68 91 03/17/19 23:00 37 C 67 20 104/55 L 92 03/17/19 22:00 70 16 102/56 L 96 03/17/19 21:30 69 16 101/54 L 91 Assessment & Plan (1) Carotid stenosis: Pt with significant symptomatic L ICA stenosis with possible ulcerated plaque noted. Pt also seen by Dr Noemi fernandes, who also reviewed pt's imaging. Recommends pt undergo L CEA. Pt is agreeable. Patient was seen, examined, and chart reviewed. Agree with exam and treatment plan of the Vascular PA. Present on Admission?: Yes (2) CVA (cerebral vascular accident): Sx resolved. See above. CVA mechanism: unspecified Qualified Code(s): I63.9 - Cerebral infarction, unspecified Present on Admission?: Yes Allergies Allergy/AdvReac Type Severity Reaction Status Date / Time No Known Allergies Allergy Verified 03/21/19 15:43 Home Medications Home Medications Medication Instructions Recorded Confirmed Type clopidogrel [Plavix] 75 mg PO DAILY 30 Days #30 tab 03/18/19 03/21/19 Rx glipizide 10 mg PO BID 30 Days #120 tab 03/18/19 03/21/19 Rx metformin 1,000 mg PO BID 30 Days #60 tab 03/18/19 03/21/19 Rx aspirin [Ecotrin Low Strength] 81 mg PO HS 03/21/19 03/21/19 History atorvastatin 40 mg PO HS 03/21/19 03/21/19 History Past Med/Surg History Medical History Anxiety no medications Chronic back pain Degenerative disc disease Depression no medications Hyperlipidemia Osteoarthritis Stroke 03/17/19; per neurology consult [facility] 03/18/19: " Acute multifocal left cerebral hemispheric infarcts due to a symptomatic stenosis of the left internal carotid artery"= no deficits TIA (transient ischemic attack) ~2017 Type 2 diabetes mellitus niddm Surgical History History of appendectomy History of colonoscopy History of nasal septoplasty S/P hemorrhoidectomy Family History Other Past medical history not known due to adoption Social History Preferred Language: Spanish Communication Ability: Effective Electronic Assembly Required: No Beliefs That Will Affect Care: None Current Living Situation: Family Current Living Situation Comment: son only (9 years old) Other Information That Helps Us Care for You: No Feels Safe at Home: Yes Safety Concerns: Feels Safe At This Time Smoking Status: Former smoker Tobacco Type: cigarettes ; Cigarettes Per Day: 20 ; Do You Dip or Chew Tobacco: No ; Smoking End Date: jul 2017 ; Second Hand Exposure: No ; Tobacco Cessation Education Requested by Patient: No Hx Alcohol Use: Yes (1996) Alcohol type: hard liquor Hx Substance Use: Yes (nightly) substance use type: marijuana Last Used Substance Other:: 03/19/19
[2019-03-23] MEDS ORDERED: METOCLOPRAMIDE HCL INJ 5 MG/ML 2 ML VIAL IV STA (09:55)
[2019-03-23] MEDS ORDERED: ATROPINE SULFATE 0.1 MG/ML 10ML SYR IV PRN (09:57)
[2019-03-23] MEDS ORDERED: ePHEDrine sulfate 50 MG/ML AMP IV PRN (09:57)
[2019-03-23] MEDS ORDERED: METOCLOPRAMIDE HCL 10 MG TABLET ONE (09:58)
--- NOTE | 2019-03-23 09:58 | History & Physical Bridge Note ---
Date of Service March 23, 2019 History & Physical Bridge Note Patient for Left CEA. I have discussed the risks options and benefits of the procedure with the patient. The patient understands the risks options and benefits and agrees to the procedure. I have examined the patient, reviewed the History & Physical and in the interval since the performance of the History & Physical I have noted the following changes of clinical significance: no changes noted
[2019-03-23] MEDS ORDERED: HEPARIN (PORCINE) 1000 UNIT/ML 10 ML (CATH LAB USE ONLY) ONE (09:59)
[2019-03-23] MEDS ORDERED: LIDOCAINE HCL 1% 20 ML VIAL ONE (09:59)
[2019-03-23] MEDS ORDERED: BUPIVACAINE/EPINEPHRINE 0.5% MPF 1:200,000 30 ML VIAL ONE (09:59)
[2019-03-23] MEDS ORDERED: GELATIN SPONGE SZ 100 ONE (09:59)
[2019-03-23] MEDS ORDERED: THROMBIN FOR SOLN 20000 UNIT KIT ONE (09:59)
[2019-03-23] MEDS ORDERED: CEFAZOLIN 250 MG/ML 1 GM VIAL ONE (09:59)
[2019-03-23] MEDS ORDERED: METOCLOPRAMIDE HCL 10 MG in SYRINGE 0 ML IV STA (10:10)
[2019-03-23] MEDS ORDERED: fentaNYL citrate 100 MCG/2 ML VIAL ONE (12:23)
[2019-03-23] MEDS ORDERED: PROPOFOL IV EMULSION 10 MG/ML 20 ML VIAL IV ONE (12:43)
[2019-03-23] MEDS ORDERED: HydrALAZINE HCL 20 MG/ML VIAL ONE (13:45)
[2019-03-23] MEDS ORDERED: ESMOLOL HCL INJ 10 MG/ML 10ML VIAL IV ONE (14:01)
--- NOTE | 2019-03-23 14:23 | Post Operative Brief Note ---
Immediate Post Op Note v1 Date of Surgery March 23, 2019 Pre & Post Diagnosis Operation Date: 03/23/19 11:10 Pre-Op Diagnosis: Left Internal Cardotid Artery Stenosis Post-Op Diagnosis: Left Internal Cardotid Artery Stenosis Procedure Operation Date: 03/23/19 11:10 Actual Procedures p Left Carotid Endarterectomy With Patch(Left) - Fred Franklin MD Surgeon Fred Franklin MD Yacht Builder MD Lorenza Estimated Blood Loss 150 Findings Consistent with Post-Op Diagnosis Anesthesia Type General Complications none Disposition Accompanied Patient To Recovery: No Disposition: Recovery Room
--- NOTE | 2019-03-23 14:53 | Operative Report ---
Post Operative Report Pre & Post Diagnosis Operation Date: 03/23/19 11:10 Pre-Op Diagnosis: Left Internal Cardotid Artery Stenosis Post-Op Diagnosis: Left Internal Cardotid Artery Stenosis Procedure Operation Date: 03/23/19 11:10 Actual Procedures p Left Carotid Endarterectomy With Patch(Left) - Fred Franklin MD Surgeon Fred Franklin Senior Advocate MD Lorenza Estimated Blood Loss 150 Findings Consistent with Post-Op Diagnosis Specimens left carotid endarterectomy plaque Drains none Anesthesia Type General Complications none Disposition Accompanied Patient To Recovery: No Disposition: Recovery Room Indications symptomatic left carotid artery stenosis Description of Procedure The patient was taken to the operating room and placed in supine position. The patient's identity and surgical site were verified. After general anesthesia was accomplished the left-side of the neck was prepped and draped in a sterile manner. A longitudinal neck incision was then made coursing along the medial border of the sternocleidomastoid muscle. The incision was taken down through the platysmal layer. The facial vein was identified, ligated, and divided. The common carotid artery was then seen. It was dissected free down to the omohyoid muscle. The dissection was carried upward until the external carotid artery and superior thyroid artery was seen. The superior thyroid artery was slung with a 2-0 silk suture. The external carotid was slung with a red rubber vessel loop. Next the dissection was carried up along the internal carotid artery. This was carried upward to beyond the area of narrowing. The patient was heparinized. After adequate heparinization was accomplished, the internal, external, and common carotid arteries were clamped. A longitudinal arteriotomy was started on the common carotid artery and extended upward along the internal carotid artery to a point beyond the area of narrowing. There was calcified plaque of the internal carotid artery origin causing approximately 60-70% narrowing with hemorrhage noted within the plaque. A Doppler shunt was then placed in the internal, followed by the common carotid artery and held in place with David clamps. There was good back bleeding seen from the internal carotid artery. The endarterectomy was then started in the appropriate plane on the common carotid artery. This was carried upward and the external carotid was everted and endarterectomized. The endarterectomy was then carried up along the internal carotid artery till a nice feathering breakoff point was accomplished beyond the end of the plaque. The endarterectomy was then carried down further on the common carotid artery. At end of the arteriotomy, the plaque was then transected. Under loop magnification, all loose debris and flaps were removed. There is no distal flap seen at the end of the endarterectomy site. The arteriotomy then closed using a bovine pericardial patch and a running 6-0 vicryl suture. This was done in the usual vascular fashion. Prior to completing the closure, the doppler shunt was removed and the internal and common carotid arteries were reclamped. Backbleeding and forward bleeding was allowed to occur. The flow surface was irrigated with heparinized saline. The final few sutures were then placed and securely tied. Clamps were then removed off the external and common carotid arteries. The clamp was then removed the internal carotid artery. Good distal flow was seen. Adequate hemostasis was seen of the patch. The wound was inspected and adequate hemostasis was obtained. It was then closed with a running 3-0 Vicryl suture for the platysmal layer and a 4-0 subcuticular Vicryl suture for the skin edges. Dermabond was used for dressing. The patient left the operating room in satisfactory condition and tolerated the procedure well. At the conclusion of the procedure all instrument, needle, and sponge counts were correct. Dr. Franklin was present and scrubbed for the entire procedure. I attest to the content of the Intraoperative Record and any orders documented therein. Any exceptions are noted below.
[2019-03-23] MEDS ORDERED: NovoLIN-R INSULIN PER UNIT CHARGE ONE (15:16)
[2019-03-23] MEDS ORDERED: LACTATED RINGER'S 500 ML IV ONE (15:32)
[2019-03-23] MEDS: HYDROmorphone INJ 2 MG/ML SYR/VIAL IV PRN ×2 (15:54→16:10)
[2019-03-23] MEDS ORDERED: PHENYLEPHRINE HCL 20 MG in DEXTROSE 5% 500 ML IV SCH (16:00)
--- NOTE | 2019-03-23 16:35 | Anesthesiology Progress Note ---
Date of Service March 23, 2019 Anesthesia Post Procedure Vital Signs Vital Signs: Temp Pulse Pulse Resp BP BP Pulse Ox 03/23/19 16:20 63 13 94/44 L 87/54 L 97 03/23/19 16:10 65 11 L 98/46 L 89/54 L 99 03/23/19 16:00 63 14 91/41 L 86/49 L 99 03/23/19 15:50 63 13 92/40 L 86/47 L 98 03/23/19 15:40 65 18 88/37 L 75/48 L 99 03/23/19 15:30 65 16 90/40 L 80/49 L 100 03/23/19 15:20 65 15 100/44 L 88/53 L 99 03/23/19 15:10 60 24 104/46 L 90/53 L 99 03/23/19 15:02 36.2 C L 65 18 101/43 L 85/51 L 99 03/23/19 09:52 36.9 C 82 20 148/89 H 99 Pain Intensity Left Neck: Pain Intensity: 2 Transfer of Care Handoff Completed per policy Notes Mental Status: alert / awake / arousable Patient Amnestic to Procedure: Yes Nausea / Vomiting: adequately controlled Pain: adequately controlled Airway Patency, RR, SpO2: stable & adequate BP & HR: stable & adequate Hydration State: stable & adequate Anesthetic Complications: no major complications apparent and Pt Satisfied with anesthetic care
[2019-03-23] MEDS ORDERED: MoRPHine SULFATE 4 MG/ML 1 ML CARP\\VIAL IV PRN (16:51)
[2019-03-23] MEDS ORDERED: ONDANSETRON INJ 2 MG/ML 2 ML VIAL IV PRN (16:51)
[2019-03-23] MEDS ORDERED: HYDROCODONE/ACETAMOPHEN 5/325MG TAB PO PRN (16:51)
[2019-03-23] MEDS ORDERED: MoRPHine SULFATE 2 MG/ML CARP IV PRN (16:56)
--- NOTE | 2019-03-23 17:35 | Critical Care Consultation ---
Date of Consultation March 23, 2019 Assessment & Plan (1) Admitted to intensive care unit: Reason Critically Ill: Edmond is a 59-year-old male with past medical history of type 2 diabetes mellitus, chronic low back pain/arthritis, TIA, and recent CVA with expressive aphasia and no residual deficits following TPA administration who presented to the hospital for left carotid endarterectomy and is transferred to the ICU for postop care. Neuro - [facility]: Negative Acute left hemisphere CVA status post TPA administration No residual deficits. No expressive aphasia experienced today. Suspect due to left ICA stenosis, greater than 70%. Sensation and strength intact in all extremities. No acute concerns. Mentation normal. Aspirin 81 mg, clopidogrel 75 mg daily Analgesia Morphine 1-4 mg every 2 hours PRN IV for postop pain control Cardiac/vascular- Left carotid stenosis Neck CTA 03/17/2019 performed for CVA as above showed 70-80% narrowing of the left ICA, 30% narrowing of right ICA. Status post carotid endarterectomy without complication, clinically doing well No history of cardiac disease. Echocardiogram 03/17/2019 shows EF 65-70% with borderline concentric LVH Respiratory - Denies history of pulmonary disease including COPD 40+-pack-year smoking history, and expiratory wheezes are appreciated No home oxygen requirement, O2 sat greater than 88% on room air postop. Continue to trend. GI - Heart healthy, type II diabetic diet RENAL/LYTES - -preop BMP 03/18 with normal sodium, normal potassium, creatinine 0.96 BMP every morning Correct lelectrolytes as needed - No acute concerns ENDO - Type 2 diabetes mellitus 03/18 A1c 9.3% In preceding 2 to 3 months patient had not been taking metformin or glipizide due to cost/insurance concerns -Following his CVA he was able to fill his metformin, last took it this morning -Postop glucose [id number], but had a meal and has been without coverage this afternoon Insulin aspart SSI. Correction factor 35, carb ratio 1:15. Hold [employer] oral medications HEME - CBC at a.m. draw ID - No concerns for infection at this point. INTEGUMENTARY - Surgical incision at left carotid intact, without dehiscence/warmth/exudate LINES/IV ACCESS - PIVs intact. DVT PROPHYLAXIS - Pharmacoprophylaxis held in postoperative period, SCDs Thank you for allowing us to be part of this patient's care. Please refer to Dr. Pena's documentation for any further recommendations. (2) Diabetes: (3) Received intravenous tissue plasminogen activator (tPA) in emergency department: (4) CVA (cerebral vascular accident): (5) Carotid stenosis: (6) Anxiety: (7) DVT prophylaxis: Supervising Physician Co-Signing Physician Notes Dr. Poole was resident physician during care of patient. I separately evaluated patient for dickson portions of the history and the exam. I was present during the critical portion of medical decision making, and I discussed the case with the resident. I generally agree with the findings and plan. History of Present Illness Reason for Consultation: Post CEA Requesting Physician: Fred Franklin MD Attending Physician: Fred Franklin MD History of Present Illness Laith is a 59-year-old male with a past medical history of tobacco abuse, TIA, CVA status post TPA, and carotid stenosis who presents to the intensive care unit for care following left carotid endarterectomy. Rosalba reports that he experienced a stroke on March 17 with near complete expressive aphasia. He was seen in the emergency department and was admitted for an acute left hemispheric CVA treated with TPA with gradual reversal of his deficits. He denies residual deficits from this episode. Prior to this he had a "mini stroke "in January 2017 with right facial numbness without residual deficit and he was started on a course of aspirin and he thinks Plavix which eventually completed and was not taking at time of his stroke this month. On evaluation this month he was found to have left ICA stenosis 70 to 80%. He endorses intermittent occasional baseline right lower extremity numbness, but denies any recent numbness/weakness or exacerbation of the symptoms with his recent stroke. He endorses that he had a headache this morning, but that it is "mild/10 "at time of visit. He reports that overall he feels well following his surgery, and denies fevers, chills, chest pain, chest pressure, shortness of breath, difficulty breathing, palpitations, numbness, tingling, fatigue, diffuse weakness, focal weakness, abdominal pain, nausea, diarrhea, constipation. He reports that he is very hungry and would like dinner. He reports he is on metformin 1 g twice daily at home, is unsure whether he takes glipizide or not. He has had financial difficulties and has been unable to fill his diabetic medications in the past few months. He expresses that he would like to continue filling out his short-term disability paperwork as he is concerned about his ability to work and pay bills during his recovery from surgery. Past medical history: Endorses anxiety, stroke/TIA as noted above. Denies past medical history of hypertension, coronary artery disease, bleeding disorders, thyroid disease. Endorses history of type 2 diabetes mellitus, chronic low back pain and discitis, and arthritis. Medications: Endorses history of metformin and glipizide diabetic therapy with intermittent use due to cost. Reports he did take his metformin this morning. Surgical history: Appendectomy, dental work. Family history: He is adopted and his family history is unknown to him. Social: Denies current tobacco use. 42-year 1 pack/day tobacco use history, no tobacco use in the last 2 years. Denies alcohol use since 1996, endorses excessive drinking prior to this. Endorses regular recreational marijuana use for anxiety "when he is able to get it ". History of cocaine use, denies any recent use and denies any other recreational drug use. Allergies Allergy/AdvReac Type Severity Reaction Status Date / Time No Known Allergies Allergy Verified 03/23/19 09:50 Home Medications Home Medications Medication Instructions Recorded Confirmed Type clopidogrel [Plavix] 75 mg PO DAILY 30 Days #30 tab 03/18/19 03/23/19 Rx glipizide 10 mg PO BID 30 Days #120 tab 03/18/19 03/23/19 Rx metformin 1,000 mg PO BID 30 Days #60 tab 03/18/19 03/23/19 Rx aspirin [Ecotrin Low Strength] 81 mg PO HS 03/21/19 03/23/19 History atorvastatin 40 mg PO 03/21/19 03/23/19 History oxycodone-acetaminophen [Percocet] 1 tab PO Q6H PRN #10 tab 03/24/19 Rx Patient History Medical History Anxiety no medications Chronic back pain Degenerative disc disease Depression no medications Hyperlipidemia Osteoarthritis Stroke 03/17/19; per neurology consult [facility] 03/18/19: " Acute multifocal left cerebral hemispheric infarcts due to a symptomatic stenosis of the left internal carotid artery"= no deficits TIA (transient ischemic attack) ~2017 Type 2 diabetes mellitus niddm Surgical History History of appendectomy History of colonoscopy History of nasal septoplasty S/P hemorrhoidectomy Family History Other Past medical history not known due to adoption Social History Preferred Language: Swedish Communication Ability: Effective 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 Beliefs That Will Affect Care: None Current Living Situation: Family Current Living Situation Comment: son only (9 years old) Other Information That Helps Us Care for You: No Feels Safe at Home: Yes Safety Concerns: Feels Safe At This Time Smoking Status: Former smoker Tobacco Type: cigarettes ; Cigarettes Per Day: 20 ; Do You Dip or Chew Tobacco: No ; Smoking End Date: jul 2017 ; Second Hand Exposure: No ; Tobacco Cessation Education Requested by Patient: No Hx Alcohol Use: Yes (quit 1996) Alcohol type: hard liquor Hx Substance Use: Yes (nightly) substance use type: marijuana Last Used Substance Other:: 03/19/19 Review of Systems Review of Systems: Constitutional: Denies fever, chills, malaise Eyes: Denies double vision, vision change, eye pain, amaurosis ENT: Denies ear pain, sore throat, cough Cardiovascular: Denies Chest pain, chest pressure, palpitations Respiratory: Denies shortness of breath, cough, sputum production, difficulty breathing Gastrointestinal: Denies abdominal pain, nausea, vomiting, constipation, diarrhea. Endorses hunger. Genitourinary: Denies pain with urination Musculoskeletal: Denies weakness, muscle aches/pain, joint aches/pain Integumentary: Endorses left postsurgical carotid incision. Otherwise denies rashes, skin changes. Neurological: Endorses headache as noted in HPI. Denies numbness, tingling, focal weakness Physical Exam Physical Exam: General: A&Ox3. NAD. Cooperative. HEENT: Normocephalic. No facial asymmetry. Sensation to soft touch intact in all distributions and symmetrical. Facial strength intact in all distributions and symmetrical. Pupils equal and reactive to light and accommodation. Extraocular movements intact without nystagmus or saccades. Trace rightward uvular deflection, no airway obstruction. Left carotid surgical incision intact, without dehiscence/warmth, erythema, discharge with staple closure. Pulm: Diffuse high-pitched end expiratory wheeze in all lung escobar. Good air movement, -rales, -rhonchi. Symmetrical chest rise. No increased work of breathing. No respiratory distress. Cardiac: RRR, -mrg. Radial pulses intact and symmetrical. Abdominal: Nontender, nondistended, soft. BS present. Extremities: Sensation intact to soft touch in upper and lower extremities bilaterally without deficit. 5/5 strength to finger flexion/extension, interosseal, elbow flexion/extension, shoulder internal rotation/external rotation, hip flexion, knee flexion/extension, ankle dorsiflexion/plantar flexion bilaterally. Posterior tibialis pulses intact bilaterally. Skin warm and dry. Results & Data Vital Signs (Past 12 Hours) Vital Signs Temp Pulse Pulse Resp BP BP Pulse Ox 03/23/19 16:30 36.2 C L 74 16 168/68 H 133/84 99 03/23/19 16:20 63 13 94/44 L 87/54 L 97 03/23/19 16:10 65 11 L 98/46 L 89/54 L 99 03/23/19 16:00 63 14 91/41 L 86/49 L 99 03/23/19 15:50 63 13 92/40 L 86/47 L 98 03/23/19 15:40 65 18 88/37 L 75/48 L 99 03/23/19 15:30 65 16 90/40 L 80/49 L 100 03/23/19 15:20 65 15 100/44 L 88/53 L 99 03/23/19 15:10 60 24 104/46 L 90/53 L 99 03/23/19 15:02 36.2 C L 65 18 101/43 L 85/51 L 99 03/23/19 09:52 36.9 C 82 20 148/89 H 99 PG Care Time/CCT Total # of Minutes Spent Total Time Spent with Patient: Total time spent is greater than 50% in coordination of care (as documented) at patient's floor/unit and/or counseling patient: Resident Activity Tracking Resident Involvement: Resident Care Provided Care Provided: Adult Hospital Medicine (1) CVA (cerebral vascular accident) CVA mechanism: unspecified Qualified Code(s): I63.9 - Cerebral infarction, unspecified
[2019-03-23] MEDS: SODIUM CHLORIDE 0.9% 1000ML 1,000 ML IV SCH ×2 (17:57→23:34)
[2019-03-23] MEDS ORDERED: GLUCOSE 40% GEL 15 GM TUBE PO PRN (18:09)
[2019-03-23] MEDS ORDERED: CARBOHYDRATES FOR HYPOGLYCEMIA PO PRN (18:09)
[2019-03-23] MEDS ORDERED: GLUCAGON FOR INJ 1 MG VIAL SQ PRN (18:09)
[2019-03-23] MEDS ORDERED: GLUCOSE 10 TABS/TUBE PO PRN (18:09)
[2019-03-23] MEDS ORDERED: DEXTROSE 50% 50 ML SYRINGE IV PRN (18:09)
[2019-03-23] MEDS: INSULIN ASPART 100 UNITS/ML 3 ML PEN SC SCH ×2 (19:11→21:02)
[2019-03-23] MEDS: CEFAZOLIN 2000MG 2,000 MG/15 ML SYR IV SCH (20:48)
[2019-03-23] MEDS ORDERED: ICU PROTOCOL FOR HYPERGLYCEMIA PRN (20:55)
[2019-03-23] MEDS ORDERED: ASPIRIN 81 MG ECTAB PO SCH (21:00)
[2019-03-23] MEDS ORDERED: ATORVASTATIN 40 MG TAB PO SCH (21:00)
[2019-03-23] MEDS ORDERED: SEVERE STRESS LEVEL ONE (21:39)
[2019-03-23] MEDS ORDERED: INSULIN PROTOCOL GOAL RANGE ONE (21:39)
[2019-03-23] MEDS ORDERED: INSULIN REGULAR 250 UNITS in SODIUM CHLORIDE 0.9% 247.5 ML IV SCH (21:45)
[2019-03-23] MEDS ORDERED: NovoLIN-R BOLUS FROM BAG IV ONE (21:45)
[2019-03-24] MEDS: CEFAZOLIN 2000MG 2,000 MG/15 ML SYR IV SCH (04:02)
[2019-03-24 04:52] LABS: Basophils # (auto) 0.01 K/uL (0-0.2); Basophils % (auto) 0.1 %; Eosinophils # (auto) 0.05 K/uL (0-0.5); Eosinophils % (auto) 0.4 %; Hematocrit (blood only) 38.5 % (42-52); Hemoglobin 13.9 g/dL (14.0-18.0); Immature Granulocytes # (auto) 0.02 K/uL (0.00-0.02); Immature Granulocytes % (auto) 0.2 %; Lymphocytes # (auto) 1.84 K/uL (1.2-3.4); Lymphocytes % (auto) 13.9 %; Mean Corpuscular Hgb Conc 36.1 g/dL (32-36); Mean Corpuscular Volume 88.7 fL (80-100); Mean Platelet Volume 9.1 fL (7.4-10.4); Monocytes # (auto) 0.95 K/uL (0.11-0.59); Monocytes % (auto) 7.2 %; Neutrophils # (auto) 10.34 K/uL (1.4-6.5); Neutrophils % (auto) 78.2 %; Platelet Count 175 K/uL (130-400); RDW Coefficient of Variation 12.8 % (11.5-14.5); RDW Standard Deviation 41.7 fL (36.4-46.3); Red Blood Count 4.34 M/uL (4.7-6.1); White Blood Count 13.21 K/uL (4.8-10.8)
[2019-03-24 05:14] LABS: BUN Creatinine Ratio 14.7 (10-20); Calcium 8.2 mg/dl (8.5-10.1); Creatinine Clr Calc Pharmacy 68.2 ml/min; Potassium 3.7 mmol/L (3.5-5.1)
--- NOTE | 2019-03-24 05:16 | Critical Care Progress Note ---
Date of Service March 24, 2019 Assessment & Plan (1) Admitted to intensive care unit: Reason Critically Ill: Edmond is a 59-year-old male with past medical history of type 2 diabetes mellitus, chronic low back pain/arthritis, TIA, and recent CVA with expressive aphasia and no residual deficits following TPA administration who presented to the hospital for left carotid endarterectomy and is transferred to the ICU for postop care. Neuro - [facility]: Negative Acute left hemisphere CVA status post TPA administration No residual deficits. No expressive aphasia experienced today. Suspect due to left ICA stenosis, greater than 70%. Sensation and strength intact in all extremities. No acute concerns. Mentation normal. Aspirin 81 mg, clopidogrel 75 mg daily Analgesia Morphine 1-4 mg every 2 hours PRN IV for postop pain control, has not required overnight and is in no pain this morning. Cardiac/vascular- Left carotid stenosis status post left carotid endarterectomy Neck CTA 03/17/2019 performed for CVA as above showed 70-80% narrowing of the left ICA, 30% narrowing of right ICA. Status post carotid endarterectomy without complication, clinically doing well Surgical incision clean, dry, and without dehiscence/erythema/purulence/warmth/exudate No history of cardiac disease. Echocardiogram 03/17/2019 shows EF 65-70% with borderline concentric LVH Respiratory - Denies history of pulmonary disease including COPD 40+-pack-year smoking history, and expiratory wheezes are appreciated No home oxygen requirement, O2 sat greater than 88% on room air postop. Continue to trend. GI - Heart healthy, type II diabetic diet RENAL/LYTES - Sodium normal, potassium normal, creatinine 1.36 this morning Replace electrolytes as needed - No acute concerns ENDO - Type 2 diabetes mellitus 03/18 A1c 9.3% In preceding 2 to 3 months patient had not been taking metformin or glipizide due to cost/insurance concerns -Following his CVA he was able to fill his metformin, last took it this morning Urine glucose approximately 26 which fell to 153 with the morning fasting glucose of 140 - Converted from aspart SSI to insulin drip overnight for hyperglycemia, initial requirement of 2.8 units/h down trended to 2.2 units/h at 0100. -Recommend conversion from GTT to SSI Hold [employer] oral medications HEME - mild leukocytosis to 13.21, afebrile Hemoglobin 13.9 Trend fever curve, CBC daily ID - Mild leukocytosis as above without fever or respiratory, UTI, or cellulitis findings on clinical exam CBC daily, continue to follow clinically. No antibiotics at this time. INTEGUMENTARY - Surgical incision at left carotid intact, without dehiscence/warmth/exudate LINES/IV ACCESS - PIVs intact. DVT PROPHYLAXIS - Pharmacoprophylaxis held in postoperative period, SCDs Disposition: Stable for downgrade Thank you for allowing us to be part of this patient's care. Please refer to Dr. Pena's documentation for any further recommendations. Supervising Physician Co-Signing Physician Notes Dr. Poole was resident physician during care of patient. I separately evaluated patient for dickson portions of the history and the exam. I was present during the critical portion of medical decision making, and I discussed the case with the resident. I generally agree with the findings and plan. Patient likely able for discharge versus downgrade today disposition per vascular surgery Subjective Rosalba reports he feels "great "this morning. He reports that his headache has improved and is "more like a slight discomfort ". He was able to urinate at 3 AM, and feels he has been going to the bathroom a lot but without pain since. He denies any chest pain, chest pressure, shortness of breath, difficulty breathing. He does not have a sore throat, and does not have a cough. He reports the surgical site on his neck does not hurt, and he feels like there is not any swelling on the inside or outside. He has a good appetite, and reports he is hungry this morning. He denies nausea, vomiting, diarrhea, constipation. He denies focal or general weakness this morning. He feels he has no trouble speaking, and is not having any symptoms of a aphasia like he had with his prior stroke episode. He denies focal weakness. Denies vision change, double vision. No questions or concerns this morning. Review of Systems Review of Systems: Constitutional: Denies fever, chills, malaise Eyes: Denies double vision, vision change, eye pain, amaurosis ENT: Denies ear pain, sore throat, cough Cardiovascular: Denies Chest pain, chest pressure, palpitations Respiratory: Denies shortness of breath, cough, sputum production, difficulty breathing Gastrointestinal: Denies abdominal pain, nausea, vomiting, constipation, diarrhea. Endorses hunger. Genitourinary: Denies pain with urination, endorses polyuria overnight. Musculoskeletal: Denies weakness, muscle aches/pain, joint aches/pain Integumentary: Endorses left postsurgical carotid incision which is nontender and does not feel swollen or painful.. Otherwise denies rashes, skin changes. Neurological: Endorses headache as noted in HPI. Denies numbness, tingling, focal weakness Physical Exam Physical Exam: General: A&Ox3. NAD. Cooperative. HEENT: Normocephalic. No facial asymmetry. Sensation to soft touch intact in all distributions and symmetrical. Facial strength intact in all distributions and symmetrical. Pupils equal and reactive to light and accommodation. Extraocular movements intact without nystagmus or saccades. No uvular deflection or pharyngeal edema appreciated. Left carotid surgical incision intact, without dehiscence/warmth, erythema, discharge with staple closure. Pulm: Diffuse high-pitched end expiratory wheeze in all lung escobar. Good air movement, -rales, -rhonchi. Symmetrical chest rise. No increased work of breathing. No respiratory distress. Cardiac: RRR, -mrg. Radial pulses intact and symmetrical. Abdominal: Nontender, nondistended, soft. BS present. Extremities: Sensation intact to soft touch in upper and lower extremities bilaterally without deficit. 5/5 strength to finger flexion/extension, interosseal, elbow flexion/extension, shoulder internal rotation/external rotation, hip flexion, knee flexion/extension, ankle dorsiflexion/plantar flexion bilaterally. Posterior tibialis pulses intact bilaterally, radial pulses intact bilaterally. Skin warm and dry. Results & Data Vital Signs (Past 12 Hours) Vital Signs Temp Pulse Pulse Resp BP BP BP 03/24/19 04:05 37.2 C 03/24/19 04:00 63 17 122/67 124/57 L 03/24/19 03:00 68 17 119/66 120/53 L 03/24/19 02:00 62 22 118/63 114/54 L 03/24/19 01:30 66 19 03/24/19 01:01 67 15 03/24/19 01:00 65 18 114/64 03/24/19 00:30 70 17 03/24/19 00:01 67 17 107/56 L 03/24/19 00:00 37.0 C 70 16 107/56 L 03/23/19 23:30 69 15 08/28/19 23:01 67 17 03/23/19 23:00 69 17 107/55 L 03/23/19 22:30 68 19 03/23/19 22:00 69 21 03/23/19 21:30 68 17 03/23/19 21:10 67 16 03/23/19 21:00 71 21 03/23/19 20:40 68 19 03/23/19 20:00 37.3 C 65 13 94/54 L 03/23/19 19:44 68 20 97/53 L 03/23/19 19:30 68 20 03/23/19 19:00 75 22 03/23/19 18:40 73 17 03/23/19 18:20 66 21 03/23/19 18:10 80 20 03/23/19 18:00 75 20 03/23/19 17:30 69 17 Pulse Ox 03/24/19 04:05 03/24/19 04:00 94 03/24/19 03:00 93 03/24/19 02:00 93 03/24/19 01:30 94 03/24/19 01:01 94 03/24/19 01:00 94 03/24/19 00:30 94 03/24/19 00:01 95 03/24/19 00:00 94 03/23/19 23:30 94 03/23/19 23:01 92 03/23/19 23:00 92 03/23/19 22:30 93 03/23/19 22:00 96 03/23/19 21:30 97 03/23/19 21:10 95 03/23/19 21:00 94 03/23/19 20:40 95 03/23/19 20:00 94 03/23/19 19:44 93 03/23/19 19:30 03/23/19 19:00 94 03/23/19 18:40 96 03/23/19 18:20 98 03/23/19 18:10 97 03/23/19 18:00 96 03/23/19 17:30 96 PG Care Time/CCT Total # of Minutes Spent Total Time Spent with Patient: Total time spent is greater than 50% in coordination of care (as documented) at patient's floor/unit and/or counseling patient: Resident Activity Tracking Resident Involvement: Resident Care Provided Care Provided: Adult Hospital Medicine
[2019-03-24] MEDS ORDERED: CEFAZOLIN 2000MG 2,000 MG/15 ML SYR IV SCH (06:00)
[2019-03-24] MEDS ORDERED: glipiZIDE 5 MG TAB PO SCH (07:00)
[2019-03-24] MEDS ORDERED: PHARMACY GLYCEMIC MGMT CONSULT PRN (07:41)
--- NOTE | 2019-03-24 08:27 | Anesthesiology Progress Note ---
Date of Service March 24, 2019 Anesthesia Post Procedure Vital Signs Vital Signs: Temp Pulse Pulse Pulse Resp BP BP 03/24/19 05:00 65 17 127/56 L 03/24/19 04:05 37.2 C 03/24/19 04:00 63 17 122/67 03/24/19 03:00 68 17 119/66 03/24/19 02:00 62 22 118/63 03/24/19 01:30 66 19 03/24/19 01:01 67 15 03/24/19 01:00 65 18 114/64 03/24/19 00:30 70 17 03/24/19 00:01 67 17 107/56 L 03/24/19 00:00 37.0 C 70 16 107/56 L 03/23/19 23:30 69 15 03/23/19 23:01 67 17 03/23/19 23:00 69 17 107/55 L 03/23/19 22:30 68 19 03/23/19 22:00 69 21 03/23/19 21:30 68 17 03/23/19 21:10 67 16 03/23/19 21:00 71 21 03/23/19 20:40 68 19 03/23/19 20:00 37.3 C 65 13 94/54 L 03/23/19 19:44 68 20 97/53 L 03/23/19 19:30 68 20 03/23/19 19:00 75 22 03/23/19 18:40 73 17 03/23/19 18:20 66 21 03/23/19 18:10 80 20 03/23/19 18:00 75 20 03/23/19 17:30 69 17 03/23/19 17:00 66 16 101/56 L 03/23/19 16:59 63 14 03/23/19 16:57 87 03/23/19 16:53 36.8 C 65 14 98/58 L 03/23/19 16:30 36.2 C L 74 16 03/23/19 16:20 63 13 03/23/19 16:10 65 11 L 03/23/19 16:00 63 14 03/23/19 15:50 63 13 03/23/19 15:40 65 18 03/23/19 15:30 65 16 03/23/19 15:20 65 15 08/28/19 15:10 60 24 03/23/19 15:02 36.2 C L 65 18 03/23/19 09:52 36.9 C 82 20 BP BP Pulse Ox 03/24/19 05:00 126/66 93 03/24/19 04:05 03/24/19 04:00 124/57 L 94 03/24/19 03:00 120/53 L 93 03/24/19 02:00 114/54 L 93 03/24/19 01:30 94 03/24/19 01:01 94 03/24/19 01:00 94 03/24/19 00:30 94 03/24/19 00:01 95 03/24/19 00:00 94 03/23/19 23:30 94 03/23/19 23:01 92 03/23/19 23:00 92 03/23/19 22:30 93 03/23/19 22:00 96 03/23/19 21:30 97 03/23/19 21:10 95 03/23/19 21:00 94 03/23/19 20:40 95 03/23/19 20:00 94 03/23/19 19:44 93 03/23/19 19:30 03/23/19 19:00 94 03/23/19 18:40 96 03/23/19 18:20 98 03/23/19 18:10 97 03/23/19 18:00 96 03/23/19 17:30 96 03/23/19 17:00 97 03/23/19 16:59 96 03/23/19 16:57 03/23/19 16:53 98 03/23/19 16:30 168/68 H 133/84 99 03/23/19 16:20 94/44 L 87/54 L 97 03/23/19 16:10 98/46 L 89/54 L 99 03/23/19 16:00 91/41 L 86/49 L 99 03/23/19 15:50 92/40 L 86/47 L 98 03/23/19 15:40 88/37 L 75/48 L 99 03/23/19 15:30 90/40 L 80/49 L 100 03/23/19 15:20 100/44 L 88/53 L 99 03/23/19 15:10 104/46 L 90/53 L 99 03/23/19 15:02 101/43 L 85/51 L 99 03/23/19 09:52 148/89 H 99 Pain Intensity Left Neck: Pain Intensity: 2 Notes Mental Status: alert / awake / arousable and participated in evaluation Nausea / Vomiting: adequately controlled Pain: adequately controlled Airway Patency, RR, SpO2: stable & adequate BP & HR: stable & adequate Hydration State: stable & adequate Anesthetic Complications: Pt Satisfied with anesthetic care
[2019-03-24] MEDS: INSULIN ASPART 100 UNITS/ML 3 ML PEN SC SCH ×2 (08:42→11:57)
[2019-03-24] MEDS ORDERED: INSULIN GLARGINE SOLOSTAR 100 UNITS/ML 3 ML PEN SC ONE ×2 (08:45→21:00)
[2019-03-24] MEDS ORDERED: ICU PROTOCOL FOR HYPERGLYCEMIA SCH (09:00)
[2019-03-24] MEDS ORDERED: CLOPIDOGREL BISULFATE 75 MG TAB PO SCH (09:00)
--- NOTE | 2019-03-24 10:32 | Pharmacy Report ---
Glycemic Control Consultation - Date of Service March 24, 2019 - Scope Scope: Glycemic Pharmacist consulted by Karan Garibay PA-c on 03/23 for glycemic control per ICU protocol and to write orders per [facility] inpatient glycemic control protocol - Objective Weight: 96.7 kg Accuchecks BSG (last 24hrs): 03/23/19 03/23/19 03/23/19 15:08 15:09 15:46 Glucose POC Glucose 308 H* 296 H 270 H 03/23/19 03/23/19 03/23/19 17:09 20:53 22:55 Glucose POC Glucose 287 H 282 H 219 H 03/23/19 03/24/19 03/24/19 23:55 00:57 01:58 Glucose POC Glucose 186 H 178 H 149 H 03/24/19 03/24/19 03/24/19 03:06 04:03 04:29 Glucose 150 H POC Glucose 145 H 153 H 03/24/19 03/24/19 03/24/19 05:02 06:45 09:26 Glucose POC Glucose 151 H 140 H 267 H Laboratory Data (last 24hrs): 03/24/19 04:29 Potassium 3.7 Carbon Dioxide 23 Anion Gap 9.0 Creatinine 1.36 Est Cr Clr Drug Dosing 68.2 HbA1c: 9.2% 03/18/19 - Recent Pertinent Medications Outpatient Anti-diabetic Regimen: * Metformin 1000 mg BID, Glipizide 10 mg BID * A1c = 9.2 % 03/18/19 The patient is currently receiving: Insulin Infusion @ 3.1 ml/hr Risk Factors for Insulin Resistance: * Pressors: Phenylephrine transitioned off 03/23 * Recent Surgery: POD #1 Left CEA * Diet: T2DM - Assessment & Plan Assessment & Plan: ASSESSMENT: * 59 year old male post-op day 1 s/p left carotid endarterectomy, CVA on 03/17 with tpa administration * BSGs in 300s yesterday, started on insulin infusion, BSGs trended down to goal, consulted to assist with transition off of insulin infusion per protocol * Patient's A1c indicates poor control outpatient, per previous notes patient had not been compliant with medications as he needed refills from pcp, did confirm with patient that he was able to get medications filled and he reports he has been taking his medications * Will transition off of drip, anticipate will need additional lantus, as 15 units x 1 given this morning. Patient's BSG elevated after eating breakfast this morning, will set carb ratio of 8. PLAN FOR INPATIENT GLYCEMIC CONTROL: * Insulin infusion running @ 3.1 units/hr * Goal Range 110- 180 mg/dl * Holding outpatient oral diabetes medications * Basal insulin * Lantus 15 units SQ this AM * Anticipate need for additional, will give additional dose 10-15 units * Scale for PM if needed * Bolus insulin * NovoLog per scale ACHS or Q6hrs while NPO * Goal Range: Low 110 mg/dL - High 140 mg/dL * Correction Factor: 20 mg/dL/unit ---> will start once infusion transitioned off * Nutritional / Prandial insulin per carb ratio of 1 unit per 8 grams CHO consumed * Please note that the plan above was derived based on current level of insulin resistance and hospital stress. These recommendations are appropriate for inpatient admission only. Plan of care upon discharge will need to be reassessed to avoid potential outpatient hypo/hyperglycemia. Thank you.
--- NOTE | 2019-03-24 13:48 | Surgery Progress Note ---
Date of Service March 24, 2019 Assessment & Plan (1) Status post carotid endarterectomy: Doing well. Will D/C today. Subjective No complaints. No neuro deficits Physical Exam Physical Exam: Incision dry and clean No neuro deficits. Results & Data Vital Signs (Past 12 Hours) Vital Signs Temp Pulse Resp BP BP BP Pulse Ox 03/24/19 11:00 60 21 123/76 95 03/24/19 10:00 37.2 C 61 17 90/64 L 94 03/24/19 09:00 69 20 138/47 L 98 03/24/19 08:00 59 L 16 128/51 L 118/58 L 98 03/24/19 07:00 62 18 118/72 97/48 L 118/72 96 03/24/19 05:00 65 17 127/56 L 126/66 93 03/24/19 04:05 37.2 C 03/24/19 04:00 63 17 122/67 124/57 L 94 03/24/19 03:00 68 17 119/66 120/53 L 93 03/24/19 02:00 62 22 118/63 114/54 L 93
[2019-03-24] MEDS ORDERED: INSULIN ASPART 100 UNITS/ML 3 ML PEN SC SCH (16:30)
--- NOTE | 2019-03-25 08:46 | Discharge Summary ---
Date of Service March 25, 2019 Admission HPI Per Admitting Provider History of Present Illness 59yo m with hx of DMII, chronic LBP and arthritis, TIA in 2017, hx of cocaine use(quit 4-5 yr ago), hx cigarette smoking(1PPD, quit 2 yr ago), and current regular marijuana use for chronic pain, admitted for acute L hemispheric CVA, seen today in consultation for L ICA stenosis noted to be 70-80%. Pt states he had R sided facial numbness with previous TIA in 2017. Never had similar or other concerning sx until yesterday. 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 States he knew what he wished to say, but was unable to speak. Has chronic LBP and occasional numbness of RLE, but did not note any worsening of the numbness, nor any weakness. Denies associate RUE weakness, facial numbness, or amaurosis. Admits associated GALLEGOS that developed a few hr later, but states all sx are resolved today. He received tPA while in ED yesterday, and sx began to resolve around 600-700pm. Denies fever, chills, chest pain, SOB, palpitations, abd pain, N/V, rest pain, claudication, other complaints. Does admit some financial difficulties recently and states was unable to fill his DM medication rx for past 2-3 months. Has been trying to control blood glu with diet in interim. Imaging demonstrates L hemispheric CVA and L ICA stenosis of 70-80% with what appears to be ulcerated plaque. Admission Exam Per Admitting Provider Physical Exam Constitutional: WD/WN, vitals as above well developed, well nourished, + obese, healthy appearing, well groomed, + disheveled, cooperative and comfortable; not in distress and not combative Eyes: PERRL, conjunctivae normal, anicteric sclerae EOM intact bilaterally ENMT: external ear and nose normal, oropharynx normal Ears: no hearing impairment Nose: no nasal discharge Neck: trachea midline, no thyromegaly no tracheal deviation, no neck c repitus and neck nontender Respiratory: normal respiratory effort, lungs clear to auscultation able to speak in complete sentences; does not use accessory muscles, no cough and no audible wheezes Auscultation: + diminished lung sounds; no rhonchi and no wheezes Cardiovascular: RRR, no murmur, no edema Heart Sounds: no gallop and no murmur Vessels: + carotid bruit, normal peripheral pulses, femoral pulses present, posterior tibial pulses present, dorsalis pedis pulses present, brachial pulses present and radial pulses present; no femoral bruit Extremities: normal capillary refill; no edema Chest (Breasts): Chest: normal inspection of chest Gastrointestinal (Abdomen): normal bowel sounds, soft, nontender, no hepatosplenomegaly Inspection/Auscultation: abdomen normal to inspection and normal bowel sounds; abdomen not distended Percussion/Palpation: abdomen soft; abdomen nontender, no guarding, abdomen not rigid and no abdominal mass Musculoskeletal: no cyanosis or clubbing, extremities motor strength 5/5 Head/Neck/Chest: normocephalic, head atraumatic and neck supple Extremities: extremities normal to inspection and strength 5/5 throughout; full ROM of extremities and no clubbing Skin: no rashes, warm and dry normal turgor; no rashes, no lesions, no erythema and no mottling Neurologic: moves all extremities and awake; no focal motor deficits and not confused Speech / Cognition: no expressive aphasia and no receptive aphasia Motor/Sensory: no tremor and no sensory deficit Cranial Nerves: EOM intact bilaterally, normal facial strength and tongue midline Gait: not gait assisted Psychiatric: Orientation: alert, oriented x 3 and cooperative Apperance: appropriately dressed, appropriately groomed, + disheveled and appeared stated age Affect: euthymic affect and + anxious affect Thought Process: goal directed thought process, linear/logical thought process and clear/coherent thought process Cognition: recent memory grossly intact, remote memory grossly intact, attention grossly intact and language grossly intact Estimated Intelligence: average estimated intelligence Principal Diagnosis 1. s/p L Carotid Endarterectomy with patch 2. L ICA stenosis with CVA Discharge Exam Constitutional WD/WN, vitals as above Neck trachea midline L neck incision C/D/I, + local mild edema and ecchymosis and tenderness. Respiratory normal respiratory effort Auscultation: lungs clear to auscultation bilaterally and + diminished lung sounds Cardiovascular Rate/Rhythm: regular rate and regular rhythm Musculoskeletal no cyanosis or clubbing, extremities motor strength 5/5 Neurologic moves all extremities and awake; no focal motor deficits and not confused Speech / Cognition: no expressive aphasia and no receptive aphasia Psychiatric A+Ox3, euthymic affect Discharge Data Allergies Allergy/AdvReac Type Severity Reaction Status Date / Time No Known Allergies Allergy Verified 03/23/19 09:50 Consultations 03/23/19 14:24 Consult Special Class Welder Routine 03/23/19 16:51 Consult Special Class Welder Routine 03/24/19 13:23 Consult Nutrition Routine Procedures Performed Operation Date: 03/23/19 11:10 Actual Procedures p Left Carotid Endarterectomy With Patch(Left) - Fred Franklin MD Hospital Course (1) Status post carotid endarterectomy: Pt underwent uncomplicated L CEA. He did well post operatively. OK for d/c home POD #1 Total Time Total Time Spent Total Time Spent (In Minutes): 15 Minutes Total Time Includes: Examination of the Patient, Discharge Planning and Medication Reconciliation Discharge Plan Discharge Items Patient Disposition: Home - Self-Care Reason For Visit: Left Internal Cardotid Artery Stenosis Discharge Diagnosis: post carotid endarterectomy Discharge Goals: Therapeutic intervention Activity: Per 'Additional Instructions' section Lifting: No more than 25 pounds Bathing Comment: may shower starting tomorrow Exercise/Sports: Gradually increase as tolerated Non-emergency contact: Surgeon Call non-emergency contact if: you have any medication questions, your symptoms worsen, your pain is not controlled, your pain is worsening, your pain is unusual for you, your pain is concerning for you, your temperature is above 101.5, your wound has increased redness, your wound has increased drainage and your wound pain has increased Follow-up/Referrals: Amadou Zepeda MD [Primary Care Provider] - Diet: Carb Consistent or DM2 and Heart Healthy Addtl Provider Instructions: SPECIAL CARE INSTRUCTIONS: Medications: * Continue to take Aspirin as directed. Incision Care: * You may shower, but do not rub incision. You may let the warm soapy water run over it. Be sure to dry the incision well after bathing. * Do not shave directly over the incision until it is healed. * DO NOT IMMERSE THE INCISION IN A TUB/POOL/etc. UNTIL HEALED. Restrictions: * Do not drive for at least one week or if you are still taking any narcotic pain medication. * Do not lift anything heavier than a gallon of milk for one week after going home. Possible Complications: * Numbness - It is normal to have some numbness around the incision. Numbness can extend beyond the incision to areas of the neck, ear and face. The numbness is due to bruising of nerves during the surgery and will gradually improve over a period of months. * Hoarseness/Difficulty Speaking and Swallowing - The bruising of nerves in the neck can also cause a hoarse voice, difficulty speaking or swallowing. This may improve over time, HOWEVER, if it continues for more than a few days please contact our office ([phone]). * Excessive Swelling - There will be some swelling immediately after surgery which usually resolves within one week. If you notice that the swelling is getting worse, notify your surgeon ([phone]). * Drainage/Bleeding - If there is any drainage or bleeding, it should be a very small amount (less than a teaspoon per day). If you have excessive bleeding or drainage from the incision, call your surgeon ([phone]) right away. ACTIVATION OF EMERGENCY MEDICAL SYSTEM: Call 911, immediately, if you experience any of the following: Warning Signs and Symptoms of Stroke: * Sudden numbness or weakness of the face, arm or leg, especially on one side of the body * Sudden confusion, trouble speaking or understanding * Sudden trouble seeing in one or both eyes * Sudden trouble walking, dizziness, loss of balance or coordination * Sudden severe headache with no cause Do not delay calling 911 if you experience any warning signs or symptoms of a stroke. Delay in seeking medical attention may affect what treatments can be given to you. Risk Factors for Stroke: You can reduce your chances of stroke by working with your medical provider to adopt a healthy lifestyle. Some specific ways to lower your chance of stroke are: * If you are a smoker, now is the time to stop smoking cigarettes * If you are diabetic, improve the control of your blood sugars * Avoid excessive amounts of alcohol * Control high blood pressure * Lose weight if you are overweight * Be sure to lead an active lifestyle * Eat a healthy diet low in salt, cholesterol and fat You should know about other risk factors for stroke that you are unable to control. These include: * Age 55 years or older * Male gender * Certain racial groups: , or / * Family History of Stroke, Mini stroke or Heart Attack * Sickle Cell Disease You will be receiving a call from the Vascular Surgery Nurse after you are discharged. FOLLOW UP VISIT: It is important for you to keep your follow up appointments with your medical p rico. Keep any scheduled doctor appointments. Call [phone] to schedule a follow up appointment if one not already scheduled. Prescriptions: New oxycodone-acetaminophen [Percocet] 5-325 mg tablet 1 tab PO Q6H PRN (Reason: pain) Qty: 10 RF: 0 Continued clopidogrel [Plavix] 75 mg tablet 75 mg PO DAILY 30 Days Qty: 30 RF: 1 metformin 1,000 mg tablet 1,000 mg PO BID 30 Days Qty: 60 RF: 1 glipizide 5 mg tablet 10 mg PO BID 30 Days Qty: 120 RF: 1 atorvastatin 40 mg tablet 40 mg PO HS RF: 0 aspirin [Ecotrin Low Strength] 81 mg tablet,delayed release (DR/EC) 81 mg PO HS RF: 0 Stand-Alone Forms: [facility] [employer], Work/School Release (Inpt) Discharge Orders: Discharge Order (Routine); Ordered 03/24/19 Ordered By: Fred Franklin Admission Data Admit Date/Time: 03/23/19 14:23 Attending Provider: Fred Franklin Admit Provider: Fred Franklin Primary Care Provider: Amadou Zepeda Other Providers: Alban Pena Service: Intensive Care Unit Other Interventions: Discharge Summary Assessment (RN) Last Done: 03/24/19 14:15 Pending Studies at Discharge: No DC Date/Time DO NOT enter until pt leaves facility: 03/24/19 15:09 Supervising Physician Co-Signing Physician Notes Dr. Poole was resident physician during care of patient. I separately evaluated patient for dickson portions of the history and the exam. I was present during the critical portion of medical decision making, and I discussed the case with the resident. I generally agree with the findings and plan. Patient likely able for discharge versus downgrade today disposition per vascular surgery
== END 2019-03-24 15:09 | disposition home or self-care (01) | DRG 39 ==
LOC: ASU 09:01 → 1E 14:23

== ENCOUNTER 2023-12-07 09:56 | Observation (INO) ==
[2023-12-07 11:11] LABS: Basophils # (auto) 0.07 K/uL (0.00-0.20); Basophils % (auto) 0.6 %; Eosinophils # (auto) 0.04 K/uL (0.00-0.50); Eosinophils % (auto) 0.4 %; Hematocrit (blood only) 57.3 % (42.0-52.0); Hemoglobin 19.6 g/dl (14.0-18.0); Immature Granulocytes # (auto) 0.12 K/uL (0.01-0.20); Immature Granulocytes % (auto) 1.1 %; Lymphocytes # (auto) 1.13 K/uL (1.20-3.40); Lymphocytes % (auto) 10.1 %; Mean Corpuscular Hemoglobin 30.5 pg (25.0-34.0); Mean Corpuscular Hgb Conc 34.2 g/dL (32.0-36.0); Mean Corpuscular Volume 89.1 fL (80.0-100.0); Mean Platelet Volume 8.7 fL (9.4-12.4); Monocytes # (auto) 0.63 K/uL (0.11-0.59); Monocytes % (auto) 5.6 %; Neutrophils # (auto) 9.23 K/uL (1.40-6.50); Neutrophils % (auto) 82.2 %; Platelet Count 220 K/uL (130-400); RDW Coefficient of Variation 13.9 % (11.5-14.5); RDW Standard Deviation 45.1 fL (36.4-46.3); Red Blood Count 6.43 M/uL (4.70-6.10); White Blood Count 11.22 K/ul (4.8-10.8)
[2023-12-07 11:22] LABS: Albumin Globulin Ratio 1.2 (0.9-2); Albumin Level 4.6 gm/dl (3.4-5.0); BUN Creatinine Ratio 23.6 (10-20); Bilirubin,Total 1.2 mg/dl (0.2-1.0); Calcium 9.9 mg/dl (8.6-10.3); Creatinine Clr Calc Pharmacy 88.9 ml/min; Est GFR (African American) 106.2 ml/min; Est GFR (Non-African American) 91.6 ml/min; Globulin 3.7 gm/dl (2.5-4.0); Potassium 4.3 mmol/L (3.5-5.1); Total Protein 8.3 gm/dl (6.0-8.3)
[2023-12-07 11:26] LABS: Appearance Urine Clear (Clear); Bilirubin Urine Negative (Negative); Blood Urine Negative (Negative); Color Urine Yellow; Glucose Urine UA 3+ (Negative); Ketones Urine 4+ (Negative); Leukocyte Esterase Urine Negative (Negative); Nitrite Urine Negative (Negative); Protein Urine Negative (Negative); Specific Gravity Urine 1.034 (1.000-1.030); Urobilinogen Urine Negative (Negative)
[2023-12-07 11:28] LABS: Troponin I High Sensitivity 6.6 pg/ml (0-20)
[2023-12-07] MEDS: SODIUM CHLORIDE 0.9% 1,000 ML IV ONE (11:56)
[2023-12-07 12:02] LABS: Prothrombin Time 10.9 Seconds (9.0-12.0)
[2023-12-07 12:44] LABS: Thyroid Stimulating Hormone 1.453 uIu/ml (0.300-4.500)
--- NOTE | 2023-12-07 13:59 | XRay Report ---
XR chest 1V portable HISTORY: 63 years-old Male weakness acute weakness COMPARISON: 11/12/2023 TECHNIQUE: AP view of the chest FINDINGS: Cardiomediastinal and hilar silhouettes are within normal limits. No pneumothorax, pleural effusion o r airspace consolidation. The bones appear grossly intact. Degenerative changes of the shoulders and spine. IMPRESSION: No acute process. ACT 112: Negative or not required by law. The above report was generated using voice recognition software. It may contain grammatical, syntax o r spelling errors. Electronically signed by: Loi Pleitez M.D. 12/07/2023 1:58 PM
[2023-12-07] MEDS: ONDANSETRON INJ 2 MG/ML 2 ML VIAL ONE (14:40)
[2023-12-07] MEDS: ONDANSETRON INJ 2 MG/ML 2 ML VIAL IV STA ×2 (14:43→16:23)
--- NOTE | 2023-12-07 15:14 | Electrocardiogram Report ---
Test Reason : Blood Pressure : / mmHG Vent. Rate : 074 BPM Atrial Rate : 074 BPM P-R Int : 158 ms QRS Dur : 080 ms QT Int : 352 ms P-R-T Axes : 056 -73 030 degrees QTc Int : 390 ms Normal sinus rhythm Left axis deviation Low voltage QRS Inferior infarct (cited on or before 01-JUL-2021) Poor R wave progression, consider anterior ME vs. lead placement vs. LVH Abnormal ECG When compared with ECG of 12-NOV-2023 12:42, T wave inversion now evident in Anterior leads Confirmed by Kleber Damian ([id number]) on 12/07/2023 3:14:31 PM Referred By: Keesha Queen Confirmed By:Oscar Damian
[2023-12-07] MEDS: LORazepam 1 MG/1 ML SYR ED Inj Use IV STA (17:58)
[2023-12-07] MEDS: ALUMINUM/MAGNESIUM SUSP 30 ML UDC PO STA (17:58)
[2023-12-07] MEDS: GADOBUTROL 65ML VIAL IV ONE (18:53)
--- NOTE | 2023-12-07 19:34 | Magnetic Resonance Report ---
Exam(s): MRI L SPINE W/WO Contrast IV Amt: 9 CC MO EXAM: MR Lumbar Spine Without and With Intravenous Contrast CLINICAL HISTORY: Reason for exam: low back pain, diabetic, leukocytosis. TECHNIQUE: Magnetic resonance images of the lumbar spine without and with intravenous contrast in multiple planes. CONTRAST: Patient received 9 CC MO of IV contrast COMPARISON: CT lumbar spine 06/15/23. FINDINGS: Vertebrae: Normal, smooth curvature. No discitis or osteomyelitis. Slight marrow edema in the left L4 and L5 pedicle, probable stress reaction due to severe facet hypertrophy on the left at this level. No compression deformity or abnormal enhancement. Conus: Terminates normally, no abnormal enhancement. Soft tissues: No retroperitoneal mass or enhancement. No epidural hematoma or abscess. DISCS/SPINAL CANAL/NEURAL FORAMINA: L1-L2: No significant disc disease. L2-L3: No significant disc disease. L3-L4: Mild degenerative disc disease. L4-L5: Moderate right lateral disc herniation with inferior migration and a small, 7 mm disc fragment with slight altered signal characteristics, cannot rule out sequestered disc. There is severe right lateral recess stenosis and probable right L5 impingement syndrome, correlate clinically. Mild surrounding enhancement. Stable, compared with prior CT, given differences in technique. L5-S1: No significant disc disease. OTHER: No other disc herniation. Moderate to severe facet hypertrophy, particularly in the lower lumbar spine. No central spinal stenosis. IMPRESSION: 1. Moderate RIGHT disc herniation L4-5 with probable right L5 impingement syndrome, correlate clinically. 2. Marrow edema LEFT L4/L5, probable stress reaction due to severe facet hypertrophy. 3. No central spinal stenosis, abnormal enhancement, abnormal signal in the conus, discitis or osteomyelitis. Electronically signed by: Gege Lester M.D. 12/07/23 19:33 PM
--- NOTE | 2023-12-07 21:06 | Emergency Department Note ---
ED Provider Note History of Present Illness Chief Complaint: Illness Stated Complaint: UNABLE TO EAT/DRINK, NAUSEA Time Seen by Provider: 12/07/23 11:09 Source: patient Mode of arrival: ambulatory Limitations: no limitations This patient is a 63-year-old male who presents to the emergency department for evaluation of "illness." He reports that he has been unable to eat and drink for the past few weeks. He states that he has chronic back pain and difficulty getting up and around his house. For this reason he has not been eating or drinking anything. He lives by himself and does not have any help. He states that he has a baseline nausea/"discomfortable" feeling in his abdomen. He states this radiates up into his throat and makes him feel like he is going to throw up. He is diabetic but has not been using his insulin at night because he has not been eating or drinking so his blood sugars have been staying fairly low. He has been seen here twice and at his PCP once for the symptoms. He states that he is awaiting an appointment with Dr. Jaime for his back. Denies urinary symptoms, fevers, chest pain or shortness of breath. Home Medications Medication Instructions Recorded Confirmed Type aspirin 81 mg tablet,delayed 81 mg PO HS 03/21/19 12/07/23 History release (Ecotrin Low Strength) pen needle, diabetic 32 gauge x #100 ea 05/09/22 11/23/23 Rx " blood sugar diagnostic (OneTouch #100 ea 09/16/22 11/23/23 Rx Ultra Test strips) blood-glucose meter #1 ea 04/03/23 11/23/23 Rx atorvastatin 40 mg tablet 40 mg PO HS #90 tabs 05/01/23 12/07/23 Rx empagliflozin 25 mg tablet 25 mg PO QAM 06/15/23 12/07/23 History (Jardiance) escitalopram oxalate 20 mg tablet 20 mg PO QAM 06/15/23 12/07/23 History metformin 1,000 mg tablet 1,000 mg PO BID #180 tabs 08/27/23 12/07/23 Rx lancets 33 gauge #100 ea 09/03/23 11/23/23 Rx insulin glargine 100 unit/mL (3 10 - 20 unit (0.1 - 0.2 mL) subcut 09/23/23 12/07/23 Rx mL) subcutaneous pen (Lantus HS #15 mL Solostar U-100 Insulin) gabapentin 800 mg tablet 800 mg PO TID #90 tabs 10/05/23 12/07/23 Rx Med Marijuana 1 dose inhalation DIRECTED PRN 11/12/23 12/07/23 History .pain/anx ondansetron 4 mg disintegrating 4 mg PO DAILY PRN nausea and 11/12/23 12/07/23 Rx tablet vomiting #14 tabs oxycodone 20 mg tablet 20 mg PO Q8H PRN pain 30 days #90 11/23/23 12/07/23 Rx tabs Allergies Allergy/AdvReac Type Severity Reaction Status Date / Time dulaglutide [From [facility]] AdvReac Nausea Verified 11/23/23 13:21 Past Med/Surg History Problem List (Updated 12/07/23 @ 21:06 by Krystal Garibay PA-C) Low back pain (Acute) Ambulatory dysfunction (Acute) Dehydration (Acute) Lumbar disc disease Medical marijuana use Dental caries (Chronic) Carotid stenosis (Chronic) Anxiety (Chronic) Depression (Chronic) Chronic back pain (Chronic) Osteoarthritis (Chronic) Degenerative disc disease (Chronic) Dyslipidemia Uncontrolled type 2 diabetes mellitus Medical History Controlled type 2 diabetes mellitus Uncontrolled type 2 diabetes mellitus Degenerative disc disease Osteoarthritis Chronic back pain Depression Anxiety no medications Stroke 03/17/19; per neurology consult [facility] 03/18/19: " Acute multifocal left cerebral hemispheric infarcts due to a symptomatic stenosis of the left internal carotid artery"= no deficits Anxiety Carotid stenosis Diabetes Type 2 diabetes mellitus niddm TIA (transient ischemic attack) ~2017 Dental caries CVA (cerebral vascular accident) Surgical History Status post carotid endarterectomy left 2018 S/P hemorrhoidectomy History of appendectomy History of nasal septoplasty Family History Other Past medical history not known due to adoption Social History Smoking Status: Current every day smoker Tobacco Type: Cigarettes Cigarettes Per Day: 20; Second Hand Exposure: No; Do You Dip or Chew Tobacco: No; Hx Alcohol Use: Yes (quit 1996) Alcohol type: hard liquor Hx Substance Use: Yes (nightly) Last Used Substance Other:: 03/19/19 Preferred Language: Lithuanian Communication Ability: Effective Draw Frame Tender Required: No Beliefs That Will Affect Care: None marital status: Single Current Living Situation: Family and Other Current Living Situation Comment: Son- 3 nights weekly (13 years old) Feels Safe at Home: Yes Childhood Exposure to Second-Hand Smoke: No Diet: regular Physical Activity Frequency: Does not Exercise Seatbelt Use: sometimes Sunscreen Use: No Assistive Devices: None Physical Exam Vital Signs Vital Signs - 24 hr 12/07/23 10:02 12/07/23 10:21 12/07/23 10:30 Temperature 36.4 C L Temperature Source Temporal Artery Scan Pulse Rate 83 75 71 Pulse Rate [Apical] Pulse Rate from SpO2 Sensor Pulse Rhythm Respiratory Rate 20 13 Blood Pressure 135/101 H 139/89 Blood Pressure [Right Arm] Blood Pressure Mean 112 105 Blood Pressure Mean [Right Arm] Pulse Oximetry 98 97 Oxygen Delivery Method Room Air Sepsis Recent Fever Within 48 Hours No Sepsis New/Unexplained Change in Mental Status No Sepsis Action Taken by Nursing No Action Required 12/07/23 10:59 12/07/23 11:00 12/07/23 11:30 Temperature Temperature Source Pulse Rate 77 77 76 Pulse Rate [Apical] Pulse Rate from SpO2 Sensor Pulse Rhythm Regular Respiratory Rate 14 18 20 Blood Pressure 116/88 141/94 H Blood Pressure [Right Arm] Blood Pressure Mean 97 109 Blood Pressure Mean [Right Arm] Pulse Oximetry 96 95 98 Oxygen Delivery Method Room Air Room Air Room Air Sepsis Recent Fever Within 48 Hours Sepsis New/Unexplained Change in Mental Status Sepsis Action Taken by Nursing 12/07/23 12:00 12/07/23 12:30 12/07/23 13:00 Temperature Temperature Source Pulse Rate 74 75 78 Pulse Rate [Apical] Pulse Rate from SpO2 Sensor Pulse Rhythm Respiratory Rate 16 21 22 Blood Pressure 118/91 121/89 130/96 Blood Pressure [Right Arm] Blood Pressure Mean 96 103 107 Blood Pressure Mean [Right Arm] Pulse Oximetry 97 94 94 Oxygen Delivery Method Room Air Room Air Sepsis Recent Fever Within 48 Hours Sepsis New/Unexplained Change in Mental Status Sepsis Action Taken by Nursing 12/07/23 13:30 12/07/23 13:50 12/07/23 14:00 Temperature Temperature Source Pulse Rate 72 68 70 Pulse Rate [Apical] Pulse Rate from SpO2 Sensor 68 70 Pulse Rhythm Respiratory Rate 14 18 13 Blood Pressure 127/69 Blood Pressure [Right Arm] Blood Pressure Mean 88 Blood Pressure Mean [Right Arm] Pulse Oximetry 95 93 98 Oxygen Delivery Method Room Air Sepsis Recent Fever Within 48 Hours Sepsis New/Unexplained Change in Mental Status Sepsis Action Taken by Nursing 12/07/23 14:00 12/07/23 14:10 12/07/23 14:20 Temperature Temperature Source Pulse Rate 86 77 Pulse Rate [Apical] Pulse Rate from SpO2 Sensor 78 77 Pulse Rhythm Respiratory Rate 14 15 Blood Pressure 126/73 Blood Pressure [Right Arm] Blood Pressure Mean 85 Blood Pressure Mean [Right Arm] Pulse Oximetry 98 99 Oxygen Delivery Method Sepsis Recent Fever Within 48 Hours Sepsis New/Unexplained Change in Mental Status Sepsis Action Taken by Nursing 12/07/23 14:21 12/07/23 14:30 12/07/23 14:30 Temperature Temperature Source Pulse Rate 80 76 Pulse Rate [Apical] Pulse Rate from SpO2 Sensor 76 Pulse Rhythm Respiratory Rate 13 Blood Pressure 135/93 Blood Pressure [Right Arm] Blood Pressure Mean 106 Blood Pressure Mean [Right Arm] Pulse Oximetry 98 Oxygen Delivery Method Sepsis Recent Fever Within 48 Hours Sepsis New/Unexplained Change in Mental Status Sepsis Action Taken by Nursing 12/07/23 14:40 12/07/23 14:50 12/07/23 14:56 Temperature Temperature Source Pulse Rate 75 69 80 Pulse Rate [Apical] Pulse Rate from SpO2 Sensor 79 73 81 Pulse Rhythm Respiratory Rate 17 12 Blood Pressure Blood Pressure [Right Arm] Blood Pressure Mean Blood Pressure Mean [Right Arm] Pulse Oximetry 99 97 98 Oxygen Delivery Method Sepsis Recent Fever Within 48 Hours Sepsis New/Unexplained Change in Mental Status Sepsis Action Taken by Nursing 12/07/23 15:03 12/07/23 15:04 12/07/23 15:10 Temperature Temperature Source Pulse Rate 79 70 Pulse Rate [Apical] Pulse Rate from SpO2 Sensor 75 70 Pulse Rhythm Respiratory Rate 22 18 Blood Pressure 132/85 Blood Pressure [Right Arm] Blood Pressure Mean 117 Blood Pressure Mean [Right Arm] Pulse Oximetry 99 97 Oxygen Delivery Method Sepsis Recent Fever Within 48 Hours Sepsis New/Unexplained Change in Mental Status Sepsis Action Taken by Nursing 12/07/23 15:20 12/07/23 15:30 12/07/23 15:30 Temperature Temperature Source Pulse Rate 72 70 Pulse Rate [Apical] Pulse Rate from SpO2 Sensor 72 70 Pulse Rhythm Respiratory Rate 18 16 Blood Pressure 123/72 Blood Pressure [Right Arm] Blood Pressure Mean 109 Blood Pressure Mean [Right Arm] Pulse Oximetry 95 97 Oxygen Delivery Method Sepsis Recent Fever Within 48 Hours Sepsis New/Unexplained Change in Mental Status Sepsis Action Taken by Nursing 12/07/23 15:40 12/07/23 15:50 12/07/23 16:00 Temperature Temperature Source Pulse Rate 72 73 79 Pulse Rate [Apical] Pulse Rate from SpO2 Sensor 73 73 79 Pulse Rhythm Respiratory Rate 18 16 16 Blood Pressure Blood Pressure [Right Arm] Blood Pressure Mean Blood Pressure Mean [Right Arm] Pulse Oximetry 93 95 100 Oxygen Delivery Method Sepsis Recent Fever Within 48 Hours Sepsis New/Unexplained Change in Mental Status Sepsis Action Taken by Nursing 12/07/23 16:00 12/07/23 19:18 12/07/23 20:18 Temperature Temperature Source Pulse Rate Pulse Rate [Apical] 78 75 Pulse Rate from SpO2 Sensor Pulse Rhythm Respiratory Rate 18 18 Blood Pressure 129/94 Blood Pressure [Right Arm] 130/79 135/85 Blood Pressure Mean 113 Blood Pressure Mean [Right Arm] 96 101 Pulse Oximetry 95 95 Oxygen Delivery Method Room Air Nasal Cannula Sepsis Recent Fever Within 48 Hours Sepsis New/Unexplained Change in Mental Status Sepsis Action Taken by Nursing VITALS: Vitals are noted on the nurse's note and reviewed by myself. GENERAL: This is a 63-year-old male, in no acute distress, lying supine in bed under several blankets. SKIN: The skin was without rashes. EARS: External auditory canals clear, tympanic membranes pearly alvarenga without erythema or effusion bilaterally. EYES: Pupils equal round and reactive to light and accommodation. MOUTH: Mucous membranes moist. NECK: Supple without nuchal rigidity. No lymphadenopathy. HEART: Regular rate and rhythm without murmurs gallops or rubs. LUNGS: Clear to auscultation bilaterally without wheezes, rales or rhonchi. ABDOMEN: Positive bowel sounds x 4. Soft, nontender to palpation. MUSCULOSKELETAL: Full range of motion throughout. EXTREMITIES: No edema of the lower extremities. NEURO: Patient was alert and oriented to person place and time. Distal sensation intact. Course Administered Medications Discontinued Medications Al Hydrox/Mg Hydrox/Simethicone (Aluminum/Magnesium Susp 30 Ml Udc) 15 ml PO NOW STA Stop: 12/07/23 17:41 Last Admin: 12/07/23 17:58 Dose: 15 ml Documented By: PK Gadobutrol (Gadobutrol 65ml Vial) 9 ml IV ONCE ONE Stop: 12/07/23 18:54 Last Admin: 12/07/23 18:53 Dose: 9 ml Documented By: MARLENE Sodium Chloride (Nss) 1,000 mls @ 999 mls/hr IV .Q1H1M ONE Stop: 12/07/23 12:44 Last Infusion: 12/07/23 13:09 Dose: Infused Documented By: Admin: 12/07/23 11:56 Dose: 999 mls/hr Documented By: CRYSTAL Lorazepam (Lorazepam 1 Mg/1 Ml Syr Ed Inj Use) 1 mg IV ONE STA Stop: 12/07/23 17:41 Last Admin: 12/07/23 17:58 Dose: 1 mg Documented By: PK Ondansetron HCl (Ondansetron Inj 2 Mg/Ml 2 Ml Vial) Confirm Administered Dose 4 mg .ROUTE .STK-MED ONE Stop: 12/07/23 14:39 Last Admin: 12/07/23 14:40 Dose: 4 mg Documented By: PK Ondansetron HCl (Ondansetron Inj 2 Mg/Ml 2 Ml Vial) 4 mg IV NOW STA Stop: 12/07/23 14:43 Last Admin: 12/07/23 14:43 Dose: Not Given Documented By: PK Ondansetron HCl (Ondansetron Inj 2 Mg/Ml 2 Ml Vial) 4 mg IV NOW STA Stop: 12/07/23 16:15 Last Admin: 12/07/23 16:23 Dose: 4 mg Documented By: SAMANTHA Medical Decision Making Differential Diagnosis Infection, dehydration, metabolic abnormality, hypo/hyperglycemia, electrolyte disturbance, anemia, hypoxia, cardiac sources, intracerebral event, toxicologic, neurologic, as well as other pathologies. Laboratory Data Attestation: I reviewed the patient's lab results. 12/07/23 10:19 12/07/23 10:19 Lab Results 12/07/23 12/07/23 12/07/23 Range/Units 10:19 10:23 11:10 WBC 11.22 H (4.8-10.8) K/ul RBC 6.43 H (4.70-6.10) M/uL Hgb 19.6 H (14.0-18.0) g/dl Hct 57.3 H (42.0-52.0) % MCV 89.1 (80.0-100.0) fL MCH 30.5 (25.0-34.0) pg MCHC 34.2 (32.0-36.0) g/dL RDW Std Deviation 45.1 (36.4-46.3) fL RDW Coeff of Soo 13.9 (11.5-14.5) % Plt Count 220 (130-400) K/uL MPV 8.7 L (9.4-12.4) fL Immature Gran % (Auto) 1.1 % Neut % (Auto) 82.2 % Lymph % (Auto) 10.1 % [place] % (Auto) 5.6 % Eos % (Auto) 0.4 % Baso % (Auto) 0.6 % Neut # (Auto) 9.23 H (1.40-6.50) K/uL Lymph # (Auto) 1.13 L (1.20-3.40) K/uL [place] # (Auto) 0.63 H (0.11-0.59) K/uL Eos # (Auto) 0.04 (0.00-0.50) K/uL Baso # (Auto) 0.07 (0.00-0.20) K/uL Immature Gran # (Auto) 0.12 (0.01-0.20) K/uL PT Cancelled INR Cancelled Sodium 135 L (136-145) mmol/L Potassium 4.3 (3.5-5.1) mmol/L Chloride 97 L (98-107) mmol/L Carbon Dioxide 16 L (21-32) mmol/L Anion Gap 22 H (3-11) BUN 21 (6-23) mg/dl Creatinine 0.89 (0.6-1.4) mg/dl Est Cr Clr Drug Dosing 88.9 ml/min Est GFR ( Amer) 106.2 ml/min Est GFR (Non-Af Amer) 91.6 ml/min BUN/Creatinine Ratio 23.6 H (10-20) Glucose 170 H (70-99(Fasting)) mg/dl POC Glucose 175 H (70-99) mg/dl Calcium 9.9 (8.6-10.3) mg/dl Total Bilirubin 1.2 H (0.2-1.0) mg/dl AST 14 (13-39) U/L ALT 19 (7-52) U/L Alkaline Phosphatase 91 (34-104) U/L Troponin I High Sens 6.6 (0-20) pg/ml Total Protein 8.3 (6.0-8.3) gm/dl Albumin 4.6 (3.4-5.0) gm/dl Globulin 3.7 (2.5-4.0) gm/dl Albumin/Globulin Ratio 1.2 (0.9-2) Lipase 15 (11-82) U/L TSH 1.453 (0.300-4.500) uIu/ml Urine Color Yellow Urine Appearance Clear (Clear) Urine pH 5.0 (4.5-7.5) Ur Specific [place] 1.034 H (1.000-1.030) Urine Protein Negative (Negative) Urine Glucose (UA) 3+ H (Negative) Urine Ketones 4+ H (Negative) Urine Blood Negative (Negative) Urine Nitrite Negative (Negative) Urine Bilirubin Negative (Negative) Urine Urobilinogen Negative (Negative) Ur Leukocyte Esterase Negative (Negative) Anaplasma Smear See Comment Babesia Smear See Comment Lyme Disease Screen Negative (Negative) 12/07/23 Range/Units 11:24 WBC (4.8-10.8) K/ul RBC (4.70-6.10) M/uL Hgb (14.0-18.0) g/dl Hct (42.0-52.0) % MCV (80.0-100.0) fL MCH (25.0-34.0) pg MCHC (32.0-36.0) g/dL RDW Std Deviation (36.4-46.3) fL RDW Coeff of Soo (11.5-14.5) % Plt Count (130-400) K/uL MPV (9.4-12.4) fL Immature Gran % (Auto) % Neut % (Auto) % Lymph % (Auto) % [place] % (Auto) % Eos % (Auto) % Baso % (Auto) % Neut # (Auto) (1.40-6.50) K/uL Lymph # (Auto) (1.20-3.40) K/uL [place] # (Auto) (0.11-0.59) K/uL Eos # (Auto) (0.00-0.50) K/uL Baso # (Auto) (0.00-0.20) K/uL Immature Gran # (Auto) (0.01-0.20) K/uL PT 10.9 INR 1.0 Sodium (136-145) mmol/L Potassium (3.5-5.1) mmol/L Chloride (98-107) mmol/L Carbon Dioxide (21-32) mmol/L Anion Gap (3-11) BUN (6-23) mg/dl Creatinine (0.6-1.4) mg/dl Est Cr Clr Drug Dosing ml/min Est GFR ( Amer) ml/min Est GFR (Non-Af Amer) ml/min BUN/Creatinine Ratio (10-20) Glucose (70-99(Fasting)) mg/dl POC Glucose (70-99) mg/dl Calcium (8.6-10.3) mg/dl Total Bilirubin (0.2-1.0) mg/dl AST (13-39) U/L ALT (7-52) U/L Alkaline Phosphatase (34-104) U/L Troponin I High Sens (0-20) pg/ml Total Protein (6.0-8.3) gm/dl Albumin (3.4-5.0) gm/dl Globulin (2.5-4.0) gm/dl Albumin/Globulin Ratio (0.9-2) Lipase (11-82) U/L TSH (0.300-4.500) uIu/ml Urine Color Urine Appearance (Clear) Urine pH (4.5-7.5) Ur Specific [place] (1.000-1.030) Urine Protein (Negative) Urine Glucose (UA) (Negative) Urine Ketones (Negative) Urine Blood (Negative) Urine Nitrite (Negative) Urine Bilirubin (Negative) Urine Urobilinogen (Negative) Ur Leukocyte Esterase (Negative) Anaplasma Smear Babesia Smear Lyme Disease Screen (Negative) Imaging Data Attestation: I personally reviewed and interpreted this imaging study as follows: Radiologist's Impression: Chest X-Ray 12/07/23 13:40 XR chest 1V portable HISTORY: 63 years-old Male weakness acute weakness COMPARISON: 11/12/2023 TECHNIQUE: AP view of the chest FINDINGS: Cardiomediastinal and hilar silhouettes are within normal limits. No pneumothorax, pleural effusion or airspace consolidation. The bones appear grossly intact. Degenerative changes of the shoulders and spine. IMPRESSION: No acute process. ACT 112: Negative or not required by law. The above report was generated using voice recognition software. It may contain grammatical, syntax or spelling errors. Electronically signed by: Loi Pleitez M.D. 12/07/2023 1:58 PM Lumbar Spine MRI 12/07/23 15:04 Exam(s): MRI L SPINE W/WO Contrast IV Amt: 9 CC MO EXAM: MR Lumbar Spine Without and With Intravenous Contrast CLINICAL HISTORY: Reason for exam: low back pain, diabetic, leukocytosis. TECHNIQUE: Magnetic resonance images of the lumbar spine without and with intravenous contrast in multiple planes. CONTRAST: Patient received 9 CC MO of IV contrast COMPARISON: CT lumbar spine 06/15/23. FINDINGS: Vertebrae: Normal, smooth curvature. No discitis or osteomyelitis. Slight marrow edema in the left L4 and L5 pedicle, probable stress reaction due to severe facet hypertrophy on the left at this level. No compression deformity or abnormal enhancement. Conus: Terminates normally, no abnormal enhancement. Soft tissues: No retroperitoneal mass or enhancement. No epidural hematoma or abscess. DISCS/SPINAL CANAL/NEURAL FORAMINA: L1-L2: No significant disc disease. L2-L3: No significant disc disease. L3-L4: Mild degenerative disc disease. L4-L5: Moderate right lateral disc herniation with inferior migration and a small, 7 mm disc fragment with slight altered signal characteristics, cannot rule out sequestered disc. There is severe right lateral recess stenosis and probable right L5 impingement syndrome, correlate clinically. Mild surrounding enhancement. Stable, compared with prior CT, given differences in technique. L5-S1: No significant disc disease. OTHER: No other disc herniation. Moderate to severe facet hypertrophy, particularly in the lower lumbar spine. No central spinal stenosis. IMPRESSION: 1. Moderate RIGHT disc herniation L4-5 with probable right L5 impingement syndrome, correlate clinically. 2. Marrow edema LEFT L4/L5, probable stress reaction due to severe facet hypertrophy. 3. No central spinal stenosis, abnormal enhancement, abnormal signal in the conus, discitis or osteomyelitis. Electronically signed by: Gege Lester M.D. 12/07/23 19:33 PM [facility] Narrative This patient is a 63-year-old male who presents to the emergency department for evaluation of general weakness and inability to care for himself at home. Patient has chronic back pain and has been having a lot of trouble getting around and taking care of himself. He feels that he is getting dehydrated. He also has some baseline nausea/stomach discomfort and states that this makes it difficult for him to eat and drink. Labs here are consistent dehydration, with hemoconcentration and mild anion gap acidosis. 4+ urine ketones noted. Otherwise no clear source of the patient's symptoms. Given that the patient is a diabetic and has had this chronic back pain and generalized illness and has a leukocytosis here, did elect to perform MRI to rule out epidural abscess or other source of the patient's symptoms. Was found to have some degenerative changes but no infection. At this time Case was discussed with Dr. Jaime. Patient will likely require admission and and Dr. Jaime agrees to consult on the patient. Case was then discussed with the [facility] hospitalist service who agreed to evaluate the patient for further care. Impression Dehydration, Ambulatory dysfunction, Low back pain Discharge Plan Visit Data Chief Complaint: Illness Stated Complaint: UNABLE TO EAT/DRINK, NAUSEA ED Provider: Alban Mendoza ED Midlevel Provider: Krystal Garibay Discharge Problem: Dehydration, Ambulatory dysfunction, Low back pain Forms Stand Alone Forms: My [facility] Prescriptions Prescriptions: No Action (DME) pen needle, diabetic 32 gauge x 5/32" needle See Rx Instructions .Route Qty: 100 3RF Rx Instructions: As directed- use once daily (DME) OneTouch Ultra Test Strip See Rx Instructions .Route Qty: 100 5RF Rx Instructions: As directed to test blood sugar 4 times per day atorvastatin 40 mg tablet 40 mg PO HS Qty: 90 3RF metformin 1,000 mg tablet 1,000 mg PO BID Qty: 180 3RF Rx Instructions: NEEDS APPT FOR ADD'L REFILLS (DME) lancets 33 gauge misc See Rx Instructions .Route Qty: 100 5RF Rx Instructions: As directed to check sugars 4 times daily insulin glargine [Lantus Solostar U-100 Insulin] 100 unit/mL (3 mL) insulin pen 10 - 20 unit subcut HS Qty: 15 5RF Rx Instructions: or as directed, according to bsg (DME) blood-glucose meter Kit See Rx Instructions .Route Qty: 1 0RF Rx Instructions: As directed gabapentin 800 mg tablet 800 mg PO TID Qty: 90 2RF oxycodone 20 mg tablet 20 mg PO Q8H PRN (Reason: pain) 30 Days Qty: 90 0RF aspirin [Ecotrin Low Strength] 81 mg tablet,delayed release (DR/EC) 81 mg PO HS escitalopram oxalate 20 mg tablet 20 mg PO QAM Jardiance 25 mg tablet 25 mg PO QAM Med Marijuana 1 dose inhalation DIRECTED PRN (Reason: .pain/anx) ondansetron 4 mg tablet,disintegrating 4 mg PO DAILY PRN (Reason: nausea and vomiting) Qty: 14 0RF Referrals Referrals: Keesha Queen MD [Primary Care Provider] -
--- NOTE | 2023-12-07 21:13 | History & Physical Report ---
Date of Service December 07, 2023 Assessment & Plan (1) Lumbar disc disease: Plan: -Lumbar MRI showed a moderate right disc herniation at L4-5 with probable right L5 impingement. Also showed marrow edema on the left L4-L5 was likely due to severe facet hypertrophy. -Chest x-ray negative. -Pain control with 10 mg oxycodone IR for moderate pain and 20 mg oxycodone IR for severe pain, every 6 hours. -Anaplasmosis and Babesia pending. Lyme negative. -Zofran as needed for nausea. -Case discussed with Dr. Jaime by ED provider. Plan to admit and have Dr. Jaime see in the a.m. -No immediate surgery at this time, will let patient eat. (2) Ambulatory dysfunction: Plan: -As above, PT OT ordered (3) Dehydration: Plan: -Slight hemoconcentrated CBC. -UA showing 3+ ketones and 3+ glucose. -Received 1 bag of NSS in the ED. Will hold off on further liquids at this time. -CBC and BMP ordered in AM. (4) Uncontrolled type 2 diabetes mellitus: Plan: - Patient's home regimen held on admission - Continue BSG checks, sliding-scale insulin, hypoglycemic protocol - Hemoglobin A1c ordered in the AM. (5) Dyslipidemia: Plan: -Continue home medications. History of Present Illness Chief Complaint: Ambulatory dysfunction Primary Care Provider: Keesha Queen MD Patient is a 63-year-old male with past medical history of type 2 diabetes, chronic back pain, and dyslipidemia who presents to the hospital for ambulatory dysfunction stemming from his back pain. Patient has been having chronic back pain which was exacerbated after a injury back in April at home when he fell. Patient has been needing an increased dose in his oxycodone and has recently been on 20 mg. He states that his back pain symptoms from his back and runs down the right hip and back of his right leg. States that he has been having trouble moving and has not been able to get up and eat. States that movement makes it worse. Had an epidural shot at the end of September which did not help the pain. States that he has not been able to eat because he is unable to move. He has also been having episodes of vomiting over the last month. He has been following with his PCP regarding this issue and was referred to Dr. Jaime, though has not been able to set up an appointment. Allergies Allergy/AdvReac Type Severity Reaction Status Date / Time dulaglutide [From [facility]] AdvReac Nausea Verified 11/23/23 13:21 Home Medications Medication Instructions Recorded Confirmed Type aspirin 81 mg tablet,delayed 81 mg PO HS 03/21/19 12/07/23 History release (Ecotrin Low Strength) pen needle, diabetic 32 gauge x #100 ea 05/09/22 11/23/23 Rx /32" blood sugar diagnostic (OneTouch #100 ea 09/16/22 11/23/23 Rx Ultra Test strips) blood-glucose meter #1 ea 04/03/23 11/23/23 Rx atorvastatin 40 mg tablet 40 mg PO HS #90 tabs 05/01/23 12/07/23 Rx empagliflozin 25 mg tablet 25 mg PO QAM 06/15/23 12/07/23 History (Jardiance) escitalopram oxalate 20 mg tablet 20 mg PO QAM 06/15/23 12/07/23 History metformin 1,000 mg tablet 1,000 mg PO BID #180 tabs 08/27/23 12/07/23 Rx lancets 33 gauge #100 ea 09/03/23 11/23/23 Rx insulin glargine 100 unit/mL (3 10 - 20 unit (0.1 - 0.2 mL) subcut 09/23/23 12/07/23 Rx mL) subcutaneous pen (Lantus HS #15 mL Solostar U-100 Insulin) gabapentin 800 mg tablet 800 mg PO TID #90 tabs 10/05/23 12/07/23 Rx Med Marijuana 1 dose inhalation DIRECTED PRN 11/12/23 12/07/23 History .pain/anx ondansetron 4 mg disintegrating 4 mg PO DAILY PRN nausea and 11/12/23 12/07/23 Rx tablet vomiting #14 tabs oxycodone 20 mg tablet 20 mg PO Q8H PRN pain 30 days #90 11/23/23 12/07/23 Rx tabs Past Med/Surg History Problem List (Updated 12/08/23 @ 08:12 by Brandyn Jaime DO) Lumbar disc herniation with radiculopathy Low back pain (Acute) Ambulatory dysfunction (Acute) Dehydration (Acute) Lumbar disc disease Medical marijuana use Dental caries (Chronic) Carotid stenosis (Chronic) Anxiety (Chronic) Depression (Chronic) Chronic back pain (Chronic) Osteoarthritis (Chronic) Degenerative disc disease (Chronic) Dyslipidemia Uncontrolled type 2 diabetes mellitus Medical History Controlled type 2 diabetes mellitus Uncontrolled type 2 diabetes mellitus Degenerative disc disease Osteoarthritis Chronic back pain Depression Anxiety no medications Stroke 03/17/19; per neurology consult [facility] 03/18/19: " Acute multifocal left cerebral hemispheric infarcts due to a symptomatic stenosis of the left internal carotid artery"= no deficits Anxiety Carotid stenosis Diabetes Type 2 diabetes mellitus niddm TIA (transient ischemic attack) ~2017 Dental caries CVA (cerebral vascular accident) Surgical History Status post carotid endarterectomy left 2018 S/P hemorrhoidectomy History of appendectomy History of nasal septoplasty Family History Other Past medical history not known due to adoption Social History Smoking Status: Never smoker Tobacco Type: Cigarettes Cigarettes Per Day: 20; Second Hand Exposure: No; Do You Dip or Chew Tobacco: No; Hx Alcohol Use: No Hx Substance Use: Yes Last Used Substance: Days (ago) Last Used Substance Other:: 03/19/19 Preferred Language: Barbadian Communication Ability: Effective Funeral Director Required: No Beliefs That Will Affect Care: None marital status: Single Current Living Situation: Alone Current Living Situation Comment: Son- 3 nights weekly (13 years old) Feels Safe at Home: Yes Safety Concerns: Feels Safe At This Time Childhood Exposure to Second-Hand Smoke: No Diet: regular Physical Activity Frequency: Does not Exercise Seatbelt Use: sometimes Sunscreen Use: No Assistive Devices: None Review of Systems Review of Systems: All systems reviewed & are unremarkable except as noted in Subjective Physical Exam Physical Exam: Constitutional: well-appearing, no acute distress HEENT: NCAT, no conjunctival injection CV: regular rhythm, no murmur appreciated, extremities well-perfused, no LE edema Resp: CTABL, no wheezes/rales/rhonchi appreciated, no increased work of breathing GI: soft, nondistended, nontender, BS normoactive Skin: warm, dry, no rash appreciated Neuro: alert, oriented, no focal neurologic deficit appreciated Results & Data Results & Data Vital Signs (Past 12 Hours) Vital Signs Temp Pulse Pulse Resp BP BP Pulse Ox 12/07/23 20:18 75 18 135/85 95 12/07/23 19:18 78 18 130/79 95 12/07/23 16:00 129/94 12/07/23 16:00 79 16 100 12/07/23 15:50 73 16 95 12/07/23 15:40 72 18 93 12/07/23 15:30 123/72 12/07/23 15:30 70 16 97 12/07/23 15:20 72 18 95 12/07/23 15:10 70 18 97 12/07/23 15:04 79 22 99 12/07/23 15:03 132/85 12/07/23 14:56 80 12 98 12/07/23 14:50 69 97 12/07/23 14:40 75 17 99 12/07/23 14:30 76 13 98 12/07/23 14:30 135/93 12/07/23 14:21 80 12/07/23 14:20 77 15 99 12/07/23 14:10 86 14 98 12/07/23 14:00 126/73 12/07/23 14:00 70 13 98 12/07/23 13:50 68 18 93 12/07/23 13:30 72 14 127/69 95 12/07/23 13:00 78 22 130/96 94 12/07/23 12:30 75 21 121/89 94 12/07/23 12:00 74 16 118/91 97 12/07/23 11:30 76 20 141/94 H 98 12/07/23 11:00 77 18 116/88 95 12/07/23 10:59 77 14 96 12/07/23 10:30 71 13 139/89 97 12/07/23 10:21 75 12/07/23 10:02 36.4 C L 83 20 135/101 H 98 O2 Del Method 12/07/23 20:18 Nasal Cannula 12/07/23 19:18 Room Air 12/07/23 16:00 12/07/23 16:00 12/07/23 15:50 12/07/23 15:40 12/07/23 15:30 12/07/23 15:30 12/07/23 15:20 12/07/23 15:10 12/07/23 15:04 12/07/23 15:03 12/07/23 14:56 12/07/23 14:50 12/07/23 14:40 12/07/23 14:30 12/07/23 14:30 12/07/23 14:21 12/07/23 14:20 12/07/23 14:10 12/07/23 14:00 12/07/23 14:00 12/07/23 13:50 12/07/23 13:30 Room Air 12/07/23 13:00 Room Air 12/07/23 12:30 12/07/23 12:00 Room Air 12/07/23 11:30 Room Air 12/07/23 11:00 Room Air 12/07/23 10:59 Room Air 12/07/23 10:30 Room Air 12/07/23 10:21 12/07/23 10:02 Supervising Physician Co-Signing Physician Notes Attending addendum: I have physically seen this patient, have supervised the medical residents activities, and agree with the H&P unless as otherwise noted. Assessment and Plan: Acute on chronic low back pain/lumbar disc disease/ambulatory dysfunction- MRI lumbar spine with right L5 impingement and marrow edema L4/L5 on the left Consult orthopedic spine surgery Dr. Jaime No dexamethasone at this time Lyme testing negative Anaplasmosis and babesiosis smears negative, with antibodies pending Continue outpatient oxycodone regimen as noted Will consult PT/OT Diabetes mellitus- Hold Jardiance and metformin inpatient Continue glargine at reduced dosing Placed on Accu-Cheks with NovoLog SSI Hemoconcentration/dehydration- Status post 1 L normal saline in the ED Recheck laboratories in a.m. as noted
[2023-12-07] MEDS ORDERED: GLUCOSE 40% GEL 15 GM TUBE PO PRN (23:27)
[2023-12-07] MEDS ORDERED: ACETAMINOPHEN 325 MG TAB PO PRN (23:27)
[2023-12-07] MEDS ORDERED: DEXTROSE 50% 50 ML SYRINGE IV PRN (23:27)
[2023-12-07] MEDS ORDERED: GLUCOSE 10 TAB/TUBE PO PRN (23:27)
[2023-12-07] MEDS ORDERED: CARBOHYDRATES FOR HYPOGLYCEMIA PO PRN (23:27)
[2023-12-07] MEDS ORDERED: GLUCAGON FOR INJ 1 MG VIAL SQ PRN (23:27)
[2023-12-07] MEDS ORDERED: POLYETHYLENE (MIRALAX) 17 GM PACK PO PRN (23:27)
[2023-12-07] MEDS ORDERED: oxyCODONE HCL IR 5 MG TAB (IMMEDIATE RELEASE) PO PRN (23:27)
[2023-12-08] MEDS: MELATONIN 3 MG TAB PO PRN (00:59)
[2023-12-08] MEDS: ONDANSETRON INJ 2 MG/ML 2 ML VIAL IV PRN (04:22)
[2023-12-08] MEDS: oxyCODONE HCL IR 5 MG TAB (IMMEDIATE RELEASE) PO PRN (04:28)
[2023-12-08 07:35] LABS: Estimated Average Glucose 186 mg/dl; Hemoglobin A1C 8.1 % (4.5-5.6)
[2023-12-08 07:43] LABS: Basophils # (auto) 0.07 K/uL (0.00-0.20); Basophils % (auto) 0.5 %; Eosinophils # (auto) 0.02 K/uL (0.00-0.50); Eosinophils % (auto) 0.1 %; Hematocrit (blood only) 57.9 % (42.0-52.0); Hemoglobin 19.6 g/dl (14.0-18.0); Immature Granulocytes # (auto) 0.38 K/uL (0.01-0.20); Immature Granulocytes % (auto) 2.7 %; Lymphocytes % (auto) 7.7 %; Mean Corpuscular Hemoglobin 30.2 pg (25.0-34.0); Mean Corpuscular Hgb Conc 33.9 g/dL (32.0-36.0); Mean Corpuscular Volume 89.2 fL (80.0-100.0); Mean Platelet Volume 8.6 fL (9.4-12.4); Monocytes # (auto) 0.82 K/uL (0.11-0.59); Monocytes % (auto) 5.8 %; Neutrophils # (auto) 11.84 K/uL (1.40-6.50); Neutrophils % (auto) 83.2 %; Platelet Count 210 K/uL (130-400); Red Blood Count 6.49 M/uL (4.70-6.10); White Blood Count 14.23 K/ul (4.8-10.8)
--- NOTE | 2023-12-08 08:13 | Orthopedic Consultation ---
Date of Consultation December 08, 2023 Assessment & Plan (1) Lumbar disc herniation with radiculopathy: Assessment lumbar disc herniation L4-5 on the right with radiculopathy. Lumbar spinal stenosis with marked facet hypertrophy L4-L5. Plan at this time discussed today with patient regarding his MRI findings and clinical course. This time he has been struggling with the symptoms for over a year. He would like to consider surgical invention. Would require a lumbar decompression partial discectomy L4-L5 on the right. We may consider interlaminar stabilization by way of a Coflex at the time of surgery. He would very much like to pursue surgery. Response pros cons alternatives in detail. Plan for surgery this week. History of Present Illness Reason for Consultation: Back and right leg pain Attending Physician: Tito Galindo MD History of Present Illness This is a very pleasant 61-year-old male with history of worsening back and right leg pain for well over a year. Is undergone several injections over the past year without any long-term relief. He states his last injections to lumbar spine provided no relief. He describes pain involving the lumbosacral spine rating into the right buttock posterior thigh and below the knee. Left lower extremity symptomatic. He can awaken from sleep but it does limit his ability stand and ambulate. Allergies Allergy/AdvReac Type Severity Reaction Status Date / Time dulaglutide [From [facility]] AdvReac Nausea Verified 11/23/23 13:21 Home Medications Medication Instructions Recorded Confirmed Type aspirin 81 mg tablet,delayed 81 mg PO HS 03/21/19 12/07/23 History release (Ecotrin Low Strength) pen needle, diabetic 32 gauge x #100 ea 05/09/22 11/23/23 Rx " blood sugar diagnostic (OneTouch #100 ea 09/16/22 11/23/23 Rx Ultra Test strips) blood-glucose meter #1 ea 04/03/23 11/23/23 Rx atorvastatin 40 mg tablet 40 mg PO HS #90 tabs 05/01/23 12/07/23 Rx empagliflozin 25 mg tablet 25 mg PO QAM 06/15/23 12/07/23 History (Jardiance) escitalopram oxalate 20 mg tablet 20 mg PO QAM 06/15/23 12/07/23 History metformin 1,000 mg tablet 1,000 mg PO BID #180 tabs 08/27/23 12/07/23 Rx lancets 33 gauge #100 ea 09/03/23 11/23/23 Rx insulin glargine 100 unit/mL (3 10 - 20 unit (0.1 - 0.2 mL) subcut 09/23/23 12/07/23 Rx mL) subcutaneous pen (Lantus HS #15 mL Solostar U-100 Insulin) gabapentin 800 mg tablet 800 mg PO TID #90 tabs 10/05/23 12/07/23 Rx Med Marijuana 1 dose inhalation DIRECTED PRN 11/12/23 12/07/23 History .pain/anx ondansetron 4 mg disintegrating 4 mg PO DAILY PRN nausea and 11/12/23 12/07/23 Rx tablet vomiting #14 tabs oxycodone 20 mg tablet 20 mg PO Q8H PRN pain 30 days #90 11/23/23 12/07/23 Rx tabs Patient History Medical History Controlled type 2 diabetes mellitus Uncontrolled type 2 diabetes mellitus Degenerative disc disease Osteoarthritis Chronic back pain Depression Anxiety no medications Stroke 03/17/19; per neurology consult [facility] 03/18/19: " Acute multifocal left cerebral hemispheric infarcts due to a symptomatic stenosis of the left internal carotid artery"= no deficits Anxiety Carotid stenosis Diabetes Type 2 diabetes mellitus niddm TIA (transient ischemic attack) ~2017 Dental caries CVA (cerebral vascular accident) Surgical History Status post carotid endarterectomy left 2018 S/P hemorrhoidectomy History of appendectomy History of nasal septoplasty Family History Other Past medical history not known due to adoption Social History Smoking Status: Never smoker Tobacco Type: Cigarettes Cigarettes Per Day: 20; Second Hand Exposure: No; Do You Dip or Chew Tobacco: No; Hx Alcohol Use: No Hx Substance Use: Yes Last Used Substance: Days (ago) Last Used Substance Other:: 03/19/19 Preferred Language: [place]orese Communication Ability: Effective Cardiovascular Physician Assistant Required: No Beliefs That Will Affect Care: None marital status: Single Current Living Situation: Alone Current Living Situation Comment: Son- 3 nights weekly (13 years old) Feels Safe at Home: Yes Safety Concerns: Feels Safe At This Time Childhood Exposure to Second-Hand Smoke: No Diet: regular Physical Activity Frequency: Does not Exercise Seatbelt Use: sometimes Sunscreen Use: No Assistive Devices: None Physical Exam Physical Exam: On exam he is comfortable lying in bed. He has +5-5 bilateral plantarflexion dorsiflexion extensor houses longus. There is tension signs straight leg raising on the right negative on the left. Sensory appears to be symmetric and intact. Results & Data Vital Signs (Past 12 Hours) Vital Signs Temp Pulse Pulse Resp BP BP Pulse Ox 12/08/23 07:41 36.4 C L 80 18 128/80 96 12/07/23 23:10 12/07/23 23:10 36.8 C 79 16 129/86 98 12/07/23 22:20 94 12/07/23 22:10 99 12/07/23 22:02 98 12/07/23 21:50 97 12/07/23 21:40 98 12/07/23 21:31 98 12/07/23 21:20 97 12/07/23 21:10 96 12/07/23 21:00 138/97 12/07/23 21:00 95 12/07/23 20:50 97 12/07/23 20:40 95 12/07/23 20:30 139/91 12/07/23 20:30 95 12/07/23 20:20 94 12/07/23 20:18 75 18 135/85 95 O2 Del Method 12/08/23 07:41 Room Air 12/07/23 23:10 Room Air 12/07/23 23:10 Room Air 12/07/23 22:20 12/07/23 22:10 12/07/23 22:02 12/07/23 21:50 12/07/23 21:40 12/07/23 21:31 12/07/23 21:20 12/07/23 21:10 12/07/23 21:00 12/07/23 21:00 12/07/23 20:50 12/07/23 20:40 12/07/23 20:30 12/07/23 20:30 12/07/23 20:20 12/07/23 20:18 Nasal Cannula
--- NOTE | 2023-12-08 08:45 | Hospitalist Progress Note ---
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 Describes pain radiating from right posterior buttock and thigh to below the knee. Can awaken from sleep but does limit his ability to stand and ambulate Lumbar MRI showed a moderate right disc herniation at L4-5 with probable right L5 impingement. Also showed marrow edema on the left L4-L5 was likely due to severe facet hypertrophy. -Chest x-ray negative. -Pain control with 10 mg oxycodone IR for moderate pain and 20 mg oxycodone IR for severe pain, every 6 hours. -Anaplasmosis and Babesia pending. Lyme negative. -Zofran as needed for nausea. -Case discussed with Dr. Jaime by ED provider. Plan to admit and have Dr. Jaime see in the a.m. -No immediate surgery at this time, will let patient eat. 12/07 Additional IVF ordered given hgb/dehydration on exam. Did report hasn't been eating well for a while due to the pain. - Anaplasmosis, Babesia pending. WBC elevated 14.2k. UA w/ 3+ glucose, 4+ ketones. Glu 175 on arrival. Hgb 8.1. On insulin/metformin at baseline. MRI lumbar spine IMPRESSION: 1. Moderate RIGHT disc herniation L4-5 with probable right L5 impingement syndrome, correlate clinically. 2. Marrow edema LEFT L4/L5, probable stress reaction due to severe facet hypertrophy. 3. No central spinal stenosis, abnormal enhancement, abnormal signal in the conus, discitis or osteomyelitis. No loss of bowel/bladder function reported but discussed to alert nursing if occurs Dr Jaime saw this morning, will be planning for surgery this week. Messaged to see about addition of IV steroids -- waiting until after surgery ?WBC elevation related to stress/pain/dehydration. Afebrile. UA did not appear infected. CXR w/o pneumonia. Add procalcitonin, monitor for fever/infectious symptoms. Labs in AM (2) Low back pain: Plan: 2nd to above (3) Ambulatory dysfunction: Plan: 2nd to above, therapy evals to be undertaken (and will need repeated post- surgery) (4) Uncontrolled type 2 diabetes mellitus: Plan: A1c 8.1 Home regimen held, BSG AC/HS and sliding scale BSGs acceptable Monitor for need for glycemic consult post-op while on IV steroids Dyslipidemia: -Continue home medications. (5) Dehydration: Plan: Slight hemoconcentrated CBC. UA showing 3+ ketones and 3+ glucose. Received 1 bag of NSS in the ED, no further held Did report decreased PO intake recently, additional IVF ordered for today and will monitor (6) Medical marijuana use: Plan: ntoed (7) Carotid stenosis: (8) Dyslipidemia: Plan continued inpatient stay, planning for surgical intervention later this week with Dr Jaime pending OR availability/timing Admission and Anticipated Discharge Date Admission Date: December 07, 2023 Supervising Physician Co-Signing Physician Notes The patient was not seen by me. The chart was reviewed. Case discussed with LIAT Lizama. Agree with assessment and plan Subjective Patient evaluated. Doing well, pain controlled. Seen by Dr Jaime this morning and anticipating surgery either tomorrow vs Thur sday. No loss of bowel/bladder. No night sweats. Did report he has had some weight loss over the past year just because he hasn't been eating very well. Did better with breakfast, additional IVF ordered and will monitor. No CP/SOB, abdominal pain reported. Physical Exam Physical Exam: General: 63yo male sitting in bed, NAD Head atraumatic, normocephalic, mm DRY, trachea midline Resp: even/unlabored, no w/c/r, on room air CV: RRR, no significant m/r/g, no pitting edema/calf tenderness GI: +BS, soft/NT MSk/Neuro: strength equal b/l laying in bed, baseline neuropathy/collapsed disc, pulses palpable Psych: AOx3, cooperative with exam Results & Data Results & Data Vital Signs (Past 12 Hours) Vital Signs Temp Pulse Resp BP BP Pulse Ox O2 Del Method 12/08/23 07:41 36.4 C L 80 18 128/80 96 Room Air 12/07/23 23:10 Room Air 12/07/23 23:10 36.8 C 79 16 129/86 98 Room Air 12/07/23 22:20 94 12/07/23 22:10 99 12/07/23 22:02 98 12/07/23 21:50 97 12/07/23 21:40 98 12/07/23 21:31 98 12/07/23 21:20 97 12/07/23 21:10 96 12/07/23 21:00 138/97 12/07/23 21:00 95 12/07/23 20:50 97 12/07/23 20:40 95 Laboratory Results 12/08/23 12/08/23 12/08/23 Range/Units 09:03 08:07 06:41 WBC (4.8-10.8) K/ul RBC (4.70-6.10) M/uL Hgb (14.0-18.0) g/dl Hct (42.0-52.0) % MCV (80.0-100.0) fL MCH (25.0-34.0) pg MCHC (32.0-36.0) g/dL RDW Std Deviation (36.4-46.3) fL RDW Coeff of Soo (11.5-14.5) % Plt Count (130-400) K/uL MPV (9.4-12.4) fL Immature Gran % (Auto) % Neut % (Auto) % Lymph % (Auto) % [place] % (Auto) % Eos % (Auto) % Baso % (Auto) % Neut # (Auto) (1.40-6.50) K/uL Lymph # (Auto) (1.20-3.40) K/uL [place] # (Auto) (0.11-0.59) K/uL Eos # (Auto) (0.00-0.50) K/uL Baso # (Auto) (0.00-0.20) K/uL Immature Gran # (Auto) (0.01-0.20) K/uL Peripher Smr Path Cons Cancelled PT (9.0-12.0) Seconds INR (0.9-1.1) Sodium 136 (136-145) mmol/L Potassium 4.1 (3.5-5.1) mmol/L Chloride 102 (98-107) mmol/L Carbon Dioxide 15 L (21-32) mmol/L Anion Gap 19 H (3-11) BUN 23 (6-23) mg/dl Creatinine 0.90 (0.6-1.4) mg/dl Est Cr Clr Drug Dosing 87.9 ml/min Est GFR ( Amer) 105.7 ml/min Est GFR (Non-Af Amer) 91.2 ml/min BUN/Creatinine Ratio 25.6 H (10-20) Glucose 139 H (70-99(Fasting)) mg/dl POC Glucose 177 H (70-99) mg/dl Estimat Average Glucose 186 mg/dl Hemoglobin A1c 8.1 H (4.5-5.6) % Calcium 9.1 (8.6-10.3) mg/dl Magnesium 2.2 (1.7-2.4) mg/dl Total Bilirubin 0.9 (0.2-1.0) mg/dl AST 11 L (13-39) U/L ALT 14 (7-52) U/L Alkaline Phosphatase 79 (34-104) U/L Total Protein 7.1 (6.0-8.3) gm/dl Albumin 4.0 (3.4-5.0) gm/dl Globulin 3.1 (2.5-4.0) gm/dl Albumin/Globulin Ratio 1.3 (0.9-2) Procalcitonin < 0.02 (0-0.5) ng/ml TSH (0.300-4.500) uIu/ml Anaplasma Smear A. phagocytophilum DNA Babesia Smear Babesia microti DNA PCR Lyme Disease Screen (Negative) 12/08/23 12/07/23 12/07/23 Range/Units 06:41 23:14 12:09 WBC 14.23 H (4.8-10.8) K/ul RBC 6.49 H (4.70-6.10) M/uL Hgb 19.6 H (14.0-18.0) g/dl Hct 57.9 H (42.0-52.0) % MCV 89.2 (80.0-100.0) fL MCH 30.2 (25.0-34.0) pg MCHC 33.9 (32.0-36.0) g/dL RDW Std Deviation 46.0 (36.4-46.3) fL RDW Coeff of Soo 15.0 H (11.5-14.5) % Plt Count 210 (130-400) K/uL MPV 8.6 L (9.4-12.4) fL Immature Gran % (Auto) 2.7 % Neut % (Auto) 83.2 % Lymph % (Auto) 7.7 % [place] % (Auto) 5.8 % Eos % (Auto) 0.1 % Baso % (Auto) 0.5 % Neut # (Auto) 11.84 H (1.40-6.50) K/uL Lymph # (Auto) 1.10 L (1.20-3.40) K/uL [place] # (Auto) 0.82 H (0.11-0.59) K/uL Eos # (Auto) 0.02 (0.00-0.50) K/uL Baso # (Auto) 0.07 (0.00-0.20) K/uL Immature Gran # (Auto) 0.38 H (0.01-0.20) K/uL Peripher Smr Path Cons Pending PT (9.0-12.0) Seconds INR (0.9-1.1) Sodium (136-145) mmol/L Potassium (3.5-5.1) mmol/L Chloride (98-107) mmol/L Carbon Dioxide (21-32) mmol/L Anion Gap (3-11) BUN (6-23) mg/dl Creatinine (0.6-1.4) mg/dl Est Cr Clr Drug Dosing ml/min Est GFR ( Amer) ml/min Est GFR (Non-Af Amer) ml/min BUN/Creatinine Ratio (10-20) Glucose (70-99(Fasting)) mg/dl POC Glucose 145 H (70-99) mg/dl Estimat Average Glucose mg/dl Hemoglobin A1c (4.5-5.6) % Calcium (8.6-10.3) mg/dl Magnesium (1.7-2.4) mg/dl Total Bilirubin (0.2-1.0) mg/dl AST (13-39) U/L ALT (7-52) U/L Alkaline Phosphatase (34-104) U/L Total Protein (6.0-8.3) gm/dl Albumin (3.4-5.0) gm/dl Globulin (2.5-4.0) gm/dl Albumin/Globulin Ratio (0.9-2) Procalcitonin (0-0.5) ng/ml TSH (0.300-4.500) uIu/ml Anaplasma Smear A. phagocytophilum DNA Pending Babesia Smear Babesia microti DNA PCR Lyme Disease Screen (Negative) 12/07/23 12/07/23 Range/Units 11:24 10:19 WBC (4.8-10.8) K/ul RBC (4.70-6.10) M/uL Hgb (14.0-18.0) g/dl Hct (42.0-52.0) % MCV (80.0-100.0) fL MCH (25.0-34.0) pg MCHC (32.0-36.0) g/dL RDW Std Deviation (36.4-46.3) fL RDW Coeff of Soo (11.5-14.5) % Plt Count (130-400) K/uL MPV (9.4-12.4) fL Immature Gran % (Auto) % Neut % (Auto) % Lymph % (Auto) % [place] % (Auto) % Eos % (Auto) % Baso % (Auto) % Neut # (Auto) (1.40-6.50) K/uL Lymph # (Auto) (1.20-3.40) K/uL [place] # (Auto) (0.11-0.59) K/uL Eos # (Auto) (0.00-0.50) K/uL Baso # (Auto) (0.00-0.20) K/uL Immature Gran # (Auto) (0.01-0.20) K/uL Peripher Smr Path Cons PT 10.9 (9.0-12.0) Seconds INR 1.0 (0.9-1.1) Sodium (136-145) mmol/L Potassium (3.5-5.1) mmol/L Chloride (98-107) mmol/L Carbon Dioxide (21-32) mmol/L Anion Gap (3-11) BUN (6-23) mg/dl Creatinine (0.6-1.4) mg/dl Est Cr Clr Drug Dosing ml/min Est GFR ( Amer) ml/min Est GFR (Non-Af Amer) ml/min BUN/Creatinine Ratio (10-20) Glucose (70-99(Fasting)) mg/dl POC Glucose (70-99) mg/dl Estimat Average Glucose mg/dl Hemoglobin A1c (4.5-5.6) % Calcium (8.6-10.3) mg/dl Magnesium (1.7-2.4) mg/dl Total Bilirubin (0.2-1.0) mg/dl AST (13-39) U/L ALT (7-52) U/L Alkaline Phosphatase (34-104) U/L Total Protein (6.0-8.3) gm/dl Albumin (3.4-5.0) gm/dl Globulin (2.5-4.0) gm/dl Albumin/Globulin Ratio (0.9-2) Procalcitonin (0-0.5) ng/ml TSH 1.453 (0.300-4.500) uIu/ml Anaplasma Smear See Comment A. phagocytophilum DNA Babesia Smear See Comment Babesia microti DNA PCR Pending Lyme Disease Screen Negative (Negative) Diagnostic Findings Chest X-Ray 12/07/23 13:40 XR chest 1V portable HISTORY: 63 years-old Male weakness acute weakness COMPARISON: 11/12/2023 TECHNIQUE: AP view of the chest FINDINGS: Cardiomediastinal and hilar silhouettes are within normal limits. No pneumothorax, pleural effusion or airspace consolidation. The bones appear grossly intact. Degenerative changes of the shoulders and spine. IMPRESSION: No acute process. ACT 112: Negative or not required by law. The above report was generated using voice recognition software. It may contain grammatical, syntax or spelling errors. Electronically signed by: Loi Pleitez M.D. 12/07/2023 1:58 PM Lumbar Spine MRI 12/07/23 15:04 Exam(s): MRI L SPINE W/WO Contrast IV Amt: 9 CC MO EXAM: MR Lumbar Spine Without and With Intravenous Contrast CLINICAL HISTORY: Reason for exam: low back pain, diabetic, leukocytosis. TECHNIQUE: Magnetic resonance images of the lumbar spine without and with intravenous contrast in multiple planes. CONTRAST: Patient received 9 CC MO of IV contrast COMPARISON: CT lumbar spine 06/15/23. FINDINGS: Vertebrae: Normal, smooth curvature. No discitis or osteomyelitis. Slight marrow edema in the left L4 and L5 pedicle, probable stress reaction due to severe facet hypertrophy on the left at this level. No compression deformity or abnormal enhancement. Conus: Terminates normally, no abnormal enhancement. Soft tissues: No retroperitoneal mass or enhancement. No epidural hematoma or abscess. DISCS/SPINAL CANAL/NEURAL FORAMINA: L1-L2: No significant disc disease. L2-L3: No significant disc disease. L3-L4: Mild degenerative disc disease. L4-L5: Moderate right lateral disc herniation with inferior migration and a small, 7 mm disc fragment with slight altered signal characteristics, cannot rule out sequestered disc. There is severe right lateral recess stenosis and probable right L5 impingement syndrome, correlate clinically. Mild surrounding enhancement. Stable, compared with prior CT, given differences in technique. L5-S1: No significant disc disease. OTHER: No other disc herniation. Moderate to severe facet hypertrophy, particularly in the lower lumbar spine. No central spinal stenosis. IMPRESSION: 1. Moderate RIGHT disc herniation L4-5 with probable right L5 impingement syndrome, correlate clinically. 2. Marrow edema LEFT L4/L5, probable stress reaction due to severe facet hypertrophy. 3. No central spinal stenosis, abnormal enhancement, abnormal signal in the conus, discitis or osteomyelitis. Electronically signed by: Gege Lester M.D. 12/07/23 19:33 PM PG Care Time/CCT Total # of Minutes Spent Total Time Spent with Patient: Total time spent is greater than 50% in coordination of care (as documented) at patient's floor/unit and/or counseling patient: Coding Level of Care Code 63928 SUB INP/OBS CARE 2/35MIN Diagnoses Lumbar disc herniation with radiculopathy M51.16 Low back pain M54.50 Ambulatory dysfunction R26.2 Uncontrolled type 2 diabetes mellitus E11.65 Dehydration E86.0 Medical marijuana use Z79.899 Carotid stenosis I65.29 Dyslipidemia E78.5
[2023-12-08] MEDS: SODIUM CHLORIDE 0.9% 1,000 ML IV SCH (09:06)
[2023-12-08] MEDS: GABAPENTIN 800 MG TAB PO SCH (09:06)
[2023-12-08] MEDS: ESCITALOPRAM OXALATE 20 MG TAB PO SCH (09:06)
[2023-12-08 09:18] LABS: Albumin Globulin Ratio 1.3 (0.9-2); BUN Creatinine Ratio 25.6 (10-20); Bilirubin,Total 0.9 mg/dl (0.2-1.0); Calcium 9.1 mg/dl (8.6-10.3); Creatinine Clr Calc Pharmacy 87.9 ml/min; Est GFR (African American) 105.7 ml/min; Est GFR (Non-African American) 91.2 ml/min; Globulin 3.1 gm/dl (2.5-4.0); Magnesium 2.2 mg/dl (1.7-2.4); Potassium 4.1 mmol/L (3.5-5.1); Total Protein 7.1 gm/dl (6.0-8.3)
[2023-12-08] MEDS: INSULIN ASPART PER UNIT CHARGE SC SCH (09:19)
--- NOTE | 2023-12-08 19:36 | Billing Data ---
Date of Service December 08, 2023 Coding Level of Care Code 70457 INT INP/OBS CARE
[2023-12-08] MEDS: ATORVASTATIN 40 MG TAB PO SCH (20:51)
[2023-12-08] MEDS: ASPIRIN 81 MG ECTAB PO SCH (21:38)
[2023-12-09] MEDS ORDERED: Nursing to Pharmacy Communication SCH ×2 (04:15→22:15)
[2023-12-09] MEDS: INSULIN ASPART PER UNIT CHARGE SC SCH ×2 (05:43→22:21)
[2023-12-09 07:50] LABS: Basophils # (auto) 0.06 K/uL (0.00-0.20); Basophils % (auto) 0.5 %; Eosinophils # (auto) 0.05 K/uL (0.00-0.50); Eosinophils % (auto) 0.4 %; Hematocrit (blood only) 54.1 % (42.0-52.0); Hemoglobin 18.8 g/dl (14.0-18.0); Immature Granulocytes # (auto) 0.11 K/uL (0.01-0.20); Immature Granulocytes % (auto) 0.9 %; Lymphocytes # (auto) 1.09 K/uL (1.20-3.40); Lymphocytes % (auto) 9.2 %; Mean Corpuscular Hemoglobin 30.7 pg (25.0-34.0); Mean Corpuscular Hgb Conc 34.8 g/dL (32.0-36.0); Mean Corpuscular Volume 88.4 fL (80.0-100.0); Mean Platelet Volume 8.4 fL (9.4-12.4); Monocytes # (auto) 1.01 K/uL (0.11-0.59); Monocytes % (auto) 8.6 %; Neutrophils # (auto) 9.47 K/uL (1.40-6.50); Neutrophils % (auto) 80.4 %; Platelet Count 188 K/uL (130-400); RDW Coefficient of Variation 14.9 % (11.5-14.5); RDW Standard Deviation 45.8 fL (36.4-46.3); Red Blood Count 6.12 M/uL (4.70-6.10); White Blood Count 11.79 K/ul (4.8-10.8)
[2023-12-09 07:56] LABS: Albumin Globulin Ratio 1.3 (0.9-2); Albumin Level 3.5 gm/dl (3.4-5.0); BUN Creatinine Ratio 22.2 (10-20); Bilirubin,Total 1.1 mg/dl (0.2-1.0); Calcium 8.8 mg/dl (8.6-10.3); Creatinine Clr Calc Pharmacy 87.9 ml/min; Est GFR (African American) 105.7 ml/min; Est GFR (Non-African American) 91.2 ml/min; Globulin 2.8 gm/dl (2.5-4.0); Magnesium 1.9 mg/dl (1.7-2.4); Potassium 3.9 mmol/L (3.5-5.1); Total Protein 6.3 gm/dl (6.0-8.3)
--- NOTE | 2023-12-09 09:06 | Hospitalist Progress Note ---
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 Describes pain radiating from right posterior buttock and thigh to below the knee. Can awaken from sleep but does limit his ability to stand and ambulate Lumbar MRI showed a moderate right disc herniation at L4-5 with probable right L5 impingement. Also showed marrow edema on the left L4-L5 was likely due to severe facet hypertrophy. CXR w/o acute process. Lyme negative. Anaplasmosis/babesia pending Additional IVF ordered given hgb/dehydration on exam 12/07. Did report hasn't been eating well for a while due to the pain. WBC elevated 14.2k. UA w/ 3+ glucose, 4+ ketones. Glu 175 on arrival. Hgb A1c 8.1. On in sulin/metformin at baseline. MRI lumbar spine IMPRESSION: 1. Moderate RIGHT disc herniation L4-5 with probable right L5 impingement syndrome, correlate clinically. 2. Marrow edema LEFT L4/L5, probable stress reaction due to severe facet hypertrophy. 3. No central spinal stenosis, abnormal enhancement, abnormal signal in the conus, discitis or osteomyelitis. No loss of bowel/bladder function reported but discussed to alert nursing if occurs Dr Jaime saw AM 12/07, will be planning for surgery this week. ?WBC elevation related to stress/pain/dehydration. Afebrile. UA did not appear infected. Procalcitonin NOT elevated, WBC trending down on repeat/afebrile Continued IVF for the 3L, improvement in hydration on exam, hgb trending down and BUN/Cr 23/0.9--> 20/0.9. CO2 improving, anion gap closing. ?starvation ketosis from not eating well/drinking this past week. -Did also send for periph smear/psa/ca19-9/cea given elevated hgb/back pain and weight loss reported.?underlying myeloma. Did report weight loss due to pain/not eating well over past year however, will need f/u of these labs Ordered diet for today as no plans for surgery, will need to be made NPO when surgery date/time set Monitor labs on repeat (2) Low back pain: Plan: 2nd to above (3) Ambulatory dysfunction: Plan: 2nd to above, therapy evals to be undertaken (and will need repeated post- surgery) (4) Uncontrolled type 2 diabetes mellitus: Plan: A1c 8.1 Home regimen held, BSG AC/HS and sliding scale BSGs acceptable Monitor for need for glycemic consult post-op while on IV steroids Dyslipidemia: -Continue home medications. (5) Dehydration: Plan: Slight hemoconcentrated CBC. UA showing 3+ ketones and 3+ glucose. Received 1 bag of NSS in the ED, no further ordered however appeared dehydrated on exam as above and additional IVF ordered. Improvement in PO intake and hydration on exam and can stop after current IVF transfused Monitor labs/exam Oscar (6) Medical marijuana use: Plan: ntoed (7) Carotid stenosis: Plan: aspirin daily continued (8) Dyslipidemia: Plan: lipitor continued Plan continued inpatient stay, planning for surgery either tomorrow vs Thursday with Dr Jaime pending insurance approval Admission and Anticipated Discharge Date Admission Date: December 07, 2023 Supervising Physician Co-Signing Physician Notes The patient was not seen by me. The chart was reviewed. Case discussed with LIAT Lizama. Agree with assessment and plan Subjective Evaluated this morning, resting in bed. Initially thought surgery was going to be today but call w/ insurance and planning for tomorr vs Thursday per patient based on conversation w/ Dr Jaime this morning. Pain controlled with ordered meds, mm improved/less dehydrated on exam. No fever/chills, chest pain, shortness of breath. Questions/concerns addressed at this time. Physical Exam Physical Exam: General: 63yo male sitting in bed, NAD Head atraumatic, normocephalic, mm IMPROVED, trachea midline Resp: even/unlabored, no w/c/r, on room air CV: RRR, no significant m/r/g, no pitting edema/calf tenderness GI: +BS, soft/NT MSk/Neuro: strength equal b/l laying in bed, baseline neuropathy/collapsed disc, pulses palpable Psych: AOx3, cooperative with exam Results & Data Results & Data Vital Signs (Past 12 Hours) Vital Signs Temp Pulse Resp BP Pulse Ox O2 Del Method 12/09/23 07:36 36.5 C 81 16 133/85 97 Room Air Laboratory Results 12/09/23 12/09/23 12/08/23 Range/Units 07:06 05:28 20:43 WBC 11.79 H (4.8-10.8) K/ul RBC 6.12 H (4.70-6.10) M/uL Hgb 18.8 H (14.0-18.0) g/dl Hct 54.1 H (42.0-52.0) % MCV 88.4 (80.0-100.0) fL MCH 30.7 (25.0-34.0) pg MCHC 34.8 (32.0-36.0) g/dL RDW Std Deviation 45.8 (36.4-46.3) fL RDW Coeff of Soo 14.9 H (11.5-14.5) % Plt Count 188 (130-400) K/uL MPV 8.4 L (9.4-12.4) fL Immature Gran % (Auto) 0.9 % Neut % (Auto) 80.4 % Lymph % (Auto) 9.2 % [place] % (Auto) 8.6 % Eos % (Auto) 0.4 % Baso % (Auto) 0.5 % Neut # (Auto) 9.47 H (1.40-6.50) K/uL Lymph # (Auto) 1.09 L (1.20-3.40) K/uL [place] # (Auto) 1.01 H (0.11-0.59) K/uL Eos # (Auto) 0.05 (0.00-0.50) K/uL Baso # (Auto) 0.06 (0.00-0.20) K/uL Immature Gran # (Auto) 0.11 (0.01-0.20) K/uL Peripher Smr Path Cons Sodium 137 (136-145) mmol/L Potassium 3.9 (3.5-5.1) mmol/L Chloride 105 (98-107) mmol/L Carbon Dioxide 18 L (21-32) mmol/L Anion Gap 14 H (3-11) BUN 20 (6-23) mg/dl Creatinine 0.90 (0.6-1.4) mg/dl Est Cr Clr Drug Dosing 87.9 ml/min Est GFR ( Amer) 105.7 ml/min Est GFR (Non-Af Amer) 91.2 ml/min BUN/Creatinine Ratio 22.2 H (10-20) Glucose 152 H (70-99(Fasting)) mg/dl POC Glucose 195 H 160 H (70-99) mg/dl Calcium 8.8 (8.6-10.3) mg/dl Magnesium 1.9 (1.7-2.4) mg/dl Total Bilirubin 1.1 H (0.2-1.0) mg/dl AST 8 L (13-39) U/L ALT 10 (7-52) U/L Alkaline Phosphatase 73 (34-104) U/L Total Protein 6.3 (6.0-8.3) gm/dl Albumin 3.5 (3.4-5.0) gm/dl Globulin 2.8 (2.5-4.0) gm/dl Albumin/Globulin Ratio 1.3 (0.9-2) Carcinoembryonic Ag 1.4 (0-2.5) ng/ml CA 19-9 Antigen Pending Prostate Specific Ag 2.126 (0-4) ng/ml Procalcitonin (0-0.5) ng/ml 12/08/23 12/08/23 12/08/23 Range/Units 16:35 11:47 09:03 WBC (4.8-10.8) K/ul RBC (4.70-6.10) M/uL Hgb (14.0-18.0) g/dl Hct (42.0-52.0) % MCV (80.0-100.0) fL MCH (25.0-34.0) pg MCHC (32.0-36.0) g/dL RDW Std Deviation (36.4-46.3) fL RDW Coeff of Soo (11.5-14.5) % Plt Count (130-400) K/uL MPV (9.4-12.4) fL Immature Gran % (Auto) % Neut % (Auto) % Lymph % (Auto) % [place] % (Auto) % Eos % (Auto) % Baso % (Auto) % Neut # (Auto) (1.40-6.50) K/uL Lymph # (Auto) (1.20-3.40) K/uL [place] # (Auto) (0.11-0.59) K/uL Eos # (Auto) (0.00-0.50) K/uL Baso # (Auto) (0.00-0.20) K/uL Immature Gran # (Auto) (0.01-0.20) K/uL Peripher Smr Path Cons Sodium (136-145) mmol/L Potassium (3.5-5.1) mmol/L Chloride (98-107) mmol/L Carbon Dioxide (21-32) mmol/L Anion Gap (3-11) BUN (6-23) mg/dl Creatinine (0.6-1.4) mg/dl Est Cr Clr Drug Dosing ml/min Est GFR ( Amer) ml/min Est GFR (Non-Af Amer) ml/min BUN/Creatinine Ratio (10-20) Glucose (70-99(Fasting)) mg/dl POC Glucose 115 H 170 H (70-99) mg/dl Calcium (8.6-10.3) mg/dl Magnesium (1.7-2.4) mg/dl Total Bilirubin (0.2-1.0) mg/dl AST (13-39) U/L ALT (7-52) U/L Alkaline Phosphatase (34-104) U/L Total Protein (6.0-8.3) gm/dl Albumin (3.4-5.0) gm/dl Globulin (2.5-4.0) gm/dl Albumin/Globulin Ratio (0.9-2) Carcinoembryonic Ag (0-2.5) ng/ml CA 19-9 Antigen Prostate Specific Ag (0-4) ng/ml Procalcitonin < 0.02 (0-0.5) ng/ml 12/08/23 12/08/23 Range/Units 06:41 06:41 WBC (4.8-10.8) K/ul RBC (4.70-6.10) M/uL Hgb (14.0-18.0) g/dl Hct (42.0-52.0) % MCV (80.0-100.0) fL MCH (25.0-34.0) pg MCHC (32.0-36.0) g/dL RDW Std Deviation (36.4-46.3) fL RDW Coeff of Soo (11.5-14.5) % Plt Count (130-400) K/uL MPV (9.4-12.4) fL Immature Gran % (Auto) % Neut % (Auto) % Lymph % (Auto) % [place] % (Auto) % Eos % (Auto) % Baso % (Auto) % Neut # (Auto) (1.40-6.50) K/uL Lymph # (Auto) (1.20-3.40) K/uL [place] # (Auto) (0.11-0.59) K/uL Eos # (Auto) (0.00-0.50) K/uL Baso # (Auto) (0.00-0.20) K/uL Immature Gran # (Auto) (0.01-0.20) K/uL Peripher Smr Path Cons Cancelled Sodium (136-145) mmol/L Potassium (3.5-5.1) mmol/L Chloride (98-107) mmol/L Carbon Dioxide (21-32) mmol/L Anion Gap (3-11) BUN (6-23) mg/dl Creatinine (0.6-1.4) mg/dl Est Cr Clr Drug Dosing ml/min Est GFR ( Amer) ml/min Est GFR (Non-Af Amer) ml/min BUN/Creatinine Ratio (10-20) Glucose (70-99(Fasting)) mg/dl POC Glucose (70-99) mg/dl Calcium (8.6-10.3) mg/dl Magnesium (1.7-2.4) mg/dl Total Bilirubin (0.2-1.0) mg/dl AST (13-39) U/L ALT (7-52) U/L Alkaline Phosphatase (34-104) U/L Total Protein (6.0-8.3) gm/dl Albumin (3.4-5.0) gm/dl Globulin (2.5-4.0) gm/dl Albumin/Globulin Ratio (0.9-2) Carcinoembryonic Ag (0-2.5) ng/ml CA 19-9 Antigen Prostate Specific Ag (0-4) ng/ml Procalcitonin (0-0.5) ng/ml PG Care Time/CCT Total # of Minutes Spent Total Time Spent with Patient: Total time spent is greater than 50% in coordination of care (as documented) at patient's floor/unit and/or counseling patient: Coding Level of Care Code 85487 SUB INP/OBS CARE MIN Diagnoses Lumbar disc herniation with radiculopathy M51.16 Low back pain M54.50 Ambulatory dysfunction R26.2 Uncontrolled type 2 diabetes mellitus E11.65 Dehydration E86.0 Medical marijuana use Z79.899 Carotid stenosis I65.29 Dyslipidemia E78.5
[2023-12-09] MEDS: DOCUSATE SODIUM 100 MG CAP PO SCH (10:30)
[2023-12-09] MEDS: POLYETHYLENE (MIRALAX) 17 GM PACK PO SCH (10:30)
--- NOTE | 2023-12-09 10:48 | Orthopedic Progress Note ---
Date of Service December 09, 2023 Assessment & Plan (1) Lumbar disc herniation with radiculopathy: Plan: Patient continues to have back and leg pain consistent with spinal stenosis discrimination radiculopathy. We are awaiting insurance authorization for lumbar decompression possible Coflex placement. Admission and Anticipated Discharge Date Admission Date: December 07, 2023 Subjective Patient continues to have back and leg pain. Physical Exam Physical Exam: Exam he is comfortable in bed. Reasonable strength testing. Results & Data Vital Signs (Past 12 Hours) Vital Signs Temp Pulse Resp BP Pulse Ox O2 Del Method 12/09/23 07:36 36.5 C 81 16 133/85 97 Room Air
[2023-12-09] MEDS: ceFAZolin 2000MG 2,000 MG/15 ML SYR IV SCH (15:12)
[2023-12-10 02:27] LABS: Babesia microti DNA Not Detected (Not Detected)
[2023-12-10 07:36] LABS: Basophils # (auto) 0.07 K/uL (0.00-0.20); Basophils % (auto) 0.8 %; Eosinophils % (auto) 1.1 %; Hematocrit (blood only) 50.7 % (42.0-52.0); Hemoglobin 17.6 g/dl (14.0-18.0); Immature Granulocytes # (auto) 0.09 K/uL (0.01-0.20); Lymphocytes # (auto) 1.43 K/uL (1.20-3.40); Lymphocytes % (auto) 16.3 %; Mean Corpuscular Hemoglobin 29.9 pg (25.0-34.0); Mean Corpuscular Hgb Conc 34.7 g/dL (32.0-36.0); Mean Corpuscular Volume 86.2 fL (80.0-100.0); Mean Platelet Volume 8.5 fL (9.4-12.4); Monocytes # (auto) 0.89 K/uL (0.11-0.59); Monocytes % (auto) 10.1 %; Neutrophils # (auto) 6.21 K/uL (1.40-6.50); Neutrophils % (auto) 70.7 %; Platelet Count 179 K/uL (130-400); RDW Coefficient of Variation 13.8 % (11.5-14.5); RDW Standard Deviation 43.4 fL (36.4-46.3); Red Blood Count 5.88 M/uL (4.70-6.10); White Blood Count 8.79 K/ul (4.8-10.8)
[2023-12-10 08:08] LABS: Albumin Globulin Ratio 1.3 (0.9-2); Albumin Level 3.4 gm/dl (3.4-5.0); BUN Creatinine Ratio 26.2 (10-20); Bilirubin,Total 1.2 mg/dl (0.2-1.0); Calcium 8.7 mg/dl (8.6-10.3); Creatinine Clr Calc Pharmacy 94.1 ml/min; Est GFR (African American) 108.8 ml/min; Est GFR (Non-African American) 93.8 ml/min; Globulin 2.7 gm/dl (2.5-4.0); Magnesium 1.8 mg/dl (1.7-2.4); Potassium 4.3 mmol/L (3.5-5.1); Total Protein 6.1 gm/dl (6.0-8.3)
--- NOTE | 2023-12-10 11:29 | Orthopedic Progress Note ---
Date of Service December 10, 2023 Assessment & Plan (1) Lumbar disc herniation with radiculopathy: Plan: Assessment lumbar discrimination with radiculopathy. Plan at this time I discussed with this patient describing his denial from his insurance company for any surgical procedure. This is not unexpected. I will have him discharged and follow-up in our office in the next few days. We would approach authorization through our office. Admission and Anticipated Discharge Date Admission Date: December 07, 2023 Subjective Patient continues to complain of back and right leg pain. Physical Exam Physical Exam: Patient is up and ambulating. Is a reasonable steady gait. Strength testing. Results & Data Vital Signs (Past 12 Hours) Vital Signs Temp Pulse Resp BP Pulse Ox O2 Del Method 12/10/23 07:58 36.5 C 74 16 113/80 98 Room Air
[2023-12-11] MEDS ORDERED: ceFAZolin 2000MG 2,000 MG/15 ML SYR IV SCH (06:00)
--- NOTE | 2023-12-13 22:18 | Discharge Summary ---
Date of Service December 10, 2023 Admission HPI Per Admitting Provider Patient is a 63-year-old male with past medical history of type 2 diabetes, chronic back pain, and dyslipidemia who presents to the hospital for ambulatory dysfunction stemming from his back pain. Patient has been having chronic back pain which was exacerbated after a injury back in April at home when he fell. Patient has been needing an increased dose in his oxycodone and has recently been on 20 mg. He states that his back pain symptoms from his back and runs down the right hip and back of his right leg. States that he has been having trouble moving and has not been able to get up and eat. States that movement makes it worse. Had an epidural shot at the end of September which did not help the pain. States that he has not been able to eat because he is unable to move. He has also been having episodes of vomiting over the last month. He has been following with his PCP regarding this issue and was referred to Dr. Jaime, though has not been able to set up an appointment. Principal Diagnosis lumbar disc herniation Discharge Exam General: 63yo male sitting in bed, NAD Head atraumatic, normocephalic, mm IMPROVED, trachea midline Resp: even/unlabored, no w/c/r, on room air CV: RRR, no significant m/r/g, no pitting edema/calf tenderness GI: +BS, soft/NT MSk/Neuro: strength equal b/l laying in bed, baseline neuropathy/collapsed disc, pulses palpable Psych: AOx3, cooperative with exam Discharge Data Allergies Allergy/AdvReac Type Severity Reaction Status Date / Time dulaglutide [From [facility]] AdvReac Nausea Verified 12/11/23 12:48 Consultations 12/07/23 20:29 ED Decision to Admit Stat 12/07/23 23:27 Consult Orthopedic Spine Surgery Routine 12/09/23 20:09 Consult Behavioral Health Liaison Routine Procedures Performed Operation Date: 12/11/23 14:45 <No data on this case meets the specified criteria> Ordered Studies 12/07/23 15:04 MR lumbar spine wo/w con Stat Hospital Course (1) Lumbar disc herniation with radiculopathy: Patient with ongoing back/right leg pain for well over a year and has undergone several injections overt the past year without any detention relief. Describes pain radiating from right posterior buttock and thigh to below the knee. Can awaken from sleep but does limit his ability to stand and ambulate Lumbar MRI showed a moderate right disc herniation at L4-5 with probable right L5 impingement. Also showed marrow edema on the left L4-L5 was likely due to severe facet hypertrophy. CXR w/o acute process. Lyme negative. Anaplasmosis/babesia pending Additional IVF ordered given hgb/dehydration on exam 12/07. Did report hasn't been eating well for a while due to the pain. WBC elevated 14.2k. UA w/ 3+ glucose, 4+ ketones. Glu 175 on arrival. Hgb A1c 8.1. On insulin/metformin at baseline. MRI lumbar spine IMPRESSION: 1. Moderate RIGHT disc herniation L4-5 with probable right L5 impingement syndrome, correlate clinically. 2. Marrow edema LEFT L4/L5, probable stress reaction due to severe facet hypertrophy. 3. No central spinal stenosis, abnormal enhancement, abnormal signal in the conus, discitis or osteomyelitis. No loss of bowel/bladder function reported but discussed to alert nursing if occurs Dr Jaime saw AM 12/07, will be planning for surgery this week. ?WBC elevation related to stress/pain/dehydration. Afebrile. UA did not appear infected. Procalcitonin NOT elevated, WBC trending down on repeat/afebrile Continued IVF for the 3L, improvement in hydration on exam, hgb trending down and BUN/Cr 23/0.9--> 20/0.9. CO2 improving, anion gap closing. ?starvation ketosis from not eating well/drinking this past week. -Did also send for periph smear/psa/ca19-9/cea given elevated hgb/back pain and weight loss reported.?underlying myeloma. Did report weight loss due to pain/not eating well over past year however, will need f/u of these labs On 12/09, due to insurance denial. patient will not be having surgery during this hopsital stay. Patient will be discharged and will work on approval with Dr. Jaime in the outpatient setting. Patient is aware and agreeable. (2) Low back pain: 2nd to above (3) Ambulatory dysfunction: 2nd to above, therapy evals to be undertaken (and will need repeated post- surgery) (4) Uncontrolled type 2 diabetes mellitus: A1c 8.1 Home regimen held, BSG AC/HS and sliding scale BSGs acceptable Monitor for need for glycemic consult post-op while on IV steroids Dyslipidemia: -Continue home medications. (5) Dehydration: Slight hemoconcentrated CBC. UA showing 3+ ketones and 3+ glucose. Received 1 bag of NSS in the ED, no further ordered however appeared dehydrated on exam as above and additional IVF ordered. Improvement in PO intake and hydration on exam and can stop after current IVF transfused Monitor labs/exam Oscar (6) Medical marijuana use: ntoed (7) Carotid stenosis: aspirin daily continued (8) Dyslipidemia: lipitor continued Plan continued inpatient stay, planning for surgery either tomorrow vs Thursday with Dr Jaime pending insurance approval Total Time Total Time Spent Total Time Spent (In Minutes): 32 Discharge Plan Discharge Items Patient Disposition: Home - Self-Care Reason For Visit: BACK PAIN Discharge Diagnosis: back pain Activity: Resume your previous activity Non-emergency contact: Primary Care Provider Call non-emergency contact if: you have any medication questions Follow-up/Referrals: Brandyn Jaime DO [Surgeon] - (TALKED TO YANA AT [facility] [place] [place] AND THE OFFICE WILL CALL WITH A HOSPITAL FOLLOW UP.) Keesha Queen MD [Primary Care Provider] - 12/22/23 2:00 pm (APPOINTMENT WITH [facility]) Diet: Carb Consistent or DM2 Addtl Attending Provider Instructions: Dr. Jaime discussed with you about your denial from your insurance company. This is not unexpected.Dr. Jaime will have you discharged and follow-up in his office in the next few days. He will work on obtaining authorization through his office. Pending Studies at Discharge: Yes Studies:: PSA, CEA, CA19-9 Stand-Alone Forms: My [facility] Animal Cell Therapies, Smoking Cessation Medications and DC Order Prescriptions: Continued (DME) pen needle, diabetic 32 gauge x 5/32" needle See Rx Instructions .Route Qty: 100 3RF Rx Instructions: As directed- use once daily (DME) OneTouch Ultra Test Strip See Rx Instructions .Route Qty: 100 5RF Rx Instructions: As directed to test blood sugar 4 times per day atorvastatin 40 mg tablet 40 mg PO HS Qty: 90 3RF metformin 1,000 mg tablet 1,000 mg PO BID Qty: 180 3RF Rx Instructions: NEEDS APPT FOR ADD'L REFILLS (DME) lancets 33 gauge misc See Rx Instructions .Route Qty: 100 5RF Rx Instructions: As directed to check sugars 4 times daily insulin glargine [Lantus Solostar U-100 Insulin] 100 unit/mL (3 mL) insulin pen 10 - 20 unit subcut HS Qty: 15 5RF Rx Instructions: or as directed, according to bsg (DME) blood-glucose meter Kit See Rx Instructions .Route Qty: 1 0RF Rx Instructions: As directed gabapentin 800 mg tablet 800 mg PO TID Qty: 90 2RF oxycodone 20 mg tablet 20 mg PO Q8H PRN (Reason: pain) 30 Days Qty: 90 0RF aspirin [Ecotrin Low Strength] 81 mg tablet,delayed release (DR/EC) 81 mg PO HS escitalopram oxalate 20 mg tablet 20 mg PO QAM Jardiance 25 mg tablet 25 mg PO QAM Med Marijuana 1 dose inhalation DIRECTED PRN (Reason: .pain/anx) ondansetron 4 mg tablet,disintegrating 4 mg PO DAILY PRN (Reason: nausea and vomiting) Qty: 14 0RF Discharge Orders: Discharge Order (Routine); Ordered 12/10/23 Ordered By: Wilfredo Figueroa/Other Patient Handouts: Managing Type 2 Diabetes Admission Data Admit Date/Time: 12/07/23 21:53 Attending Provider: Wilfredo Perez Admit Provider: Kanu Wiseman Primary Care Provider: Keesha Queen Other Providers: Pascual Boyd; Brandyn Jaime Other Interventions: Discharge Summary Assessment (RN) Last Done: 12/10/23 14:31 Coding Level of Care Code 55153 INP/OBS DISCH >30 MIN Diagnoses Lumbar disc herniation with radiculopathy M51.16 Low back pain M54.50 Ambulatory dysfunction R26.2 Uncontrolled type 2 diabetes mellitus E11.65 Dehydration E86.0 Medical marijuana use Z79.899 Carotid stenosis I65.29 Dyslipidemia E78.5
== END 2023-12-10 15:10 | disposition home or self-care (01) | DRG 552 ==
LOC: ED 09:56 → SUATTDRO 21:53 → INTOOBSV 21:53 → 3W 21:53

== ENCOUNTER 2024-01-11 05:45 | Observation (INO) ==
--- NOTE | 2023-12-24 10:01 | PAT Medication Instructions ---
Medication Instructions Date of Service December 24, 2023 Home Medications Medication Instructions Recorded pen needle, diabetic 32 gauge x #100 ea 05/09/22" blood sugar diagnostic (OneTouch #100 ea 09/16/22 Ultra Test strips) blood-glucose meter #1 ea 04/03/23 atorvastatin 40 mg tablet 40 mg PO HS #90 tabs 05/01/23 metformin 1,000 mg tablet 1,000 mg PO BID #180 tabs 08/27/23 lancets 33 gauge #100 ea 09/03/23 insulin glargine 100 unit/mL (3 10 - 20 unit (0.1 - 0.2 mL) subcut 09/23/23 mL) subcutaneous pen (Lantus HS #15 mL Solostar U-100 Insulin) gabapentin 800 mg tablet 800 mg PO TID #90 tabs 10/05/23 oxycodone 20 mg tablet 20 mg PO Q8H PRN pain 30 days #90 12/22/23 tabs Medication List: aspirin 81 mg tablet,delayed release (Ecotrin Low Strength) 81 mg PO HS atorvastatin 40 mg tablet 40 mg PO HS empagliflozin 25 mg tablet (Jardiance) 25 mg PO QAM escitalopram oxalate 20 mg tablet 20 mg PO QAM metformin 1,000 mg tablet 1,000 mg PO BID insulin glargine 100 unit/mL (3 mL) subcutaneous pen (Lantus Solostar U-100 Insulin) 10 - 20 unit (0.1 - 0.2 mL) subcut HS gabapentin 800 mg tablet 800 mg PO TID Med Marijuana 1 dose inhalation UD PRN pain/anxiety oxycodone 20 mg tablet 20 mg PO Q8H PRN pain MEDICATION INSTRUCTIONS: ASK your prescriber and surgeon aspirin 81 mg tablet,delayed release (Ecotrin Low Strength) 81 mg PO HS DO NOT take the morning of surgery metformin 1,000 mg tablet 1,000 mg PO BID Med Marijuana 1 dose inhalation UD PRN pain/anxiety Take morning of surgery With a small sip of water, OTHERWISE NOTHING TO EAT OR DRINK AFTER MIDNIGHT: gabapentin 800 mg tablet 800 mg PO TID oxycodone 20 mg tablet 20 mg PO Q8H PRN pain escitalopram oxalate 20 mg tablet 20 mg PO QAM Take evening before surgery insulin glargine 100 unit/mL (3 mL) subcutaneous pen (Lantus Solostar U-100 Insulin) 10 - 20 unit (0.1 - 0.2 mL) subcut HS atorvastatin 40 mg tablet 40 mg PO HS gabapentin 800 mg tablet 800 mg PO TID oxycodone 20 mg tablet 20 mg PO Q8H PRN pain metformin 1,000 mg tablet 1,000 mg PO BID Med Marijuana 1 dose inhalation UD PRN pain/anxiety Other Notes STOP TAKING 3 DAYS BEFORE SURGERY: empagliflozin 25 mg tablet (Jardiance) 25 mg PO QAM If you have any questions please call us at [phone] or [phone] or [phone] or [phone]
--- NOTE | 2023-12-28 13:56 | Anesthesiology Consultation ---
Date of Service December 28, 2023 Assessment & Plan (1) Encounter for pre-operative examination: - Check BSG AM DOS - Infectious disease screening: Per assessment on 12/28/23: No known infectious disease contacts or current infectious disease symptoms. No noted recent Covid positive test result. - PCP note (12/15/23): "Low to moderate risk.. Patient is cleared for scheduled surgery" - PCP visit (12/29/23): "Patient here for medical clearance prior to L4-L5 decompression with Coflex by Dr. Jaime scheduled 01/11/24. Dr. Queen already signed medical clearance. Preadmission labs, EKG reviewed today and acceptable to proceed." Chart Review Chart Review: Acceptable Risk for Surgery and Patient seen in Pre Admission Testing Teaching & Discussion Pre-Anesthesia Teaching/Discussion Notes: Instructed NPO after midnight before surgery,except medications with 15 cc of water. Medication instructions provided according to the PAT guidelines. History Surgery Operation Date: 01/11/24 11:35 Proposed Procedures p Right L4-L5 Decompression with Coflex - Brandyn Jaime, Height/Weight Height: 5 ft 10 in Weight: 86.8 kg Allergies Allergy/AdvReac Type Severity Reaction Status Date / Time dulaglutide [From [facility]] AdvReac Nausea Verified 12/29/23 08:20 Medications Home Medications Medication Instructions Recorded Confirmed Last Taken aspirin 81 mg tablet,delayed 81 mg PO HS 03/21/19 12/29/23 06/14/23 release (Ecotrin Low Strength) pen needle, diabetic 32 gauge x #100 ea 05/09/22 12/29/23 Unknown " blood sugar diagnostic (OneTouch #100 ea 09/16/22 12/29/23 Unknown Ultra Test strips) blood-glucose meter #1 ea 04/03/23 12/29/23 Unknown atorvastatin 40 mg tablet 40 mg PO HS #90 tabs 05/01/23 12/29/23 06/14/23 empagliflozin 25 mg tablet 25 mg PO QAM 06/15/23 12/29/23 06/14/23 (Jardiance) escitalopram oxalate 20 mg tablet 20 mg PO QAM 06/15/23 12/29/23 06/14/23 metformin 1,000 mg tablet 1,000 mg PO BID #180 tabs 08/27/23 12/29/23 Unknown lancets 33 gauge #100 ea 09/03/23 12/29/23 Unknown insulin glargine 100 unit/mL (3 10 - 20 unit (0.1 - 0.2 mL) subcut 09/23/23 12/29/23 Unknown mL) subcutaneous pen (Lantus HS #15 mL Solostar U-100 Insulin) gabapentin 800 mg tablet 800 mg PO TID #90 tabs 10/05/23 12/29/23 Unknown Med Marijuana 1 dose inhalation UD PRN 11/12/23 12/29/23 Unknown pain/anxiety oxycodone 20 mg tablet 20 mg PO Q8H PRN pain 30 days #90 12/22/23 12/29/23 Unknown tabs Past Medical History Medical History Anxiety Chronic back pain Degenerative disc disease, lumbar Depression Dyslipidemia Esophageal reflux Hiatal hernia Hx of carotid stenosis s/p Left CEA (2018) Carotid duplex 03/2022: <50% SEEMA stenosis, <30% LICA restenosis s/p endarterectomy Hx of migraines Lumbar disc disease Osteoarthritis Plantar fasciitis Sleep apnea Per records Stroke 02/2019, no residual effects Had subsequent Left CEA TIA (transient ischemic attack) ~2016 Type 2 diabetes mellitus Exercise / Class Metabolic Activity III < 4 Walking/Shop/Light housework Past Family History Family History Other Past medical history not known due to adoption Past Surgical History Surgical History History of left-sided carotid endarterectomy 2019, [facility] Hx of appendectomy Hx of colonoscopy Hx of hemorrhoidectomy Hx of nasal septoplasty Past Anesthesia History No Hx of Anesthesia Complications and No Family Hx of Anesthesia Complications (Patient adopted) History of PONV No Hx of PONV and No Hx of Motion Sickness Social History Smoking Status: Former smoker tobacco type: cigarettes Do You Dip or Chew Tobacco: No Smoking End Date: Quit 2017 (hx 20 cigs/day) Hx Alcohol Use: No (quit 1996) Hx Substance Use: Yes (medical card) substance use type: marijuana (uses marijuana prn, almost daily) and crack/cocaine (Remote hx/Quit ) Review of Systems Patient denies chest pain, shortness of breath, fever, chills, cough, wheezing, palpitations. Physical Exam Vital Signs BP 91/60 (BP 112/70 at subsequent PCP preop appt 12/29/23) P 80 TEMP 98.9 SP02 97%RA RESP 18 Physical Full cervical extension range of motion. Full TMJ range of motion. TMD > 3.5 finger breaths Mallampati Score 2 Dentition: several missing teeth sides/molars Lungs: clear throughout to auscultation Cardiac: regular rate and rhythm, no murmurs noted Spine: normal Carotid arteries: negative bruit Extremities: no LE edema, left 2nd digit partial amputation Lab Results Anesthesia Preop Results Results Anesthesia Widget: WBC 8.79 K/ul (4.8-10.8) 12/10/23 Hgb 17.6 g/dl (14.0-18.0) 12/10/23 Hct 50.7 % (42.0-52.0) 12/10/23 Plt 179 K/uL (130-400) 12/10/23 Na 136 mmol/L (136-145) 12/10/23 K 4.3 mmol/L (3.5-5.1) 12/10/23 Cl 99 mmol/L (98-107) 12/10/23 CO2 27 mmol/L (21-32) 12/10/23 BUN 22 mg/dl (6-23) 12/10/23 Creat 0.84 mg/dl (0.6-1.4) 12/10/23 Glucose Level 177 mg/dl (70-99(Fasting)) H 12/10/23 POC Glucose 168 mg/dl (70-99) H 12/10/23 PT 10.9 Seconds (9.0-12.0) 12/07/23 PTT 28 Seconds (21-31) 11/12/23 INR 1.0 (0.9-1.1) 12/07/23 TSH 1.453 uIu/ml (0.300-4.500) 12/07/23 HA1c 8.1 % (4.5-5.6) H 12/08/23 Urine Color Yellow 12/07/23 Urine Appearance Clear (Clear) 12/07/23 Urine pH 5.0 (4.5-7.5) 12/07/23 Urine Specific [place] 1.034 (1.000-1.030) H 12/07/23 Urine Protein Negative (Negative) 12/07/23 Urine Glucose (UA) 3+ (Negative) H 12/07/23 Urine Ketones 4+ (Negative) H 12/07/23 Urine Blood Negative (Negative) 12/07/23 Urine Nitrite Negative (Negative) 12/07/23 Urine Bilirubin Negative (Negative) 12/07/23 Urine Urobilinogen Negative (Negative) 12/07/23 Urine Leukocyte Esterase Negative (Negative) 12/07/23 Coronavirus OC43 (PCR) Not Detected (NotDetected) 11/09/23 Coronavirus HKU1 (PCR) Not Detected (NotDetected) 11/09/23 Coronavirus 229E (PCR) Not Detected (NotDetected) 11/09/23 COVID-19 PCR Not Detected (NotDetected) 11/09/23 Coronavirus NL63 (PCR) Not Detected (NotDetected) 11/09/23 Blood Type O Negative 12/28/23 Antibody Screen NEGATIVE 12/28/23 Testing Laboratory Results Surgeon's office made aware of elevated A1C* Electrocardiogram Date: 12/28/23 SR at 70bpm. LAD. Inferior infarct Inferior infarct cited on or before 07/01/2021 per marionette performer comparison. Inferior infarct also noted on 03/17/2019 ECG in system. Echo done 03/17/2019- unremarkable findings.* Chest X-Ray Date: 12/07/23 FINDINGS: Cardiomediastinal and hilar silhouettes are within normal limits. No pneumothorax, pleural effusion or airspace consolidation. The bones appear grossly intact. Degenerative changes of the shoulders and spine. IMPRESSION: No acute process. Echocardiogram Date: 03/17/19 EF 65-70%. No regional wall motion abnormality. Borderline concentric LVH. No interatrial shunt. No significant valvular disease. Mild LAD.
[2024-01-11] MEDS ORDERED: MIDAZOLAM HCL 1 MG/ML 2ML VIAL ONE (06:32)
[2024-01-11] MEDS ORDERED: fentaNYL citrate PF 100 MCG/2 ML VIAL ONE (06:32)
[2024-01-11] MEDS ORDERED: ONDANSETRON INJ 2 MG/ML 2 ML VIAL ONE (06:32)
[2024-01-11] MEDS ORDERED: SUGAMMADEX SODIUM 200 MG/2 ML VIAL IV ONE (06:32)
[2024-01-11] MEDS ORDERED: DEXAMETHASONE SOD INJ 4 MG/ML VIAL ONE ×3 (06:32→09:47)
[2024-01-11] MEDS ORDERED: PROPOFOL IV EMULSION 10 MG/ML 20 ML VIAL IV ONE (06:32)
[2024-01-11] MEDS ORDERED: ROCURONIUM BROMIDE 10 MG/ML 5 ML VIAL IV ONE (06:32)
[2024-01-11] MEDS ORDERED: GLYCOPYRROLATE 0.2 MG/ML VIAL ONE (06:32)
[2024-01-11] MEDS ORDERED: PROMETHAZINE HCL 6.25 MG in SODIUM CHLORIDE 0.9% 50 ML IV PRN (06:59)
[2024-01-11] MEDS ORDERED: ONDANSETRON INJ 2 MG/ML 2 ML VIAL IV PRN ×2 (06:59→09:51)
[2024-01-11] MEDS ORDERED: KETOROLAC 30 MG/ML VIAL IV PRN ×2 (06:59→09:51)
[2024-01-11] MEDS ORDERED: HYDROmorphone INJ 1 MG/ML SYRINGE IV PRN (06:59)
[2024-01-11] MEDS ORDERED: ATROPINE SULFATE 0.1 MG/ML 10ML SYR IV PRN (06:59)
[2024-01-11] MEDS: ACETAMINOPHEN 500 MG TAB PO SCH (07:00)
[2024-01-11] MEDS: LR 60ML/HR IV SCH (07:00)
[2024-01-11] MEDS: LR 15ML/HR IV SCH (07:00)
[2024-01-11] MEDS: GABAPENTIN 600 MG DOSE PO SCH (07:01)
[2024-01-11] MEDS: CeleBREX 200 MG CAP PO SCH (07:01)
--- NOTE | 2024-01-11 07:39 | History & Physical Bridge Note ---
Date of Service January 11, 2024 History & Physical Bridge Note I have examined the patient, reviewed the History & Physical and in the interval since the performance of the History & Physical I have noted the following changes of clinical significance: no changes noted
--- NOTE | 2024-01-11 07:40 | History & Physical Report ---
Date of Service January 11, 2024 Assessment & Plan (1) Lumbar disc herniation with radiculopathy: Plan: L4-L5 microdiscectomy on the right History of Present Illness Chief Complaint: Back and leg pain Primary Care Provider: Keesha Queen MD This is a 63-year-old male who presents with chronic persistent back and leg pain and failing course of nonoperative care is here for surgical invention. Allergies Allergy/AdvReac Type Severity Reaction Status Date / Time dulaglutide [From [facility]] AdvReac Nausea Verified 01/11/24 06:28 Home Medications Medication Instructions Recorded Confirmed Type aspirin 81 mg tablet,delayed 81 mg PO HS 03/21/19 01/11/24 History release (Ecotrin Low Strength) pen needle, diabetic 32 gauge x #100 ea 05/09/22 12/29/23 Rx " blood sugar diagnostic (OneTouch #100 ea 09/16/22 12/29/23 Rx Ultra Test strips) blood-glucose meter #1 ea 04/03/23 12/29/23 Rx atorvastatin 40 mg tablet 40 mg PO HS #90 tabs 05/01/23 01/11/24 Rx empagliflozin 25 mg tablet 25 mg PO QAM 06/15/23 01/11/24 History (Jardiance) escitalopram oxalate 20 mg tablet 20 mg PO QAM 06/15/23 01/11/24 History metformin 1,000 mg tablet 1,000 mg PO BID #180 tabs 08/27/23 01/11/24 Rx lancets 33 gauge #100 ea 09/03/23 12/29/23 Rx insulin glargine 100 unit/mL (3 10 - 20 unit (0.1 - 0.2 mL) subcut 09/23/23 01/11/24 Rx mL) subcutaneous pen (Lantus HS #15 mL Solostar U-100 Insulin) gabapentin 800 mg tablet 800 mg PO TID #90 tabs 10/05/23 01/11/24 Rx Med Marijuana 1 dose inhalation UD PRN 11/12/23 01/11/24 History pain/anxiety oxycodone 20 mg tablet 20 mg PO Q8H PRN pain 30 days #90 12/22/23 01/11/24 Rx tabs Past Med/Surg History Problem List (Updated 01/11/24 @ 07:39 by Brandyn M Yeni, DO) Lumbar disc herniation with radiculopathy Vitamin B12 deficiency Encounter for pre-operative examination Medical History Anxiety Chronic back pain Degenerative disc disease, lumbar Depression Dyslipidemia Esophageal reflux Hiatal hernia Hx of carotid stenosis s/p Left CEA (2018) Carotid duplex 03/2022: <50% SEEMA stenosis, <30% LICA restenosis s/p endarterectomy Hx of migraines Lumbar disc disease Osteoarthritis Plantar fasciitis Sleep apnea Per records Stroke 02/2019, no residual effects Had subsequent Left CEA TIA (transient ischemic attack) ~2017 Type 2 diabetes mellitus Surgical History History of left-sided carotid endarterectomy 2018, [facility] Hx of appendectomy Hx of colonoscopy Hx of hemorrhoidectomy Hx of nasal septoplasty Family History Other Past medical history not known due to adoption Social History Smoking Status: Former smoker Tobacco Type: Cigarettes Smoking End Date: Quit 2017 (hx 20 cigs/day); Second Hand Exposure: No; Do You Dip or Chew Tobacco: No; Tobacco Cessation Education Requested by Patient: No Hx Alcohol Use: No (quit 1996) Hx Substance Use: Yes (medical card) Preferred Language: Citizen Of [place] Communication Ability: Effective Country Manager Required: No Beliefs That Will Affect Care: None marital status: Single Current Living Situation: Alone Current Living Situation Comment: Son- 3 nights weekly (13 years old) Other Information That Helps Us Care for You: No Feels Safe at Home: Yes Safety Concerns: Feels Safe At This Time Childhood Exposure to Second-Hand Smoke: No Diet: regular Physical Activity Frequency: Does not Exercise Seatbelt Use: sometimes Sunscreen Use: No Assistive Devices: Glasses Assistive Devices Comment: reading glasses prn Physical Exam Physical Exam: Patient is alert and oriented Heart regular in rhythm Lungs clear Results & Data Results & Data Vital Signs (Past 12 Hours) Vital Signs Temp Pulse Resp BP Pulse Ox O2 Del Method 01/11/24 06:41 36.9 C 67 18 128/83 95 Room Air
[2024-01-11] MEDS ORDERED: KETAMINE HCL 10MG/ML SYR ONE (08:03)
[2024-01-11] MEDS: ceFAZolin 2000MG 2,000 MG/15 ML SYR IV SCH ×2 (08:05→16:00)
[2024-01-11] MEDS ORDERED: PHENYLEPHRINE HCL 10 MG/ML VIAL ONE (08:09)
[2024-01-11] MEDS: BUPIVACAINE/EPINEPHRINE 0.25% 1:200,000 30 ML VIAL ONE (08:18)
[2024-01-11] MEDS ORDERED: ePHEDrine sulfate 50 MG/5 ML SYR ONE (08:24)
[2024-01-11] MEDS: ceFAZolin 330 MG/ML 1 GM VIAL ONE (08:34)
[2024-01-11] MEDS: FLOSEAL HEMOSTATIC MATRIX 10ML TOP ONE (08:36)
--- NOTE | 2024-01-11 08:39 | Operative Report ---
Post Operative Report Pre & Post Diagnosis Operation Date: 01/11/24 07:45 Pre-Op Diagnosis: Lumbar Disc Herniation with Radiculopathy Post-Op Diagnosis: Lumbar Disc Herniation with Radiculopathy I identified the patient and participated in the time-out.: Yes Procedure Operation Date: 01/11/24 07:45 Actual Procedures Lumbar laminectomy L4-5 on the right with small resection of herniated disc fragments Surgeon Brandyn Jaime, Mechanical Sound Technician Odalys Miller Estimated Blood Loss 10 Findings Consistent with Post-Op Diagnosis Specimens None Indications This is a sports 63-year-old male presents above-mentioned diagnosis of failed course of nonoperative care is here for surgical invention. Description of Procedure Patient was met with identified informed consent obtained. Patient was then taken to the operative suite underwent patient placed in a prone position on the [place] table top the Jason frame. All bony promises well-padded eyes inspected to ensure no external precipice upon the. This point the lumbar spine was prepped and draped no sterile fashion. The assistance of fluoroscopy identified the L4-L5 level. Sharp dissection with the assistance of Bovie cautery form down to expose the interlaminar space at L4-5 on the right. Stable retractors placed. Then performed a small laminectomy excising the medial aspect of the facet and the lateral aspect of the ligamentum flavum to expose a markedly compressed traversing L5 nerve root. I was able to mobilize the root medially noting the significant disc herniation directly underneath. It was removed in its entirety. The area was explored several times to ensure all fragments addressed. Was then copiously irrigated closed the subcutaneous Vicryl 4 Monocryl for final closure. Steri-Strips sterile dressing placed. Patient waken taken PACU stable condition. Please note Odalys Miller was present at the entire procedure involved the patient positioning complex portion of the surgery and fashion closure. I attest to the content of the Intraoperative Record and any orders documented therein. Any exceptions are noted below.
--- NOTE | 2024-01-11 09:03 | Fluoroscopy Report ---
FL spine 1V any level CLINICAL HISTORY: RT L4-5 MICRODISCECTOMY COMPARISON STUDY: MRI lumbar spine 12/07/2023 FLUOROSCOPY TIME: 5.6 seconds FLUOROSCOPY IMAGES: 1 EXPOSURE DOSE: 3.92 mGy FINDINGS: Retractors are present posterior to the L5 vertebral body. No additional images were submit evelyn. IMPRESSION: Fluoroscopic assistance as above. ACT 112: Negative or not required by law. Electronically signed by: Loi Pleitez M.D. 01/11/2024 9:02 AM
[2024-01-11] MEDS ORDERED: ALUMINUM/MAGNESIUM SUSP 30 ML UDC PO PRN (09:51)
[2024-01-11] MEDS ORDERED: diphenhydrAMINE Capsule 25 MG CAP PO PRN (09:51)
[2024-01-11] MEDS ORDERED: LORazepam 0.5 MG TAB PO PRN (09:51)
[2024-01-11] MEDS ORDERED: DO NOT ADMINISTER PNEUMOCOCCAL VACCINE PRN (09:51)
[2024-01-11] MEDS ORDERED: ONDANSETRON 4 MG OD TAB PO PRN (09:51)
[2024-01-11] MEDS ORDERED: FAMOTIDINE 20 MG TAB PO PRN (09:51)
[2024-01-11] MEDS ORDERED: EMPAGLIFLOZIN 25 MG TAB PO SCH (09:51)
[2024-01-11] MEDS ORDERED: bisacodyL 10 MG SUPP PR PRN (09:51)
[2024-01-11] MEDS ORDERED: hydrOXYzine HCl 25 MG TAB PO PRN (09:51)
[2024-01-11] MEDS ORDERED: ACETAMINOPHEN 500 MG TAB PO PRN (09:51)
[2024-01-11] MEDS ORDERED: NALOXONE HCL 0.4 MG/1 ML VIAL/CARP IV PRN (09:51)
[2024-01-11] MEDS ORDERED: PHARMACY GLYCEMIC MGMT CONSULT PRN (09:51)
[2024-01-11] MEDS ORDERED: DO NOT ADMINISTER FLU VACCINE PRN (09:51)
[2024-01-11] MEDS ORDERED: ACETAMINOPHEN 1,000 MG/100 ML VIAL IV PRN (09:51)
[2024-01-11] MEDS ORDERED: LORazepam 0.5 MG in SYRINGE 0.25 ML IV PRN (09:51)
[2024-01-11] MEDS ORDERED: MAGNESIUM HYDROXIDE SUSP 30 ML UDC PO PRN (09:51)
[2024-01-11] MEDS ORDERED: PROMETHAZINE HCL 12.5 MG in SODIUM CHLORIDE 0.9% 50 ML IV PRN (09:51)
[2024-01-11] MEDS ORDERED: SOD PHOSPHATE/SOD BIPHOSPHATE ENEMA 132 ML BTL PR PRN (09:51)
[2024-01-11] MEDS ORDERED: METOCLOPRAMIDE HCL INJ 5 MG/ML 2 ML VIAL IV PRN (09:51)
[2024-01-11] MEDS ORDERED: GLUCOSE 10 TAB/TUBE PO PRN (10:15)
[2024-01-11] MEDS ORDERED: CARBOHYDRATES FOR HYPOGLYCEMIA PO PRN (10:15)
[2024-01-11] MEDS ORDERED: GLUCOSE 40% GEL 15 GM TUBE PO PRN (10:15)
[2024-01-11] MEDS ORDERED: GLUCAGON FOR INJ 1 MG VIAL IM PRN (10:15)
[2024-01-11] MEDS ORDERED: DEXTROSE 50% 50 ML SYRINGE IV PRN (10:15)
--- NOTE | 2024-01-11 10:19 | Pharmacy Report ---
Pharmacy Glycemic Short Note 2 - Date of Service January 11, 2024 - Glycemic Short BSG Results (Last 24 hours): 01/11/24 01/11/24 06:46 08:54 POC Glucose 250 H 218 H OUTPATIENT ANTIDIABETIC REGIMEN: * Jardiance 25 units Qam, metformin 1 gm bid, Lantus 10-20 units HS ASSESSMENT: * 63 year old now s/p surgery, POD 0 - BSG >200 postop - Pharmacy consulted to assist with glycemic management. Patient received IV dexamethasone intraoperatively. Will start novolog now with weight based stress of 3 dosing and will give Lantus 30 units x 1 now to help cover steroid effects PLAN FOR INPATIENT GLYCEMIC CONTROL: * Hold outpatient oral diabetes medications * Basal insulin * Lantus 30 units x 1 * Bolus insulin * NovoLog per scale ACHS or Q6hrs while NPO * Goal Range: Low 110 mg/dL - High 140 mg/dL * Correction Factor: 20 mg/dL/unit * Nutritional / Prandial insulin per carb ratio of 1 unit per 6 grams CHO consumed
[2024-01-11] MEDS ORDERED: MEDICAL MARIJUANA INH PRN (10:23)
[2024-01-11] MEDS: LANTUS PER UNIT CHARGE SC ONE (10:52)
[2024-01-11] MEDS: oxyCODONE HCL IR 5 MG TAB (IMMEDIATE RELEASE) PO PRN (10:53)
[2024-01-11] MEDS: SODIUM CHLORIDE 0.9% 1,000 ML IV SCH (10:53)
[2024-01-11] MEDS: ESCITALOPRAM OXALATE 20 MG TAB PO SCH (10:54)
[2024-01-11] MEDS: INSULIN ASPART PER UNIT CHARGE SC SCH (11:51)
--- NOTE | 2024-01-11 12:15 | Anesthesiology Progress Note ---
Date of Service January 11, 2024 Anesthesia Post Procedure Vital Signs Vital Signs: Temp Pulse Pulse Resp BP BP Pulse Ox 01/11/24 11:54 36.8 C 99 H 18 108/66 93 01/11/24 10:46 36.9 C 104 H 18 113/70 97 01/11/24 10:16 37.1 C 90 17 93/62 L 97 01/11/24 09:52 37.1 C 89 H 104/71 95 01/11/24 09:45 87 12 131/63 94 01/11/24 09:35 36.8 C 89 20 128/70 96 01/11/24 09:25 92 H 14 98/68 L 98 01/11/24 09:15 96 H 16 104/81 97 01/11/24 09:05 96 H 14 101/73 97 01/11/24 08:55 98 H 12 111/71 95 01/11/24 08:49 36.0 C L 114 H 14 136/86 96 01/11/24 06:41 36.9 C 67 18 128/83 95 O2 Del Method O2 Flow Rate 01/11/24 11:54 Room Air 01/11/24 10:46 Room Air 01/11/24 10:16 Room Air 01/11/24 09:52 Room Air 01/11/24 09:45 Nasal Cannula 2 01/11/24 09:35 Nasal Cannula 2 01/11/24 09:25 Nasal Cannula 2 01/11/24 09:15 Nasal Cannula 3 01/11/24 09:05 Nasal Cannula 3 01/11/24 08:55 Nasal Cannula 3 01/11/24 08:49 Oxymask 5 01/11/24 06:41 Room Air Pain Intensity Back: Pain Intensity: 5 Transfer of Care Handoff Completed per policy Notes Mental Status: alert / awake / arousable Patient Amnestic to Procedure: Yes Nausea / Vomiting: adequately controlled Pain: adequately controlled Airway Patency, RR, SpO2: stable & adequate BP & HR: stable & adequate Hydration State: stable & adequate Anesthetic Complications: no major complications apparent
[2024-01-11] MEDS: HYDROmorphone INJ 0.5 MG/0.5 ML SYR IV PRN (12:47)
[2024-01-11] MEDS: GABAPENTIN 800 MG TAB PO SCH (14:02)
[2024-01-11] MEDS: HYDROmorphone INJ 1 MG/ML SYRINGE IV PRN (16:54)
[2024-01-11] MEDS: DOCUSATE SODIUM/SENNA 50/8.6MG TAB PO SCH (20:22)
[2024-01-11] MEDS: ASPIRIN 81 MG ECTAB PO SCH (20:23)
[2024-01-11] MEDS: ATORVASTATIN 40 MG TAB PO SCH (20:23)
[2024-01-11] MEDS: LANTUS PER UNIT CHARGE SC SCH (20:33)
[2024-01-12] MEDS: INSULIN ASPART PER UNIT CHARGE SC SCH (00:19)
[2024-01-12] MEDS: COUGH DROP (SUGAR FREE) LOZ 24 LOZ/1 BOX BUCCAL ONE (02:50)
[2024-01-12] MEDS: COUGH DROP (SUGAR FREE) LOZ 24 LOZ/1 BOX BUCCAL STA (02:52)
[2024-01-12] MEDS: POLYETHYLENE (MIRALAX) 17 GM PACK PO SCH (05:37)
[2024-01-12] MEDS ORDERED: LANTUS PER UNIT CHARGE SC SCH (21:00)
== END 2024-01-12 15:15 | disposition home or self-care (01) ==
LOC: ASU 05:45 → 3E 05:45

== ENCOUNTER 2024-02-20 07:52 | Observation (INO) ==
[2024-02-20 08:34] LABS: Albumin Globulin Ratio 1.6 (0.9-2); Albumin Level 4.2 gm/dl (3.4-5.0); BUN Creatinine Ratio 15.8 (10-20); Bilirubin,Total 1.2 mg/dl (0.2-1.0); Creatinine Clr Calc Pharmacy 89.1 ml/min; Est GFR (African American) 98.3 ml/min; Est GFR (Non-African American) 84.9 ml/min; Globulin 2.6 gm/dl (2.5-4.0); Potassium 3.7 mmol/L (3.5-5.1); Total Protein 6.8 gm/dl (6.0-8.3)
[2024-02-20 08:40] LABS: Hematocrit (blood only) 48.7 % (42.0-52.0); Mean Corpuscular Hemoglobin 30.3 pg (25.0-34.0); Mean Corpuscular Hgb Conc 34.9 g/dL (32.0-36.0); Mean Corpuscular Volume 86.8 fL (80.0-100.0); Mean Platelet Volume 9.5 fL (9.4-12.4); Platelet Count 107 K/uL (130-400); RDW Coefficient of Variation 13.4 % (11.5-14.5); RDW Standard Deviation 42.9 fL (36.4-46.3); Red Blood Count 5.61 M/uL (4.70-6.10); Troponin I High Sensitivity 3.2 pg/ml (0-20); White Blood Count 4.56 K/ul (4.8-10.8)
--- NOTE | 2024-02-20 08:43 | Emergency Department Note ---
Impression & Plan Chest pain, Anxiety, Abnormal EKG ED Provider Note NAME: MAYURI MAYO AGE: 64 SEX: M : 1960 ARRIVES VIA: Ambulance INFORMANT: Patient, ED PROVIDER(S): Ronal Nieves DO CHIEF COMPLAINT: Chest pain HPI: The patient is a 64-year-old male who presented to the emergency department for an evaluation of chest pain. The patient describes anterior chest pain and pain into his neck. He states that he has had the symptoms multiple times before. He feels that it is from anxiety. The patient denies having any trauma. The patient denies having any hemoptysis. He denies having any lower extremity swelling or pain. He has been taking his anxiety medication more than usual because of the increases in his anxiety. He is having problems with the divorce. The patient has had no fever. He called 911 and arrived via ambulance. He did receive aspirin prior to arrival. ROS: See above HPI for pertinent positives & negatives. A total of 10 systems reviewed and were otherwise negative. PAST MEDICAL HISTORY: See Below PAST SURGICAL HISTORY: See Below FAMILY HISTORY: See Below SOCIAL HISTORY: See Below HOME MEDICATIONS: See Below ALLERGIES: See Below VITALS: See Below PHYSICAL EXAMINATION: GENERAL: The patient is awake and alert. The patient is anxious appearing. EYES: The conjunctivae are clear. The pupils are round and reactive. EARS, NOSE, MOUTH AND THROAT: The nose is without any evidence of any deformity. Mucous membranes are moist. Tongue is midline. NECK: The neck is nontender and supple. RESPIRATORY: Normal respiratory effort is noted there is no evidence of wheezing rhonchi or rales CARDIOVASCULAR: Regular rate and rhythm noted there no murmurs rubs or gallops normal S1 normal S2. GASTROINTESTINAL: The abdomen is soft. Abdomen is nontender. MUSCULOSKELETAL/EXTREMITIES: There is no evidence of gross deformity full range of motion is noted in the hips and shoulders. SKIN: There is no obvious evidence of any rash. There are no petechiae, pallor or cyanosis noted. NEUROLOGIC: Patient is awake alert and oriented x3 MEDICAL DECISION MAKING: The patient is a 64-year-old male who presented to the emergency department for an evaluation of chest pain. The patient has been in our facility a few times over the course of the last month. He does have significant anxiety issues. He thinks that his chest pain is related to anxiety. He did have a recent surgical procedure. A D-dimer was added because of this. The D-dimer was positive but CT angiography was negative for any acute process. Serial troponins were observed in the emergency department. His troponin did not elevate. EKG shows no dynamic changes. I discussed the patient's laboratory and radiographic studies with him. I discussed the limitations of the emergency department workup for chest pain with him. Given his previous visits as well as his EKG changes compared to last month I do feel the patient would be a better candidate for inpatient management. I discussed his condition with the on-call [facility] dispatcher chief coal slurry as well as the on-call [facility] hospitalist. They have agreed to evaluate the patient in the emergency department for further management and disposition. Triage Nursing notes reviewed. Prior medical records reviewed Vital Signs: reviewed and remarkable for no significant abnormalities Differential diagnosis: Cardiac ischemia, aortic dissection, pulmonary embolism, pneumothorax, pneumonia, pericarditis, myocarditis, esophageal rupture, GERD, cholecystitis, pancreatitis, musculoskeletal, as well as other pathologies. ER treatment provided: See below Diagnostics interpreted by me: ECG: EKG was obtained in the emergency department. My interpretation is normal sinus rhythm at 63 bpm. T wave abnormalities were noted in the anterior inferior and low lateral leads. This was compared to a tracing from February 08, 2024. No changes were noted. A second EKG was obtained in the emergency department. My interpretation is sinus rhythm at 65 bpm. There is no ectopy. Persistent T wave inversions were noted in the apical lateral and inferior leads. This compares similar to the tracing obtained initially in the emergency department. Cardiac Monitoring: An order was placed for continuous cardiac monitoring. The monitor shows a rate of 75 bpm with sinus rhythm. Laboratory studies: As stated above and show below. Imaging studies: See below. Radiographic imaging was reviewed by myself Consultation(s): I discussed this case with Dr. Kelly who is on-call for [facility] cardiology. I discussed this case with Dr. Quispe who is on-call for the [facility] hospitalist group. Past Med/Surg History Problem List (Updated 02/20/24 @ 14:00 by Ronal Nieves DO) Abnormal EKG (Acute) Anxiety (Acute) Chest pain (Acute) Thrombocytopenia Chest discomfort High anion gap metabolic acidosis Acute anxiety (Acute) Lumbar disc herniation with radiculopathy Vitamin B12 deficiency Medical History Sleep apnea Per records Esophageal reflux Lumbar disc disease Anxiety Plantar fasciitis Hiatal hernia Type 2 diabetes mellitus Hx of migraines TIA (transient ischemic attack) ~2017 Osteoarthritis Dyslipidemia Depression Degenerative disc disease, lumbar Chronic back pain Hx of carotid stenosis s/p Left CEA (2018) Carotid duplex 03/2022: <50% SEEMA stenosis, <30% LICA restenosis s/p endarterectomy Stroke 02/2019, no residual effects Had subsequent Left CEA Surgical History Hx of colonoscopy Hx of hemorrhoidectomy Hx of nasal septoplasty Hx of appendectomy History of left-sided carotid endarterectomy 2018, [facility] Family History Other Past medical history not known due to adoption Social History Smoking Status: Former smoker Tobacco Type: Cigarettes Second Hand Exposure: No; Do You Dip or Chew Tobacco: No; Hx Alcohol Use: No (quit 1996) Hx Substance Use: Yes (medical card) Preferred Language: Wolof Communication Ability: Effective 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 Beliefs That Will Affect Care: None marital status: Single Current Living Situation: Alone Current Living Situation Comment: Son- 3 nights weekly (13 years old) Feels Safe at Home: Yes Childhood Exposure to Second-Hand Smoke: No Diet: regular Physical Activity Frequency: Does not Exercise Seatbelt Use: sometimes Sunscreen Use: No Assistive Devices: None Allergies Allergies Allergy/AdvReac Type Severity Reaction Status Date / Time [facility] AdvReac Nausea Verified 02/20/24 11:25 Home Meds Home Medications Medication Instructions Recorded Confirmed Med Marijuana 1 dose inhalation UD PRN 11/12/23 02/20/24 pain/anxiety gabapentin 800 mg tablet 800 mg PO TID 02/20/24 02/20/24 oxycodone 20 mg tablet 10 mg PO Q8H PRN Pain 02/20/24 02/20/24 oxymetazoline 0.05 % nasal spray 2 spray intranasal Q12H PRN 02/20/24 02/20/24 (Afrin (oxymetazoline)) Congestion Previous Rx's Medication Instructions Recorded pen needle, diabetic 32 gauge x #100 ea 05/09/22" blood sugar diagnostic (OneTouch #100 ea 09/16/22 Ultra Test strips) blood-glucose meter #1 ea 04/03/23 atorvastatin 40 mg tablet 40 mg PO HS #90 tabs 05/01/23 metformin 1,000 mg tablet 1,000 mg PO BID #180 tabs 08/27/23 lancets 33 gauge #100 ea 09/03/23 insulin glargine 100 unit/mL (3 10 - 20 unit (0.1 - 0.2 mL) subcut 09/23/23 mL) subcutaneous pen (Lantus HS #15 mL Solostar U-100 Insulin) empagliflozin 25 mg tablet 25 mg PO QAM #90 tabs 01/16/24 (Jardiance) fluoxetine 20 mg tablet 20 mg PO DAILY #30 tabs 02/11/24 Results & Data (ED) Vital Signs Vital Signs - 24 hr 02/20/24 07:58 02/20/24 08:09 02/20/24 09:09 Temperature 37.3 C Temperature Source Oral Pulse Rate 69 65 63 Pulse Rate [Right Finger] Pulse Rate from SpO2 Sensor 63 Respiratory Rate 16 16 Respiratory Effort / Characteristics Non-Labored Spontaneous Respiratory Depth Normal Blood Pressure 112/75 111/81 Blood Pressure [Right Arm] Blood Pressure Mean 87 91 Blood Pressure Mean [Right Arm] Pulse Oximetry 98 95 Oxygen Delivery Method Room Air Sepsis Recent Fever Within 48 Hours No Sepsis New/Unexplained Change in Mental Status N/A Sepsis Action Taken by Nursing No Action Required 02/20/24 11:00 02/20/24 12:19 02/20/24 13:00 Temperature Temperature Source Pulse Rate 67 Pulse Rate [Right Finger] 65 75 Pulse Rate from SpO2 Sensor Respiratory Rate 18 18 Respiratory Effort / Characteristics Non-Labored Respiratory Depth Normal Blood Pressure Blood Pressure [Right Arm] 128/72 129/84 Blood Pressure Mean Blood Pressure Mean [Right Arm] 90 99 Pulse Oximetry 95 97 Oxygen Delivery Method Room Air Room Air Sepsis Recent Fever Within 48 Hours Sepsis New/Unexplained Change in Mental Status Sepsis Action Taken by [facility] Medications Current Medication List: was personally reviewed by me Laboratory Data Attestation: I reviewed the patient's lab results. 02/20/24 08:00 02/20/24 08:00 Lab Results 02/20/24 02/20/24 02/20/24 Range/Units 08:00 11:03 13:29 WBC 4.56 L (4.8-10.8) K/ul RBC 5.61 (4.70-6.10) M/uL Hgb 17.0 (14.0-18.0) g/dl Hct 48.7 (42.0-52.0) % MCV 86.8 (80.0-100.0) fL MCH 30.3 (25.0-34.0) pg MCHC 34.9 (32.0-36.0) g/dL RDW Std Deviation 42.9 (36.4-46.3) fL RDW Coeff of Soo 13.4 (11.5-14.5) % Plt Count 107 L (130-400) K/uL MPV 9.5 (9.4-12.4) fL Neutrophils % (Manual) 64 % Lymphocytes % (Manual) 11 % Reactive Lymphs % (Man) 12 % Monocytes % (Manual) 6 % Eosinophils % (Manual) 5 % Basophils % (Manual) 2 % Neutrophils # (Manual) 2.92 (1.40-6.50) K/uL Total Absolute Neuts 2.92 (1.4-6.5) K/uL Lymphocytes # (Manual) 0.50 L (1.2-3.4) K/uL Reactive Lymphs # 0.55 K/uL Total Abs Lymphocytes 1.05 L (1.2-3.4) K/uL Monocytes # (Manual) 0.27 (0.11-0.59) K/uL Eosinophils # (Manual) 0.23 (0-0.50) K/uL Basophils # (Manual) 0.09 (0-0.2) K/uL PT 10.8 (9.0-12.0) Seconds INR 1.0 (0.9-1.1) APTT 26 (21-31) Seconds PTT Ratio 1.0 D-Dimer 890 H* (0-500) ug/L FEU VBG pH 7.45 H (7.36-7.41) VBG pCO2 39 (38-50) mmHg VBG pO2 < 20 mmHg VBG HCO3 27 mmol/L VBG O2 Saturation < 60.0 % VBG Base Excess 3.0 mEq/L Sodium 136 (136-145) mmol/L Potassium 3.7 (3.5-5.1) mmol/L Chloride 103 (98-107) mmol/L Carbon Dioxide 19 L (21-32) mmol/L Anion Gap 14 H (3-11) BUN 15 (6-23) mg/dl Creatinine 0.95 (0.6-1.4) mg/dl Est Cr Clr Drug Dosing 89.1 ml/min Est GFR ( Amer) 98.3 ml/min Est GFR (Non-Af Amer) 84.9 ml/min BUN/Creatinine Ratio 15.8 (10-20) Glucose 234 H (70-99(Fasting)) mg/dl Lactate 1.3 (0.4-2.0) mmol/L Calcium 9.0 (8.6-10.3) mg/dl Total Bilirubin 1.2 H (0.2-1.0) mg/dl AST 15 (13-39) U/L ALT 15 (7-52) U/L Alkaline Phosphatase 74 (34-104) U/L Troponin I High Sens 3.2 4.0 (0-20) pg/ml Total Protein 6.8 (6.0-8.3) gm/dl Albumin 4.2 (3.4-5.0) gm/dl Globulin 2.6 (2.5-4.0) gm/dl Albumin/Globulin Ratio 1.6 (0.9-2) Administered Medications Lactated Ringer's (Lr) 1,000 mls @ 999 mls/hr IV .Q1H1M ONE Stop: 02/20/24 14:11 Last Admin: 02/20/24 13:51 Dose: 999 mls/hr Documented By: BALAJI Discontinued Medications Ioversol (Optiray 320 125ml) 119 ml IV ONCE ONE Stop: 02/20/24 09:52 Last Admin: 02/20/24 09:52 Dose: 119 ml Documented By: FRANCISCO Lorazepam (Lorazepam 1 Mg/1 Ml Syr Ed Inj Use) 0.5 mg IV ONE STA Stop: 02/20/24 08:36 Last Admin: 02/20/24 08:50 Dose: 0.5 mg Documented By: Ondansetron HCl (Ondansetron Inj 2 Mg/Ml 2 Ml Vial) 4 mg IV NOW STA Stop: 02/20/24 08:36 Last Admin: 02/20/24 08:50 Dose: 4 mg Documented By: MR Imaging Data Attestation: I personally reviewed and interpreted this imaging study as follows: My Impression: 1 view chest x-ray was obtained in the emergency department. My interpretation is no free air or definite infiltrate, final report below. Radiologist's Impression: Chest X-Ray 02/20/24 08:06 XR chest 1V portable HISTORY: 64 years-old Male Chest pain, nonspecific COMPARISON: 01/31/2024 TECHNIQUE: AP view of the chest FINDINGS: Cardiac silhouette is normal. No pneumothorax or pleural effusion. Lung escobar are clear. Bones appear grossly intact. IMPRESSION: No acute process. ACT 112: Negative or not required by law. The above report was generated using voice recognition software. It may contain grammatical, syntax or spelling errors. Electronically signed by: Loi Pleitez M.D. 02/20/2024 9:04 AM Chest CTA 02/20/24 09:16 CT angio chest PE protocol CT DOSE: 830.6 mGy.cm HISTORY: 64 years-old Male with PE. Acute chest pain and shortness of breath TECHNIQUE: Multiple CTA images of the chest were obtained after the intravenous administration of 119 ml Optiray. Coronal and sagittal MIPS were obtained from the axial data set and were submitted for review. All measurements were obtained according to NASCET criteria. A dose lowering technique was utilized adhering to the principles of ALARA. COMPARISON: Chest x-ray same day. FINDINGS: CTA: Trace anterior pericardial effusion. Heart is normal in size. Moderate to extensive coronary artery calcifications. No thoracic aortic aneurysm. No pulmonary emboli identified. CT CHEST: No thyroid nodule or lymphadenopathy. No pneumothorax, pleural effusion, airspace consolidation, or suspicious pulmonary nodule. Central airways are patent. No acute upper abdominal abnormality. No acute fracture. Subcentimeter hypodense focus in the hepatic dome is too small to characterize, likely a cyst. There is no acute fracture identified. IMPRESSION: Unremarkable CTA of the chest. ACT 112: Negative or not required by law. The above report was generated using voice recognition software. It may contain grammatical, syntax or spelling errors. Electronically signed by: Loi Pleitez M.D. 02/20/2024 10:20 AM Discharge Plan Visit Data Chief Complaint: Chest Pain Stated Complaint: CHEST PAIN ED Provider: Ronal Nieves Discharge Problem: Chest pain, Anxiety, Abnormal EKG Patient Disposition: Being Evaluated by Hospitalist Forms Stand Alone Forms: My [facility] Prescriptions Prescriptions: No Action (DME) pen needle, diabetic 32 gauge x 5/32" needle See Rx Instructions .Route Qty: 100 3RF Rx Instructions: As directed- use once daily (DME) OneTouch Ultra Test Strip See Rx Instructions .Route Qty: 100 5RF Rx Instructions: As directed to test blood sugar 4 times per day atorvastatin 40 mg tablet 40 mg PO HS Qty: 90 3RF metformin 1,000 mg tablet 1,000 mg PO BID Qty: 180 3RF Rx Instructions: NEEDS APPT FOR ADD'L REFILLS (DME) lancets 33 gauge misc See Rx Instructions .Route Qty: 100 5RF Rx Instructions: As directed to check sugars 4 times daily insulin glargine [Lantus Solostar U-100 Insulin] 100 unit/mL (3 mL) insulin pen 10 - 20 unit subcut HS Qty: 15 5RF Rx Instructions: or as directed, according to bsg Jardiance 25 mg tablet 25 mg PO QAM Qty: 90 3RF (DME) blood-glucose meter Kit See Rx Instructions .Route Qty: 1 0RF Rx Instructions: As directed fluoxetine 20 mg tablet 20 mg PO DAILY Qty: 30 5RF Med Marijuana 1 dose inhalation UD PRN (Reason: pain/anxiety) Patient Comments: 3 oz. each time gabapentin 800 mg tablet 800 mg PO TID oxymetazoline [Afrin (oxymetazoline)] 0.05 % [place],Non-Aerosol 2 spray INTRANASAL Q12H PRN (Reason: Congestion) oxycodone 20 mg tablet 10 mg PO Q8H PRN (Reason: Pain) Referrals Referrals: Keesha Queen MD [Primary Care Provider] - Discharge Problem: Chest pain Qualifiers: Chest pain type: unspecified Qualified Code(s): R07.9 - Chest pain, unspecified
[2024-02-20] MEDS: ONDANSETRON INJ 2 MG/ML 2 ML VIAL IV STA (08:50)
[2024-02-20] MEDS: LORazepam 1 MG/1 ML SYR ED Inj Use IV STA (08:50)
[2024-02-20 08:51] LABS: Partial Thromboplastin Time 26 Seconds (21-31); Prothrombin Time 10.8 Seconds (9.0-12.0)
--- NOTE | 2024-02-20 09:06 | XRay Report ---
XR chest 1V portable HISTORY: 64 years-old Male Chest pain, nonspecific COMPARISON: 01/31/2024 TECHNIQUE: AP view of the chest FINDINGS: Cardiac silhouette is normal. No pneumothorax or pleural effusion. Lung escobar are clear. Bones appea r grossly intact. IMPRESSION: No acute process. ACT 112: Negative or not required by law. The above report was generated using voice recognition software. It may contain grammatical, syntax o r spelling errors. Electronically signed by: Loi Pleitez M.D. 02/20/2024 9:04 AM
[2024-02-20 09:16] LABS: D Dimer 890 ug/L FEU (0-500)
[2024-02-20 09:29] LABS: ALC (manual) 1.05 K/uL (1.2-3.4); ANC (manual) 2.92 K/uL (1.4-6.5); Basophils # (manual) 0.09 K/uL (0-0.2); Basophils % (manual) 2 %; Eosinophils # (manual) 0.23 K/uL (0-0.50); Eosinophils % (manual) 5 %; Lymphocytes % (manual) 11 %; Monocytes # (manual) 0.27 K/uL (0.11-0.59); Monocytes % (manual) 6 %; Neutrophils # (manual) 2.92 K/uL (1.40-6.50); Neutrophils % (manual) 64 %; Reactive Lymphocytes # (manual) 0.55 K/uL; Reactive Lymphocytes % (manual) 12 %
[2024-02-20] MEDS: OPTIRAY 320 125ml IV ONE (09:52)
--- NOTE | 2024-02-20 10:22 | CT Scan Report ---
CT angio chest PE protocol CT DOSE: 830.6 mGy.cm HISTORY: 64 years-old Male with PE. Acute chest pain and shortness of breath TECHNIQUE: Multiple CTA images of the chest were obtained after the intravenous administration of 119 ml Optiray. Coronal and sagittal MIPS were obtained from the axial data set and were submitted for review. All measurements were obtained according to NASCET criteria. A dose lowering technique was u tilized adhering to the principles of ALARA. COMPARISON: Chest x-ray same day. FINDINGS: CTA: Trace anterior pericardial effusion. Heart is normal in size. Moderate to extensive coronary artery c alcifications. No thoracic aortic aneurysm. No pulmonary emboli identified. CT CHEST: No thyroid nodule or lymphadenopathy. No pneumothorax, pleural effusion, airspace consolidation, or s uspicious pulmonary nodule. Central airways are patent. No acute upper abdominal abnormality. No acute fracture. Subcentimeter hypodense focus in the hepatic dome is too small to characterize, likely a cyst. There is no acute fracture identified. IMPRESSION: Unremarkable CTA of the chest. ACT 112: Negative or not required by law. The above report was generated using voice recognition software. It may contain grammatical, syntax o r spelling errors. Electronically signed by: Loi Pleitez M.D. 02/20/2024 10:20 AM
--- NOTE | 2024-02-20 11:29 | Electrocardiogram Report ---
Test Reason : Blood Pressure : / mmHG Vent. Rate : 063 BPM Atrial Rate : 063 BPM P-R Int : 156 ms QRS Dur : 074 ms QT Int : 448 ms P-R-T Axes : 065 -62 054 degrees QTc Int : 458 ms Normal sinus rhythm Left axis deviation Inferior infarct , age undetermined T wave abnormality, consider anterior ischemia Abnormal ECG When compared with ECG of 08-FEB-2024 00:48, Premature atrial complexes are no longer Present Confirmed by Gio Kelly ([id number]) on 02/20/2024 11:29:46 AM Referred By: REFERRED SELF Confirmed By:Gio Kelly
--- NOTE | 2024-02-20 13:12 | History & Physical Report ---
Date of Service February 20, 2024 Assessment & Plan (1) Chest discomfort: Plan: Admit to [facility] telemetry on pulse oximetry Currently stable and nontoxic-appearing with patient asymptomatic at the time of admission Presented to the ED this a.m. after experiencing multiple episodes of nausea with nonbloody emesis and resultant chest tightness starting around 4 AM this morning. 2 high-sensitivity troponin levels were within normal limits, TTE obtained in the ED is without signs of wall motion abnormalities or significant valvular disease EKG shows normal sinus rhythm with T wave inversion in the lateral leads, new from December this year CT of the chest with IV contrast was negative for acute findings While the patient's history and exam appear more consistent with anxiety and untreated gastritis/esophagitis, he does have new T wave inversions compared to December Will treat medically for reflux related symptoms with IV pantoprazole and famotidine Will make n.p.o. at midnight in order exercise stress test for tomorrow Continue home atorvastatin will hold aspirin for now with thrombocytopenia Continue to monitor on telemetry, repeat EKG and high-sensitivity troponin for recurrence of symptoms Bilateral SCDs for DVT prophylaxis today due to new onset thrombocytopenia Heart healthy/DM type II diet AM CBC, CMP, mag, PT/INR (2) High anion gap metabolic acidosis: Plan: Patient noted to have an anion gap of 14 with bicarb of 19 on arrival Glucose noted to be elevated at 234 Lactate ordered at the time admission is within normal limits at 1.3 VBG obtained at the time of admission shows a pH of 7.45 with pCO2 and pO2 within normal limits Will obtain UA for further evaluation Elevated ion gap like dehydration and multiple episodes of earlier today Will give 1 L LR bolus on admission and BMP this afternoon to ensure he is improving Monitor a.m. labs (3) Thrombocytopenia: Plan: Platelet count of 107 today No apparent history of thrombocytopenia per records and previous platelet count history No signs of bleeding, AST, ALT, alk phos, and INR within normal limits Total bili mildly elevated at 1.2, patient is without any abdominal discomfort or signs of jaundice Will obtain tickborne panel and right upper quadrant ultrasound for further evaluation Patient denies recent alcohol use Follow current workup and monitor a.m. CBC MP (4) Nausea & vomiting: Plan: Suspect his nausea and vomiting is multifactorial including anxiety/stress, GERD, recent diet high in acidic and fatty foods, and recurrent cannabis use Continue IV hydration, will allow him to try and eat as able Will start twice daily pantoprazole and give 1 dose 20 mg IV famotidine now As needed Zofran for nausea (5) Anxiety: Plan: Continue fluoxetine (6) Type 2 diabetes mellitus: Plan: Monitor BSG ACHS, goal is [id number] BSG elevated at 234 this morning at time of arrival Appears to take between 10 to 20 units of glargine nightly Will start with 8 units subcu Lantus twice daily Start CF of 50 and CR of 15 ACHS Adjust regimen as needed Will follow UA obtained at Plan The patient was discussed with Dr. Perez at the time of the admission History of Present Illness Chief Complaint: Vomiting, chest pain Primary Care Provider: Keesha Queen MD Edmond is a 64 year old male with a PMH significant for type 2 diabetes, chronic back pain, dyslipidemia, and anxiety who presented to the [facility] ED on 02/20/2024 with complaints of chest pressure that developed after an episode of emesis around 4 AM. While in route with EMS he was given full dose aspirin and 4 mg Zofran. He remained stable in the ED. Labs were significant for a platelet count of 107, lymphocyte count of 0.5, D-dimer of 890, anion gap of 14 with bicarb of 19, total bili of 1.2, 2 high-sensitivity troponin levels within normal limits. Chest x-ray and CTA of the chest with IV contrast were read as negative for acute findings. EKG showed normal sinus rhythm without acute ST segment or T wave changes compared to previous. Echocardiogram was also obtained while in the ED and showed normal left ventricular size and function with a mildly dilated right ventricle with normal systolic function. Prior to admission the patient was given 0.5 mg IV Ativan a nd 4 mg IV Zofran. Patient was sitting in bed in no acute distress at time of exam. He explains that he presented to the ED this morning as he woke around 4 AM feeling "off". He explains that he got the sensation as though he was going to vomit and then had an episode of nonbloody emesis. Shortly after he experienced chest tightness. States that he has had a total of 4 episodes of nonbloody emesis today. Denies chest pain, palpitations, pleuritic chest pain, abdominal pain, dysuria/hematuria, melena, lower extremity swelling, and recent trauma. He states that he has been under tremendous mental stress due to a custody demarco with his ex-. He is also having financial issues so his diet has mainly been consisting of Pasta with marinara sauce, and takeout foods such as tacos. He denies recent alcohol or tobacco use. He does smoke marijuana and use concentrated marijuana multiple times a week. He is a full code. Please refer to Dr. Perez's attestation for any changes to the treatment plan Allergies Allergy/AdvReac Type Severity Reaction Status Date / Time dulaglutide [From [facility]] AdvReac Nausea Verified 02/20/24 11:25 Home Medications Medication Instructions Recorded Confirmed Type pen needle, diabetic 32 gauge x #100 ea 05/09/22 02/11/24 Rx " blood sugar diagnostic (OneTouch #100 ea 09/16/22 02/11/24 Rx Ultra Test strips) blood-glucose meter #1 ea 04/03/23 02/11/24 Rx atorvastatin 40 mg tablet 40 mg PO HS #90 tabs 05/01/23 02/20/24 Rx metformin 1,000 mg tablet 1,000 mg PO BID #180 tabs 08/27/23 02/20/24 Rx lancets 33 gauge #100 ea 09/03/23 02/11/24 Rx insulin glargine 100 unit/mL (3 10 - 20 unit (0.1 - 0.2 mL) subcut 09/23/23 02/20/24 Rx mL) subcutaneous pen (Lantus HS #15 mL Solostar U-100 Insulin) Med Marijuana 1 dose inhalation UD PRN 11/12/23 02/20/24 History pain/anxiety empagliflozin 25 mg tablet 25 mg PO QAM #90 tabs 01/16/24 02/20/24 Rx (Jardiance) fluoxetine 20 mg tablet 20 mg PO DAILY #30 tabs 02/11/24 02/20/24 Rx gabapentin 800 mg tablet 800 mg PO TID 02/20/24 02/20/24 History oxycodone 20 mg tablet 10 mg PO Q8H PRN Pain 02/20/24 02/20/24 History oxymetazoline 0.05 % nasal spray 2 spray intranasal Q12H PRN 02/20/24 02/20/24 History (Afrin (oxymetazoline)) Congestion pantoprazole 40 mg tablet,delayed 40 mg PO DAILY #30 tabs 02/21/24 Rx release Past Med/Surg History Problem List (Updated 02/23/24 @ 00:06 by Sandra Lott) Abnormal EKG (Acute) Anxiety (Acute) Chest pain (Acute) Thrombocytopenia Chest discomfort High anion gap metabolic acidosis Lumbar disc herniation with radiculopathy Vitamin B12 deficiency Medical History Sleep apnea Per records Esophageal reflux Lumbar disc disease Anxiety Plantar fasciitis Hiatal hernia Type 2 diabetes mellitus Hx of migraines TIA (transient ischemic attack) ~2016 Osteoarthritis Dyslipidemia Depression Degenerative disc disease, lumbar Chronic back pain Hx of carotid stenosis s/p Left CEA (2018) Carotid duplex 03/2022: <50% SEEMA stenosis, <30% LICA restenosis s/p endarterectomy Stroke 02/2019, no residual effects Had subsequent Left CEA Surgical History Hx of colonoscopy Hx of hemorrhoidectomy Hx of nasal septoplasty Hx of appendectomy History of left-sided carotid endarterectomy 2019, [facility] Family History Other Past medical history not known due to adoption Social History Smoking Status: Never smoker Tobacco Type: Cigarettes Second Hand Exposure: No; Do You Dip or Chew Tobacco: No; Hx Alcohol Use: No Hx Substance Use: Yes Last Used Substance: Days (ago) Last Used Substance Other:: 02/18 Preferred Language: Kittitian Communication Ability: Effective Machine Stamper Required: No Beliefs That Will Affect Care: None marital status: Single Current Living Situation: Alone Current Living Situation Comment: son visits 3 times a week Other Information That Helps Us Care for You: No Feels Safe at Home: Yes Safety Concerns: Feels Safe At This Time Childhood Exposure to Second-Hand Smoke: No Diet: regular Physical Activity Frequency: Does not Exercise Seatbelt Use: sometimes Sunscreen Use: No Assistive Devices: None Physical Exam Physical Exam: Physical Exam: General: In no acute distress, stated age, well-nourished, non-toxic appearing HEENT: Normocephalic, atraumatic, no scleral icterus, pupils around round, symmetrical, and reactive to light, dry mucus membranes, trachea midline, no thyromegaly Chest/Pulm: No respiratory distress, symmetrical chest expansion, clear breath sounds throughout Cardiac: RRR, no murmurs noted Abdomen: Negative for ascites and bruising, normoactive bowel sounds, soft, non-tender to palpation throughout Musculoskeletal: Symmetrical and without signs of acute trauma, upper and lower extremities with full ROM, no atrophy, spasticity, or flaccidity Extremities: Radial, dorsalis pedis, and posterior tibial pulses are intact and symmetrical, no edema noted in the BL LE's Skin: Warm, dry, no rashes , lesions, or scars noted Neuro: Alert and oriented to person, place, month, year, and president, no focal defects, no tremors noted Psych: No acute distress, anxious at baseline but polite and cooperative during the exam Results & Data Results & Data Vital Signs (Past 12 Hours) Vital Signs Temp Pulse Pulse Resp BP BP Pulse Ox 02/20/24 12:19 67 02/20/24 11:00 65 18 128/72 95 02/20/24 09:09 63 16 111/81 95 02/20/24 08:09 65 02/20/24 07:58 37.3 C 69 16 112/75 98 O2 Del Method 02/20/24 12:19 02/20/24 11:00 Room Air 02/20/24 09:09 02/20/24 08:09 02/20/24 07:58 Room Air Laboratory Results Abnormal lab results 02/20/24 Range/Units 08:00 WBC 4.56 L (4.8-10.8) K/ul Plt Count 107 L (130-400) K/uL Lymphocytes # (Manual) 0.50 L (1.2-3.4) K/uL Total Abs Lymphocytes 1.05 L (1.2-3.4) K/uL D-Dimer 890 H* (0-500) ug/L FEU Carbon Dioxide 19 L (21-32) mmol/L Anion Gap 14 H (3-11) Glucose 234 H (70-99(Fasting)) mg/dl Total Bilirubin 1.2 H (0.2-1.0) mg/dl Diagnostic Findings Chest X-Ray 02/20/24 08:06 XR chest 1V portable HISTORY: 64 years-old Male Chest pain, nonspecific COMPARISON: 01/31/2024 TECHNIQUE: AP view of the chest FINDINGS: Cardiac silhouette is normal. No pneumothorax or pleural effusion. Lung escobar are clear. Bones appear grossly intact. IMPRESSION: No acute process. ACT 112: Negative or not required by law. The above report was generated using voice recognition software. It may contain grammatical, syntax or spelling errors. Electronically signed by: Loi Pleitez M.D. 02/20/2024 9:04 AM Chest CTA 02/20/24 09:16 CT angio chest PE protocol CT DOSE: 830.6 mGy.cm HISTORY: 64 years-old Male with PE. Acute chest pain and shortness of breath TECHNIQUE: Multiple CTA images of the chest were obtained after the intravenous administration of 119 ml Optiray. Coronal and sagittal MIPS were obtained from the axial data set and were submitted for review. All measurements were obtained according to NASCET criteria. A dose lowering technique was utilized adhering to the principles of ALARA. COMPARISON: Chest x-ray same day. FINDINGS: CTA: Trace anterior pericardial effusion. Heart is normal in size. Moderate to extensive coronary artery calcifications. No thoracic aortic aneurysm. No pulmonary emboli identified. CT CHEST: No thyroid nodule or lymphadenopathy. No pneumothorax, pleural effusion, airspace consolidation, or suspicious pulmonary nodule. Central airways are pa tent. No acute upper abdominal abnormality. No acute fracture. Subcentimeter hypodense focus in the hepatic dome is too small to characterize, likely a cyst. There is no acute fracture identified. IMPRESSION: Unremarkable CTA of the chest. ACT 112: Negative or not required by law. The above report was generated using voice recognition software. It may contain grammatical, syntax or spelling errors. Electronically signed by: Loi Pleitez M.D. 02/20/2024 10:20 AM ECG Additional Comments: Normal sinus rhythm Left axis deviation Inferior infarct (cited on or before 20-FEB-2024) T wave abnormality, consider anterolateral ischemia Abnormal ECG When compared with ECG of 20-FEB-2024 07:59, No significant change was found Code Status & VTE Plan Code Status Full code VTE Prophylaxis Plan VTE Prophylaxis will be ordered: Yes Supervising Physician Co-Signing Physician Notes During face to face encounter, I obtained a history and physical examination, discussed plan of care with Patient and CHARITO Khanna. I reviewed above note and agree with it except for the following: Patient will be admitted under OBS for chest pain rule out. will consider cardio consult. PG Care Time/CCT Total # of Minutes Spent Total Time Spent with Patient: Total time spent is greater than 50% in coordination of care (as documented) at patient's floor/unit and/or counseling patient: Coding [place] [address] INT INP/OBS CARE 2/55MIN Patient Type Established Medical Decision Making Moderate Complexity Diagnoses Chest discomfort R07.89 High anion gap metabolic acidosis E87.29 Thrombocytopenia D69.6 Nausea & vomiting R11.2 Anxiety F41.9 Type 2 diabetes mellitus E11.9
[2024-02-20] MEDS ORDERED: GLUCOSE 10 TAB/TUBE PO PRN (13:30)
[2024-02-20] MEDS ORDERED: DEXTROSE 50% 50 ML SYRINGE IV PRN (13:30)
[2024-02-20] MEDS ORDERED: GLUCOSE 40% GEL 15 GM TUBE PO PRN (13:30)
[2024-02-20] MEDS ORDERED: CARBOHYDRATES FOR HYPOGLYCEMIA PO PRN (13:30)
[2024-02-20] MEDS ORDERED: GLUCAGON FOR INJ 1 MG VIAL SQ PRN (13:30)
[2024-02-20 13:42] LABS: HCO3 VBG 27 mmol/L; Oxygen Saturation VBG < 60.0 %; PCO2 VBG 39 mmHg (38-50); PO2 VBG < 20 mmHg; pH VBG 7.45 (7.36-7.41)
[2024-02-20] MEDS: LACTATED RINGER'S 1,000 ML IV ONE (13:51)
[2024-02-20] MEDS ORDERED: ONDANSETRON INJ 2 MG/ML 2 ML VIAL IV PRN (13:51)
--- NOTE | 2024-02-20 13:57 | XCELERA ---
[id number] \\[id number]
[2024-02-20 14:02] LABS: Magnesium 1.7 mg/dl (1.7-2.4)
[2024-02-20] MEDS: PANTOprazole 40 MG in SYRINGE 0 ML IV ONE (14:21)
[2024-02-20] MEDS: FAMOTIDINE 20MG IV PUSH 20 MG/5 ML SYR IV STA (14:33)
[2024-02-20 15:41] LABS: Appearance Urine Clear (Clear); Bilirubin Urine Negative (Negative); Blood Urine Negative (Negative); Color Urine Yellow; Glucose Urine UA 3+ (Negative); Ketones Urine 2+ (Negative); Leukocyte Esterase Urine Negative (Negative); Nitrite Urine Negative (Negative); Protein Urine Negative (Negative); Specific Gravity Urine > 1.045 (1.000-1.030); Urobilinogen Urine Negative (Negative); pH Urine 5.5 (4.5-7.5)
[2024-02-20 16:24] LABS: BUN Creatinine Ratio 16.1 (10-20); Calcium 9.1 mg/dl (8.6-10.3); Est GFR (African American) 100.9 ml/min; Est GFR (Non-African American) 87.1 ml/min
[2024-02-20] MEDS: GABAPENTIN 800 MG TAB PO SCH (17:49)
[2024-02-20] MEDS: INSULIN ASPART PER UNIT CHARGE SC SCH (18:39)
--- NOTE | 2024-02-20 20:33 | Electrocardiogram Report ---
Test Reason : Blood Pressure : / mmHG Vent. Rate : 065 BPM Atrial Rate : 065 BPM P-R Int : 160 ms QRS Dur : 072 ms QT Int : 452 ms P-R-T Axes : 068 -63 -44 degrees QTc Int : 470 ms Normal sinus rhythm Left axis deviation Inferior infarct (cited on or before 20-FEB-2024) T wave abnormality, consider anterior ischemia Abnormal ECG When compared with ECG of 20-FEB-2024 07:59, No significant change was found Confirmed by Gio Kelly ([id number]) on 02/20/2024 8:32:35 PM Referred By: REFERRED SELF Confirmed By:Gio Kelly
[2024-02-20] MEDS: PANTOprazole 40 MG TAB PO SCH (21:55)
[2024-02-20] MEDS: ATORVASTATIN 40 MG TAB PO SCH (21:55)
[2024-02-20] MEDS: LANTUS PER UNIT CHARGE SQ SCH (22:00)
[2024-02-21 06:11] LABS: Albumin Globulin Ratio 1.7 (0.9-2); Albumin Level 3.9 gm/dl (3.4-5.0); BUN Creatinine Ratio 18.2 (10-20); Calcium 8.6 mg/dl (8.6-10.3); Creatinine Clr Calc Pharmacy 88.7 ml/min; Est GFR (Non-African American) 91.4 ml/min; Globulin 2.3 gm/dl (2.5-4.0); Magnesium 1.8 mg/dl (1.7-2.4); Potassium 3.8 mmol/L (3.5-5.1); Total Protein 6.2 gm/dl (6.0-8.3)
[2024-02-21 06:22] LABS: Prothrombin Time 10.9 Seconds (9.0-12.0)
[2024-02-21 06:36] LABS: Hemoglobin 16.2 g/dl (14.0-18.0); Mean Corpuscular Hemoglobin 30.2 pg (25.0-34.0); Mean Corpuscular Hgb Conc 34.5 g/dL (32.0-36.0); Mean Corpuscular Volume 87.5 fL (80.0-100.0); Mean Platelet Volume 9.5 fL (9.4-12.4); Platelet Count 111 K/uL (130-400); RDW Coefficient of Variation 13.4 % (11.5-14.5); Red Blood Count 5.37 M/uL (4.70-6.10); White Blood Count 4.19 K/ul (4.8-10.8)
[2024-02-21 06:37] LABS: Basophils # (auto) 0.04 K/uL (0.00-0.20); Eosinophils # (auto) 0.13 K/uL (0.00-0.50); Eosinophils % (auto) 3.1 %; Immature Granulocytes # (auto) 0.01 K/uL (0.01-0.20); Immature Granulocytes % (auto) 0.2 %; Lymphocytes # (auto) 1.08 K/uL (1.20-3.40); Lymphocytes % (auto) 25.8 %; Monocytes % (auto) 11.9 %; Neutrophils # (auto) 2.43 K/uL (1.40-6.50)
[2024-02-21] MEDS ORDERED: Nursing to Pharmacy Communication SCH (07:15)
--- NOTE | 2024-02-21 07:49 | Ultrasound Report ---
ABDOMINAL ULTRASOUND, RIGHT UPPER QUADRANT HISTORY: thrombocytopenia. COMPARISON: CTA chest same day FINDINGS: Pancreas: The pancreas demonstrates a normal echotexture. Liver: 16 cm in length. No mass or evidence of cirrhosis.. Gallbladder: No gallbladder wall thickening. No gallstones. CBD: 0.4 cm. Right kidney: No hydronephrosis. IMPRESSION: No significant abnormality identified within the right upper quadrant. ACT 112: Negative or not required by law. Electronically signed by: Loi Pleitez M.D. 02/21/2024 7:46 AM
[2024-02-21] MEDS: FLUoxetine HCL 20 MG CAP PO SCH (08:35)
[2024-02-21] MEDS: INSULIN ASPART PER UNIT CHARGE SC SCH ×2 (08:38→12:55)
[2024-02-21] MEDS ORDERED: Nursing to Pharmacy Communication ONE (11:07)
--- NOTE | 2024-02-21 11:29 | XCELERA ---
[id number] \\[id number]
--- NOTE | 2024-02-21 22:05 | Discharge Summary ---
Discharge Summary Date of Service February 21, 2024 Principal Dx & Hospital Course #1 = Principal Diagnosis (1) Chest discomfort: Admit to [facility] telemetry on pulse oximetry Currently stable and nontoxic-appearing with patient asymptomatic at the time of admission Presented to the ED this a.m. after experiencing multiple episodes of nausea with nonbloody emesis and resultant chest tightness starting around 4 AM this morning. 2 high-sensitivity troponin levels were within normal limits, TTE obtained in the ED is without signs of wall motion abnormalities or significant valvular disease EKG shows normal sinus rhythm with T wave inversion in the lateral leads, new from December of this year CT of the chest with IV contrast was negative for acute findings While the patient's history and exam appear more consistent with anxiety and untreated gastritis/esophagitis, he does have new T wave inversions compared to December this year Will treat medically for reflux related symptoms with IV pantoprazole and famotidine/ transitioned to oral PPI at discharge CONSULTED CARDIO: Stress test was negative. No further work up. (2) High anion gap metabolic acidosis: Patient noted to have an anion gap of 14 with bicarb of 19 on arrival Glucose noted to be elevated at 234 Lactate ordered at the time admission is within normal limits at 1.3 VBG obtained at the time of admission shows a pH of 7.45 with pCO2 and pO2 within normal limits Resolved with fluids. (3) Thrombocytopenia: Platelet count of 107 today No apparent history of thrombocytopenia per records and previous platelet co unt history No signs of bleeding, AST, ALT, alk phos, and INR within normal limits Total bili mildly elevated at 1.2, patient is without any abdominal discomfort or signs of jaundice Will obtain tickborne panel : pending but lyme disease is negative right upper quadrant ultrasound: negative Patient denies recent alcohol use (4) Nausea & vomiting: Suspect his nausea and vomiting is multifactorial including anxiety/stress, GERD, recent diet high in acidic and fatty foods, and recurrent cannabis use Continue IV hydration, will allow him to try and eat as able Will start twice daily pantoprazole and give 1 dose 20 mg IV famotidine now As needed Zofran for nausea (5) Anxiety: Continue fluoxetine (6) Type 2 diabetes mellitus: Monitor BSG ACHS, goal is [id number] BSG elevated at 234 this morning at time of arrival Appears to take between 10 to 20 units of glargine nightly Will start with 8 units subcu Lantus twice daily Admission HPI Per Admitting Provider Edmond is a 64 year old male with a PMH significant for type 2 diabetes, chronic back pain, dyslipidemia, and anxiety who presented to the [facility] ED on 02/20/2024 with complaints of chest pressure that developed after an episode of emesis around 4 AM. While in route with EMS he was given full dose aspirin and 4 mg Zofran. He remained stable in the ED. Labs were significant for a platelet count of 107, lymphocyte count of 0.5, D-dimer of 890, anion gap of 14 with bicarb of 19, total bili of 1.2, 2 high-sensitivity troponin levels within normal limits. Chest x-ray and CTA of the chest with IV contrast were read as negative for acute findings. EKG showed normal sinus rhythm without acute ST segment or T wave changes compared to previous. Echocardiogram was also obtained while in the ED and showed normal left ventricular size and function with a mildly dilated right ventricle with normal systolic function. Prior to admission the patient was given 0.5 mg IV Ativan and 4 mg IV Zofran. Patient was sitting in bed in no acute distress at time of exam. He explains that he presented to the ED this morning as he woke around 4 AM feeling "off". He explains that he got the sensation as though he was going to vomit and then had an episode of nonbloody emesis. Shortly after he experienced chest tightness. States that he has had a total of 4 episodes of nonbloody emesis today. Denies chest pain, palpitations, pleuritic chest pain, abdominal pain, dysuria/hematuria, melena, lower extremity swelling, and recent trauma. He states that he has been under tremendous mental stress due to a custody demarco with his ex-. He is also having financial issues so his diet has mainly been consisting of Pasta with marinara sauce, and takeout foods such as tacos. He denies recent alcohol or tobacco use. He does smoke marijuana and use concentrated marijuana multiple times a week. He is a full code. Discharge Exam General: In no acute distress, stated age, well-nourished, non-toxic appearing HEENT: Normocephalic, atraumatic, no scleral icterus, pupils around round, symmetrical, and reactive to light, trachea midline, no thyromegaly Chest/Pulm: No respiratory distress, symmetrical chest expansion, clear breath sounds throughout Cardiac: RRR, no murmurs noted Abdomen: Negative for ascites and bruising, normoactive bowel sounds, soft, non- tender to palpation throughout Musculoskeletal: Symmetrical and without signs of acute trauma, upper and lower extremities with full ROM, no atrophy, spasticity, or flaccidity Extremities: Radial, dorsalis pedis, and posterior tibial pulses are intact and symmetrical, no edema noted in the BL LE's Skin: Warm, dry, no rashes , lesions, or scars noted Neuro: Alert and oriented to person, place, month, year, and president, no focal defects, no tremors noted Psych: No acute distress, anxious at baseline but polite and cooperative during the exam Updated Medication List Medication Instructions Recorded Confirmed Type pen needle, diabetic 32 gauge x #100 ea 05/09/22 02/11/24 Rx 32" blood sugar diagnostic (OneTouch #100 ea 09/16/22 02/11/24 Rx Ultra Test strips) blood-glucose meter #1 ea 04/03/23 02/11/24 Rx atorvastatin 40 mg tablet 40 mg PO HS #90 tabs 05/01/23 02/20/24 Rx metformin 1,000 mg tablet 1,000 mg PO BID #180 tabs 08/27/23 02/20/24 Rx lancets 33 gauge #100 ea 09/03/23 02/11/24 Rx insulin glargine 100 unit/mL (3 10 - 20 unit (0.1 - 0.2 mL) subcut 09/23/23 02/20/24 Rx mL) subcutaneous pen (Lantus HS #15 mL Solostar U-100 Insulin) Med Marijuana 1 dose inhalation UD PRN 11/12/23 02/20/24 History pain/anxiety empagliflozin 25 mg tablet 25 mg PO QAM #90 tabs 01/16/24 02/20/24 Rx (Jardiance) fluoxetine 20 mg tablet 20 mg PO DAILY #30 tabs 02/11/24 02/20/24 Rx gabapentin 800 mg tablet 800 mg PO TID 02/20/24 02/20/24 History oxycodone 20 mg tablet 10 mg PO Q8H PRN Pain 02/20/24 02/20/24 History oxymetazoline 0.05 % nasal spray 2 spray intranasal Q12H PRN 02/20/24 02/20/24 History (Afrin (oxymetazoline)) Congestion pantoprazole 40 mg tablet,delayed 40 mg PO DAILY #30 tabs 02/21/24 Rx release Hospital Stay Data Consultations 02/20/24 11:56 ED Decision to Admit Stat Diagnostic Imagining Performed 02/20/24 09:16 CT angio chest PE protocol Stat 02/21/24 US liver Routine Pending Results Patient Have Any Pending Studies at Discharge: No Discharge Instructions Given to Patient (Per Discharging Provider) recommend followup with PCP in 1-2 weeks. Total Time Total Time Spent Total Time Spent (In Minutes): 32 Coding Level of Care Code 42089 INP/OBS DISCH >30 MIN Diagnoses Chest discomfort R07.89 High anion gap metabolic acidosis E87.29 Thrombocytopenia D69.6 Nausea & vomiting R11.2 Anxiety F41.9 Type 2 diabetes mellitus E11.9
[2024-02-25 05:17] LABS: Babesia microti DNA Not Detected (Not Detected)
== END 2024-02-21 13:14 | disposition home or self-care (01) ==
LOC: SUATTDRO → EDINP 07:52 → ED 07:52 → 2N 17:08

== ENCOUNTER 2025-06-18 15:07 | Observation (INO) ==
--- NOTE | 2025-06-18 15:16 | Emergency Department Note ---
Impression & Plan Hyperglycemia, Fall, Right sided abdominal pain, Chest pain, Orthostatic hypotension, Dizziness ED Provider Note HISTORY OF PRESENT ILLNESS: Patient is a 65-year-old male presenting with multiple complaints. Patient called 911 because he was having some chest pain. Patient reports that few days ago he slipped and fell in his shower and landed on his right side. He denies striking his head or loss of consciousness. He is not on any anticoagulation. He reports that he fell and has been having pain from the top of his right shoulder down to his right toes ever since. He reports that he is an insulin- dependent diabetic and his power has been out in his house for the last few months and he has "no way to keep my insulin cold so I have not had it." He denies any fevers or chills. Denies any nausea or vomiting. Denies any diarrhea. Patient states intermittently over the last few days he has been having substernal chest pain. He describes the pain as a pressure sensation that does not radiate. Currently denies any chest pain on arrival to the ER. Patient had an elevated glucose for EMS on arrival and they gave him 150 cc of fluid and route. Patient reports he has not had much to eat or drink over the last few days secondary to not having power. ROS: as above PHYSICAL EXAM: Constitutional: Patient appears in no acute distress. HENT: Head: Normocephalic and atraumatic. Eyes: EOMI, PERRL Mouth/Throat: Mucous membranes moist. Neck: Trachea midline. Neck supple. Cardiovascular: RRR, No murmurs, rubs or gallops. Intact distal pulses. Pulmonary/Chest: No respiratory distress. Breath sounds clear and equal bilaterally. No wheezes or rales. No chest wall tenderness to palpation. Abdominal: Abdomen soft, no tenderness, rebound or guarding. Back: No midline spinal tenderness, no paraspinal tenderness, no CVA tenderness. Patient is able to straight leg raise bilaterally. Musculoskeletal: No edema, tenderness or deformity noted. Skin: Warm and dry. No rash, erythema, pallor or cyanosis Psychiatric: Appropriate mood and affect for situation. Neurological: Alert and keenly responsive. CN II-XII grossly intact, moving all extremities equally and fully. MDM: - Vitals signs stable. - History obtained via patient. History as above. - Chronic conditions affecting care: DM-2; depression/anxiety - Differential diagnoses include, but are not limited to: Pneumothorax; pulmonary edema; ACS; liver laceration - Order placed for continuous cardiac monitoring. At this time, monitor showed rate of 73 bpm with normal sinus rhythm, per my interpretation. - External medical records reviewed. Primary care visit note dated 10/13/2024 was reviewed. Patient follows in their clinic for his long-term opiate analgesic due to history of back pain. He is on oxycodone 10 mg tabs. - EKG image interpreted by myself showed normal sinus rhythm. Rate 78 bpm. QT 374. No acute ischemic changes. - Laboratory workup interpreted by myself showed normal WBC; slight hyponatremia (Na 132 - likely pseudohyponatremia in setting of hyperglycemia); elevated anion gap (14); hyperglycemia (glucose 322); normal AST/ALT; normal troponin; normal lipase - Patient had some slightly hypotensive blood pressures in the emergency department. He was initially given 1 L of normal saline. Given his hyperglycemia, second 1 L normal saline was ordered as well as 5 units of insulin. - CXR image viewed interpreted by myself negative for pneumothorax, per my interpretation. - CT chest with IV contrast showed mild cardiac enlargement. Noted have a 3 mm ground glass nodule in the right upper lobe. - CT abdomen/pelvis with IV contrast showed findings suggestive of mild enteritis. Noted to have an outpouching arising from the loop of jejunum in the left Abel abdomen concerning for small bowel diverticulum. - Patient given 1g IV tylenol for right sided pain while in the emergency department. Repeat glucose was improved. Patient was feeling improved in the ER. However, orthostatic vital sign showed the patient became significantly hypotensive with standing with a blood pressure of 80s over 60s. He became very lightheaded and dizzy with this episode. Will discuss case with hospitalist service. - Discussion was had with medical case manager about patient's case and need for admission - Hospitalist consulted for admission - Patient admitted to [facility] hospitalist service for further evaluation and management. ASSESSMENT AND PLAN: Diagnosis: Orthostatic hypotension; dizziness; chest pain; hyperglycemia; fall; right sided abd pain Plan: Admit Past Med/Surg History Problem List (Updated 06/18/25 @ 19:05 by Maday Estrada MD) Dizziness (Acute) Orthostatic hypotension (Acute) Chest pain (Acute) Right sided abdominal pain (Acute) Fall (Acute) Hyperglycemia (Acute) Nausea & vomiting (Acute) Hyperglycemia (Acute) Depression Poorly controlled diabetes mellitus correction (current) use of opiate analgesic Abnormal EKG (Acute) Anxiety (Acute) Lumbar disc herniation with radiculopathy Vitamin B12 deficiency Medical History Sleep apnea Per records Esophageal reflux Lumbar disc disease Anxiety Plantar fasciitis Hiatal hernia Hx of migraines TIA (transient ischemic attack) ~2016 Osteoarthritis Dyslipidemia Degenerative disc disease, lumbar Chronic back pain Hx of carotid stenosis s/p Left CEA (2018) Carotid duplex 03/2022: <50% SEEMA stenosis, <30% LICA restenosis s/p endarterectomy Stroke 02/2019, no residual effects Had subsequent Left CEA Surgical History Hx of colonoscopy Hx of hemorrhoidectomy Hx of nasal septoplasty Hx of appendectomy History of left-sided carotid endarterectomy 2018, [facility] Family History Other Past medical history not known due to adoption Social History Smoking Status: Never smoker Tobacco Type: Cigarettes Age Started Using Tobacco: 14; Age Quit Using Tobacco: 56; packs per day: 1; Second Hand Exposure: No; Do You Dip or Chew Tobacco: No; Hx Alcohol Use: No Hx Substance Use: Yes Last Used Substance: Days (ago) Last Used Substance Other:: 02/18 Preferred Language: Nepali Communication Ability: Effective Technology Infusion Specialist Required: No Beliefs That Will Affect Care: None marital status: Single Current Living Situation: Alone Current Living Situation Comment: son visits 3 times a week Feels Safe at Home: No Is there a partner from a previous relationship who is making you feel unsafe now?: No Childhood Exposure to Second-Hand Smoke: No Diet: regular Physical Activity Frequency: Does not Exercise Seatbelt Use: sometimes Sunscreen Use: No Assistive Devices: None Allergies Allergies Allergy/AdvReac Type Severity Reaction Status Date / Time dulaglutide [From Trulicity] AdvReac Nausea Verified 10/17/24 09:51 Home Meds Home Medications Medication Instructions Recorded Confirmed Med Marijuana 1 dose inhalation UD PRN 11/12/23 06/18/25 pain/anxiety oxymetazoline 0.05 % nasal spray 2 spray intranasal Q12H PRN 02/20/24 06/18/25 (Afrin (oxymetazoline)) Congestion atorvastatin 40 mg tablet 0 mg PO HS 06/18/25 06/18/25 empagliflozin 25 mg tablet 0 mg PO QAM 06/18/25 06/18/25 (Jardiance) insulin NPH-regular 70-30 U-100 0 unit subcut BID 06/18/25 06/18/25 insulin 100 unit/mL subcutaneous pen (Novolin 70-30 FlexPen U-100 Insulin) insulin glargine 100 unit/mL (3 0 unit subcut HS 06/18/25 06/18/25 mL) subcutaneous pen (Lantus Solostar U-100 Insulin) Previous Rx's Medication Instructions Recorded pen needle, diabetic 32 gauge x #100 ea 05/09/22" blood sugar diagnostic (OneTouch #100 ea 09/16/22 Ultra Test strips) blood-glucose meter #1 ea 04/03/23 lancets 33 gauge #100 ea 09/03/23 bupropion HCl 150 mg 24 hr tablet, 150 mg PO QAM #30 tabs 04/05/25 extended release (Wellbutrin XL) escitalopram oxalate 20 mg tablet 20 mg PO DAILY #90 tabs 04/25/25 (Lexapro) oxycodone 20 mg tablet 20 mg PO Q8H PRN pain 30 days #90 06/08/25 tabs metformin 1,000 mg tablet 1,000 mg PO BID #180 tabs 06/13/25 Results & Data (ED) Vital Signs Vital Signs - 24 hr 06/18/25 15:15 06/18/25 15:16 06/18/25 15:16 Temperature 36.5 C Temperature Source Oral Pulse Rate - Lying Pulse Rate - Sitting Pulse Rate - Standing Pulse Rate 83 83 Pulse Rate [Apical] 82 Pulse Rate from SpO2 Sensor 83 Respiratory Rate 18 18 18 Respiratory Effort / Characteristics Non-Labored Spontaneous Non-Labored Spontaneous Respiratory Depth Normal Normal Respiratory Pattern Blood Pressure - Lying Blood Pressure - Sitting Blood Pressure- Standing Blood Pressure 106/65 106/65 Blood Pressure [Right Arm] 106/65 Blood Pressure Mean 78 78 Blood Pressure Mean [Right Arm] 78 Blood Pressure Position Sitting Blood Pressure Position [Right Arm] Sitting Pulse Oximetry 100 100 100 Oxygen Delivery Method Room Air Room Air Room Air Sepsis Recent Fever Within 48 Hours No Sepsis New/Unexplained Change in Mental Status No Sepsis Action Taken by Nursing No Action Required 06/18/25 15:21 06/18/25 15:36 06/18/25 15:42 Temperature Temperature Source Pulse Rate - Lying Pulse Rate - Sitting Pulse Rate - Standing Pulse Rate 91 H 86 73 Pulse Rate [Apical] Pulse Rate from SpO2 Sensor 91 H 77 74 Respiratory Rate 19 16 14 Respiratory Effort / Characteristics Respiratory Depth Respiratory Pattern Blood Pressure - Lying Blood Pressure - Sitting Blood Pressure- Standing Blood Pressure 87/69 L 93/71 L 93/71 L Blood Pressure [Right Arm] Blood Pressure Mean 75 78 78 Blood Pressure Mean [Right Arm] Blood Pressure Position Blood Pressure Position [Right Arm] Pulse Oximetry 100 99 98 Oxygen Delivery Method Room Air Room Air Sepsis Recent Fever Within 48 Hours Sepsis New/Unexplained Change in Mental Status Sepsis Action Taken by Nursing 06/18/25 16:22 06/18/25 17:03 06/18/25 18:30 Temperature Temperature Source Pulse Rate - Lying 69 Pulse Rate - Sitting 80 Pulse Rate - Standing 99 H Pulse Rate 70 Pulse Rate [Apical] 67 Pulse Rate from SpO2 Sensor Respiratory Rate 18 Respiratory Effort / Characteristics Non-Labored Spontaneous Respiratory Depth Normal Respiratory Pattern Regular Blood Pressure - Lying 99/69 L Blood Pressure - Sitting 121/89 Blood Pressure- Standing 83/62 L Blood Pressure Blood Pressure [Right Arm] 120/73 Blood Pressure Mean Blood Pressure Mean [Right Arm] 88 Blood Pressure Position Blood Pressure Position [Right Arm] Sitting Pulse Oximetry 100 Oxygen Delivery Method Room Air Sepsis Recent Fever Within 48 Hours Sepsis New/Unexplained Change in Mental Status Sepsis Action Taken by Nursing Laboratory Data 06/18/25 15:12 06/18/25 15:12 Lab Results 06/18/25 06/18/25 06/18/25 Range/Units 15:12 15:13 17:10 WBC 9.59 (4.8-10.8) K/ul RBC 6.07 (4.70-6.10) M/uL Hgb 19.0 H (14.0-18.0) g/dL Hct 54.0 H (42.0-52.0) % MCV 89.0 (80.0-100.0) fL MCH 31.3 (25.0-34.0) pg MCHC 35.2 (32.0-36.0) g/dL RDW Std Deviation 43.1 (36.4-46.3) fL RDW Coeff of Soo 13.3 (11.5-14.5) % Plt Count 258 (130-400) K/uL MPV 9.1 L (9.4-12.4) fL Immature Gran % (Auto) 0.7 % Neut % (Auto) 56.2 % Lymph % (Auto) 29.7 % Barren % (Auto) 7.2 % Eos % (Auto) 4.9 % Baso % (Auto) 1.3 % Neut # (Auto) 5.39 (1.40-6.50) K/uL Lymph # (Auto) 2.85 (1.20-3.40) K/uL Barren # (Auto) 0.69 H (0.11-0.59) K/uL Eos # (Auto) 0.47 (0.00-0.50) K/uL Baso # (Auto) 0.12 (0.00-0.20) K/uL Immature Gran # (Auto) 0.07 (0.01-0.20) K/uL Sodium 132 L (136-145) mmol/L Potassium 4.4 (3.5-5.1) mmol/L Chloride 97 L (98-107) mmol/L Carbon Dioxide 21 (21-32) mmol/L Anion Gap 14 H (3-11) BUN 20 (6-23) mg/dl Creatinine 1.30 (0.6-1.4) mg/dl Est Cr Clr Drug Dosing 59.3 ml/min eGFR 61.35 BUN/Creatinine Ratio 15.4 (10-20) Glucose 322 H* (70-99(Fasting)) mg/dl POC Glucose 329 H* 169 H (70-99) mg/dl Calcium 9.1 (8.6-10.3) mg/dl Total Bilirubin 0.7 (0.2-1.0) mg/dl AST 13 (13-39) U/L ALT 10 (7-52) U/L Alkaline Phosphatase 90 (34-104) U/L Troponin I High Sens 7.7 (0-20) pg/ml Total Protein 7.5 (6.0-8.3) gm/dl Albumin 4.2 (3.4-5.0) gm/dl Globulin 3.3 (2.5-4.0) gm/dl Albumin/Globulin Ratio 1.3 (0.9-2) Lipase 32 (11-82) U/L Administered Medications Discontinued Medications Sodium Chloride (Nss) 1,000 mls @ 999 mls/hr IV .Q1H1M ONE Stop: 06/18/25 16:41 Last Infusion: 06/18/25 17:40 Dose: 999 mls/hr Documented By: Infusion: 06/18/25 16:41 Dose: 0 mls/hr Documented By: Admin: 06/18/25 16:35 Dose: 999 mls/hr Documented By: Infusion: 06/18/25 16:35 Dose: Infused Documented By: Admin: 06/18/25 15:44 Dose: 999 mls/hr Documented By: MIAH Sodium Chloride (Nss) 1,000 mls @ 999 mls/hr IV .Q1H1M ONE Stop: 06/18/25 17:01 Last Infusion: 06/18/25 17:40 Dose: Infused Documented By: Admin: 06/18/25 16:36 Dose: 999 mls/hr Documented By: MIAH Acetaminophen (Ofirmev) 1,000 mg in 100 mls @ 400 mls/hr IV NOW STA Stop: 06/18/25 16:50 Last Infusion: 06/18/25 16:56 Dose: Infused Documented By: Admin: 06/18/25 16:38 Dose: 400 mls/hr Documented By: MIAH Insulin Human Regular (Novolin-R Insulin Per Unit Charge) 5 units IV NOW STA Stop: 06/18/25 16:02 Last Admin: 06/18/25 16:32 Dose: 5 units Documented By: MIAH Co-signed By: JOSIAS Ioversol (Optiray 320 100ml) 93 ml IV ONCE ONE Stop: 06/18/25 16:15 Last Admin: 06/18/25 16:15 Dose: 93 ml Documented By: EDK Imaging Data Radiologist's Impression: Chest X-Ray 06/18/25 15:08 Exam: AP Portable Chest Exam reason: Nonspecific chest pain. Comparison: 02/20/2024. Technique: A single AP portable view of the chest was obtained Findings: The lungs are well-expanded. No focal areas of consolidation are identified. The cardiac and mediastinal silhouettes are within normal limits. There is no pneumothorax and no acute bony abnormalities are seen. Impression: No acute cardiopulmonary abnormalities Electronically signed by Jesus Rosen 06-18-2025 3:43 PM Abdomen/Pelvis CT 06/18/25 16:02 CT ABDOMEN and PELVIS with INTRAVENOUS CONTRAST HISTORY: Abdominal pain TECHNIQUE: CT abdomen and pelvis with contrast. IV CONTRAST: 100 mL of OMNIPAQUE 300 ENTERIC CONTRAST: Not Given COMPARISON: FINDINGS: LIVER: No focal lesion identified. Hepatic steatosis GALLBLADDER/BILIARY: Unremarkable gallbladder. No abnormal biliary dilatation. SPLEEN: Unremarkable. PANCREAS: Unremarkable. ADRENALS: Unremarkable. KIDNEYS: Unremarkable. No stones or hydronephrosis identified. PERITONEUM/RETROPERITONEUM. No lymphadenopathy by size criteria. No aortic aneurysm. GASTROINTESTINAL: No obstruction. Multiple loops of small bowel demonstrating mild inflammatory changes with wall thickening. There appears to be a small outpouching arising from a jejunal loop in the left hemiabdomen (series 3, image 33) measuring approximate 2.0 cm. REPRODUCTIVE: Enlarged nodular prostate gland with calcifications URINARY BLADDER: Inflammatory changes with wall thickening BONES: No acute findings. IMPRESSION: Findings suggesting mild enteritis. Suggestion of a 2.0 cm outpouching arising from a loop of jejunum in the left hemiabdomen that may represent a small bowel diverticulum. No urolithiasis, hydronephrosis or hydroureter. Inflammatory changes of the urinary bladder may be due to cystitis Enlarged nodular prostate gland with calcifications Electronically signed by Dmitriy Ace 06-18-2025 4:[address] 06/18/25 16:02 CT CHEST WITH CONTRAST: HISTORY: TECHNIQUE: CT of the chest was obtained with intravenous contrast. Coronal and sagittal reformats were created. IV CONTRAST: 100 mL of OMNIPAQUE 300 COMPARISON: FINDINGS: LOWER NECK: Normal thyroid. LYMPH NODES: A few small nonenlarged lymph nodes in the mediastinum. No lymphadenopathy by size criteria. CARDIOVASCULAR: Cardiac size is mildly enlarged. Mild coronary artery calcifications are noted. No aortic aneurysm. LUNGS: The trachea and central bronchi are widely patent. No focal confluent infiltrates are seen. Chronic interstitial lung changes. There is a 3 mm ground glass nodular density in the right upper lobe of the lung (series 2, image 29). PLEURA: There are no pleural effusions. There is no pneumothorax. UPPER ABDOMEN: No acute findings. OSSEOUS STRUCTURES: No acute findings IMPRESSION: Mild cardiac enlargement with mild coronary calcifications. No acute aortic process or central pulmonary embolism is identified. 3 mm ground glass nodular density in the right upper lobe of the lung is nonspecific and may be infectious/inflammatory or possibly neoplastic. Recommend a follow-up thoracic CT evaluation in 3 months for reassessment. Electronically signed by Dezsavagejailyn Dmitriy 06-18-2025 4:57 PM Discharge Plan Visit Data Chief Complaint: Chest Pain Stated Complaint: CHEST PAIN ED Provider: Maday Estrada Discharge Problem: Hyperglycemia, Fall, Right sided abdominal pain, Chest pain, Orthostatic hypotension, Dizziness Patient Disposition: Admitted As Inpatient Condition: Fair Forms Stand Alone Forms: My [facility] Prescriptions Prescriptions: No Action (DME) pen needle, diabetic 32 gauge x 5/32" needle See Rx Instructions .Route Qty: 100 3RF Rx Instructions: As directed- use once daily (DME) OneTouch Ultra Test Strip See Rx Instructions .Route Qty: 100 5RF Rx Instructions: As directed to test blood sugar 4 times per day (DME) lancets 33 gauge misc See Rx Instructions .Route Qty: 100 5RF Rx Instructions: As directed to check sugars 4 times daily bupropion HCl [Wellbutrin XL] 150 mg tablet extended release 24 hr 150 mg PO QAM Qty: 30 2RF escitalopram oxalate [Lexapro] 20 mg tablet 20 mg PO DAILY Qty: 90 3RF oxycodone 20 mg tablet 20 mg PO Q8H PRN (Reason: pain) 30 Days Qty: 90 0RF metformin 1,000 mg tablet 1,000 mg PO BID Qty: 180 3RF Rx Instructions: NEEDS APPT FOR ADD'L REFILLS (DME) blood-glucose meter Kit See Rx Instructions .Route Qty: 1 0RF Rx Instructions: As directed Med Marijuana 1 dose inhalation UD PRN (Reason: pain/anxiety) Patient Comments: 06/18-unable to verify oxymetazoline [Afrin (oxymetazoline)] 0.05 % [place],Non-Aerosol 2 spray INTRANASAL Q12H PRN (Reason: Congestion) Patient Comments: 06/18- otc unable to verify atorvastatin 40 mg tablet 0 mg PO HS Patient Comments: 06/18-last filled 01/10 90 day supply #90 Novolin 70-30 FlexPen U-100 100 unit/mL (70-30) insulin pen 0 unit subcut BID MDD 80 Patient Comments: 06/18--last filled 12/12 75 day supply as 30u BID. Original: 20 u bid insulin glargine [Lantus Solostar U-100 Insulin] 100 unit/mL (3 mL) insulin pen 0 unit subcut HS Patient Comments: 06/18-last filled 10/17 30 day supply Rx Instructions: or as directed, according to bsg Jardiance 25 mg tablet 0 mg PO QAM Patient Comments: 06/18- no fill history unable to verify Referrals Referrals: Keesha Queen MD [Primary Care Provider] -
[2025-06-18 15:26] LABS: Hematocrit (blood only) 54.0 % (42.0-52.0); Hemoglobin 19.0 g/dL (14.0-18.0); Immature Granulocytes # (auto) 0.07 K/uL (0.01-0.20); Immature Granulocytes % (auto) 0.7 %; Mean Corpuscular Hemoglobin 31.3 pg (25.0-34.0); Mean Corpuscular Volume 89.0 fL (80.0-100.0); Platelet Count 258 K/uL (130-400); RDW Standard Deviation 43.1 fL (36.4-46.3); Red Blood Count 6.07 M/uL (4.70-6.10); White Blood Count 9.59 K/ul (4.8-10.8)
[2025-06-18] MEDS: SODIUM CHLORIDE 0.9% 1,000 ML IV ONE ×2 (15:44→16:36)
--- NOTE | 2025-06-18 15:44 | XRay Report ---
Exam: AP Portable Chest Exam reason: Nonspecific chest pain. Comparison: 02/20/2024. Technique: A single AP portable view of the chest was obtained Findings: The lungs are well-expanded. No focal areas of consolidation are identified. The cardiac and mediastinal silhouettes are within normal limits. There is no pneumothorax and no acute bony abnormalities are seen. Impression: No acute cardiopulmonary abnormalities Electronically signed by Jesus Rosen 06-18-2025 3:43 PM
[2025-06-18 15:59] LABS: Alanine Aminotransferase 10.0 U/L (7-52); Albumin Globulin Ratio 1.3 (0.9-2); Albumin Level 4.2 gm/dl (3.4-5.0); Alkaline Phosphatase 90.0 U/L (34-104); Anion Gap 14.0 (3-11); Bilirubin,Total 0.7 mg/dl (0.2-1.0); Blood Urea Nitrogen 20.0 mg/dl (6-23); Calcium 9.1 mg/dl (8.6-10.3); Carbon Dioxide 21.0 mmol/L (21-32); Chloride 97.0 mmol/L (98-107); Creatinine Clr Calc Pharmacy 59.3 ml/min; Globulin 3.3 gm/dl (2.5-4.0); Glucose 322.0 mg/dl (70-99(Fasting)); Lipase 32.0 U/L (11-82); Potassium 4.4 mmol/L (3.5-5.1); Sodium 132.0 mmol/L (136-145); Total Protein 7.5 gm/dl (6.0-8.3)
[2025-06-18] MEDS: OPTIRAY 320 100ml IV ONE (16:15)
[2025-06-18] MEDS: NovoLIN-R INSULIN PER UNIT CHARGE IV STA (16:32)
[2025-06-18] MEDS: ACETAMINOPHEN 1,000 MG/100 ML VIAL IV STA (16:38)
--- NOTE | 2025-06-18 16:57 | CT Scan Report ---
CT CHEST WITH CONTRAST: HISTORY: TECHNIQUE: CT of the chest was obtained with intravenous contrast. Coronal and sagittal reformats were created. IV CONTRAST: 100 mL of OMNIPAQUE 300 COMPARISON: FINDINGS: LOWER NECK: Normal thyroid. LYMPH NODES: A few small nonenlarged lymph nodes in the mediastinum. No lymphadenopathy by size criteria. CARDIOVASCULAR: Cardiac size is mildly enlarged. Mild coronary artery calcifications are noted. No aortic aneurysm. LUNGS: The trachea and central bronchi are widely patent. No focal confluent infiltrates are seen. Chronic interstitial lung changes. There is a 3 mm ground glass nodular density in the right upper lobe of the lung (series 2, image 29). PLEURA: There are no pleural effusions. There is no pneumothorax. UPPER ABDOMEN: No acute findings. OSSEOUS STRUCTURES: No acute findings IMPRESSION: Mild cardiac enlargement with mild coronary calcifications. No acute aortic process or central pulmonary embolism is identified. 3 mm ground glass nodular density in the right upper lobe of the lung is nonspecific and may be infectious/inflammatory or possibly neoplastic. Recommend a follow-up thoracic CT evaluation in 3 months for reassessment. Electronically signed by Dmitriy Ace 06-18-2025 4:57 PM
--- NOTE | 2025-06-18 16:57 | CT Scan Report ---
CT ABDOMEN and PELVIS with INTRAVENOUS CONTRAST HISTORY: Abdominal pain TECHNIQUE: CT abdomen and pelvis with contrast. IV CONTRAST: 100 mL of OMNIPAQUE 300 ENTERIC CONTRAST: Not Given COMPARISON: FINDINGS: LIVER: No focal lesion identified. Hepatic steatosis GALLBLADDER/BILIARY: Unremarkable gallbladder. No abnormal biliary dilatation. SPLEEN: Unremarkable. PANCREAS: Unremarkable. ADRENALS: Unremarkable. KIDNEYS: Unremarkable. No stones or hydronephrosis identified. PERITONEUM/RETROPERITONEUM. No lymphadenopathy by size criteria. No aortic aneurysm. GASTROINTESTINAL: No obstruction. Multiple loops of small bowel demonstrating mild inflammatory changes with wall thickening. There appears to be a small outpouching arising from a jejunal loop in the left hemiabdomen (series 3, image 33) measuring approximate 2.0 cm. REPRODUCTIVE: Enlarged nodular prostate gland with calcifications URINARY BLADDER: Inflammatory changes with wall thickening BONES: No acute findings. IMPRESSION: Findings suggesting mild enteritis. Suggestion of a 2.0 cm outpouching arising from a loop of jejunum in the left hemiabdomen that may represent a small bowel diverticulum. No urolithiasis, hydronephrosis or hydroureter. Inflammatory changes of the urinary bladder may be due to cystitis Enlarged nodular prostate gland with calcifications Electronically signed by Dmitriy Ace 06-18-2025 4:57 PM
--- NOTE | 2025-06-18 18:45 | History & Physical Report ---
Date of Service June 18, 2025 Assessment & Plan (1) Orthostatic hypotension: (2) Has no electricity in home: (3) Fall: (4) Right foot pain: (5) Back pain: (6) Poorly controlled diabetes mellitus: (7) Stroke: (8) Hx of carotid stenosis: (9) Pulmonary nodule, right: (10) Nodular prostate: (11) Chronic narcotic dependence: (12) Polycythemia: Plan 65yo male with long-standing T2DM diagnosed ~2000, prior stroke 2018, carotid stenosis s/p CEA on left in 2019, lumbar back surgery, chronic narcotic dependence, medical THC use, and prior heavy tobacco dependence presents with multiple complaints including lack of electricity in his home since 03/2025, recent fall getting out of a shower several days ago with contusion to multiple areas of right side of body, and orthostasis/dehydration. #orthostasis - -at minimum is due to volume contraction in the setting of very poor PO intake over the last several weeks -he could have neurogenic orthostasis from long-standing poorly controlled DM leading to autonomic neuropathy -s/p fluid boluses in the ER -will continue IV fluids with NS -repeat orthostatic BPs in am #lack of electricity - -patient admits he is behind on paying his bills which led to his electricity being turned off -will ask social work tomorrow to look into this -he simply cannot return home as it is quite unsafe given we are approaching winter, he needs refrigeration for his unused insulins, cannot keep food fresh, etc. #? chest pain - -he did not report pain to me, but mentioned such to the ER attending? -he does have Q waves inferiorly on EKG, and there are coronary calcifications on CT chest -at minimum will perform echo -he should be on asa 81mg daily given his CAD risk factors, prior stroke, etc. -resume lipitor 40mg daily (uncertain if he has been taking it or not at home) -CPK is wnl #recent fall - -this was an accidental event; was not precipitated by dizziness or other symptoms -contused the right side of his body -I do not see any discrete bony injuries from such -did obtain L-spine x-rays as his "tailbone" has been painful since the fall -imaging w/o fractures -did obtain R foot x-rays given his pain - also negative for fractures -cont chronic pain meds prn #polycythemia - -at minimum is due to volume contraction -hydrate with saline overnight, then repeat CBC in am #uncontrolled T2DM - -check a1c while here -BSGs ac/hs -DM diet -lantus - start 10 units BID -novolog - correction factor 45; carb ratio 1:15 #h/o B12 def - -level years ago was <200 -repeat a level in am tomorrow #chronic narcotic dependence - -verified with the PDMP that the current oxycodone dosing is indeed correct #nodular prostate as seen on CT - -this should be worked up by urology as outpatient #? cystitis on CT a/p - -check u/a #recent vomiting/diarrhea - -viral gastroenteritis? -vomiting has stopped -if diarrhea recurs then obtain stool [employer], etc #mental health/anxiety/etc - -cont all home meds #DVT proph - -add lovenox 40mg daily will obtain PT/OT evals during the stay History of Present Illness Chief Complaint: recent fall, right-sided arm/leg pain, dizziness Primary Care Provider: Keesha Queen MD 65yo male with long-standing T2DM diagnosed ~2000, prior stroke 2019, carotid stenosis s/p CEA on left in 2019, lumbar back surgery, chronic narcotic dependence, medical THC use, and prior heavy tobacco dependence presents with multiple complaints. First, he has been without electricity at his home in [place] since March. Due to the lack of electricity his eating habits have been quite poor forcing him to order out food frequently. He has not been taking his insulins due to lack of ability to store them properly as a result of the electricity issue. In addition, he has not been checking his blood sugars as his glucometer is not working. He has been fortunate on some days to stay at a friend's house. However, he reports that his friends are currently out of town. Second, he had a fall early last week while showering at a friend's house. As he was getting out of the tub he missed a step and fell to the right side striking his right arm, right shoulder, and falling on both knees. He did not hit his head. Denies any headaches or neck pain since the fall. He was not dizzy nor did he lose consciousness. This was the only fall of late. Third, he had vomiting recently followed by diarrhea. The diarrhea has been present for a few weeks. Vomiting has stopped. Apparently he reported to the ER attending that he has been having episodes of chest pain but he denied such during my interview. Denies any dyspnea. While in the ER orthostatic BPs were checked and his standing BP dropped into the 80s. Following the discovery of the orthostasis he was referred for admission. Allergies Allergy/AdvReac Type Severity Reaction Status Date / Time dulaglutide [From [facility]] AdvReac Nausea Verified 10/17/24 09:51 Home Medications Medication Instructions Recorded Confirmed Type pen needle, diabetic 32 gauge x #100 ea 05/09/22 04/05/24 Rx 5/32" blood sugar diagnostic (OneTouch #100 ea 09/16/22 04/05/24 Rx Ultra Test strips) blood-glucose meter #1 ea 04/03/23 04/05/24 Rx lancets 33 gauge #100 ea 09/03/23 04/05/24 Rx Med Marijuana 1 dose inhalation UD PRN 11/12/23 06/18/25 History pain/anxiety oxymetazoline 0.05 % nasal spray 2 spray intranasal Q12H PRN 02/20/24 06/18/25 History (Afrin (oxymetazoline)) Congestion bupropion HCl 150 mg 24 hr tablet, 150 mg PO QAM #30 tabs 04/05/25 06/18/25 Rx extended release (Wellbutrin XL) escitalopram oxalate 20 mg tablet 20 mg PO DAILY #90 tabs 04/25/25 06/18/25 Rx (Lexapro) oxycodone 20 mg tablet 20 mg PO Q8H PRN pain 30 days #90 06/08/25 06/18/25 Rx tabs metformin 1,000 mg tablet 1,000 mg PO BID #180 tabs 06/13/25 06/18/25 Rx atorvastatin 40 mg tablet 0 mg PO HS 06/18/25 06/18/25 History empagliflozin 25 mg tablet 0 mg PO QAM 06/18/25 06/18/25 History (Jardiance) insulin NPH-regular 70-30 U-100 0 unit subcut BID 06/18/25 06/18/25 History insulin 100 unit/mL subcutaneous pen (Novolin 70-30 FlexPen U-100 Insulin) insulin glargine 100 unit/mL (3 0 unit subcut HS 06/18/25 06/18/25 History mL) subcutaneous pen (Lantus Solostar U-100 Insulin) Past Med/Surg History Problem List (Updated 06/19/25 @ 06:25 by Dave Jaimes MD) Polycythemia Chronic narcotic dependence Nodular prostate Pulmonary nodule, right Back pain Right foot pain Has no electricity in home Dizziness (Acute) Orthostatic hypotension (Acute) Chest pain (Acute) Right sided abdominal pain (Acute) Fall (Acute) Hyperglycemia (Acute) Nausea & vomiting (Acute) Hyperglycemia (Acute) Depression 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 Abnormal EKG (Acute) Anxiety (Acute) Lumbar disc herniation with radiculopathy Vitamin B12 deficiency Medical History (Updated 06/19/25 @ 06:25 by Dave Jaimes MD) Sleep apnea Per records Esophageal reflux Lumbar disc disease Anxiety Plantar fasciitis Hiatal hernia Hx of migraines TIA (transient ischemic attack) ~2016 Osteoarthritis Dyslipidemia Degenerative disc disease, lumbar Chronic back pain Hx of carotid stenosis s/p Left CEA (2018) Carotid duplex 03/2022: <50% SEEMA stenosis, <30% LICA restenosis s/p endarterectomy Stroke 02/2019, no residual effects Had subsequent Left CEA Surgical History (Updated 06/19/25 @ 06:13 by Dave Jaimes MD) S/P lumbar laminectomy Hx of colonoscopy Hx of hemorrhoidectomy Hx of nasal septoplasty Hx of appendectomy History of left-sided carotid endarterectomy 2018, [facility] Family History (Updated 06/18/25 @ 20:21 by Dave Jaimes MD) Father , ~age 80 Parkinson's disease Other Past medical history not known due to adoption Social History (Updated 06/18/25 @ 20:22 by Dave Jaiems MD) Smoking Status: Never smoker Tobacco Type: Cigarettes Age Started Using Tobacco: 14; Age Quit Using Tobacco: 56; packs per day: 1; Smoking End Date: 2017; Second Hand Exposure: No; Do You Dip or Chew Tobacco: No; Hx Alcohol Use: No Hx Substance Use: Yes Non-Prescribed Medications: Marijuana Last Used Substance: Just Prior to Arrival Last Used Substance Other:: 02/18 Substance Use Type Other:: Medical THC; chronic oxycodone Preferred Language: Romanian Communication Ability: Effective Community Services Coordinator Required: No Beliefs That Will Affect Care: None marital status: Single Current Living Situation: Alone Current Living Situation Comment: son visits 3 times a week Feels Safe at Home: Yes Safety Concerns: Feels Safe At This Time Childhood Exposure to Second-Hand Smoke: No Diet: regular Physical Activity Frequency: Does not Exercise Seatbelt Use: sometimes Sunscreen Use: No Assistive Devices: None Review of Systems Review of Systems: gen - no fevers or chills; no significant weight changes; poor PO intake due to lack of electricity, etc. eyes - no changes in vision the last few days HENT - no URI symptoms, no dysphagia CV - he denied chest pain (although told the ER attending he was having pain recently??); no edema; no palpitations pulm - no cough, no dyspnea GI - recent vomiting along with diarrhea but no abd pain; no nausea - no dysuria, no hematuria musculo - right shoulder, right arm, right leg pain along with low back pain s/p fall; +right foot pain (5th toe) neuro - no headache, left hand numbness (started in ER) endo - has not checked his BSGs in months, has not taken insulin in several months skin - no rash psych - alludes to depressive type symptoms and apathy Physical Exam Physical Exam: gen - NAD, lying comfortably in bed, awake/alert head - no signs of trauma eyes - PERRL, EOMI HENT - mouth with dry MM, no lesions, no thrush neck - supple, nontender to palpation of c-spine elements, nontender with passive ROM; no JVD, no lymph nodes, no goiter heart - RRR, s1 s2, no murmur lungs - CTA b/l abd - soft NT ND BS+ ext - no edema, pulses of feet 2+ b/l skin - scattered bruises on right arm, both legs musculo - right shoulder without trauma, full ROM without tenderness; b/l arms without deformities; b/l hands without deformities; b/l hips with full ROM; b/l knees with full ROM; right foot - mild tenderness 5th toe but no gross deformity neuro - strength 5/5 x 4 exts; patellar reflexes modestly brisk b/l; no facial droop Results & Data Results & Data Vital Signs (Past 12 Hours) Vital Signs Temp Pulse Pulse Resp BP BP Pulse Ox 06/18/25 17:03 67 18 120/73 100 06/18/25 16:22 70 06/18/25 15:42 73 14 93/71 L 98 06/18/25 15:36 86 16 93/71 L 99 06/18/25 15:21 91 H 19 87/69 L 100 06/18/25 15:16 82 18 106/65 100 06/18/25 15:16 36.5 C 83 18 106/65 100 06/18/25 15:15 83 18 106/65 100 O2 Del Method 06/18/25 17:03 Room Air 06/18/25 16:22 06/18/25 15:42 06/18/25 15:36 Room Air 06/18/25 15:21 Room Air 06/18/25 15:16 Room Air 06/18/25 15:16 Room Air 06/18/25 15:15 Room Air Laboratory Results Laboratory Results - last 24 hr 06/18/25 06/18/25 06/18/25 15:12 15:13 17:10 WBC 9.59 RBC 6.07 Hgb 19.0 H Hct 54.0 H MCV 89.0 MCH 31.3 MCHC 35.2 RDW Std Deviation 43.1 RDW Coeff of Soo 13.3 Plt Count 258 MPV 9.1 L Immature Gran % (Auto) 0.7 Neut % (Auto) 56.2 Lymph % (Auto) 29.7 [place] % (Auto) 7.2 Eos % (Auto) 4.9 Baso % (Auto) 1.3 Neut # (Auto) 5.39 Lymph # (Auto) 2.85 [place] # (Auto) 0.69 H Eos # (Auto) 0.47 Baso # (Auto) 0.12 Immature Gran # (Auto) 0.07 Sodium 132 L Potassium 4.4 Chloride 97 L Carbon Dioxide 21 Anion Gap 14 H BUN 20 Creatinine 1.30 Est Cr Clr Drug Dosing 59.3 eGFR 61.35 BUN/Creatinine Ratio 15.4 Glucose 322 H* POC Glucose 329 H* 169 H Estimat Average Glucose Pending Hemoglobin A1c Pending Calcium 9.1 Total Bilirubin 0.7 AST 13 ALT 10 Alkaline Phosphatase 90 Total Creatine Kinase Pending Troponin I High Sens 7.7 C-Reactive Protein Pending Total Protein 7.5 Albumin 4.2 Globulin 3.3 Albumin/Globulin Ratio 1.3 Lipase 32 TSH Pending Diagnostic Findings Chest X-Ray 06/18/25 15:08 Exam: AP Portable Chest Exam reason: Nonspecific chest pain. Comparison: 02/20/2024. Technique: A single AP portable view of the chest was obtained Findings: The lungs are well-expanded. No focal areas of consolidation are identified. The cardiac and mediastinal silhouettes are within normal limits. There is no pneumothorax and no acute bony abnormalities are seen. Impression: No acute cardiopulmonary abnormalities Electronically signed by Jesus Rosen 06-18-2025 3:43 PM Abdomen/Pelvis CT 06/18/25 16:02 CT ABDOMEN and PELVIS with INTRAVENOUS CONTRAST HISTORY: Abdominal pain TECHNIQUE: CT abdomen and pelvis with contrast. IV CONTRAST: 100 mL of OMNIPAQUE 300 ENTERIC CONTRAST: Not Given COMPARISON: FINDINGS: LIVER: No focal lesion identified. Hepatic steatosis GALLBLADDER/BILIARY: Unremarkable gallbladder. No abnormal biliary dilatation. SPLEEN: Unremarkable. PANCREAS: Unremarkable. ADRENALS: Unremarkable. KIDNEYS: Unremarkable. No stones or hydronephrosis identified. PERITONEUM/RETROPERITONEUM. No lymphadenopathy by size criteria. No aortic aneurysm. GASTROINTESTINAL: No obstruction. Multiple loops of small bowel demonstrating mild inflammatory changes with wall thickening. There appears to be a small outpouching arising from a jejunal loop in the left hemiabdomen (series 3, image 33) measuring approximate 2.0 cm. REPRODUCTIVE: Enlarged nodular prostate gland with calcifications URINARY BLADDER: Inflammatory changes with wall thickening BONES: No acute findings. IMPRESSION: Findings suggesting mild enteritis. Suggestion of a 2.0 cm outpouching arising from a loop of jejunum in the left hemiabdomen that may represent a small bowel diverticulum. No urolithiasis, hydronephrosis or hydroureter. Inflammatory changes of the urinary bladder may be due to cystitis Enlarged nodular prostate gland with calcifications Electronically signed by Dmitriy Ace 06-18-2025 4:[address] 06/18/25 16:02 CT CHEST WITH CONTRAST: HISTORY: TECHNIQUE: CT of the chest was obtained with intravenous contrast. Coronal and sagittal reformats were created. IV CONTRAST: 100 mL of OMNIPAQUE 300 COMPARISON: FINDINGS: LOWER NECK: Normal thyroid. LYMPH NODES: A few small nonenlarged lymph nodes in the mediastinum. No lymphadenopathy by size criteria. CARDIOVASCULAR: Cardiac size is mildly enlarged. Mild coronary artery calcifications are noted. No aortic aneurysm. LUNGS: The trachea and central bronchi are widely patent. No focal confluent infiltrates are seen. Chronic interstitial lung changes. There is a 3 mm ground glass nodular density in the right upper lobe of the lung (series 2, image 29). PLEURA: There are no pleural effusions. There is no pneumothorax. UPPER ABDOMEN: No acute findings. OSSEOUS STRUCTURES: No acute findings IMPRESSION: Mild cardiac enlargement with mild coronary calcifications. No acute aortic process or central pulmonary embolism is identified. 3 mm ground glass nodular density in the right upper lobe of the lung is nonspecific and may be infectious/inflammatory or possibly neoplastic. Recommend a follow-up thoracic CT evaluation in 3 months for reassessment. Electronically signed by Dmitriy Ace 06-18-2025 4:57 PM Foot X-Ray 06/18/25 19:25 Exam(s): XR RIGHT FOOT, 2 views EXAM: XR Right Foot, 2 Views CLINICAL HISTORY: recent fall, 5th toe pain. TECHNIQUE: Frontal and lateral views of the right foot. COMPARISON: No relevant prior studies available. FINDINGS: Bones/joints: No acute osseous abnormality. Mild polyarticular degenerative changes. Large plantar calcaneal spur. No dislocation. Soft tissues: Normal. No radiopaque foreign body. IMPRESSION: No acute findings involving the right foot. Electronically signed by: Josiah Peñaloza MD 06/18/25 22:59 PM Lumbar Spine X-Ray 06/18/25 19:25 Exam(s): XR L SPINE, 2-3 views EXAM: XR Lumbosacral Spine, 2 or 3 Views CLINICAL HISTORY: recent fall, l-spine pain. TECHNIQUE: Frontal and lateral views of the lumbar spine and sacrum. COMPARISON: No relevant prior studies available. FINDINGS: Vertebrae: The lumbar vertebral bodies are intact. No compression fracture. No significant acute traumatic abnormal alignment. Incidental chronic mild disc spondylosis in more prominent facet hypertrophic changes, most notable inferiorly. Sacrum/coccyx: Unremarkable as visualized. No acute fracture. Disc spaces: No acute findings. No significant narrowing. Soft tissues: Normal. IMPRESSION: No acute findings involving the lumbar spine. Electronically signed by: Josiah Peñaloza MD 06/18/25 22:59 PM ECG Additional Comments: EKG - my reading - NSR, left axis deviation, Q waves inferior leads, no acute ST changes Code Status & VTE Plan Code Status full code PG Care Time/CCT Total # of Minutes Spent Total Time Spent with Patient: Total time spent is greater than 50% in coordination of care (as documented) at patient's floor/unit and/or counseling patient: Coding Level of Care Code 42811 INT INP/OBS CARE 3/75MIN Diagnoses Orthostatic hypotension I95.1 Has no electricity in home Z59.12 Fall W19.XXXA Right foot pain M79.671 Back pain M54.9 Poorly controlled diabetes mellitus E11.65 Stroke I63.9 Hx of carotid stenosis Z86.79 Pulmonary nodule, right R91.1 Nodular prostate N40.2 Chronic narcotic dependence F11.20 Polycythemia D75.1
[2025-06-18] MEDS: SODIUM CHLORIDE 0.9% 1,000 ML IV SCH (19:36)
--- NOTE | 2025-06-18 20:20 | Electrocardiogram Report ---
Test Reason : Blood Pressure : */* mmHG Vent. Rate : 78 BPM Atrial Rate : 78 BPM P-R Int : 164 ms QRS Dur : 72 ms QT Int : 374 ms P-R-T Axes : 52 -68 37 degrees QTcB Int : 426 ms Normal sinus rhythm Left axis deviation Inferior infarct (cited on or before 20-Feb-2024) Possible Anterior infarct , age undetermined Abnormal ECG When compared with ECG of 07-Jun-2025 12:35, No significant change was found Confirmed by Vanda Leon ([id number]) on 06/18/2025 8:19:45 PM Referred By: Confirmed By: Vanda Leon
[2025-06-18] MEDS ORDERED: ONDANSETRON INJ 2 MG/ML 2 ML VIAL IV PRN (20:38)
[2025-06-18] MEDS ORDERED: ACETAMINOPHEN 325 MG TAB PO PRN (20:38)
[2025-06-18] MEDS: MELATONIN 3 MG TAB PO PRN (21:18)
[2025-06-18] MEDS: LANTUS PER UNIT CHARGE SQ SCH (21:18)
[2025-06-18] MEDS: INSULIN ASPART PER UNIT CHARGE SC SCH (21:19)
[2025-06-18 22:12] LABS: Creatine Kinase 25.0 U/L (30-223)
[2025-06-18 22:46] LABS: Thyroid Stimulating Hormone 3.452 uIu/ml (0.300-4.500)
--- NOTE | 2025-06-18 22:59 | XRay Report ---
Exam(s): XR RIGHT FOOT, 2 views EXAM: XR Right Foot, 2 Views CLINICAL HISTORY: recent fall, 5th toe pain. TECHNIQUE: Frontal and lateral views of the right foot. COMPARISON: No relevant prior studies available. FINDINGS: Bones/joints: No acute osseous abnormality. Mild polyarticular degenerative changes. Large plantar calcaneal spur. No dislocation. Soft tissues: Normal. No radiopaque foreign body. IMPRESSION: No acute findings involving the right foot. Electronically signed by: Josiah Peñaloza MD 06/18/25 22:59 PM
--- NOTE | 2025-06-18 23:00 | XRay Report ---
Exam(s): XR L SPINE, 2-3 views EXAM: XR Lumbosacral Spine, 2 or 3 Views CLINICAL HISTORY: recent fall, l-spine pain. TECHNIQUE: Frontal and lateral views of the lumbar spine and sacrum. COMPARISON: No relevant prior studies available. FINDINGS: Vertebrae: The lumbar vertebral bodies are intact. No compression fracture. No significant acute traumatic abnormal alignment. Incidental chronic mild disc spondylosis in more prominent facet hypertrophic changes, most notable inferiorly. Sacrum/coccyx: Unremarkable as visualized. No acute fracture. Disc spaces: No acute findings. No significant narrowing. Soft tissues: Normal. IMPRESSION: No acute findings involving the lumbar spine. Electronically signed by: Josiah Peñaloza MD 06/18/25 22:59 PM
[2025-06-19 07:22] LABS: Hematocrit (blood only) 41.8 % (42.0-52.0); Hemoglobin 14.4 g/dL (14.0-18.0); Mean Corpuscular Hemoglobin 31.0 pg (25.0-34.0); Mean Corpuscular Volume 89.9 fL (80.0-100.0); Platelet Count 181 K/uL (130-400); RDW Standard Deviation 43.7 fL (36.4-46.3); Red Blood Count 4.65 M/uL (4.70-6.10); White Blood Count 6.81 K/ul (4.8-10.8)
[2025-06-19 07:23] LABS: Anion Gap 6.0 (3-11); Blood Urea Nitrogen 19.0 mg/dl (6-23); Calcium 7.9 mg/dl (8.6-10.3); Carbon Dioxide 25.0 mmol/L (21-32); Chloride 106.0 mmol/L (98-107); Creatinine Clr Calc Pharmacy 71.3 ml/min; Glucose 120.0 mg/dl (70-99(Fasting)); Potassium 3.8 mmol/L (3.5-5.1); Sodium 137.0 mmol/L (136-145)
[2025-06-19 07:40] LABS: Hemoglobin A1C 11.3 % (4.5-5.6)
[2025-06-19] MEDS: ESCITALOPRAM OXALATE 20 MG TAB PO SCH (08:34)
[2025-06-19] MEDS: ENOXAPARIN INJ 40 MG/0.4 ML SYR SQ SCH (08:34)
[2025-06-19] MEDS: ATORVASTATIN 40 MG TAB PO SCH (08:35)
[2025-06-19] MEDS: ASPIRIN 81 MG ECTAB PO SCH (08:35)
[2025-06-19 09:08] LABS: Folate (Folic Acid),Ser orPlas 15.69 ng/ml (>5.38); Vitamin B12 87.0 pg/ml (180-914)
--- NOTE | 2025-06-19 11:04 | XCELERA ---
[id number]
[2025-06-19] MEDS: CYANOCOBALAMIN 1000 MCG/ML VIAL IM SCH (13:22)
--- NOTE | 2025-06-19 16:02 | Hospitalist Progress Note ---
Date of Service June 19, 2025 Assessment & Plan (1) Orthostatic hypotension: (2) Has no electricity in home: (3) Fall: (4) Right foot pain: (5) Back pain: (6) Poorly controlled diabetes mellitus: (7) Stroke: (8) Hx of carotid stenosis: (9) Pulmonary nodule, right: (10) Nodular prostate: (11) Chronic narcotic dependence: (12) Polycythemia: Plan 65yo male with long-standing T2DM diagnosed ~2000, prior stroke 2018, carotid stenosis s/p CEA on left in 2018, lumbar back surgery, chronic narcotic dependence, medical THC use, and prior heavy tobacco dependence presents with multiple complaints including lack of electricity in his home since 03/2025, recent fall getting out of a shower several days ago with contusion to multiple areas of right side of body, and orthostasis/dehydration. #orthostasis -at minimum is due to volume contraction in the setting of very poor PO intake over the last several weeks. Recieved 2L IVF in ED and two additional liters matience -he could have neurogenic orthostasis from long-standing poorly controlled DM leading to autonomic neuropathy - recheck orthostatics #lack of electricity - patient admits he is behind on paying his bills which led to his electricity being turned off Patient knows the steps to take to have this turned on again and plans to do this after discharge from the hospital #? chest pain - -he did not report pain on admission, but mentioned such to the ER attending. No further CP reported. Echo with mild LVH and EF 55-60. Continue ASA and statin #recent fall -this was an accidental event; was not precipitated by dizziness or other symptoms. L-spine x-rays and right foot xray without fracture. -cont chronic pain meds prn PT/OT have cleared for home #uncontrolled T2DM - A1c 11.3 which is imporved from prior Tighten SSI CF 25 and CR 10 lantus - start 10 units BID Likely needs new insulin rx at discharge #B12 def - B12 level 87 - IM replacement while inpatient and convert to PO on discharge #chronic narcotic dependence - -verified with the PDMP that the current oxycodone dosing is indeed correct #nodular prostate as seen on CT - -this should be worked up by urology as outpatient #mental health/anxiety/etc - -cont all home meds #DVT proph - lovenox 40mg daily Dipso: continued inpatient stay, stable for downgrade to medical, likely discharge tomorrow Admission and Anticipated Discharge Date Admission Date: June 18, 2025 Supervising Physician Co-Signing Physician Notes Attending Attestation - Chart reviewed, care plan d/w LIAT Whittaker. I agree w/ the dickson components of her documentation. Dave Jaimes MD Subjective patient seen resting in bed this morning - no acute complaints states beyond his electric he came to the hospital because his sugars were so high - but has not been taking his insulin tele - SR 60-70s Review of Systems Review of Systems: All systems reviewed & are unremarkable except as noted in Subjective Physical Exam Physical Exam: General: NAD, VS as above Resp: normal respiratory effort, lungs clear to auscultation CV: RRR, no murmur, Abd: normal bowel sounds, non tender, soft Extremities: Moves all extremities, no edema Neuro: A&O x3, Skin: intact, no lesions noted Results & Data Results & Data Vital Signs (Past 12 Hours) Vital Signs Temp Pulse Pulse Resp BP Pulse Ox O2 Del Method 06/19/25 15:47 98.0 F 68 18 131/82 95 Room Air 06/19/25 11:25 97.7 F 66 112/63 95 Room Air 06/19/25 07:31 97.7 F 65 105/68 96 Room Air 06/19/25 07:27 65 Laboratory Results cbc and chemistry reviewed Vit B12 and folate reviewed PG Care Time/CCT Total # of Minutes Spent Total Time Spent with Patient: Total time spent is greater than 50% in coordination of care (as documented) at patient's floor/unit and/or counseling patient: Coding Level of Care Code 17279 SUB INP/OBS CARE 3/50MIN Diagnoses Orthostatic hypotension I95.1 Has no electricity in home Z59.12 Fall W19.XXXA Right foot pain M79.671 Back pain M54.9 Poorly controlled diabetes mellitus E11.65 Stroke I63.9 Hx of carotid stenosis Z86.79 Pulmonary nodule, right R91.1 Nodular prostate N40.2 Chronic narcotic dependence F11.20 Polycythemia D75.1
[2025-06-19 22:35] LABS: Appearance Urine Clear (Clear); Glucose Urine UA 2+ (Negative)
[2025-06-20 07:08] LABS: Anion Gap 6.0 (3-11); Blood Urea Nitrogen 14.0 mg/dl (6-23); Calcium 8.6 mg/dl (8.6-10.3); Carbon Dioxide 28.0 mmol/L (21-32); Chloride 104.0 mmol/L (98-107); Creatinine Clr Calc Pharmacy 75.5 ml/min; Glucose 163.0 mg/dl (70-99(Fasting)); Potassium 4.4 mmol/L (3.5-5.1); Sodium 138.0 mmol/L (136-145)
[2025-06-20 07:50] VITALS: BP 97/59; RESP 18; TEMP 97.7; O2SAT 97
--- NOTE | 2025-06-20 09:53 | Discharge Summary ---
Discharge Summary Date of Service June 20, 2025 Principal Dx & Hospital Course #1 = Principal Diagnosis (1) Orthostatic hypotension: (2) Has no electricity in home: (3) Fall: (4) Right foot pain: (5) Back pain: (6) Poorly controlled diabetes mellitus: (7) Stroke: (8) Hx of carotid stenosis: (9) Pulmonary nodule, right: (10) Nodular prostate: (11) Chronic narcotic dependence: (12) Polycythemia: Plan 65yo male with long-standing T2DM diagnosed ~2000, prior stroke 2018, carotid stenosis s/p CEA on left in 2018, lumbar back surgery, chronic narcotic dependence, medical THC use, and prior heavy tobacco dependence presents with multiple complaints including lack of electricity in his home since 03/2025, recent fall getting out of a shower several days ago with contusion to multiple areas of right side of body, orthostasis/dehydration and not being able to take his insulin at home. #orthostasis -at minimum is due to volume contraction in the setting of very poor PO intake over the last several weeks. Recieved 2L IVF in ED and two additional liters mataintence. Orthostatics improved with IVFs. #lack of electricity - patient admits he is behind on paying his bills which led to his electricity being turned off. Patient knows the steps to take to have this turned on again and plans to do this after discharge from the hospital. Cooler provided to keep insulin cold while working to get power back. #chest pain - -he did not report pain on admission, but mentioned such to the ER attending. No further CP reported. Echo with mild LVH and EF 55-60. Continue ASA and statin #recent fall -this was an accidental event; was not precipitated by dizziness or other symptoms. L-spine x-rays and right foot xray without fracture. cont chronic pain meds prn. PT/OT have cleared for home #uncontrolled T2DM - A1c 11.3 which is improved from prior. New rx for insulin sent and increased lantus to 30units daily. Continue metformin. PCP follow up #B12 def - B12 level 87 - IM replacement while inpatient and converted to PO on discharge. Metformin may be contributing. #nodular prostate as seen on CT - -this should be worked up by urology as outpatient #mental health/anxiety/etc - -cont all home meds Dipso: discharge to home today Notes For Next Care Provider pt said only med he was out of was insulin (sent insulin and supplies)- but based on pharmacy fills unsure what he is actually taking at home. Would benefit from a med management visit Needs nodular prostate worked up Medication Changes From Visit insulin increased B12 daily baby aspirin added Admission HPI Per Admitting Provider 65yo male with long-standing T2DM diagnosed ~2000, prior stroke 2018, carotid stenosis s/p CEA on left in 2019, lumbar back surgery, chronic narcotic dependence, medical THC use, and prior heavy tobacco dependence presents with multiple complaints. First, he has been without electricity at his home in [place] since March. Due to the lack of electricity his eating habits have been quite poor forcing him to order out food frequently. He has not been taking his insulins due to lack of ability to store them properly as a result of the electricity issue. In addition, he has not been checking his blood sugars as his glucometer is not working. He has been fortunate on some days to stay at a friend's house. However, he reports that his friends are currently out of town. Second, he had a fall early last week while showering at a friend's house. As he was getting out of the tub he missed a step and fell to the right side striking his right arm, right shoulder, and falling on both knees. He did not hit his head. Denies any headaches or neck pain since the fall. He was not dizzy nor did he lose consciousness. This was the only fall of late. Third, he had vomiting recently followed by diarrhea. The diarrhea has been present for a few weeks. Vomiting has stopped. Apparently he reported to the ER attending that he has been having episodes of chest pain but he denied such during my interview. Denies any dyspnea. While in the ER orthostatic BPs were checked and his standing BP dropped into the 80s. Following the discovery of the orthostasis he was referred for admission. Discharge Exam General: NAD, VS as above Resp: normal respiratory effort, lungs clear to auscultation CV: RRR, no murmur, Abd: normal bowel sounds, non tender, soft Extremities: Moves all extremities, no edema Neuro: A&O x3, Skin: intact, no lesions noted Discharge Plan Discharge Items Patient Disposition: Home - Self-Care Reason For Visit: FALL, ORTHOSTATIC HYPOTENSION, UNCONTROLLED T2DM Discharge Diagnosis: Dehydration, uncontrolled DM Condition on Discharge: Fair Activity: Resume your previous activity Weightbearing: Full weightbearing Non-emergency contact: Primary Care Provider Call non-emergency contact if: you have any medication questions, your symptoms worsen and your temperature is above 101 Follow-up/Referrals: Keesha Queen MD [Primary Care Provider] - (Please call your primary care provider to schedule a hospital follow-up appointment within 7-10 days) Diet: Carb Consistent or DM2 Addtl Attending Provider Instructions: Mr. Cobos, You were hospitalized after a fall and feeling not well at home. You were found to be dehydrated and having elevated blood sugars. Likely a consequence of not taking your insulin at home and having no electricity. You have been given the resource book of [facility] and have a plan in place to get your electricity turned back on. New prescriptions for insulin have been sent to your pharmacy, you were also started on a baby aspirin everyday. Your B12 level was low and you should take B12 supplementation everyday as well. A prescription has been sent for this. Activity: You can do normal everyday activities as your body allows. Take rest breaks if you feel tired. Do not overexert. Stop activity if you have pain, shortness of breath or feel dizzy. Follow-up appointments: Make an appointment with your primary care physician within one week of discha rge. A copy of this summary will be sent to them. Every time you see your primary care physician, or any other doctor, bring your medication list, and a list of questions. CONTACT YOUR PRIMARY CARE PROVIDER if you experience any of the following: Shortness of breath or difficulty breathing Fevers or chills Feeling tired with normal activity or experiencing dizziness or fainting Difficulty following your treatment plan, or difficulty taking medications CALL 911 OR GO TO THE EMERGENCY DEPARTMENT if you experience any of the follow ing: Severe abdominal pain or nausea/vomiting Severe chest pain, or chest pain that radiates (moves) to your jaw or arm Sudden, severe shortness of breath or difficulty breathing Thank you for allowing us to participate in your care. Pending Studies at Discharge: No Stand-Alone Forms: [facility], Smoking Cessation Medications and DC Order Prescriptions: New aspirin 81 mg Tablet,Delayed Release (Dr/Ec) 81 mg PO QAM Qty: 30 0RF cyanocobalamin (vitamin B-12) 1,000 mcg capsule 1,000 mcg PO DAILY Qty: 30 0RF Continued bupropion HCl [Wellbutrin XL] 150 mg tablet extended release 24 hr 150 mg PO QAM Qty: 30 2RF escitalopram oxalate [Lexapro] 20 mg tablet 20 mg PO DAILY Qty: 90 3RF oxycodone 20 mg tablet 20 mg PO Q8H PRN (Reason: pain) 30 Days Qty: 90 0RF metformin 1,000 mg tablet 1,000 mg PO BID Qty: 180 3RF Rx Instructions: NEEDS APPT FOR ADD'L REFILLS (DME) blood-glucose meter Kit See Rx Instructions .Route Qty: 1 0RF Rx Instructions: As directed Med Marijuana 1 dose inhalation UD PRN (Reason: pain/anxiety) Patient Comments: 06/18-unable to verify atorvastatin 40 mg tablet 0 mg PO HS Patient Comments: 06/18-last filled 01/10 90 day supply #90 insulin glargine [Lantus Solostar U-100 Insulin] 100 unit/mL (3 mL) insulin pen 30 unit subcut HS Qty: 15 1RF (DME) OneTouch Ultra Test Strip See Rx Instructions .Route Qty: 100 5RF Rx Instructions: As directed to test blood sugar 4 times per day (DME) pen needle, diabetic 32 gauge x " needle See Rx Instructions .Route Qty: 100 3RF Rx Instructions: As directed- use once daily (DME) lancets 33 gauge misc See Rx Instructions .Route Qty: 100 5RF Rx Instructions: As directed to check sugars 4 times daily Discontinued Novolin 70-30 FlexPen U-100 100 unit/mL (70-30) insulin pen 0 unit subcut BID MDD 80 Patient Comments: 06/18--last filled 12/12 75 day supply as 30u BID. Original: 20 u bid No Action midodrine 5 mg tablet 5 mg PO TID Qty: 90 0RF Rx Instructions: do not give last dose of day after 6PM or within 4 hrs of bedtime (DME) blood-glucose meter [OneTouch Ultra2 Meter] Misc See Rx Instructions .Route Qty: 1 0RF Rx Instructions: As directed diclofenac sodium [Voltaren Arthritis Pain] 1 % Gel 2 g EXT BID PRN (Reason: Arthritic joint pain) Qty: 50 0RF Rx Instructions: Apply 2 g to your joints twice daily as needed for arthritic pain Discharge Orders: Discharge Order (Routine); Ordered 06/20/25 Ordered By: Flower Whittaker Admission Data Admit Date/Time: 06/18/25 19:25 Attending Provider: Dave Jaimes Admit Provider: Dave Jaimes Primary Care Provider: Keesha Queen Other Providers: Dave Jaimes Other Interventions: Discharge Summary Assessment (RN) Last Done: 06/20/25 10:59 Hospital Stay Data Consultations 06/18/25 18:42 ED Decision to Admit Stat Diagnostic Imagining Performed Chest X-Ray 06/18/25 15:08 Exam: AP Portable Chest Exam reason: Nonspecific chest pain. Comparison: 02/20/2024. Technique: A single AP portable view of the chest was obtained Findings: The lungs are well-expanded. No focal areas of consolidation are identified. The cardiac and mediastinal silhouettes are within normal limits. There is no pneumothorax and no acute bony abnormalities are seen. Impression: No acute cardiopulmonary abnormalities Electronically signed by Jesus Rosen 06-18-2025 3:43 PM Abdomen/Pelvis CT 06/18/25 16:02 CT ABDOMEN and PELVIS with INTRAVENOUS CONTRAST HISTORY: Abdominal pain TECHNIQUE: CT abdomen and pelvis with contrast. IV CONTRAST: 100 mL of OMNIPAQUE 300 ENTERIC CONTRAST: Not Given COMPARISON: FINDINGS: LIVER: No focal lesion identified. Hepatic steatosis GALLBLADDER/BILIARY: Unremarkable gallbladder. No abnormal biliary dilatation. SPLEEN: Unremarkable. PANCREAS: Unremarkable. ADRENALS: Unremarkable. KIDNEYS: Unremarkable. No stones or hydronephrosis identified. PERITONEUM/RETROPERITONEUM. No lymphadenopathy by size criteria. No aortic aneurysm. GASTROINTESTINAL: No obstruction. Multiple loops of small bowel demonstrating mild inflammatory changes with wall thickening. There appears to be a small outpouching arising from a jejunal loop in the left hemiabdomen (series 3, image 33) measuring approximate 2.0 cm. REPRODUCTIVE: Enlarged nodular prostate gland with calcifications URINARY BLADDER: Inflammatory changes with wall thickening BONES: No acute findings. IMPRESSION: Findings suggesting mild enteritis. Suggestion of a 2.0 cm outpouching arising from a loop of jejunum in the left hemiabdomen that may represent a small bowel diverticulum. No urolithiasis, hydronephrosis or hydroureter. Inflammatory changes of the urinary bladder may be due to cystitis Enlarged nodular prostate gland with calcifications Electronically signed by Dmitriy Ace 06-18-2025 4:[address] 06/18/25 16:02 CT CHEST WITH CONTRAST: HISTORY: TECHNIQUE: CT of the chest was obtained with intravenous contrast. Coronal and sagittal reformats were created. IV CONTRAST: 100 mL of OMNIPAQUE 300 COMPARISON: FINDINGS: LOWER NECK: Normal thyroid. LYMPH NODES: A few small nonenlarged lymph nodes in the mediastinum. No lymphadenopathy by size criteria. CARDIOVASCULAR: Cardiac size is mildly enlarged. Mild coronary artery calcifications are noted. No aortic aneurysm. LUNGS: The trachea and central bronchi are widely patent. No focal confluent infiltrates are seen. Chronic interstitial lung changes. There is a 3 mm ground glass nodular density in the right upper lobe of the lung (series 2, image 29). PLEURA: There are no pleural effusions. There is no pneumothorax. UPPER ABDOMEN: No acute findings. OSSEOUS STRUCTURES: No acute findings IMPRESSION: Mild cardiac enlargement with mild coronary calcifications. No acute aortic process or central pulmonary embolism is identified. 3 mm ground glass nodular density in the right upper lobe of the lung is nonspecific and may be infectious/inflammatory or possibly neoplastic. Recommend a follow-up thoracic CT evaluation in 3 months for reassessment. Electronically signed by Dmitriy Ace 06-18-2025 4:57 PM Foot X-Ray 06/18/25 19:25 Exam(s): XR RIGHT FOOT, 2 views EXAM: XR Right Foot, 2 Views CLINICAL HISTORY: recent fall, 5th toe pain. TECHNIQUE: Frontal and lateral views of the right foot. COMPARISON: No relevant prior studies available. FINDINGS: Bones/joints: No acute osseous abnormality. Mild polyarticular degenerative changes. Large plantar calcaneal spur. No dislocation. Soft tissues: Normal. No radiopaque foreign body. IMPRESSION: No acute findings involving the right foot. Electronically signed by: Josiah Peñaloza MD 06/18/25 22:59 PM Lumbar Spine X-Ray 06/18/25 19:25 Exam(s): XR L SPINE, 2-3 views EXAM: XR Lumbosacral Spine, 2 or 3 Views CLINICAL HISTORY: recent fall, l-spine pain. TECHNIQUE: Frontal and lateral views of the lumbar spine and sacrum. COMPARISON: No relevant prior studies available. FINDINGS: Vertebrae: The lumbar vertebral bodies are intact. No compression fracture. No significant acute traumatic abnormal alignment. Incidental chronic mild disc spondylosis in more prominent facet hypertrophic changes, most notable inferiorly. Sacrum/coccyx: Unremarkable as visualized. No acute fracture. Disc spaces: No acute findings. No significant narrowing. Soft tissues: Normal. IMPRESSION: No acute findings involving the lumbar spine. Electronically signed by: Josiah Peñaloza MD 06/18/25 22:59 PM Pending Results Patient Have Any Pending Studies at Discharge: No Discharge Instructions Given to Patient (Per Discharging Provider) Mr. Cobos, Keagan were hospitalized after a fall and feeling not well at home. You were found to be dehydrated and having elevated blood sugars. Likely a consequence of not taking your insulin at home and having no electricity. You have been given the resource book of [facility] and have a plan in place to get your electricity turned back on. New prescriptions for insulin have been sent to your pharmacy, you were also started on a baby aspirin everyday. Your B12 level was low and you should take B12 supplementation everyday as well. A prescription has been sent for this. Activity: You can do normal everyday activities as your body allows. Take rest breaks if you feel tired. Do not overexert. Stop activity if you have pain, shortness of breath or feel dizzy. Follow-up appointments: Make an appointment with your primary care physician within one week of discharge. A copy of this summary will be sent to them. Every time you see your primary care physician, or any other doctor, bring your medication list, and a list of questions. CONTACT YOUR PRIMARY CARE PROVIDER if you experience any of the following: Shortness of breath or difficulty breathing Fevers or chills Feeling tired with normal activity or experiencing dizziness or fainting Difficulty following your treatment plan, or difficulty taking medications CALL 911 OR GO TO THE EMERGENCY DEPARTMENT if you experience any of the following: Severe abdominal pain or nausea/vomiting Severe chest pain, or chest pain that radiates (moves) to your jaw or arm Sudden, severe shortness of breath or difficulty breathing Thank you for allowing us to participate in your care. Supervising Physician Co-Signing Physician Notes Attending Attestation and Discharge Note: Chart reviewed, discharge care plan d/w LIAT Whittaker. I agree w/ the dickson components of her discharge documentation. Of note - I did not perform a bedside visit on day of discharge. 65yo male with long-standing T2DM diagnosed ~2000, prior stroke 2019, carotid stenosis s/p CEA on left in 2019, lumbar back surgery, chronic narcotic dependence, medical THC use, and prior heavy tobacco dependence presents with multiple complaints including lack of electricity in his home since 03/2025, recent fall getting out of a shower several days prior to admission with contusion to multiple areas of right side of body, and orthostasis/dehydration. During his stay social work confirmed with patient that he knows the steps on how to get his electricity back on. Underwent extensive imaging due to recent fall - fortunately no fractures or other internal injuries. Orthostasis resolved with copious IV fluids. Uncontrolled T2DM was brought under control with resumption of insulin therapy. Found to have SEVERE vitamin B12 def with level <100. This could be contributing to fall risk/gait disturbance/paresthesias. B12 was replaced while here and he will need ongoing replacement post-discharge. Dave Jaimes MD Total Time Total Time Spent Total Time Spent (In Minutes): Time spent day of discharge 40 minutes including direct patient care, medication reconciliation, documentation, review of labs and images, and coordination of care. Coding Level of Care Code 02985 INP/OBS DISCH >30 MIN Diagnoses Orthostatic hypotension I95.1 Has no electricity in home Z59.12 Fall W19.XXXA Right foot pain M79.671 Back pain M54.9 Poorly controlled diabetes mellitus E11.65 Stroke I63.9 Hx of carotid stenosis Z86.79 Pulmonary nodule, right R91.1 Nodular prostate N40.2 Chronic narcotic dependence F11.20 Polycythemia D75.1
[2025-06-20 11:00] VITALS: PULSE 57
== END 2025-06-20 11:14 | disposition home or self-care (01) | DRG 312 ==
LOC: ED 15:07 → INTOOBSV 19:25 → 2N 19:25

== ENCOUNTER 2025-06-21 12:18 | Observation (INO) ==
--- NOTE | 2025-06-21 12:25 | Emergency Department Note ---
Impression & Plan Acute hypotension, Syncope and collapse ED Provider Note HISTORY OF PRESENT ILLNESS: Patient is a 65-year-old male presenting with chest pain, syncope and hypotension. Patient reports that he got very dizzy while standing up at home and ended up falling, striking the left side of his head on the ground. He denies loss of consciousness. He is complaining of some substernal and diffuse chest pain on arrival. He is not on any anticoagulation or antiplatelet therapies. Patient was just discharged from the hospital yesterday after being admitted for orthostatic hypotension. He had systolic blood pressures in the 60s to 70s and route with EMS and received a total of about 500 of fluids. On arrival to the ER, the patient reports he has been eating and drinking without difficulty at home. Denies any abdominal pain, nausea or vomiting. He has some pain on the left side of his head and is saying that his neck hurts. He denies any numbness or tingling or weakness in his extremities. ROS: as above PHYSICAL EXAM: Constitutional: Patient appears in no acute distress. HENT: Head: Normocephalic and atraumatic. Eyes: EOMI, PERRL Mouth/Throat: Mucous membranes moist. Neck: Trachea midline. Neck supple. No midline cervical spine tenderness to palpation. Cervical collar placed on arrival to the ER. Cardiovascular: RRR, No murmurs, rubs or gallops. Intact distal pulses. Pulmonary/Chest: No respiratory distress. Breath sounds clear and equal bilaterally. No wheezes or rales. Abdominal: Abdomen soft, no tenderness, rebound or guarding. Musculoskeletal: No edema, tenderness or deformity noted. Skin: Warm and dry. No rash, erythema, pallor or cyanosis Psychiatric: Appropriate mood and affect for situation. Neurological: Alert and keenly responsive. CN II-XII grossly intact, moving all extremities equally and fully. MDM: - Vitals signs showed hypotension - History obtained via patient. History as above. - Chronic conditions affecting care: DM-2; depression/anxiety - Differential diagnoses include, but are not limited to: dehydration; dysrhythmia; electrolyte abnormality; UTI; pneumonia; intracranial hemorrhage; CVA - Order placed for continuous cardiac monitoring. At this time, monitor showed rate of 68 bpm with normal sinus rhythm, per my interpretation. - External medical records reviewed. Discharge summary dated 06/20/2025 was reviewed. Patient was admitted for his orthostatic hypotension and poorly controlled diabetes. - EKG image interpreted by myself showed normal sinus rhythm. Rate 76 bpm. QT 390. No acute ischemic changes. - Laboratory workup interpreted by myself showed normal WBC; normal PT/INR; stable electrolytes; elevated lactate (2.8); normal lipase; normal AST/ALT; normal procalcitonin; normal TSH - CT head wo contrast negative for acute intracranial pathology - CT cervical spine wo contrast for acute pathology. - Patient given 2L NS in ER. - The patient's cervical collar was removed today. The patient's imaging was reviewed and the CT C-Spine was negative for acute injury. The patient was alert and oriented prior to his exam. On exam, he was non-tender to palpation midline and had full ROM without any neurologic deficits. The patient tolerated this procedure well. Collar removed at 13:06. - Discussion was had with ed case manager about patient's case and need for admission - Hospitalist consulted for admission - [facility] ASSESSMENT AND PLAN: Diagnosis: Hypotension; syncope and collapse Plan: Admit Past Med/Surg History Problem List (Updated 06/21/25 @ 13:29 by Maday Estrada MD) Syncope and collapse (Acute) Acute hypotension (Acute) Polycythemia Chronic narcotic dependence Nodular prostate Pulmonary nodule, right Back pain Right foot pain Has no electricity in home Dizziness (Acute) Orthostatic hypotension (Acute) Chest pain (Acute) Right sided abdominal pain (Acute) Fall (Acute) Hyperglycemia (Acute) Nausea & vomiting (Acute) Hyperglycemia (Acute) Depression Poorly controlled diabetes mellitus pen[facility]iary (current) use of opiate analgesic Abnormal EKG (Acute) Anxiety (Acute) Lumbar disc herniation with radiculopathy Vitamin B12 deficiency Medical History (Updated 06/21/25 @ 13:29 by Maday Estrada MD) Sleep apnea Per records Esophageal reflux Lumbar disc disease Anxiety Plantar fasciitis Hiatal hernia Hx of migraines TIA (transient ischemic attack) ~2016 Osteoarthritis Dyslipidemia Degenerative disc disease, lumbar Chronic back pain Hx of carotid stenosis s/p Left CEA (2018) Carotid duplex 03/2022: <50% SEEMA stenosis, <30% LICA restenosis s/p endarterectomy Stroke 02/2019, no residual effects Had subsequent Left CEA Surgical History (Updated 06/19/25 @ 06:13 by Dave Jaimes MD) S/P lumbar laminectomy Hx of colonoscopy Hx of hemorrhoidectomy Hx of nasal septoplasty Hx of appendectomy History of left-sided carotid endarterectomy 2018, [facility] Family History (Updated 06/18/25 @ 20:21 by Dave Jaimes MD) Father , ~age 80 Parkinson's disease Other Past medical history not known due to adoption Social History (Updated 06/18/25 @ 20:22 by Dave Jaimes MD) Smoking Status: Former smoker Tobacco Type: Cigarettes Age Started Using Tobacco: 14; Age Quit Using Tobacco: 56; packs per day: 1; Second Hand Exposure: No; Do You Dip or Chew Tobacco: No; Hx Alcohol Use: No Hx Substance Use: Yes Non-Prescribed Medications: Marijuana Last Used Substance: Just Prior to Arrival Last Used Substance Other:: 02/18 Substance Use Type Other:: Medical THC; chronic oxycodone Preferred Language: Moroccan Communication Ability: Effective Unemployment Specialist Required: No Beliefs That Will Affect Care: None marital status: Single Current Living Situation: Alone Current Living Situation Comment: son visits 3 times a week Feels Safe at Home: Yes Childhood Exposure to Second-Hand Smoke: No Diet: regular Physical Activity Frequency: Does not Exercise Seatbelt Use: sometimes Sunscreen Use: No Assistive Devices: None Allergies Allergies Allergy/AdvReac Type Severity Reaction Status Date / Time [facility] AdvReac Nausea Verified 10/17/24 09:51 Home Meds Home Medications Medication Instructions Recorded Confirmed Med Marijuana 1 dose inhalation UD PRN 11/12/23 06/21/25 pain/anxiety oxymetazoline 0.05 % nasal spray 2 spray intranasal Q12H PRN 02/20/24 06/21/25 (Afrin (oxymetazoline)) Congestion atorvastatin 40 mg tablet 0 mg PO HS 06/18/25 06/21/25 Previous Rx's Medication Instructions Recorded blood-glucose meter #1 ea 04/03/23 bupropion HCl 150 mg 24 hr tablet, 150 mg PO QAM #30 tabs 04/05/25 extended release (Wellbutrin XL) escitalopram oxalate 20 mg tablet 20 mg PO DAILY #90 tabs 04/25/25 (Lexapro) oxycodone 20 mg tablet 20 mg PO Q8H PRN pain 30 days #90 06/08/25 tabs metformin 1,000 mg tablet 1,000 mg PO BID #180 tabs 06/13/25 aspirin 81 mg tablet,delayed 81 mg PO QAM #30 tabs 06/20/25 release blood sugar diagnostic (OneTouch #100 ea 06/20/25 Ultra Test strips) cyanocobalamin (vitamin B-12) 1,000 mcg PO DAILY #30 caps 06/20/25 1,000 mcg capsule insulin glargine 100 unit/mL (3 30 unit (0.3 mL) subcut HS #15 mL 06/20/25 mL) subcutaneous pen (Lantus Solostar U-100 Insulin) lancets 33 gauge #100 ea 06/20/25 pen needle, diabetic 32 gauge x #100 ea 06/20/25" Results & Data (ED) Vital Signs Vital Signs - 24 hr 06/21/25 12:23 06/21/25 12:23 06/21/25 12:23 Temperature 36.5 C Temperature Source Oral Pulse Rate 76 Pulse Rate [Apical] 75 Respiratory Rate 18 16 Respiratory Effort / Characteristics Non-Labored Respiratory Depth Normal Normal Normal Respiratory Pattern Blood Pressure 98/76 L Blood Pressure [Right Arm] 98/76 L Blood Pressure Mean 83 Blood Pressure Mean [Right Arm] 83 Pulse Oximetry 99 98 Oxygen Delivery Method Room Air Room Air Sepsis Recent Fever Within 48 Hours No Sepsis New/Unexplained Change in Mental Status No Sepsis Action Taken by Nursing No Action Required 06/21/25 12:23 06/21/25 12:33 06/21/25 12:34 Temperature Temperature Source Pulse Rate 75 Pulse Rate [Apical] Respiratory Rate Respiratory Effort / Characteristics Respiratory Depth Respiratory Pattern Blood Pressure Blood Pressure [Right Arm] Blood Pressure Mean Blood Pressure Mean [Right Arm] Pulse Oximetry Oxygen Delivery Method Room Air Room Air Sepsis Recent Fever Within 48 Hours Sepsis New/Unexplained Change in Mental Status Sepsis Action Taken by Nursing 06/21/25 13:11 Temperature Temperature Source Pulse Rate Pulse Rate [Apical] 68 Respiratory Rate 14 Respiratory Effort / Characteristics Non-Labored Spontaneous Respiratory Depth Normal Respiratory Pattern Regular Blood Pressure Blood Pressure [Right Arm] 92/72 L Blood Pressure Mean Blood Pressure Mean [Right Arm] 78 Pulse Oximetry 100 Oxygen Delivery Method Room Air Sepsis Recent Fever Within 48 Hours Sepsis New/Unexplained Change in Mental Status Sepsis Action Taken by Nursing Laboratory Data 06/21/25 12:29 11/26/25 12:29 Lab Results 06/21/25 Range/Units 12:29 WBC 8.58 (4.8-10.8) K/ul RBC 5.38 (4.70-6.10) M/uL Hgb 16.8 (14.0-18.0) g/dL Hct 47.3 (42.0-52.0) % MCV 87.9 (80.0-100.0) fL MCH 31.2 (25.0-34.0) pg MCHC 35.5 (32.0-36.0) g/dL RDW Std Deviation 42.4 (36.4-46.3) fL RDW Coeff of Soo 13.2 (11.5-14.5) % Plt Count 207 (130-400) K/uL MPV 8.8 L (9.4-12.4) fL Immature Gran % (Auto) 0.7 % Neut % (Auto) 71.8 % Lymph % (Auto) 15.7 % Luce % (Auto) 6.3 % Eos % (Auto) 4.8 % Baso % (Auto) 0.7 % Neut # (Auto) 6.16 (1.40-6.50) K/uL Lymph # (Auto) 1.35 (1.20-3.40) K/uL Luce # (Auto) 0.54 (0.11-0.59) K/uL Eos # (Auto) 0.41 (0.00-0.50) K/uL Baso # (Auto) 0.06 (0.00-0.20) K/uL Immature Gran # (Auto) 0.06 (0.01-0.20) K/uL PT 10.9 (9.0-12.0) Seconds INR 1.0 (0.9-1.1) Sodium 137 (136-145) mmol/L Potassium 4.8 (3.5-5.1) mmol/L Chloride 103 (98-107) mmol/L Carbon Dioxide 26 (21-32) mmol/L Anion Gap 8 (3-11) BUN 16 (6-23) mg/dl Creatinine 1.29 (0.6-1.4) mg/dl Est Cr Clr Drug Dosing 59.7 ml/min eGFR 61.92 BUN/Creatinine Ratio 12.4 (10-20) Glucose 263 H (70-99(Fasting)) mg/dl Lactate 2.8 H* (0.4-2.0) mmol/L Calcium 8.8 (8.6-10.3) mg/dl Magnesium 1.8 (1.7-2.4) mg/dl Total Bilirubin 1.0 (0.2-1.0) mg/dl AST 10 L (13-39) U/L ALT 10 (7-52) U/L Alkaline Phosphatase 78 (34-104) U/L Total Creatine Kinase 24 L (30-223) U/L Troponin I High Sens 3.5 (0-20) pg/ml Total Protein 6.3 (6.0-8.3) gm/dl Albumin 3.4 (3.4-5.0) gm/dl Globulin 2.9 (2.5-4.0) gm/dl Albumin/Globulin Ratio 1.2 (0.9-2) Lipase 19 (11-82) U/L Procalcitonin 0.03 (0-0.5) ng/ml TSH 3.024 (0.300-4.500) uIu/ml Administered Medications Discontinued Medications Sodium Chloride (Nss) 1,000 mls @ 999 mls/hr IV .Q1H1M ONE Stop: 06/21/25 13:22 Last Infusion: 06/21/25 13:14 Dose: Infused Documented By: Admin: 06/21/25 12:33 Dose: 999 mls/hr Documented By: KATARZYNA Sodium Chloride (Nss) 1,000 mls @ 999 mls/hr IV .Q1H1M ONE Stop: 06/21/25 13:58 Last Admin: 06/21/25 13:14 Dose: 999 mls/hr Documented By: ZAHIRA Imaging Data Radiologist's Impression: Cervical Spine CT 06/21/25 12:22 CT cervical spine wo con CT DOSE: 1291.71 mGy.cm CLINICAL HISTORY: fall; neck pain. COMPARISON: 03/17/2019 TECHNIQUE: Multiple axial CT images of the cervical spine were obtained without contrast. A dose lowering technique was utilized adhering to the principles of ALARA. FINDINGS: No cervical spine fracture or subluxation seen. There are minimal degenerative changes. IMPRESSION: No cervical spine fracture seen. ACT 112: Negative or not required by law. The above report was generated using voice recognition software. It may contain grammatical, syntax or spelling errors. Electronically signed by: Caleb Celis M.D. 06/21/2025 1:[address] 06/21/25 12:22 CT SCAN OF THE BRAIN WITHOUT IV CONTRAST CLINICAL HISTORY: Fall. Head injury. COMPARISON STUDY: CT of the brain dated 03/07/2025. TECHNIQUE: Unenhanced CT scan of the brain is performed from the vertex to the skull base. Images are reviewed in the axial, sagittal, and coronal planes. A dose lowering technique was utilized adhering to the principles of ALARA. FINDINGS: Brain parenchyma: A small focus of high left frontoparietal encephalomalacia is unchanged and consistent with a remote insult. There is no hemorrhage, mass effect, or evidence of acute territorial ischemia by CT criteria. Barry-white matter differentiation is preserved. No extra-axial fluid collection is seen. Ventricles, sulci, cisterns: Normal in configuration. Intracranial vasculature: There is atherosclerotic calcification of the cavernous carotid arteries. Calvarium: Unremarkable. Sinuses and mastoids: There is evidence of previous paranasal sinus surgery. There is mild mucosal thickening within the frontal and ethmoid sinuses. The mastoid air cells are well pneumatized. Orbits: The bony orbits are grossly intact. IMPRESSION: There is no hemorrhage, mass effect, or evidence of acute territorial ischemia by CT criteria. ACT 112: Negative or not required by law. Electronically signed by: Kanu Bethea M.D. 06/21/2025 12:55 PM Discharge Plan Visit Data Chief Complaint: Hypotension Stated Complaint: Fall, hypotension ED Provider: Maday Estrada Discharge Problem: Acute hypotension, Syncope and collapse Patient Disposition: Admitted As Inpatient Condition: Fair Forms Stand Alone Forms: My [facility] Prescriptions Prescriptions: No Action bupropion HCl [Wellbutrin XL] 150 mg tablet extended release 24 hr 150 mg PO QAM Qty: 30 2RF escitalopram oxalate [Lexapro] 20 mg tablet 20 mg PO DAILY Qty: 90 3RF oxycodone 20 mg tablet 20 mg PO Q8H PRN (Reason: pain) 30 Days Qty: 90 0RF metformin 1,000 mg tablet 1,000 mg PO BID Qty: 180 3RF Rx Instructions: NEEDS APPT FOR ADD'L REFILLS (DME) blood-glucose meter Kit See Rx Instructions .Route Qty: 1 0RF Rx Instructions: As directed Med Marijuana 1 dose inhalation UD PRN (Reason: pain/anxiety) Patient Comments: 06/18-unable to verify oxymetazoline [Afrin (oxymetazoline)] 0.05 % [place],Non-Aerosol 2 spray INTRANASAL Q12H PRN (Reason: Congestion) Patient Comments: 06/18- otc unable to verify atorvastatin 40 mg tablet 0 mg PO HS Patient Comments: 06/18-last filled 01/10 90 day supply #90 aspirin 81 mg Tablet,Delayed Release (Dr/Ec) 81 mg PO QAM Qty: 30 0RF cyanocobalamin (vitamin B-12) 1,000 mcg capsule 1,000 mcg PO DAILY Qty: 30 0RF insulin glargine [Lantus Solostar U-100 Insulin] 100 unit/mL (3 mL) insulin pen 30 unit subcut HS Qty: 15 1RF (DME) OneTouch Ultra Test Strip See Rx Instructions .Route Qty: 100 5RF Rx Instructions: As directed to test blood sugar 4 times per day (DME) pen needle, diabetic 32 gauge x 5/32" needle See Rx Instructions .Route Qty: 100 3RF Rx Instructions: As directed- use once daily (DME) lancets 33 gauge misc See Rx Instructions .Route Qty: 100 5RF Rx Instructions: As directed to check sugars 4 times daily Referrals Referrals: Bri Salazar CRNP [Nurse Practitioner] - 06/29/25 11:00 am (Please arrive to your appointment 15 min prior to scheduled time. Bri works alongside Dr. Queen and will see you for your follow up. Thank you!)
[2025-06-21] MEDS: SODIUM CHLORIDE 0.9% 1,000 ML IV ONE ×2 (12:33→13:14)
[2025-06-21 12:49] LABS: Hematocrit (blood only) 47.3 % (42.0-52.0); Hemoglobin 16.8 g/dL (14.0-18.0); Immature Granulocytes # (auto) 0.06 K/uL (0.01-0.20); Immature Granulocytes % (auto) 0.7 %; Mean Corpuscular Hemoglobin 31.2 pg (25.0-34.0); Mean Corpuscular Volume 87.9 fL (80.0-100.0); Platelet Count 207 K/uL (130-400); RDW Standard Deviation 42.4 fL (36.4-46.3); Red Blood Count 5.38 M/uL (4.70-6.10); White Blood Count 8.58 K/ul (4.8-10.8)
--- NOTE | 2025-06-21 12:57 | CT Scan Report ---
CT SCAN OF THE BRAIN WITHOUT IV CONTRAST CLINICAL HISTORY: Fall. Head injury. COMPARISON STUDY: CT of the brain dated 03/07/2025. TECHNIQUE: Unenhanced CT scan of the brain is performed from the vertex to the skull base. Images are reviewed in the axial, sagittal, and coronal planes. A dose lowering technique was utilized adherin g to the principles of ALARA. FINDINGS: Brain parenchyma: A small focus of high left frontoparietal encephalomalacia is unchanged and consist ent with a remote insult. There is no hemorrhage, mass effect, or evidence of acute territorial ische win by CT criteria. Barry-white matter differentiation is preserved. No extra-axial fluid collection i s seen. Ventricles, sulci, cisterns: Normal in configuration. Intracranial vasculature: There is atherosclerotic calcification of the cavernous carotid arteries. Calvarium: Unremarkable. Sinuses and mastoids: There is evidence of previous paranasal sinus surgery. There is mild mucosal th ickening within the frontal and ethmoid sinuses. The mastoid air cells are well pneumatized. Orbits: The bony orbits are grossly intact. IMPRESSION: There is no hemorrhage, mass effect, or evidence of acute territorial ischemia by CT tawanda kennedy. ACT 112: Negative or not required by law. Electronically signed by: Kanu Bethea M.D. 06/21/2025 12:55 PM
[2025-06-21 13:07] LABS: Alanine Aminotransferase 10.0 U/L (7-52); Albumin Globulin Ratio 1.2 (0.9-2); Albumin Level 3.4 gm/dl (3.4-5.0); Alkaline Phosphatase 78.0 U/L (34-104); Anion Gap 8.0 (3-11); Bilirubin,Total 1.0 mg/dl (0.2-1.0); Blood Urea Nitrogen 16.0 mg/dl (6-23); Calcium 8.8 mg/dl (8.6-10.3); Carbon Dioxide 26.0 mmol/L (21-32); Chloride 103.0 mmol/L (98-107); Creatine Kinase 24.0 U/L (30-223); Creatinine Clr Calc Pharmacy 59.7 ml/min; Globulin 2.9 gm/dl (2.5-4.0); Glucose 263.0 mg/dl (70-99(Fasting)); Lipase 19.0 U/L (11-82); Magnesium 1.8 mg/dl (1.7-2.4); Potassium 4.8 mmol/L (3.5-5.1); Sodium 137.0 mmol/L (136-145); Total Protein 6.3 gm/dl (6.0-8.3)
--- NOTE | 2025-06-21 13:12 | CT Scan Report ---
CT cervical spine wo con CT DOSE: 1291.71 mGy.cm CLINICAL HISTORY: fall; neck pain. COMPARISON: 03/17/2019 TECHNIQUE: Multiple axial CT images of the cervical spine were obtained without contrast. A dose low ering technique was utilized adhering to the principles of ALARA. FINDINGS: No cervical spine fracture or subluxation seen. There are minimal degenerative changes. IMPRESSION: No cervical spine fracture seen. ACT 112: Negative or not required by law. The above report was generated using voice recognition software. It may contain grammatical, syntax o r spelling errors. Electronically signed by: Caleb Celis M.D. 06/21/2025 1:11 PM
[2025-06-21 13:20] LABS: INR 1.0 (0.9-1.1); Prothrombin Time 10.9 Seconds (9.0-12.0)
[2025-06-21 13:21] LABS: Thyroid Stimulating Hormone 3.024 uIu/ml (0.300-4.500)
--- NOTE | 2025-06-21 14:35 | XRay Report ---
XR chest 1V portable CLINICAL HISTORY: syncope COMPARISON STUDY: 06/18/2025 FINDINGS: Heart size and pulmonary vasculature are normal. No consolidation or pleural effusion. No p neumothorax. IMPRESSION: No acute findings. ACT 112: Negative or not required by law. Electronically signed by: Caleb Celis M.D. 06/21/2025 2:34 PM
--- NOTE | 2025-06-21 15:19 | History & Physical Report ---
Date of Service June 21, 2025 Assessment & Plan (1) Micturition syncope: Plan: With hypotension. Currently asymptomatic. Blood pressure has improved with IV fluids in the ED. Midodrine has been started. Observation with telemetry (2) Type 2 diabetes mellitus: Plan: Poor control indicated by recent A1c of 11.3. Insulin glargine switched to NPH twice daily dosing. Metformin is on hold. Sliding scale insulin coverage. ADA diet (3) Chronic narcotic dependence: Plan: Continue oxycodone as needed for his chronic back pain (4) History of CVA (cerebrovascular accident): Plan: Prior history of ischemic CVA and carotid artery stenosis. He has undergone left carotid endarterectomy back in 2018 Plan Hopefully home tomorrowJune 22, on midodrine and NPH insulin twice daily dosing which will replace insulin glargine at bedtime History of Present Illness Chief Complaint: Passing out Primary Care Provider: Keesha Queen MD 65-year-old white male who was just discharged from the hospital yesterday who had a near syncopal episode while standing at the toilet voiding. He denies feeling any sensation of palpitations. He states he fell but did not actually lose consciousness. Blood pressure was low upon arrival to the ED but has since normalized with IV fluids. Glucose is 263 nonfasting and recent hemoglobin A1c is 11.3. This probably does not represent a hypoglycemic episode but more likely orthostatic hypotension brought on by micturition indicating underlying autonomic dysfunction probably related to his type 2 diabetes. Initial EKG reveals no acute changes and initial troponin is normal. He is placed in observation with telemetry and IV fluids and has been started on midodrine for blood pressure support. Insulin glargine has been switched to NPH twice daily insulin for better glucose control. Hopefully he can go home tomorrow, June 22. Allergies Allergy/AdvReac Type Severity Reaction Status Date / Time dulaglutide [From [facility]] AdvReac Nausea Verified 10/17/24 09:51 Home Medications Medication Instructions Recorded Confirmed Type blood-glucose meter #1 ea 04/03/23 04/05/24 Rx Med Marijuana 1 dose inhalation UD PRN 11/12/23 06/21/25 History pain/anxiety oxymetazoline 0.05 % nasal spray 2 spray intranasal Q12H PRN 02/20/24 06/21/25 History (Afrin (oxymetazoline)) Congestion bupropion HCl 150 mg 24 hr tablet, 150 mg PO QAM #30 tabs 04/05/25 06/21/25 Rx extended release (Wellbutrin XL) escitalopram oxalate 20 mg tablet 20 mg PO DAILY #90 tabs 04/25/25 06/21/25 Rx (Lexapro) oxycodone 20 mg tablet 20 mg PO Q8H PRN pain 30 days #90 06/08/25 06/21/25 Rx tabs metformin 1,000 mg tablet 1,000 mg PO BID #180 tabs 06/13/25 06/21/25 Rx atorvastatin 40 mg tablet 0 mg PO HS 06/18/25 06/21/25 History aspirin 81 mg tablet,delayed 81 mg PO QAM #30 tabs 06/20/25 06/21/25 Rx release blood sugar diagnostic (OneTouch #100 ea 06/20/25 Rx Ultra Test strips) cyanocobalamin (vitamin B-12) 1,000 mcg PO DAILY #30 caps 06/20/25 06/21/25 Rx 1,000 mcg capsule insulin glargine 100 unit/mL (3 30 unit (0.3 mL) subcut HS #15 mL 06/20/25 06/21/25 Rx mL) subcutaneous pen (Lantus Solostar U-100 Insulin) lancets 33 gauge #100 ea 06/20/25 Rx pen needle, diabetic 32 gauge x #100 ea 06/20/25 Rx 5/32" Past Med/Surg History Problem List (Updated 06/21/25 @ 15:17 by Tito Galindo MD) History of CVA (cerebrovascular accident) Type 2 diabetes mellitus Micturition syncope Syncope and collapse (Acute) Acute hypotension (Acute) Polycythemia Chronic narcotic dependence Nodular prostate Pulmonary nodule, right Back pain Right foot pain Has no electricity in home Dizziness (Acute) Orthostatic hypotension (Acute) Chest pain (Acute) Right sided abdominal pain (Acute) Fall (Acute) Hyperglycemia (Acute) Nausea & vomiting (Acute) Hyperglycemia (Acute) Depression Poorly controlled diabetes mellitus nursing home (current) use of opiate analgesic Abnormal EKG (Acute) Anxiety (Acute) Lumbar disc herniation with radiculopathy Vitamin B12 deficiency Medical History (Updated 06/21/25 @ 15:17 by Tito Galindo MD) Sleep apnea Per records Esophageal reflux Lumbar disc disease Anxiety Plantar fasciitis Hiatal hernia Hx of migraines TIA (transient ischemic attack) ~2016 Osteoarthritis Dyslipidemia Degenerative disc disease, lumbar Chronic back pain Hx of carotid stenosis s/p Left CEA (2018) Carotid duplex 03/2022: <50% SEEMA stenosis, <30% LICA restenosis s/p endarterectomy Stroke 02/2019, no residual effects Had subsequent Left CEA Surgical History (Updated 06/19/25 @ 06:13 by Dave Jaimes MD) S/P lumbar laminectomy Hx of colonoscopy Hx of hemorrhoidectomy Hx of nasal septoplasty Hx of appendectomy History of left-sided carotid endarterectomy 2018, [facility] Family History (Updated 06/18/25 @ 20:21 by Dave Jaimes MD) Father , ~age 80 Parkinson's disease Other Past medical history not known due to adoption Social History (Updated 06/18/25 @ 20:22 by Dave Jaimes MD) Smoking Status: Former smoker Tobacco Type: Cigarettes Age Started Using Tobacco: 14; Age Quit Using Tobacco: 56; packs per day: 1; Second Hand Exposure: No; Do You Dip or Chew Tobacco: No; Hx Alcohol Use: No Hx Substance Use: Yes Non-Prescribed Medications: Marijuana Last Used Substance: Just Prior to Arrival Last Used Substance Other:: 02/18 Substance Use Type Other:: Medical THC; chronic oxycodone Preferred Language: German Communication Ability: Effective Labourers Required: No Beliefs That Will Affect Care: None marital status: Single Current Living Situation: Alone Current Living Situation Comment: son visits 3 times a week Feels Safe at Home: Yes Childhood Exposure to Second-Hand Smoke: No Diet: regular Physical Activity Frequency: Does not Exercise Seatbelt Use: sometimes Sunscreen Use: No Assistive Devices: None Review of Systems 2 Review of Systems: Constitutionalno fever or chills ENTno blurred vision, no double vision, no epistaxis, no sore throat Respiratoryno cough, no wheezing, no shortness of breath Cardiacno palpitations, no chest pain, no syncope Kevin nausea, vomiting, diarrhea, melena, hematochezia GUno urinary retention, no urinary incontinence, no dysuria, no hematuria Musculoskeletalno joint pain, no muscle tenderness Skinno bruising, no rashes, no pruritus Neurono isolated weakness, no paresthesia, no weakness Psychno depression, no anxiety Physical Exam 2 Physical Exam: General-alert and oriented x3, no fever, no chills HEENT-head atraumatic and normocephalic, pupils equal and reactive to light, extraocular muscles intact Neck-no lymphadenopathy or thyromegaly, trachea midline Chest-clear to auscultation. No rales, wheezing or rhonchi Cardiac-regular rate and rhythm, normal S1 and S2 Abdomen-normal bowel sounds, no hepatosplenomegaly Extremities-no cyanosis, clubbing, or edema Neuro-cranial nerves II through XII intact, motor and sensory function within normal limits, strength symmetrical, no focal deficits Psych-normal affect, normal mood Results & Data Results & Data Vital Signs (Past 12 Hours) Vital Signs Temp Pulse Pulse Resp BP BP Pulse Ox 06/21/25 14:00 98 H 18 92/64 L 99 06/21/25 13:11 68 14 92/72 L 100 06/21/25 12:34 06/21/25 12:33 75 06/21/25 12:23 06/21/25 12:23 75 16 98/76 L 98 06/21/25 12:23 36.5 C 76 18 98/76 L 99 O2 Del Method 06/21/25 14:00 Room Air 06/21/25 13:11 Room Air 06/21/25 12:34 Room Air 06/21/25 12:33 06/21/25 12:23 Room Air 06/21/25 12:23 Room Air 06/21/25 12:23 Room Air Laboratory Results 06/21/25 12:29 06/21/25 12:29 Code Status & VTE Plan Code Status Full code PG Care Time/CCT Total # of Minutes Spent Total Time Spent with Patient: Total time spent is greater than 50% in coordination of care (as documented) at patient's floor/unit and/or counseling patient: Coding Level of Care Code 67300 INT INP/OBS CARE 3/75MIN Diagnoses Micturition syncope R55 Type 2 diabetes mellitus E11.9 Chronic narcotic dependence F11.20 History of CVA (cerebrovascular accident) Z86.73
[2025-06-21] MEDS: MIDODRINE HCL 2.5 MG TAB PO ONE (15:47)
[2025-06-21] MEDS ORDERED: DEXTROSE 50% 50 ML SYRINGE IV PRN (16:55)
[2025-06-21] MEDS ORDERED: ONDANSETRON INJ 2 MG/ML 2 ML VIAL IV PRN (16:55)
[2025-06-21] MEDS ORDERED: CARBOHYDRATES FOR HYPOGLYCEMIA PO PRN (16:55)
[2025-06-21] MEDS ORDERED: GLUCOSE 40% GEL 15 GM TUBE PO PRN (16:55)
[2025-06-21] MEDS ORDERED: GLUCAGON FOR INJ 1 MG VIAL SQ PRN (16:55)
[2025-06-21] MEDS ORDERED: ACETAMINOPHEN 325 MG TAB PO PRN (16:55)
[2025-06-21] MEDS ORDERED: OXYMETAZOLINE 0.05% 30 ML BTL NAE PRN (16:55)
[2025-06-21] MEDS ORDERED: GLUCOSE 10 TAB/TUBE PO PRN (16:55)
[2025-06-21] MEDS: MIDODRINE HCL 2.5 MG TAB PO SCH (18:24)
[2025-06-21] MEDS: INSULIN ASPART PER UNIT CHARGE SC SCH (18:24)
[2025-06-21] MEDS: SODIUM CHLORIDE 0.9% 1,000 ML IV SCH (18:24)
--- NOTE | 2025-06-21 18:59 | Electrocardiogram Report ---
Test Reason : Blood Pressure : */* mmHG Vent. Rate : 76 BPM Atrial Rate : 76 BPM P-R Int : 174 ms QRS Dur : 70 ms QT Int : 390 ms P-R-T Axes : 38 -65 38 degrees QTcB Int : 438 ms Sinus rhythm with sinus arrhythmia with occasional Premature ventricular complexes Left axis deviation Inferior infarct (cited on or before 20-Feb-2024) Abnormal ECG When compared with ECG of 18-Jun-2025 15:12, Premature ventricular complexes are now Present Confirmed by Kleber Damian ([id number]) on 06/21/2025 6:59:09 PM Referred By: REFERRED SELF Confirmed By: Kleber Damian
[2025-06-21 19:25] LABS: Appearance Urine Clear (Clear); Glucose Urine UA 3+ (Negative)
[2025-06-21] MEDS: ATORVASTATIN 40 MG TAB PO SCH (20:14)
[2025-06-21] MEDS: INSULIN HUMAN NPH SC SCH (21:28)
[2025-06-22 06:15] LABS: Hematocrit (blood only) 41.5 % (42.0-52.0); Hemoglobin 14.4 g/dL (14.0-18.0); Immature Granulocytes # (auto) 0.03 K/uL (0.01-0.20); Immature Granulocytes % (auto) 0.4 %; Mean Corpuscular Hemoglobin 30.7 pg (25.0-34.0); Mean Corpuscular Volume 88.5 fL (80.0-100.0); Platelet Count 183 K/uL (130-400); RDW Standard Deviation 42.4 fL (36.4-46.3); Red Blood Count 4.69 M/uL (4.70-6.10); White Blood Count 6.86 K/ul (4.8-10.8)
[2025-06-22 06:42] LABS: Anion Gap 6.0 (3-11); Blood Urea Nitrogen 14.0 mg/dl (6-23); Calcium 8.4 mg/dl (8.6-10.3); Carbon Dioxide 24.0 mmol/L (21-32); Chloride 106.0 mmol/L (98-107); Creatinine Clr Calc Pharmacy 81.1 ml/min; Glucose 139.0 mg/dl (70-99(Fasting)); Potassium 3.9 mmol/L (3.5-5.1); Sodium 136.0 mmol/L (136-145)
[2025-06-22] MEDS: CYANOCOBALAMIN (B-12) 500 MCG TABLET PO SCH (08:16)
[2025-06-22] MEDS: ESCITALOPRAM OXALATE 20 MG TAB PO SCH (08:16)
[2025-06-22] MEDS: ASPIRIN 81 MG ECTAB PO SCH (08:16)
[2025-06-22] MEDS: CYANOCOBALAMIN 1000 MCG/ML VIAL IM SCH (09:10)
--- NOTE | 2025-06-22 13:21 | Hospitalist Progress Note ---
Date of Service June 22, 2025 Assessment & Plan (1) Syncope and collapse: (2) Type 2 diabetes mellitus: (3) History of CVA (cerebrovascular accident): (4) Chronic narcotic dependence: Plan # Recurrent syncopewith hypotensionseems to be largely related to low volume status as well as a bit of a vasovagal response. The low volume status almost certainly due to diuretic effect from his markedly uncontrolled diabetes. Continue IV fluids. Control sugars better. We discussed that his social circumstances right now seem to be precluding an easier way of getting his diabetes under controland that he does hydrate adequatelybut seems to not be able to keep up with the osmotic diuresis from his hyperglycemia. Still does not feel well enough to go home/does not feel safe at home. continue midodrine for now; hopefully with more stability in his sugar leading to less osmotic diuresis the midodrine can be short lived; conversely, it's possible that from his uncontrolled DM he has created autonomic insufficiency and could require midodrine indefinitely - will need to be followed over time #Markedly uncontrolled type 2 [id number] 11.3. He was prescribed insulin, but has not been able to take it eitheragain due to the lack of refrigeration that is also leading to his diet to be heavy and simple carbohydrates. We discussed that the ultimate "fix" for his uncontrolled diabetes will be healthier eating, but we both agree that right now with social circumstances may make that excessively difficult and hopefully his social circumstances will be changing soon. Will give trial to an oral regimen given that he would be able to take pills at home without refrigeration. Resume metformin, add glimepiride. #chest painexamines entirely musculoskeletal. Given his known vascular disease and vascular disease risks, check a troponin for completeness, but given that he was having pain off and on all night and pain for at least 2 hours continuously before I saw him todaya negative troponin would have a tremendous negative predictive value in the situation. #Chronic narcotic dependencecontinue home meds #cerebrovascular disease with history of CVAappears to be stable #DVT proph - lovenox Admission and Anticipated Discharge Date Admission Date: June 21, 2025 Subjective Feeling better but still not well enough to go home. Also would like to sort out the situation with his home situation before leaving the hospital. Notes that he has had difficulty eating healthy since about [place] mostly on easy access foods such as Ramen noodles and takeouthe believes this is why his sugar is way worse. He does drink a decent amount of fluid each dayestimating about 2 gallonsbut also eats a copious amount of simple carbohydrates due to his social circumstancesand relates his sugars have been high accordingly. He does not take any blood pressure medicines or diuretics at home that he is aware of. Also notes some chest paindescribes it as a vague [id number] throughout the night, but has been there for a solid 2 hours before I see him today, also has what he feels like initially as a separate right sided chest pain in between his ribs laterallyseems to have a little bit more of a sharp quality to it but still overall mildand then later on directed questioning it seems clear that the 2 different pains actually started about the same time. Review of Systems Review of Systems: All systems reviewed & are unremarkable except as noted in HPI & below Physical Exam Physical Exam: In general he is awake alert oriented pleasant no distress. HEENT normocephalic atraumatic mucous membranes moist. Cardio is regular without rubs murmurs or gallops. Lungs clear without rales rhonchi or wheezes good effort. Skin without rashes pallor or icterus. Neuro without focal deficits. Musculoskeletal shows his chest pain to be reproducible at the right costochondral margin as well as right lateral rib cagebalanced ligamentous tension with mild improvement in the soft tissue, patient tolerated well. Results & Data Results & Data Vital Signs (Past 12 Hours) Vital Signs Temp Pulse Pulse Resp BP Pulse Ox O2 Del Method 06/22/25 11:40 97.7 F 60 18 113/73 96 Room Air 06/22/25 07:30 98.2 F 62 16 113/70 96 Room Air 06/22/25 05:40 61 06/22/25 04:02 98.1 F 61 18 124/74 98 Room Air PG Care Time/CCT Total # of Minutes Spent Total Time Spent with Patient: Total time spent is greater than 50% in coordination of care (as documented) at patient's floor/unit and/or counseling patient: Coding Level of Care Code 36795 SUB INP/OBS CARE 3/50MIN Diagnoses Syncope and collapse R55 Type 2 diabetes mellitus E11.9 History of CVA (cerebrovascular accident) Z86.73 Chronic narcotic dependence F11.20
[2025-06-23] MEDS: ENOXAPARIN INJ 40 MG/0.4 ML SYR SQ SCH (08:02)
[2025-06-23] MEDS: GLIMEPIRIDE 2 MG TAB PO SCH (08:04)
[2025-06-23 08:19] LABS: Anion Gap 7.0 (3-11); Blood Urea Nitrogen 14.0 mg/dl (6-23); Calcium 8.9 mg/dl (8.6-10.3); Carbon Dioxide 25.0 mmol/L (21-32); Chloride 104.0 mmol/L (98-107); Creatinine Clr Calc Pharmacy 72.7 ml/min; Glucose 211.0 mg/dl (70-99(Fasting)); Potassium 4.7 mmol/L (3.5-5.1); Sodium 136.0 mmol/L (136-145)
--- NOTE | 2025-06-23 14:30 | Hospitalist Progress Note ---
Date of Service June 23, 2025 Assessment & Plan (1) Syncope and collapse: (2) Type 2 diabetes mellitus: (3) History of CVA (cerebrovascular accident): (4) Chronic narcotic dependence: Plan # Recurrent syncopewith hypotensionseems to be largely related to low volume status as well as a bit of a vasovagal response. The low volume status almost certainly due to diuretic effect from his markedly uncontrolled diabetes. Control sugars better. (See below) We discussed that his social circumstances right now seem to be precluding an easier way of getting his diabetes under controland that he does hydrate adequatelybut seems to not be able to keep up with the osmotic diuresis from his hyperglycemia. Still does not feel well enough to go home/does not feel safe at home. PT/OT eval and treat, and discussed with case management (in the room with the patient) about possible rehab placement.continue midodrine for now; hopefully with more stability in his sugar leading to less osmotic diuresis the midodrine can be short lived; conversely, it's possible that from his uncontrolled DM he has created autonomic insufficiency and could require midodrine indefinitely - will need to be followed over time #Markedly uncontrolled type 2 [id number] 11.3. He was prescribed insulin, but has not been able to take it eitheragain due to the lack of refrigeration that is also leading to his diet to be heavy and simple carbohydrates. We discussed that the ultimate "fix" for his uncontrolled diabetes will be healthier eating (And both agree that his glycemic control in the hospital is probably more due to a diet lower in simple carbohydrates than anything we are doing medically), but we both agree that right now with social circumstances may make that excessively difficult and hopefully his social circumstances will be changing soon. Will give trial to an oral regimen given that he would be able to take pills at home without refrigeration. Resumed metformin, added glimepiride given that these are medications he could have at home without refrigeration #headachemuscle tension headachediscussed with patient likely from being in hospital bed (as he is likely has hip pain and the slow to resolve chest/rib pain) OMT as above #chest painexamines entirely musculoskeletal. Given his known vascular disease and vascular disease risks, checked a troponin for completeness, and with pain that lasted for several hours absolutely nonstop yesterday and a completely normal troponinthis essentially precludes any cardiac cause #Chronic narcotic dependencecontinue home meds #cerebrovascular disease with history of CVAappears to be stable #DVT proph - lovenox #dispositionpatient does not really feel like he would be safe at home, PT/OT eval and treat, case management to discuss rehab options. Admission and Anticipated Discharge Date Admission Date: June 21, 2025 Subjective same chest pain as yesterday, also hip pain and headaches. Still feels fairly weak and unsteady on his feetasking directedly if he felt like he might need to go to rehab before being able to go home, he wonders aloud if he might. Review of Systems Review of Systems: All systems reviewed & are unremarkable except as noted in HPI & below Physical Exam Physical Exam: In general he is awake alert oriented pleasant no distress. HEENT normocephalic atraumatic mucous membranes moist. Breathing unlabored no accessory muscle use good effort. Left greater than right suboccipital muscles high tone, tender, decreased range of motioninhibitory pressureimproved some, patient tolerated well. Skin without rashes pallor or icterus. Neuro without focal deficits. Results & Data Results & Data Vital Signs (Past 12 Hours) Vital Signs Temp Pulse Resp BP Pulse Ox O2 Del Method 06/23/25 07:47 97.7 F 61 18 110/72 93 Room Air PG Care Time/CCT Total # of Minutes Spent Total Time Spent with Patient: Total time spent is greater than 50% in coordination of care (as documented) at patient's floor/unit and/or counseling patient: Coding Level of Care Code 19895 SUB INP/OBS CARE 3/50MIN Diagnoses Syncope and collapse R55 Type 2 diabetes mellitus E11.9 History of CVA (cerebrovascular accident) Z86.73 Chronic narcotic dependence F11.20
[2025-06-23 23:12] VITALS: O2SAT 97
[2025-06-24 07:31] VITALS: BP 116/73; RESP 17; TEMP 98.4
--- NOTE | 2025-06-24 11:10 | Discharge Summary ---
Discharge Summary Date of Service June 24, 2025 Principal Dx & Hospital Course #1 = Principal Diagnosis (1) Micturition syncope: With hypotension on admission. Currently asymptomatic. Blood pressure is not acceptable with addition of midodrine. (2) Type 2 diabetes mellitus: Poor control indicated by recent A1c of 11.3. Insulin glargine switched to NPH twice daily dosing on admission. He will resume his usual diabetic management at the time of discharge and adjustments will be made by his PCP. Sliding scale insulin coverage while hospitalized. ADA diet (3) Chronic narcotic dependence: Continue oxycodone as needed for his chronic back pain (4) History of CVA (cerebrovascular accident): Prior history of ischemic CVA and carotid artery stenosis. He has undergone left carotid endarterectomy back in 2019 Plan Home today, June 24, on midodrine. Follow-up with primary care provider soon as possible. Admission HPI Per Admitting Provider 65-year-old white male who was just discharged from the hospital yesterday who had a near syncopal episode while standing at the toilet voiding. He denies feeling any sensation of palpitations. He states he fell but did not actually lose consciousness. Blood pressure was low upon arrival to the ED but has since normalized with IV fluids. Glucose is 263 nonfasting and recent hemoglobin A1c is 11.3. This probably does not represent a hypoglycemic episode but more likely orthostatic hypotension brought on by micturition indicating underlying autonomic dysfunction probably related to his type 2 diabetes. Initial EKG reveals no acute changes and initial troponin is normal. He is placed in observation with telemetry and IV fluids and has been started on midodrine for blood pressure support. Insulin glargine has been switched to NPH twice daily insulin for better glucose control. Hopefully he can go home tomorrow, June 22. Discharge Exam General-alert and oriented x3, no fever, no chills HEENT-head atraumatic and normocephalic, pupils equal and reactive to light, extraocular muscles intact Neck-no lymphadenopathy or thyromegaly, trachea midline Chest-clear to auscultation. No rales, wheezing or rhonchi Cardiac-regular rate and rhythm, normal S1 and S2 Abdomen-normal bowel sounds, no hepatosplenomegaly Extremities-no cyanosis, clubbing, or edema Neuro-cranial nerves II through XII intact, motor and sensory function within normal limits, strength symmetrical, no focal deficits Psych-normal affect, normal mood Discharge Plan Discharge Items Patient Disposition: Home - Self-Care Reason For Visit: MICTURITION SYNCOPE Discharge Diagnosis: Micturition syncope, transient orthostatic hypotension, poorly controlled type 2 diabetes Condition on Discharge: Good Activity: Resume your previous activity Non-emergency contact: Primary Care Provider Call non-emergency contact if: your symptoms worsen Follow-up/Referrals: Keesha Queen MD [Primary Care Provider] - Diet: Carb Consistent or DM2 Addtl Attending Provider Instructions: Take midodrine 5 mg 3 times a day for blood pressure support. A prescription has been sent to [facility] pharmacy on [address]. All other medications rem ain the same. Resume your usual diabetic management. Adjustments in diabetic treatment will be made by your PCP. Pending Studies at Discharge: No Stand-Alone Forms: My [facility], Smoking Cessation Medications and DC Order Prescriptions: New midodrine 5 mg tablet 5 mg PO TID Qty: 90 0RF Rx Instructions: do not give last dose of day after 6PM or within 4 hrs of bedtime Continued bupropion HCl [Wellbutrin XL] 150 mg tablet extended release 24 hr 150 mg PO QAM Qty: 30 2RF escitalopram oxalate [Lexapro] 20 mg tablet 20 mg PO DAILY Qty: 90 3RF oxycodone 20 mg tablet 20 mg PO Q8H PRN (Reason: pain) 30 Days Qty: 90 0RF metformin 1,000 mg tablet 1,000 mg PO BID Qty: 180 3RF Rx Instructions: NEEDS APPT FOR ADD'L REFILLS (DME) blood-glucose meter Kit See Rx Instructions .Route Qty: 1 0RF Rx Instructions: As directed Med Marijuana 1 dose inhalation UD PRN (Reason: pain/anxiety) Patient Comments: 06/18-unable to verify oxymetazoline [Afrin (oxymetazoline)] 0.05 % Lindsay,Non-Aerosol 2 spray INTRANASAL Q12H PRN (Reason: Congestion) Patient Comments: 06/18- otc unable to verify atorvastatin 40 mg tablet 0 mg PO HS Patient Comments: 06/18-last filled 01/10 90 day supply #90 aspirin 81 mg Tablet,Delayed Release (Dr/Ec) 81 mg PO QAM Qty: 30 0RF cyanocobalamin (vitamin B-12) 1,000 mcg capsule 1,000 mcg PO DAILY Qty: 30 0RF insulin glargine [Lantus Solostar U-100 Insulin] 100 unit/mL (3 mL) insulin pen 30 unit subcut HS Qty: 15 1RF (DME) OneTouch Ultra Test Strip See Rx Instructions .Route Qty: 100 5RF Rx Instructions: As directed to test blood sugar 4 times per day (DME) pen needle, diabetic 32 gauge x 5/32" needle See Rx Instructions .Route Qty: 100 3RF Rx Instructions: As directed- use once daily (DME) lancets 33 gauge misc See Rx Instructions .Route Qty: 100 5RF Rx Instructions: As directed to check sugars 4 times daily Discharge Orders: Discharge Order (Routine); Ordered 06/24/25 Ordered By: Tito Galindo Admission Data Admit Date/Time: 06/21/25 14:49 Attending Provider: Tito Galindo Admit Provider: Tito Galindo Primary Care Provider: Keesha Queen Other Providers: Tito Galindo Hospital Stay Data Consultations 06/21/25 14:17 ED Decision to Admit Stat Diagnostic Imagining Performed 06/21/25 12:22 CT cervical spine wo con Stat CT head/brain wo con Stat Pending Results Patient Have Any Pending Studies at Discharge: No Discharge Instructions Given to Patient (Per Discharging Provider) Take midodrine 5 mg 3 times a day for blood pressure support. A prescription has been sent to [facility] pharmacy on [address]. All other medications remain the same. Resume your usual diabetic management. Adjustments in diabetic treatment will be made by your PCP. Total Time Total Time Spent Total Time Spent (In Minutes): 45 minutes. Total time included patient exam, discharge planning, medication reconciliation. Coding Level of Care Code 40934 INP/OBS DISCH >30 MIN Diagnoses Micturition syncope R55 Type 2 diabetes mellitus E11.9 Chronic narcotic dependence F11.20 History of CVA (cerebrovascular accident) Z86.73
[2025-06-24 12:44] VITALS: PULSE 67
== END 2025-06-24 14:00 | disposition home or self-care (01) ==
LOC: SUATTDRO → ED 12:18 → 2N 12:18 → SUATTDRO 14:49 → 2N 16:42

== ENCOUNTER 2025-06-25 20:54 | Observation (INO) ==
--- NOTE | 2025-06-25 21:14 | Emergency Department Note ---
Impression & Plan Adult failure to thrive ED Provider Note HISTORY OF PRESENT ILLNESS: Patient is a 65-year-old male presenting with generalized weakness. Patient reports multiple complaints on arrival, including headache, neck pain, back pain and nausea and vomiting earlier today. He is concerned about his safety at home given that he has not had any power in his house over the last few months. He states that there is no food or power at his home. He states he has been unable to take any of his medication including his midodrine today because he has not gotten it. He states that he does not have any food at his house and the temperatures are too low for him to be there safely. He reports he had an episode of feeling lightheaded like he was going to fall and called 911 because "I live alone and do not want anything to happen to me. He reports that he had some chest pain when he coughed earlier. ROS: as above PHYSICAL EXAM: Constitutional: Patient appears in no acute distress. HENT: Head: Normocephalic and atraumatic. Eyes: EOMI, PERRL Mouth/Throat: Mucous membranes moist. Neck: Trachea midline. Neck supple. Cardiovascular: RRR, No murmurs, rubs or gallops. Intact distal pulses. Pulmonary/Chest: No respiratory distress. Breath sounds clear and equal bilaterally. No wheezes or rales. Abdominal: Abdomen soft, no tenderness, rebound or guarding. Musculoskeletal: No edema, tenderness or deformity noted. Skin: Warm and dry. No rash, erythema, pallor or cyanosis Psychiatric: Appropriate mood and affect for situation. Neurological: Alert and keenly responsive. CN II-XII grossly intact, moving all extremities equally and fully. MDM: - Vitals signs showed tachycardia - History obtained via patient. History as above. - Chronic conditions affecting care: DM-2; depression/anxiety - Differential diagnoses include, but are not limited to: ACS; pneumonia; viral syndrome; DKA; dehydration; electrolyte abnormality - Order placed for continuous cardiac monitoring. At this time, monitor showed rate of 83 bpm with normal sinus rhythm, per my interpretation. - External medical records reviewed. Discharge summary dated 06/24/2025 was reviewed. Patient was admitted for syncope. He was hypotensive on admission. Started on midodrine. - EKG image interpreted by myself showed normal sinus rhythm. Rate 79 bpm. QT 384. No acute ischemic changes. - Laboratory workup interpreted by myself showed normal WBC; normal PT/INR; stable electrolytes; elevated anion gap (13); elevated glucose (271); normal AST/ALT; normal troponin; elevated TSH - CXR image reviewed interpreted by myself as needed for pneumonia, per my interpretation. - UA negative for infection - Discussion was had with case coordinator about patient's case and need for admission - Hospitalist consulted for admission - [facility] ASSESSMENT AND PLAN: Diagnosis: Adult failure to thrive Plan: Admit Past Med/Surg History Problem List (Updated 06/25/25 @ 22:51 by Maday Estrada MD) Adult failure to thrive (Acute) History of CVA (cerebrovascular accident) Type 2 diabetes mellitus Micturition syncope Syncope and collapse (Acute) Acute hypotension (Acute) Polycythemia Chronic narcotic dependence Nodular prostate Pulmonary nodule, right Back pain Right foot pain Has no electricity in home Dizziness (Acute) Orthostatic hypotension (Acute) Chest pain (Acute) Right sided abdominal pain (Acute) Fall (Acute) Hyperglycemia (Acute) Depression Poorly controlled diabetes mellitus 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 Abnormal EKG (Acute) Anxiety (Acute) Lumbar disc herniation with radiculopathy Vitamin B12 deficiency Medical History (Updated 06/25/25 @ 22:51 by Maday Estrada MD) Sleep apnea Per records Esophageal reflux Lumbar disc disease Anxiety Plantar fasciitis Hiatal hernia Hx of migraines TIA (transient ischemic attack) ~2016 Osteoarthritis Dyslipidemia Degenerative disc disease, lumbar Chronic back pain Hx of carotid stenosis s/p Left CEA (2018) Carotid duplex 03/2022: <50% SEEMA stenosis, <30% LICA restenosis s/p endarterectomy Stroke 02/2019, no residual effects Had subsequent Left CEA Surgical History (Updated 06/19/25 @ 06:13 by Dave Jaimes MD) S/P lumbar laminectomy Hx of colonoscopy Hx of hemorrhoidectomy Hx of nasal septoplasty Hx of appendectomy History of left-sided carotid endarterectomy 2018, [facility] Family History (Updated 06/18/25 @ 20:21 by Dave Jaimes MD) Father , ~age 80 Parkinson's disease Other Past medical history not known due to adoption Social History (Updated 06/18/25 @ 20:22 by Dave Jaimes MD) Smoking Status: Never smoker Tobacco Type: Cigarettes Age Started Using Tobacco: 14; Age Quit Using Tobacco: 56; packs per day: 1; Second Hand Exposure: No; Do You Dip or Chew Tobacco: No; Hx Alcohol Use: No Hx Substance Use: Yes Non-Prescribed Medications: Marijuana Last Used Substance: Days (ago) Last Used Substance Other:: 02/18 Substance Use Type Other:: Medical THC; chronic oxycodone Preferred Language: Tamazight Communication Ability: Effective 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: No Beliefs That Will Affect Care: None marital status: Single Current Living Situation: Alone Current Living Situation Comment: son visits 3 times a week Feels Safe at Home: No Is there a partner from a previous relationship who is making you feel unsafe now?: No Childhood Exposure to Second-Hand Smoke: No Diet: regular Physical Activity Frequency: Does not Exercise Seatbelt Use: sometimes Sunscreen Use: No Assistive Devices: None Allergies Allergies Allergy/AdvReac Type Severity Reaction Status Date / Time dulaglutide [From [facility]] AdvReac Nausea Verified 10/17/24 09:51 Home Meds Home Medications Medication Instructions Recorded Confirmed Med Marijuana 1 dose inhalation UD PRN 11/12/23 06/25/25 pain/anxiety atorvastatin 40 mg tablet 0 mg PO HS 06/18/25 06/25/25 Previous Rx's Medication Instructions Recorded blood-glucose meter #1 ea 04/03/23 bupropion HCl 150 mg 24 hr tablet, 150 mg PO QAM #30 tabs 04/05/25 extended release (Wellbutrin XL) escitalopram oxalate 20 mg tablet 20 mg PO DAILY #90 tabs 04/25/25 (Lexapro) oxycodone 20 mg tablet 20 mg PO Q8H PRN pain 30 days #90 06/08/25 tabs metformin 1,000 mg tablet 1,000 mg PO BID #180 tabs 06/13/25 aspirin 81 mg tablet,delayed 81 mg PO QAM #30 tabs 06/20/25 release blood sugar diagnostic (OneTouch #100 ea 06/20/25 Ultra Test strips) cyanocobalamin (vitamin B-12) 1,000 mcg PO DAILY #30 caps 06/20/25 1,000 mcg capsule insulin glargine 100 unit/mL (3 30 unit (0.3 mL) subcut HS #15 mL 06/20/25 mL) subcutaneous pen (Lantus Solostar U-100 Insulin) lancets 33 gauge #100 ea 06/20/25 pen needle, diabetic 32 gauge x #100 ea 06/20/25" midodrine 5 mg tablet 5 mg PO TID #90 tabs 06/24/25 Results & Data (ED) Vital Signs Vital Signs - 24 hr 06/25/25 20:46 06/25/25 21:00 06/25/25 21:00 Temperature 36.8 C Temperature Source Oral Pulse Rate 93 H 105 H 84 Pulse Rhythm Regular Regular Respiratory Rate 16 16 Respiratory Effort / Characteristics Non-Labored Spontaneous Respiratory Depth Normal Respiratory Pattern Regular Blood Pressure 106/68 Blood Pressure Mean 80 Pulse Oximetry 98 100 Oxygen Delivery Method Room Air Room Air Sepsis Recent Fever Within 48 Hours No Sepsis New/Unexplained Change in Mental Status No Sepsis Action Taken by Nursing No Action Required Laboratory Data 06/25/25 21:14 06/25/25 21:14 Lab Results 06/25/25 06/25/25 06/25/25 Range/Units 21:14 21:18 21:27 WBC 10.56 (4.8-10.8) K/ul RBC 5.78 (4.70-6.10) M/uL Hgb 17.9 (14.0-18.0) g/dL Hct 51.4 (42.0-52.0) % MCV 88.9 (80.0-100.0) fL MCH 31.0 (25.0-34.0) pg MCHC 34.8 (32.0-36.0) g/dL RDW Std Deviation 43.1 (36.4-46.3) fL RDW Coeff of Soo 13.2 (11.5-14.5) % Plt Count 259 (130-400) K/uL MPV 9.1 L (9.4-12.4) fL Immature Gran % (Auto) 0.7 % Neut % (Auto) 71.3 % Lymph % (Auto) 17.3 % [place] % (Auto) 5.6 % Eos % (Auto) 4.3 % Baso % (Auto) 0.8 % Neut # (Auto) 7.54 H (1.40-6.50) K/uL Lymph # (Auto) 1.83 (1.20-3.40) K/uL [place] # (Auto) 0.59 (0.11-0.59) K/uL Eos # (Auto) 0.45 (0.00-0.50) K/uL Baso # (Auto) 0.08 (0.00-0.20) K/uL Immature Gran # (Auto) 0.07 (0.01-0.20) K/uL PT 11.3 (9.0-12.0) Seconds INR 1.1 (0.9-1.1) Sodium 137 (136-145) mmol/L Potassium 4.3 (3.5-5.1) mmol/L Chloride 101 (98-107) mmol/L Carbon Dioxide 23 (21-32) mmol/L Anion Gap 13 H (3-11) BUN 17 (6-23) mg/dl Creatinine 1.31 (0.6-1.4) mg/dl Est Cr Clr Drug Dosing 60.7 ml/min eGFR 60.78 BUN/Creatinine Ratio 13.0 (10-20) Glucose 271 H (70-99(Fasting)) mg/dl POC Glucose 268 H (70-99) mg/dl Calcium 9.7 (8.6-10.3) mg/dl Magnesium 1.9 (1.7-2.4) mg/dl Total Bilirubin 0.9 (0.2-1.0) mg/dl AST 14 (13-39) U/L ALT 15 (7-52) U/L Alkaline Phosphatase 85 (34-104) U/L Troponin I High Sens 4.1 (0-20) pg/ml Total Protein 7.2 (6.0-8.3) gm/dl Albumin 3.8 (3.4-5.0) gm/dl Globulin 3.4 (2.5-4.0) gm/dl Albumin/Globulin Ratio 1.1 (0.9-2) TSH 7.453 H (0.300-4.500) uIu/ml Free T4 0.71 (0.61-1.60) ng/dl Urine Color Yellow Urine Appearance Clear (Clear) Urine pH 7.0 (4.5-7.5) Ur Specific Harris 1.021 (1.000-1.030) Urine Protein Negative (Negative) Urine Glucose (UA) 3+ H (Negative) Urine Ketones Trace H (Negative) Urine Blood Negative (Negative) Urine Nitrite Negative (Negative) Urine Bilirubin Negative (Negative) Urine Urobilinogen Negative (Negative) Ur Leukocyte Esterase Negative (Negative) Urine Comment Discharge Plan Visit Data Chief Complaint: Illness Stated Complaint: ILLNESS X1 WK, HERE RECENTLY FOR SAME ED Provider: Maday Estrada Discharge Problem: Adult failure to thrive Patient Disposition: Admitted As Inpatient Condition: Fair Forms Stand Alone Forms: My [facility] [place] Prescriptions Prescriptions: No Action bupropion HCl [Wellbutrin XL] 150 mg tablet extended release 24 hr 150 mg PO QAM Qty: 30 2RF escitalopram oxalate [Lexapro] 20 mg tablet 20 mg PO DAILY Qty: 90 3RF oxycodone 20 mg tablet 20 mg PO Q8H PRN (Reason: pain) 30 Days Qty: 90 0RF metformin 1,000 mg tablet 1,000 mg PO BID Qty: 180 3RF Rx Instructions: NEEDS APPT FOR ADD'L REFILLS (DME) blood-glucose meter Kit See Rx Instructions .Route Qty: 1 0RF Rx Instructions: As directed Med Marijuana 1 dose inhalation UD PRN (Reason: pain/anxiety) Patient Comments: 06/18-unable to verify midodrine 5 mg tablet 5 mg PO TID Qty: 90 0RF Rx Instructions: do not give last dose of day after 6PM or within 4 hrs of bedtime atorvastatin 40 mg tablet 0 mg PO HS Patient Comments: 06/18-last filled 01/10 90 day supply #90 aspirin 81 mg Tablet,Delayed Release (Dr/Ec) 81 mg PO QAM Qty: 30 0RF cyanocobalamin (vitamin B-12) 1,000 mcg capsule 1,000 mcg PO DAILY Qty: 30 0RF insulin glargine [Lantus Solostar U-100 Insulin] 100 unit/mL (3 mL) insulin pen 30 unit subcut HS Qty: 15 1RF (DME) OneTouch Ultra Test Strip See Rx Instructions .Route Qty: 100 5RF Rx Instructions: As directed to test blood sugar 4 times per day (DME) pen needle, diabetic 32 gauge x 5/32" needle See Rx Instructions .Route Qty: 100 3RF Rx Instructions: As directed- use once daily (DME) lancets 33 gauge misc See Rx Instructions .Route Qty: 100 5RF Rx Instructions: As directed to check sugars 4 times daily Referrals Referrals: Keesha Queen MD [Primary Care Provider] -
[2025-06-25 21:38] LABS: Hematocrit (blood only) 51.4 % (42.0-52.0); Hemoglobin 17.9 g/dL (14.0-18.0); Immature Granulocytes # (auto) 0.07 K/uL (0.01-0.20); Immature Granulocytes % (auto) 0.7 %; Mean Corpuscular Hemoglobin 31.0 pg (25.0-34.0); Mean Corpuscular Volume 88.9 fL (80.0-100.0); Platelet Count 259 K/uL (130-400); RDW Standard Deviation 43.1 fL (36.4-46.3); Red Blood Count 5.78 M/uL (4.70-6.10); White Blood Count 10.56 K/ul (4.8-10.8)
[2025-06-25 21:39] LABS: Appearance Urine Clear (Clear); Glucose Urine UA 3+ (Negative)
[2025-06-25 21:55] LABS: Alanine Aminotransferase 15.0 U/L (7-52); Albumin Globulin Ratio 1.1 (0.9-2); Albumin Level 3.8 gm/dl (3.4-5.0); Alkaline Phosphatase 85.0 U/L (34-104); Anion Gap 13.0 (3-11); Bilirubin,Total 0.9 mg/dl (0.2-1.0); Blood Urea Nitrogen 17.0 mg/dl (6-23); Calcium 9.7 mg/dl (8.6-10.3); Carbon Dioxide 23.0 mmol/L (21-32); Chloride 101.0 mmol/L (98-107); Creatinine Clr Calc Pharmacy 60.7 ml/min; Globulin 3.4 gm/dl (2.5-4.0); Glucose 271.0 mg/dl (70-99(Fasting)); Magnesium 1.9 mg/dl (1.7-2.4); Potassium 4.3 mmol/L (3.5-5.1); Sodium 137.0 mmol/L (136-145); Total Protein 7.2 gm/dl (6.0-8.3)
[2025-06-25 22:11] LABS: Thyroid Stimulating Hormone 7.453 uIu/ml (0.300-4.500)
[2025-06-25 22:23] LABS: INR 1.1 (0.9-1.1); Prothrombin Time 11.3 Seconds (9.0-12.0)
[2025-06-25 22:45] LABS: T4 Free Thyroxine 0.71 ng/dl (0.61-1.60)
--- NOTE | 2025-06-25 22:59 | History & Physical Report ---
Date of Service June 25, 2025 Assessment & Plan (1) History of CVA (cerebrovascular accident): (2) Micturition syncope: (3) Adult failure to thrive: (4) Has no electricity in home: Plan The patient is a 65-year-old male with past medical history including CVA, chronic narcotic dependence, diabetes mellitus type 2, micturition syncope, syncope and collapse, orthostatic hypotension, depression,, B12 deficiency, and lumbar degenerative disc disease with radiculopathy. He was recently admitted to [facility] from 06/18-06/20/2025 with orthostatic hypotension. He was next admitted from 06/21-06/24/2025 with micturition syncope, and was started on midodrine. Patient has had difficulty getting his medications because his electricity is shut off. He has not been able to take his insulin because of not having it refrigerated. He presents to the emergency department with inability to live at his home. In emergency department glucose was found elevated at 271, urinalysis negative, chest x-ray negative, EKG showed no acute findings and troponin was 4.1. Patient presents to the emergency department with complaint of inability to take medications due to no electricity in his home. He reports he has not had ED since he was discharged from hospital on 06/24/2025. Diabetes mellitus- Give Lantus 15 units subcu now, and reduce Lantus dosing from 30-28 SQ at bedtime starting tomorrow evening. Patient Accu-Cheks with NovoLog SSI Diabetic, heart healthy diet Patient is not able to utilize insulin at home due to not having his refrigerator work due to no electricity. Clonality dysfunction/orthostatic hypotension/micturition syncope- Continue midodrine Patient needs adequate blood sugar control Would stop bupropion due to potential aggravation of orthostasis. Hold medical marijuana Hyperlipidemia Resume atorvastatin at 10 mg at bedtime Continue aspirin Consult social media specialist regarding help for patient with electricity etc. at home in the outpatient setting History of Present Illness Primary Care Provider: Keesha Queen MD The patient is a 65-year-old male with past medical history including CVA, chronic narcotic dependence, diabetes mellitus type 2, micturition syncope, syncope and collapse, orthostatic hypotension, depression,, B12 deficiency, and lumbar degenerative disc disease with radiculopathy. He was recently admitted to [facility] from 06/18-06/20/2025 with orthostatic hypotension. He was next admitted from 06/21-06/24/2025 with micturition syncope, and was started on midodrine. Patient has had difficulty getting his medications because his electricity is shut off. He has not been able to take his insulin because of not having it refrigerated. He presents to the emergency department with inability to live at his home. In emergency department glucose was found elevated at 271, urinalysis negative, chest x-ray negative, EKG showed no acute findings and troponin was 4.1. Allergies Allergy/AdvReac Type Severity Reaction Status Date / Time dulaglutide [From [facility]] AdvReac Nausea Verified 10/17/24 09:51 Home Medications Medication Instructions Recorded Confirmed Type blood-glucose meter #1 ea 04/03/23 06/25/25 Rx Med Marijuana 1 dose inhalation UD PRN 11/12/23 06/25/25 History pain/anxiety bupropion HCl 150 mg 24 hr tablet, 150 mg PO QAM #30 tabs 04/05/25 06/25/25 Rx extended release (Wellbutrin XL) escitalopram oxalate 20 mg tablet 20 mg PO DAILY #90 tabs 04/25/25 06/25/25 Rx (Lexapro) oxycodone 20 mg tablet 20 mg PO Q8H PRN pain 30 days #90 06/08/25 06/25/25 Rx tabs metformin 1,000 mg tablet 1,000 mg PO BID #180 tabs 06/13/25 06/25/25 Rx atorvastatin 40 mg tablet 0 mg PO HS 06/18/25 06/25/25 History aspirin 81 mg tablet,delayed 81 mg PO QAM #30 tabs 06/20/25 06/25/25 Rx release blood sugar diagnostic (OneTouch #100 ea 06/20/25 06/25/25 Rx Ultra Test strips) cyanocobalamin (vitamin B-12) 1,000 mcg PO DAILY #30 caps 06/20/25 06/25/25 Rx 1,000 mcg capsule insulin glargine 100 unit/mL (3 30 unit (0.3 mL) subcut HS #15 mL 06/20/25 06/25/25 Rx mL) subcutaneous pen (Lantus Solostar U-100 Insulin) lancets 33 gauge #100 ea 06/20/25 06/25/25 Rx pen needle, diabetic 32 gauge x #100 ea 06/20/25 06/25/25 Rx 5/32" midodrine 5 mg tablet 5 mg PO TID #90 tabs 06/24/25 06/25/25 Rx Past Med/Surg History Problem List (Updated 06/25/25 @ 22:51 by Maday Estrada MD) Adult failure to thrive (Acute) History of CVA (cerebrovascular accident) Type 2 diabetes mellitus Micturition syncope Syncope and collapse (Acute) Acute hypotension (Acute) Polycythemia Chronic narcotic dependence Nodular prostate Pulmonary nodule, right Back pain Right foot pain Has no electricity in home Dizziness (Acute) Orthostatic hypotension (Acute) Chest pain (Acute) Right sided abdominal pain (Acute) Fall (Acute) Hyperglycemia (Acute) Depression 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 controlled diabetes mellitus 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 Abnormal EKG (Acute) Anxiety (Acute) Lumbar disc herniation with radiculopathy Vitamin B12 deficiency Medical History (Updated 06/25/25 @ 22:51 by Maday Estrada MD) Sleep apnea Per records Esophageal reflux Lumbar disc disease Anxiety Plantar fasciitis Hiatal hernia Hx of migraines TIA (transient ischemic attack) ~2016 Osteoarthritis Dyslipidemia Degenerative disc disease, lumbar Chronic back pain Hx of carotid stenosis s/p Left CEA (2018) Carotid duplex 03/2022: <50% SEEMA stenosis, <30% LICA restenosis s/p endarterectomy Stroke 02/2019, no residual effects Had subsequent Left CEA Surgical History (Updated 06/19/25 @ 06:13 by Dave Jaimes MD) S/P lumbar laminectomy Hx of colonoscopy Hx of hemorrhoidectomy Hx of nasal septoplasty Hx of appendectomy History of left-sided carotid endarterectomy 2018, [facility] Family History (Updated 06/18/25 @ 20:21 by Dave Jaimes MD) Father , ~age 80 Parkinson's disease Other Past medical history not known due to adoption Social History (Updated 06/18/25 @ 20:22 by Dave Jaimes MD) Smoking Status: Former smoker Tobacco Type: Cigarettes Age Started Using Tobacco: 14; Age Quit Using Tobacco: 56; packs per day: 1; Second Hand Exposure: No; Do You Dip or Chew Tobacco: No; Hx Alcohol Use: No Hx Substance Use: Yes Non-Prescribed Medications: Marijuana Last Used Substance: Days (ago) Last Used Substance Other:: 02/18 Substance Use Type Other:: Medical THC; chronic oxycodone Preferred Language: Khmer Communication Ability: Effective Mother'S Helper Required: No Beliefs That Will Affect Care: None marital status: Single Current Living Situation: Alone Current Living Situation Comment: son visits 3 times a week Other Information That Helps Us Care for You: No Feels Safe at Home: Yes Safety Concerns: Feels Safe At This Time Childhood Exposure to Second-Hand Smoke: No Diet: regular Physical Activity Frequency: Does not Exercise Seatbelt Use: sometimes Sunscreen Use: No Assistive Devices: Glasses Review of Systems Review of Systems: The patient denies chest pain, palpitations, shortness of breath, dyspnea on exertion, cough, lower extremity swelling, sore throat, fevers, chills, sweats, nausea, vomiting, diarrhea , constipation, abdominal pain, pelvic pain, blood in urine or stool, dysuria, urinary frequency or urgency, lightheadedness, dizziness, headache, memory loss, loss of consciousness, rash, abnormal bruising or bleeding, The review of systems is otherwise negative other than for that already noted above, and at least 10 systems have been reviewed. Physical Exam Physical Exam: The patient is awake, alert and oriented 3, well developed and well nourished, normocephalic and atraumatic, lying in bed and in no acute distress. HEENT--PERRL, EOMI, mucous membranes and oropharynx mildly dry. Neck--supple. No JVD. No bruits. Thyroid normal, trachea midline, no adenopathy. Heart--normal S1 and S2. No murmurs, rubs or gallops. Lungs--clear bilaterally, no respiratory distress, no accessory muscle use. Abdomen--normal bowel sounds and soft. Nontender. Nondistended, no hernias or masses, no organomegaly. Extremities--no cyanosis or clubbing. No pitting edema. There are good distal pulses b/l. Dermatologic--normal skin turgor, normal color, no abnormal lymph nodes, no rash. Neurologic--cranial nerves II through XII grossly intact. Rheumatologic--normal range of motion. Psychiatric--normal affect. Results & Data Results & Data Vital Signs (Past 12 Hours) Vital Signs Temp Pulse Resp BP Pulse Ox O2 Del Method 06/25/25 21:00 84 16 100 Room Air 06/25/25 21:00 105 H 06/25/25 20:46 36.8 C 93 H 16 106/68 98 Room Air Laboratory Results Laboratory Results WBC 10.56 K/ul (4.8-10.8) 06/25/25 21:14 RBC 5.78 M/uL (4.70-6.10) 06/25/25 21:14 Hgb 17.9 g/dL (14.0-18.0) 06/25/25 21:14 Hct 51.4 % (42.0-52.0) 06/25/25 21:14 MCV 88.9 fL (80.0-100.0) 06/25/25 21:14 MCH 31.0 pg (25.0-34.0) 06/25/25 21:14 MCHC 34.8 g/dL (32.0-36.0) 06/25/25 21:14 RDW Std Deviation 43.1 fL (36.4-46.3) 06/25/25 21:14 RDW Coeff of Soo 13.2 % (11.5-14.5) 06/25/25 21:14 Plt Count 259 K/uL (130-400) 06/25/25 21:14 MPV 9.1 fL (9.4-12.4) L 06/25/25 21:14 Immature Gran % (Auto) 0.7 % 06/25/25 21:14 Neut % (Auto) 71.3 % 06/25/25 21:14 Lymph % (Auto) 17.3 % 06/25/25 21:14 Storey % (Auto) 5.6 % 06/25/25 21:14 Eos % (Auto) 4.3 % 06/25/25 21:14 Baso % (Auto) 0.8 % 06/25/25 21:14 Neut # (Auto) 7.54 K/uL (1.40-6.50) H 06/25/25 21:14 Lymph # (Auto) 1.83 K/uL (1.20-3.40) 06/25/25 21:14 Storey # (Auto) 0.59 K/uL (0.11-0.59) 06/25/25 21:14 Eos # (Auto) 0.45 K/uL (0.00-0.50) 06/25/25 21:14 Baso # (Auto) 0.08 K/uL (0.00-0.20) 06/25/25 21:14 Immature Gran # (Auto) 0.07 K/uL (0.01-0.20) 06/25/25 21:14 PT 11.3 Seconds (9.0-12.0) 06/25/25 21:14 INR 1.1 (0.9-1.1) 06/25/25 21:14 Sodium 137 mmol/L (136-145) 06/25/25 21:14 Potassium 4.3 mmol/L (3.5-5.1) 06/25/25 21:14 Chloride 101 mmol/L (98-107) 06/25/25 21:14 Carbon Dioxide 23 mmol/L (21-32) 06/25/25 21:14 Anion Gap 13 (3-11) H 06/25/25 21:14 BUN 17 mg/dl (6-23) 06/25/25 21:14 Creatinine 1.31 mg/dl (0.6-1.4) 06/25/25 21:14 Est Cr Clr Drug Dosing 60.7 ml/min 06/25/25 21:14 eGFR 60.78 06/25/25 21:14 BUN/Creatinine Ratio 13.0 (10-20) 06/25/25 21:14 Glucose 271 mg/dl (70-99(Fasting)) H 06/25/25 21:14 POC Glucose 268 mg/dl (70-99) H 06/25/25 21:18 Calcium 9.7 mg/dl (8.6-10.3) 06/25/25 21:14 Magnesium 1.9 mg/dl (1.7-2.4) 06/25/25 21:14 Total Bilirubin 0.9 mg/dl (0.2-1.0) 06/25/25 21:14 AST 14 U/L (13-39) 06/25/25 21:14 ALT 15 U/L (7-52) 06/25/25 21:14 Alkaline Phosphatase 85 U/L (34-104) 06/25/25 21:14 Troponin I High Sens 4.1 pg/ml (0-20) 06/25/25 21:14 Total Protein 7.2 gm/dl (6.0-8.3) 06/25/25 21:14 Albumin 3.8 gm/dl (3.4-5.0) 06/25/25 21:14 Globulin 3.4 gm/dl (2.5-4.0) 06/25/25 21:14 Albumin/Globulin Ratio 1.1 (0.9-2) 06/25/25 21:14 TSH 7.453 uIu/ml (0.300-4.500) H 06/25/25 21: Free T4 0.71 ng/dl (0.61-1.60) 06/25/25 21: Urine Color Yellow 06/25/25 21: Urine Appearance Clear (Clear) 06/25/25 21: Urine pH 7.0 (4.5-7.5) 06/25/25 21: Ur Specific [place] 1.021 (1.000-1.030) 06/25/25 21: Urine Protein Negative (Negative) 06/25/25 21: Urine Glucose (UA) 3+ (Negative) H 06/25/25 21: Urine Ketones Trace (Negative) H 06/25/25: Urine Blood Negative (Negative) 06/25/25: Urine Nitrite Negative (Negative) 06/25/25 21: Urine Bilirubin Negative (Negative) 06/25/25 21: Urine Urobilinogen Negative (Negative) 06/25/25: Ur Leukocyte Esterase Negative (Negative) 06/25/25: Urine Comment 06/25/25 21:27 Impressions Chest X-Ray 06/25/25 22:10 Exam(s): XR CXR 1 VIEW EXAM: XR Chest, 1 View CLINICAL HISTORY: Reason for exam: cough; chest pain. TECHNIQUE: Frontal view of the chest. COMPARISON: Chest x-ray from June 21, 2025. FINDINGS: Lungs: Mild to moderate peribronchial thickening of the central and lower lobe bronchi with increased interstitial opacities in the right lower lobe. No consolidation. Pleural space: Unremarkable. No pneumothorax. Heart: Unremarkable. No cardiomegaly. Mediastinum: Unremarkable. Normal mediastinal contour. Bones/joints: Unremarkable. No acute fracture. IMPRESSION: Bronchitis, which may be of infectious or inflammatory etiologies. No consolidation or pleural effusion. Electronically signed by: Laney Stack MD 06/26/25 01:07 AM Code Status & VTE Plan Code Status Full code VTE Prophylaxis Plan VTE Prophylaxis will be ordered: Yes PG Care Time/CCT Total # of Minutes Spent Total Time Spent with Patient: Total time spent is greater than 50% in coordination of care (as documented) at patient's floor/unit and/or counseling patient: Coding Level of Care Code 80063 INT INP/OBS CARE 3/75MIN Diagnoses History of CVA (cerebrovascular accident) Z86.73 Micturition syncope R55 Adult failure to thrive R62.7 Has no electricity in home Z59.12
[2025-06-25] MEDS: LANTUS PER UNIT CHARGE SQ STA (23:31)
--- NOTE | 2025-06-26 01:08 | XRay Report ---
Exam(s): XR CXR 1 VIEW EXAM: XR Chest, 1 View CLINICAL HISTORY: Reason for exam: cough; chest pain. TECHNIQUE: Frontal view of the chest. COMPARISON: Chest x-ray from June 21, 2025. FINDINGS: Lungs: Mild to moderate peribronchial thickening of the central and lower lobe bronchi with increased interstitial opacities in the right lower lobe. No consolidation. Pleural space: Unremarkable. No pneumothorax. Heart: Unremarkable. No cardiomegaly. Mediastinum: Unremarkable. Normal mediastinal contour. Bones/joints: Unremarkable. No acute fracture. IMPRESSION: Bronchitis, which may be of infectious or inflammatory etiologies. No consolidation or pleural effusion. Electronically signed by: Laney Stack MD 06/26/25 01:07 AM
[2025-06-26] MEDS ORDERED: ACETAMINOPHEN 325 MG TAB PO PRN (01:26)
[2025-06-26] MEDS ORDERED: GLUCOSE 10 TAB/TUBE PO PRN (01:26)
[2025-06-26] MEDS ORDERED: DEXTROSE 50% 50 ML SYRINGE IV PRN (01:26)
[2025-06-26] MEDS ORDERED: CARBOHYDRATES FOR HYPOGLYCEMIA PO PRN (01:26)
[2025-06-26] MEDS ORDERED: GLUCOSE 40% GEL 15 GM TUBE PO PRN (01:26)
[2025-06-26] MEDS ORDERED: GLUCAGON FOR INJ 1 MG VIAL SQ PRN (01:26)
[2025-06-26 06:45] LABS: Albumin Level 3.6 gm/dl (3.4-5.0); Anion Gap 8.0 (3-11); Blood Urea Nitrogen 24.0 mg/dl (6-23); Calcium 8.6 mg/dl (8.6-10.3); Carbon Dioxide 27.0 mmol/L (21-32); Chloride 97.0 mmol/L (98-107); Creatinine Clr Calc Pharmacy 52.8 ml/min; Glucose 243.0 mg/dl (70-99(Fasting)); Magnesium 1.8 mg/dl (1.7-2.4); Potassium 4.1 mmol/L (3.5-5.1); Sodium 132.0 mmol/L (136-145)
[2025-06-26 07:47] LABS: Hemoglobin A1C 10.6 % (4.5-5.6)
[2025-06-26] MEDS: MIDODRINE HCL 2.5 MG TAB PO SCH (09:22)
[2025-06-26] MEDS: CYANOCOBALAMIN (B-12) 500 MCG TABLET PO SCH (09:22)
[2025-06-26] MEDS: ESCITALOPRAM OXALATE 20 MG TAB PO SCH (09:23)
[2025-06-26] MEDS: ASPIRIN 81 MG ECTAB PO SCH (09:23)
[2025-06-26] MEDS: INSULIN ASPART PER UNIT CHARGE SC SCH (09:30)
--- NOTE | 2025-06-26 09:58 | Electrocardiogram Report ---
Test Reason : Blood Pressure : */* mmHG Vent. Rate : 79 BPM Atrial Rate : 79 BPM P-R Int : 174 ms QRS Dur : 74 ms QT Int : 384 ms P-R-T Axes : 69 -70 55 degrees QTcB Int : 440 ms Normal sinus rhythm Left axis deviation Inferior infarct (cited on or before 20-Feb-2024) Possible Anterior infarct (cited on or before 18-Jun-2025) Abnormal ECG When compared with ECG of 21-Jun-2025 12:23, Premature ventricular complexes are no longer Present Confirmed by Ronal Stubbs ([id number]) on 06/26/2025 9:58:11 AM Referred By: REFERRED SELF Confirmed By: Ronal Stubbs
--- NOTE | 2025-06-26 17:31 | Hospitalist Progress Note ---
Date of Service June 26, 2025 Assessment & Plan (1) History of CVA (cerebrovascular accident): (2) Micturition syncope: (3) Adult failure to thrive: (4) Has no electricity in home: Plan The patient is a 65-year-old male with past medical history including CVA, chronic narcotic dependence, diabetes mellitus type 2, micturition syncope, syncope and collapse, orthostatic hypotension, depression,, B12 deficiency, and lumbar degenerative disc disease with radiculopathy. He was recently admitted to [facility] from 06/18-06/20/2025 with orthostatic hypotension. He was next admitted from 06/21-06/24/2025 with micturition syncope, and was started on midodrine. Patient has had difficulty getting his medications because his electricity is shut off. He has not been able to take his insulin because of not having it refrigerated. He presents to the emergency department with inability to live at his home. In emergency department glucose was found elevated at 271, urinalysis negative, chest x-ray negative, EKG showed no acute findings and troponin was 4.1. Adult failure to thrive Patient presents to the emergency department with complaint of inability to take medications due to no electricity in his home. He reports he has not had electricity since he was discharged from hospital on 06/24/2025. #Diabetes mellitus A1c remains elevated at 10.6% on 06/26/2025 Lantus 30 SQ HS while inpatient Patient Accu-Cheks with NovoLog SSI Diabetic, heart healthy diet Patient is not able to utilize insulin at home due to not having his refrigerator work due to no electricity If unable to resolve electricity issue, could trial p.o. diabetic medications Patient has had adverse reactions to Trulicity in the past (GLP-1's) Could trial glipizide 4 mg p.o. daily (however, patient reports he has been on this in the past; unable to find records of this) Do feel that patient's diabetes will be better controlled with lifestyle modifications #Clonality dysfunction/orthostatic hypotension/micturition syncope Continue midodrine Patient needs adequate blood sugar control New Rx for OneTouch Ultra2 Meter on d/c Would stop bupropion due to potential aggravation of orthostasis Hold medical marijuana #Hyperlipidemia Resume atorvastatin at 10 mg at bedtime Continue aspirin Disposition: Complex social situation due to lack of home support; patient lives by himself; ultimately, he was informed that he will need to make lifestyle modifications if he wishes to control his diabetes; however, current guidelines with A1c elevated at 10.6% suggest that he remain on insulin; patient reports failure of Trulicity (GLP-1) due to adverse effect, and reports he has been tried on sulfonylureas in the past (however still looking into prior history); at this time, it is unclear if p.o. medications would be an option, and current medical guidelines recommend that the patient continue on insulin until A1c is <9.0%; working with case management to assist with refrigeration issues at home Admission and Anticipated Discharge Date Admission Date: June 25, 2025 Supervising Physician Co-Signing Physician Notes I did not see or examine the patient. I verified all dickson points and agree with Kaiden Adler PA-C with the following exceptions and/or additions: None Subjective Mr. Cobos is in a good state of health at this time, but has concerns about returning home due to his current living situation. He expresses that he does not feel safe to return home at this time. Patient lives alone in a trailer in [place]. He has been living without electricity, and reports his trailer is currently 34 F due to no heating. Patient's son lives 2 blocks away, but patient has had multiple syncopal episodes at home, and has concerns that if he were to fall at home and unable to get up, he would not have any bed available to help him. He does have his phone available, but without electricity, he is concerned about his phone dying. Patient reports he owes $4000 to his current electricity company ([employer]); they reportedly will turn back on his electricity if he pays $2600. Patient tried to reach out to outpatient case management, but reports he was unable to get a hold of them. His concern is that without his electricity, he is unable to keep his insulin refrigerated. In regard to prior diabetic medications, he has been on Trulicity in the past, but had an adverse reaction to this medication (nausea/vomiting/GI discomfort), and stopped in December 2021. Patient does take metformin twice daily, and reports he was on another pill "a small red pill" as an adjunct, but is not sure if this was glipizide. Patient does not have a car, and reports he is unable to drive or get rides to the library or bank for additional support/electricity. No fevers at home; no sick contacts. Additionally, he reports he has pain "everywhere" due to arthritis. Patient takes oxycodone at home for his pain. ROS: Patient endorses chills at home, lightheadedness, and BAEZ while walking around in his trailer. Patient denies fevers, night sweats, chest pain, chest palpitations, cough, abdominal pain, N/V/D, or changes in urinary/bowel habits. Review of Systems Review of Systems: See HPI above Physical Exam Physical Exam: General: no acute distress; non-toxic appearing; cooperative; SpO2 96% on RA HEENT: normocephalic, atraumatic; PERRLA; vision and hearing intact Neck: supple; trachea midline Skin: warm, dry without signs of tenting; no cyanosis; no rashes, bruising, lesions, or erythema noted CV: chest wall NTP; RRR; S1/S2 normal; no murmurs/rubs/gallops; pulses intact and symmetric at radial, DP, and PT Lungs: no acute respiratory distress; symmetrical chest wall expansion; clear breath sounds across all lung escobar w/o adventitious sounds; no wheezing ABD: Soft, NTP; BS present; no rebound/guarding; no distention MSK: no tics or fasciculations; no edema noted in the LEs b/l, nonerythematous Neuro: A&Ox3; normal mood and affect; fluent speech; sensation intact and symmetric in the LEs b/l Results & Data Results & Data Vital Signs (Past 12 Hours) Vital Signs Temp Pulse Resp BP Pulse Ox O2 Del Method 06/26/25 15:52 36.8 C 70 19 98/66 L 96 Room Air 06/26/25 09:30 Room Air 06/26/25 07:25 37.3 C 68 20 105/68 98 Room Air PG Care Time/CCT Total # of Minutes Spent Total Time Spent with Patient: Total time spent is greater than 50% in coordination of care (as documented) at patient's floor/unit and/or counseling patient: Coding [place] [address] SUB INP/OBS CARE 3/50MIN Patient Type Established Medical Decision Making High Complexity Diagnoses History of CVA (cerebrovascular accident) Z86.73 Micturition syncope R55 Adult failure to thrive R62.7 Has no electricity in home Z59.12
[2025-06-26] MEDS: ATORVASTATIN 10 MG TAB PO SCH (21:37)
[2025-06-26] MEDS: LANTUS PER UNIT CHARGE SQ SCH (21:39)
[2025-06-27 06:59] LABS: Albumin Level 3.7 gm/dl (3.4-5.0); Anion Gap 8.0 (3-11); Blood Urea Nitrogen 29.0 mg/dl (6-23); Calcium 8.4 mg/dl (8.6-10.3); Carbon Dioxide 27.0 mmol/L (21-32); Chloride 101.0 mmol/L (98-107); Creatinine Clr Calc Pharmacy 59.3 ml/min; Glucose 176.0 mg/dl (70-99(Fasting)); Magnesium 2.0 mg/dl (1.7-2.4); Potassium 4.2 mmol/L (3.5-5.1); Sodium 136.0 mmol/L (136-145)
[2025-06-27] MEDS ORDERED: DICLOFENAC SOD 1% GEL 100 GM TUBE EXT PRN (14:17)
[2025-06-27] MEDS: DICLOFENAC SOD 1% GEL 100 GM TUBE EXT STA (15:03)
--- NOTE | 2025-06-27 16:08 | Hospitalist Progress Note ---
Date of Service June 27, 2025 Assessment & Plan (1) History of CVA (cerebrovascular accident): (2) Micturition syncope: (3) Adult failure to thrive: (4) Has no electricity in home: Plan The patient is a 65-year-old male with past medical history including CVA, chronic narcotic dependence, diabetes mellitus type 2, micturition syncope, syncope and collapse, orthostatic hypotension, depression,, B12 deficiency, and lumbar degenerative disc disease with radiculopathy. He was recently admitted to [facility] from 06/18-06/20/2025 with orthostatic hypotension. He was next admitted from 06/21-06/24/2025 with micturition syncope, and was started on midodrine. Patient has had difficulty getting his medications because his electricity is shut off. He has not been able to take his insulin because of not having it refrigerated. He presents to the emergency department with inability to live at his home. In emergency department glucose was found elevated at 271, urinalysis negative, chest x-ray negative, EKG showed no acute findings and troponin was 4.1. #Adult failure to thrive Patient presented to the ED with complaint of inability to take medications due to no electricity in his home Additionally he reports lack of funds at this time for insulin Electricity has been out since discharge on 06/24 CM touched base with PCPs office (Dr. Queen) who sent and request to maintain power so that his insulin can be refrigerated Additional paperwork filled out on 06/27 #Diabetes mellitus A1c remains elevated at 10.6% on 06/26/2025 Lantus 30 SQ HS while inpatient Patient Accu-Cheks with NovoLog SSI Diabetic, heart healthy diet Patient is not able to utilize insulin at home due to lack of electricity/refrigeration While patient's electricity issue should be resolved on 06/28, would recommend trialing p.o. diabetic medications (glipizide) should he run into issues again Patient has had adverse reactions to Trulicity in the past (GLP-1's) Do feel that patient's diabetes will be better controlled with lifestyle mo difications; explained this to patient #Clonality dysfunction/orthostatic hypotension/micturition syncope Continue midodrine Patient needs adequate blood sugar control New Rx for OneTouch Ultra2 Meter on d/c Would stop bupropion due to potential aggravation of orthostasis Hold medical marijuana #Hyperlipidemia Resume atorvastatin at 10 mg at bedtime Continue aspirin Disposition: Continued stay on MedSurg; planned discharge the morning of 06/28 Admission and Anticipated Discharge Date Admission Date: June 25, 2025 Supervising Physician Co-Signing Physician Notes I did not see or examine the patient. I verified all dickson points and agree with Kaiden Adler PA-C with the following exceptions and/or additions: None Subjective Mr. Cobos is in good spirits this afternoon, as he was able to get a hold of his power [employer]. They reported they we will be able to turn back on his power tomorrow if he is able to play $220. Patient will not have money available for prescriptions or power at home until tomorrow when he gets paid. He is requesting an additional night in the hospital, as he does not feel safe to return home at this time; reasons listed: lack of heating in his trailer, lack of refrigeration for his insulin, currently out of insulin and unable to pay for any prescription today due to lack of funds). ROS: Patient endorses upper back pain and joint pain (which he attributes to arthritis). Patient denies fever, chills, chest pain, chest rotations, SOB, cough, abdominal pain, N/V/D, or changes in urinary/bowel habits. Review of Systems Review of Systems: See HPI above Physical Exam Physical Exam: General: no acute distress; non-toxic appearing; cooperative; SpO2 94% on RA HEENT: normocephalic, atraumatic; PERRLA; vision and hearing intact Neck: supple; trachea midline Skin: warm, dry without signs of tenting; no cyanosis; no rashes, bruising, lesions, or erythema noted CV: chest wall NTP; RRR; S1/S2 normal; no murmurs/rubs/gallops; pulses intact and symmetric at radial, DP, and PT Lungs: no acute respiratory distress; symmetrical chest wall expansion; clear breath sounds across all lung escobar w/o adventitious sounds; no wheezing ABD: Soft, NTP; BS present; no rebound/guarding; no distention MSK: no tics or fasciculations; no edema noted in the LEs b/l, nonerythematous Neuro: A&Ox3; normal mood and affect; fluent speech; sensation intact and symmetric in the LEs b/l Results & Data Results & Data Vital Signs (Past 12 Hours) Vital Signs Temp Pulse Resp BP Pulse Ox O2 Del Method 06/27/25 15:20 36.6 C 57 L 18 109/76 94 Room Air 06/27/25 08:49 37.1 C 68 18 92/56 L 95 Room Air PG Care Time/CCT Total # of Minutes Spent Total Time Spent with Patient: Total time spent is greater than 50% in coordination of care (as documented) at patient's floor/unit and/or counseling patient: Coding [place] [address] SUB INP/OBS CARE 08/20MIN Patient Type Established Medical Decision Making Low Complexity Diagnoses History of CVA (cerebrovascular accident) Z86.73 Micturition syncope R55 Adult failure to thrive R62.7 Has no electricity in home Z59.12
[2025-06-28 07:03] LABS: Albumin Level 3.8 gm/dl (3.4-5.0); Anion Gap 8.0 (3-11); Blood Urea Nitrogen 26.0 mg/dl (6-23); Calcium 8.8 mg/dl (8.6-10.3); Carbon Dioxide 27.0 mmol/L (21-32); Chloride 102.0 mmol/L (98-107); Creatinine Clr Calc Pharmacy 68.2 ml/min; Glucose 192.0 mg/dl (70-99(Fasting)); Magnesium 1.8 mg/dl (1.7-2.4); Potassium 4.4 mmol/L (3.5-5.1); Sodium 137.0 mmol/L (136-145)
[2025-06-28 07:14] VITALS: BP 93/60; PULSE 76; RESP 18; TEMP 98.2; O2SAT 94
--- NOTE | 2025-06-28 07:45 | Discharge Summary ---
Discharge Summary Date of Service June 28, 2025 Principal Dx & Hospital Course #1 = Principal Diagnosis (1) Adult failure to thrive: (2) Has no electricity in home: (3) Uncontrolled diabetes mellitus with hyperglycemia, with long-term current use of insulin: (4) History of CVA (cerebrovascular accident): (5) Micturition syncope: Plan The patient is a 65-year-old male with past medical history including CVA, chronic narcotic dependence, diabetes mellitus type 2, micturition syncope, syncope and collapse, orthostatic hypotension, depression,, B12 deficiency, and lumbar degenerative disc disease with radiculopathy. He was recently admitted to [facility] from 06/18-06/20/2025 with orthostatic hypotension. He was next admitted from 06/21-06/24/2025 with micturition syncope, and was started on midodrine. Patient has had difficulty getting his medications because his electricity is shut off. He has not been able to take his insulin because of not having it refrigerated. He presents to the emergency department with inability to live at his home. In emergency department glucose was found elevated at 271, urinalysis negative, chest x-ray negative, EKG showed no acute findings and troponin was 4.1. #Adult failure to thrive | no electricity at home Patient presented to the ED with primary complaint of inability to take medications (insulin) due to cost/no electricity in his home Electricity had been out since discharge on 06/24 CM touched base with PCPs office, who reportedly sent in a request to maintain power so that his insulin can be refrigerated Additional paperwork filled out / faxed to [employer] on 06/27 Case management consult appreciated; he was provided multiple resources prior to discharge: Connected with Ambulatory rn case manager (Miriam) Provided info on [employer] programs Provided info on [employer] 16[facility] as a local resource Provided info on [employer] to help with electricity costs Provided application for [facility] financial assistance Additionally, he reported he lack the funds at home to afford insulin at times # Uncontrolled diabetes mellitus A1c remains elevated at 10.6% on 06/26/2025 Lantus 30 SQ HS while inpatient Patient Accu-Cheks with NovoLog SSI Diabetic, heart healthy diet Patient is not able to utilize insulin at home due to lack of electricity/refrigeration While patient's electricity issue should be resolved on 06/28, would recommend trialing p.o. diabetic medications (glipizide) should he run into issues again Patient has had adverse reactions to Trulicity in the past (GLP-1's) Do feel that patient's diabetes will be better controlled with lifestyle modifications; explained this to patient #Clonality dysfunction| orthostatic hypotension| micturition syncope Per review of recent admissions Continue midodrine Patient needs adequate blood sugar control New Rx for OneTouch Ultra2 Meter on d/c Bupropion to remain on hold due to potential aggravation of orthostasis #Hyperlipidemia Resume atorvastatin at 10 mg at bedtime Continue aspirin #Chronic narcotic dependence | chronic back pain | arthritic pain Verified with the PDMP that the current oxycodone dosing is correct Provided education regarding long-term opioid use Patient told he should never drive or operate heavy machinery while taking this medication New prescription for Voltaren gel upon discharge for additional pain control Day of discharge 06/28: Patient is mildly hypotensive at 93/60 the morning of discharge; vitals ot herwise stable. Patient is in good spirits this morning. He had some difficulty sleeping last night, as well as some right knee pain, but is otherwise asymptomatic. We spent a long time chatting about different backup options should he run into issues with ability to afford / keep insulin refrigerated. Patient appreciative of conversation; after having some additional conversations with , insurance company, and [employer], he feels like you will be able to cover the Lantus moving forward. Overall, he feels ready to go home today. Disposition: Discharge home Notes For Next Care Provider Patient hospitalized due to failure to thrive. He had a number of concerns which brought him back to the hospital, but primarily, he had difficulty controlling his diabetes and his current living situation. This boiled down to (1) financial concerns with inability to afford insulin, and (2) lack of power at his house leading to inability to refrigerate insulin. Resources were provided to the patient during the course of his hospital stay. Eventually, patient was able to get a hold of the [employer] and work out a deal. He reports he will have additional funds coming in on Thursday 06/28, and should be able to afford insulin at this time. Diabetic education provided in the hospital, as well as strategies for how to sort these problems if they are to come up again. New Rx for OneTouch Ultra2 Meter + Voltaren gel (for arthritis) on d/c. Admission HPI Per Admitting Provider The patient is a 65-year-old male with past medical history including CVA, chronic narcotic dependence, diabetes mellitus type 2, micturition syncope, syncope and collapse, orthostatic hypotension, depression,, B12 deficiency, and lumbar degenerative disc disease with radiculopathy. He was recently admitted to [facility] from 06/18-06/20/2025 with orthostatic hypotension. He was next admitted from 06/21-06/24/2025 with micturition syncope, and was started on midodrine. Patient has had difficulty getting his medications because his e lectricity is shut off. He has not been able to take his insulin because of not having it refrigerated. He presents to the emergency department with inability to live at his home. In emergency department glucose was found elevated at 271, urinalysis negative, chest x-ray negative, EKG showed no acute findings and troponin was 4.1. Admission Exam Per Admitting Provider The patient is awake, alert and oriented 3, well developed and well nourished, normocephalic and atraumatic, lying in bed and in no acute distress. HEENT--PERRL, EOMI, mucous membranes and oropharynx mildly dry. Neck--supple. No JVD. No bruits. Thyroid normal, trachea midline, no adenopathy. Heart--normal S1 and S2. No murmurs, rubs or gallops. Lungs--clear bilaterally, no respiratory distress, no accessory muscle use. Abdomen--normal bowel sounds and soft. Nontender. Nondistended, no hernias or masses, no organomegaly. Extremities--no cyanosis or clubbing. No pitting edema. There are good distal pulses b/l. Dermatologic--normal skin turgor, normal color, no abnormal lymph nodes, no rash. Neurologic--cranial nerves II through XII grossly intact. Rheumatologic--normal range of motion. Psychiatric--normal affect. Discharge Exam General: no acute distress; laying in bed watching TV; non-toxic appearing; cooperative; SpO2 94% on RA HEENT: normocephalic, atraumatic; PERRLA; vision and hearing intact Neck: supple; trachea midline Skin: warm, dry without signs of tenting; no cyanosis; no rashes, bruising, lesions, or erythema noted CV: chest wall NTP; RRR; S1/S2 normal; no murmurs/rubs/gallops; pulses intact and symmetric at radial, DP, and PT Lungs: no acute respiratory distress; symmetrical chest wall expansion; clear breath sounds across all lung escobar w/o adventitious sounds; no wheezing ABD: Soft, NTP; BS present; no rebound/guarding; no distention MSK: no tics or fasciculations; no edema noted in the LEs b/l, nonerythematous Neuro: A&Ox3; normal mood and affect; fluent speech; sensation intact and symmetric in the LEs b/l Discharge Plan Discharge Items Patient Disposition: Home - Self-Care Reason For Visit: AUTONOMIC DYSFUNCTION,FTT,HYPERGLYCEMIA IN DM, Discharge Diagnosis: Failure to thrive, type 2 diabetes Condition on Discharge: Fair Activity: Resume your previous activity Non-emergency contact: Primary Care Provider Call non-emergency contact if: you have any medication questions Follow-up/Referrals: Keesha Queen MD [Primary Care Provider] - Diet: Carb Consistent or DM2 Addtl Attending Provider Instructions: You were hospitalized at [facility] from 06/25 to 06/28 due to failure to thrive at home. While you were recently discharged on 06/24, you return to the hospital due to concerns regarding insulin use in the setting of diabetes. You reported that your home was without power, and that you were unab le to keep your insulin refrigerated. Additionally, you reported lack of funds for insulin, but reported you receive funds on Thursday 06/28. During the course of your hospital stay, we did touch base with our case management team, who faxed information to [employer] on your behalf. Given you were able to sort out the electricity issue with your power company, we feel that you are safe to return home at this time. New prescriptions on discharge: OneTouch Ultra2 Meter Insulin glargine ("Lantus" or long-acting insulin) has been refilled Please take 30 units at nighttime Diclofenac 1% topical gel ("Voltaren gel") to be applied to your joints up to twice daily as needed for arthritic pain Our case management team has provided you with a number of resources should you lose electricity/refrigeration again, or run into financial issues with ability to afford insulin. CURRENT HOME DIABETES MEDS: Metformin 1000mg BID Lantus 30 units at night time If you are unable to afford your Lantus insulin, or have issues with electricity/refrigeration again in the future, it is recommend that you reach out to your PCP. Possible options if you are unable to afford insulin as it currently stands would be: (1) Switching from Lantus to a diabetic medication/pill called a sulfonylurea (the most affordable medication within this drug class is called "glipizide", but you should not take glipizide at the same time as insulin as this can lead to acute drops in sugar levels). We would prefer you to remain on insulin if you can afford it, as this is the best option for decreasing your A1c. (2) Look into [id number] 70/30 insulin, such as with the [facility] insulin program at [facility]. 70/30 insulin is a intermediate acting insulin that is taken every 12 hours (thus it falls between short acting and long-acting insulin). This would require adjustments to your current insulin regimen, and should not be done without consulting your PCP first. (3) Apply for financial assistance programs, either through [facility], or through programs that have partnered with the [place] [employer] ([employer]), such as [email or web address]. Other medication changes: Please hold your current medication called bupropion until you are seen by your PCP for follow-up, as this medication can contribute to orthostas is/lightheadedness/falls. Please plan to follow-up with your PCP in the next 7 to 10 days for transitional care appointment If you develop any new or worsening symptoms, such as fever, chills, chest pain, trouble breathing, abdominal pain, confusion, or intractable nausea or vomiting, please return to the emergency department immediately. It was a pleasure taking care of you. Please reach out with any questions or concerns. Sincerely, The Hospital medicine team at [facility] Pending Studies at Discharge: No Stand-Alone Forms: My [facility] Medications and DC Order Prescriptions: New (DME) blood-glucose meter [OneTouch Ultra2 Meter] Misc See Rx Instructions .Route Qty: 1 0RF Rx Instructions: As directed diclofenac sodium [Voltaren Arthritis Pain] 1 % Gel 2 g EXT BID PRN (Reason: Arthritic joint pain) Qty: 50 0RF Rx Instructions: Apply 2 g to your joints twice daily as needed for arthritic pain Continued escitalopram oxalate [Lexapro] 20 mg tablet 20 mg PO DAILY Qty: 90 3RF oxycodone 20 mg tablet 20 mg PO Q8H PRN (Reason: pain) 30 Days Qty: 90 0RF metformin 1,000 mg tablet 1,000 mg PO BID Qty: 180 3RF Rx Instructions: NEEDS APPT FOR ADD'L REFILLS (DME) blood-glucose meter Kit See Rx Instructions .Route Qty: 1 0RF Rx Instructions: As directed Med Marijuana 1 dose inhalation UD PRN (Reason: pain/anxiety) Patient Comments: 06/18-unable to verify midodrine 5 mg tablet 5 mg PO TID Qty: 90 0RF Rx Instructions: do not give last dose of day after 6PM or within 4 hrs of bedtime atorvastatin 40 mg tablet 0 mg PO HS Patient Comments: 06/18-last filled 01/10 90 day supply #90 aspirin 81 mg Tablet,Delayed Release (Dr/Ec) 81 mg PO QAM Qty: 30 0RF cyanocobalamin (vitamin B-12) 1,000 mcg capsule 1,000 mcg PO DAILY Qty: 30 0RF (DME) OneTouch Ultra Test Strip See Rx Instructions .Route Qty: 100 5RF Rx Instructions: As directed to test blood sugar 4 times per day (DME) pen needle, diabetic 32 gauge x 5/32" needle See Rx Instructions .Route Qty: 100 3RF Rx Instructions: As directed- use once daily (DME) lancets 33 gauge misc See Rx Instructions .Route Qty: 100 5RF Rx Instructions: As directed to check sugars 4 times daily insulin glargine [Lantus Solostar U-100 Insulin] 100 unit/mL (3 mL) insulin pen 30 unit subcut HS Qty: 15 1RF Held bupropion HCl [Wellbutrin XL] 150 mg tablet extended release 24 hr 150 mg PO QAM Qty: 30 2RF Hold Instructions: Resume on 07/12/25. Hold until seen by PCP for follow-up Discharge Orders: Discharge Order (Routine); Ordered 06/28/25 Ordered By: Kaiden Figueroa/Other Patient Handouts: Managing Type 2 Diabetes, Managing Diabetes: The A1C Test Admission Data Admit Date/Time: 06/25/25 22:57 Attending Provider: Dave Jaimes Admit Provider: Pascual Boyd Primary Care Provider: Keesha Queen Other Providers: Pascual Boyd Hospital Stay Data Consultations 06/25/25 22:44 ED Decision to Admit Stat Pending Results Patient Have Any Pending Studies at Discharge: No Discharge Instructions Given to Patient (Per Discharging Provider) You were hospitalized at [facility] from 06/25 to 06/28 due to failure to thrive at home. While you were recently discharged on 06/24, you return to the hospital due to concerns regarding insulin use in the setting of diabetes. You reported that your home was without power, and that you were unable to keep your insulin refrigerated. Additionally, you reported lack of funds for insulin, but reported you receive funds on Thursday 06/28. During the course of your hospital stay, we did touch base with our case management team, who faxed information to [employer] on your behalf. Given you were able to sort out the electricity issue with your power company, we feel that you are safe to return home at this time. New prescriptions on discharge: OneTouch Ultra2 Meter Insulin glargine ("Lantus" or long-acting insulin) has been refilled Please take 30 units at nighttime Diclofenac 1% topical gel ("Voltaren gel") to be applied to your joints up to twice daily as needed for arthritic pain Our case management team has provided you with a number of resources should you lose electricity/refrigeration again, or run into financial issues with ability to afford insulin. CURRENT HOME DIABETES MEDS: Metformin 1000mg BID Lantus 30 units at night time If you are unable to afford your Lantus insulin, or have issues with electricity/refrigeration again in the future, it is recommend that you reach out to your PCP. Possible options if you are unable to afford insulin as it currently stands would be: (1) Switching from Lantus to a diabetic medication/pill called a sulfonylurea (the most affordable medication within this drug class is called "glipizide", but you should not take glipizide at the same time as insulin as this can lead to acute drops in sugar levels). We would prefer you to remain on insulin if you can afford it, as this is the best option for decreasing your A1c. (2) Look into [id number] 70/30 insulin, such as with the [facility] insulin program at [facility]. 70/30 insulin is a intermediate acting insulin that is taken every 12 hours (thus it falls between short acting and long-acting insulin). This would require adjustments to your current insulin regimen, and should not be done without consulting your PCP first. (3) Apply for financial assistance programs, either through [facility], or through programs that have partnered with the [place] [employer] (ADA), such as [email or web address]. Other medication changes: Please hold your current medication called bupropion until you are seen by your PCP for follow-up, as this medication can contribute to orthostasis/lightheadedness/falls. Please plan to follow-up with your PCP in the next 7 to 10 days for transitional care appointment If you develop any new or worsening symptoms, such as fever, chills, chest pain, trouble breathing, abdominal pain, confusion, or intractable nausea or vomiting, please return to the emergency department immediately. It was a pleasure taking care of you. Please reach out with any questions or concerns. Sincerely, The Hospital medicine team at [facility] Total Time Total Time Spent Total Time Spent (In Minutes): 25 Coding Level of Care Code 60487 IN/OBS DISCH 30 MIN/LESS Diagnoses Adult failure to thrive R62.7 Has no electricity in home Z59.12 Uncontrolled diabetes mellitus with hyperglycemia, with long-term current use of insulin E11.65; Z79.4 History of CVA (cerebrovascular accident) Z86.73 Micturition syncope R55
== END 2025-06-28 11:18 | disposition home or self-care (01) ==
LOC: ED 20:54 → 3E 20:54 → SUATTDRO 22:57 → 3E 06-26 01:08
DX: E78.5 Hyperlipidemia, unspecified; R55 Syncope and collapse; Z79.84 Long term (current) use of oral hypoglycemic drugs; Z79.4 Long term (current) use of insulin; Z88.8 Allergy status to other drugs, medicaments and biological substances; E11.65 Type 2 diabetes mellitus with hyperglycemia; Z86.73 Personal history of transient ischemic attack (TIA), and cerebral infarction without residual deficits; R62.7 Adult failure to thrive; Z79.82 Long term (current) use of aspirin; Z59.12 Inadequate housing utilities; Z87.891 Personal history of nicotine dependence; Z79.899 Other long term (current) drug therapy